=== PATIENT | female | born 1965 | race Caucasian/White ===

== ENCOUNTER → 2019-02-09 | Outpatient (CLI) | payer BC, SELFPAY ==
[2019-02-09 17:48] LABS: Anion Gap 6 (5-15); BUN 11 mg/dL (7-18); BUN/Creat Ratio 13.8 RATIO (10-20); Calcium,Total 8.9 mg/dL (8.5-10.1); Chloride 109 mmol/L (98-107); Cholesterol 204 mg/dL (200); EST Glomerular Filtration Rate 81 mL/min (>60); Est Glom Filt Rate - Afr Amer 97 mL/min (>60); Glucose 83 mg/dL (74-106); High Density Lipoprotein 42 mg/dL; Potassium 3.7 mmol/L (3.5-5.1); Sodium Level 140 mmol/L (136-145); Triglycerides 174 mg/dL; Very Low Density Lipoprotein 35 mg/dL (5-40)
== END | disposition home or self-care (01) ==
PROVIDERS: Family Provider Family Medicine; PCP Family Medicine; Visit Provider Family Medicine
DX: I10 Essential (primary) hypertension (principal)
CPT/HCPCS: 36415; 80048; 80061

== ENCOUNTER → 2019-09-05 | Outpatient (CLI) | payer BC, SELFPAY ==
[2019-09-05 12:01] LABS: Anion Gap 4 (5-15); BUN 16 mg/dL (7-18); BUN/Creat Ratio 19.6 RATIO (10-20); Calcium,Total 8.9 mg/dL (8.5-10.1); Chloride 109 mmol/L (98-107); Cholesterol 217 mg/dL (200); Creatinine, Serum 0.82 mg/dL (0.55-1.02); EST Glomerular Filtration Rate 78 mL/min (>60); Est Glom Filt Rate - Afr Amer 94 mL/min (>60); Glucose 104 mg/dL (74-106); High Density Lipoprotein 40 mg/dL; Potassium 4.6 mmol/L (3.5-5.1); Sodium Level 139 mmol/L (136-145); Triglycerides 128 mg/dL; Very Low Density Lipoprotein 26 mg/dL (5-40)
[2019-09-07 16:07] LABS: Endomysial Antibody IgA Negative (Negative)
[2019-09-07 18:50] LABS: Immunoglobulin A 242 mg/dL (87-352); t-Transglutaminase IgA <2 U/mL (0-3)
== END | disposition home or self-care (01) ==
LOC: LAB 10:23
PROVIDERS: Family Provider Family Medicine; PCP Family Medicine; Referring Provider Family Medicine; Visit Provider Family Medicine
DX: I10 Essential (primary) hypertension (principal); K58.9 Irritable bowel syndrome, unspecified
CPT/HCPCS: 36415; 80048; 80061; 82784; 83516; 86255

== ENCOUNTER → 2020-08-15 | Outpatient (CLI) | payer BC, SELFPAY ==
[2020-08-15 19:01] LABS: ALB/GLOB Ratio 1.1 RATIO (0.9-2.4); AST(SGOT) 15 U/L (15-37); Alanine Aminotransfer ALT/SGPT 49 U/L (13-56); Albumin, Serum 4.1 g/dL (3.2-5.0); Alkaline Phosphatase 58 U/L (45-117); Anion Gap 6 (5-15); BUN 18 mg/dL (7-18); BUN/Creat Ratio 22.9 RATIO (10-20); Calcium,Total 9.4 mg/dL (8.5-10.1); Chloride 106 mmol/L (98-107); Cholesterol 180 mg/dL (200); Creatinine, Serum 0.78 mg/dL (0.55-1.02); EST Glomerular Filtration Rate 81 mL/min (>60); Est Glom Filt Rate - Afr Amer 98 mL/min (>60); Globulin 3.7 g/dL (2.2-4.2); Glucose 87 mg/dL (74-106); High Density Lipoprotein 47 mg/dL; Potassium 4.1 mmol/L (3.5-5.1); Protein, Total 7.8 g/dL (6.4-8.2); Sodium Level 140 mmol/L (136-145); Triglycerides 127 mg/dL; Very Low Density Lipoprotein 25 mg/dL (5-40)
== END | disposition home or self-care (01) ==
LOC: MFPLAB 16:02
PROVIDERS: PCP Family Medicine; Visit Provider Family Medicine
DX: I10 Essential (primary) hypertension (principal)
CPT/HCPCS: 36415; 80053; 80061

== ENCOUNTER 2021-01-12 12:00 | Day surgery (SDC) | payer BC, SELFPAY ==
[2021-01-06 08:51] VITALS: BMI 26.9
[2021-01-12] VITALS (8 sets, daily range): BP systolic 117–141; BP diastolic 62–94; PULSE 64–81; RESP 14–16; TEMP 36–37.2; O2SAT 99–100; BMI 26.3
--- NOTE | 2021-01-12 | IMM_PTH ---
PATIENT: EVELIA OLVERA LOC: EN U#:[id number] AGE/SX: 55/F ROOM: RE01/12/[address]: Dr. Cassandra Lovell MD : 1965 BED: DIS: 01/12/2021 SPEC #: [id number] RECD: 01/13/21 09:36 STATUS: CHANELL REQ #: [id number] SANTIAGO: 01/12/21 00:[address]: Cassandra Lovell DEPT: IMMUNOHISTOCHEMISTRY RECD BY: Bhumi Carver ENTERED: 01/13/21 09:38 SP TYPE: IMMUNO OTHR DR: Dr. Barney Brice MD Tissues: B - Rectum, NOS Procedures: MSH2 (add) MLH-1 (add) MSH6 (add) Anti-PMS2 (add) HARRIS-2 (add) P53 (add) KI-67 (initial) PHYSICIAN & INSTITUTION [place] [address] SPECIMEN INFORMATION: Tissue Source: B - Rectal mass, biopsy Clinical Info: Rectal mass, bright red blood, LLQ abdominal discomfort Specimen Number: [id number] CPT code: 70042, 34832 x6 METHODOLOGY: Deparaffinized sections of prefer/formalin-fixed tissue or PAP/DQ stained slides are incubated with monoclonal/polyclonal antibodies/oligonucleotide probes. Localization is made via biotin free immunoperoxidase method. Appropriate controls are performed and reacted as expected. Results on target cell population are indicated in the following table: RESULTS: ANTIBODY / CLONE RESULT Block B Ki-67 (30-9) positive, >90% P53 (DO-7) positive, 5-10% HARRIS-2 (SP21) positive MLH-1 (M1) positive MSH2 (25D12) positive MSH6 (44) positive PMS2 (FSQ7622) positive These tests were developed and their performance characteristics determined by [facility]. They may not have been cleared or approved by the U.S. Food and Drug Administration. The FDA has determined that such clearance or approval is not necessary. The above immunohistochemical/dualISH markers are ordered and reviewed by the Pathologist. INTERPRETATION: B. Rectal mass, biopsy: Adenocarcinoma. Result of Microsatellite Instability Study: Negative (no loss of mismatch protein; no microsatellite instability detected). AM:abdelrahman 01/16/2021
--- NOTE | 2021-01-12 | COL._PTH ---
PATIENT: EVELIA OLVERA LOC: EN U#:[id number] AGE/SX: 55/F ROOM: RE01/12/[address]: Dr. Cassandra Lovell MD : 1965 BED: DIS: 01/12/2021 SPEC #: [id number] RECD: 01/12/21 13:52 STATUS: CHANLEL REJosue #: [id number] SANTIAGO: 01/12/21 00:[address]: Cassandra Lovell DEPT: SURGICAL PATHOLOGY RECD BY: Bhumi Carver ENTERED: 01/12/21 14:22 SP TYPE: COLON OTHR DR: Dr. Barney Brice MD Tissues: A - Rectum, NOS B - Rectum, NOS Procedures: Frozen Section (charge) Surgery Specimen Level IV HEADER OPERATION: Colonoscopy ([facility] [place]) PRE-OP DIAGNOSIS: Mass in rectum; bright red blood per rectum; abdominal discomfort in left lower quadrant TISSUE SUBMITTED: A - Rectal mass biopsy, FS, B - Rectal mass biopsy, path FROZEN SECTION DIAGNOSIS A. Rectal mass, biopsy: Adenocarcinoma. AM:abdelrahman 01/12/2021 MICROSCOPIC DIAGNOSIS A. Rectal mass, biopsy: Invasive adenocarcinoma. B. Rectal mass, biopsy: Well differentiated invasive adenocarcinoma. See comment. SJ:abdelrahman 01/13/2021 COMMENT B. Immunohistochemistry for MSI/mismatch repair protein by IHC will be performed ([id number]) and the results will be reported separately. The results are reported to Dr. Lovell's office on 01/13/21 at 8:42 a.m. This case is discussed with Dr. Lovell on 01/13/2021. Case has been reviewed in consultation with Dr. Lane who concurs with the above diagnosis. IDC:AM MICROSCOPIC DESCRIPTION Slides are reviewed. GROSS DESCRIPTION A - Received fresh for frozen section consultation labeled with the patient's name is a specimen designated rectal mass. The specimen consists of multiple irregular fragments of painting tissue that in aggregate measure 0.5 x 0.2 x 0.1 cm. The specimen is submitted in its entirety for frozen section consultation in one cassette. B - Received in fixative is one container labeled with the patient's name and designated rectal mass. The specimen consists of multiple irregular fragments of light painting soft tissue that in aggregate measure 1 x 0.3 x 0.1 cm. The specimen is totally submitted in one cassette. / AM:abdelrahman 01/12/21 TC:0 CPT: 40331 x2, 40276
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
[2021-01-12] MEDS: Lactated Ringers 1,000 ML 100 ML IV (13:07)
--- NOTE | 2021-01-12 13:55 | OP.COLON_ITS ---
Patient Name: Laila Bailon Procedure Date: 01/12/2021 1:11 PM Date of : 1965 Age: 55 Procedure: Colonoscopy Indications: Rectal bleeding, Rectal mass Providers: Cassandra Lovell MD Referring MD: Barney Brice MD Medicines: Monitored Anesthesia Care Patient Profile: This is a 55 year old female. Last Colonoscopy: none. The patient's first colonoscopy is today. Complications: No immediate complications. Procedure: Pre-Anesthesia Assessment: - Prior to the procedure, a History and Physical was performed, and patient medications and allergies were reviewed. The patient's tolerance of previous anesthesia was also reviewed. The risks and benefits of the procedure and the sedation options and risks were discussed with the patient. All questions were answered, and informed consent was obtained. Prior Anticoagulants: The patient has taken no previous anticoagulant or antiplatelet agents. ASA Grade Assessment: Per anesthesia. After reviewing the risks and benefits, the patient was deemed in satisfactory condition to undergo the procedure. After I obtained informed consent, the scope was passed under direct vision. Throughout the procedure, the patient's blood pressure, pulse, and oxygen saturations were monitored continuously. The Colonoscope was introduced through the anus and advanced to the cecum, identified by the appendiceal orifice, ileocecal valve and palpation. The colonoscopy was performed without difficulty. The patient tolerated the procedure well. The quality of the bowel preparation was good. Scope In: 1:26:43 PM Scope Withdrawal Time 0 hours 12 minutes 56 seconds Scope Out: 1:47:18 PM Total Procedure Duration Time 0 hours 20 minutes 35 seconds Findings: The digital rectal exam revealed a 4 cm (diameter) firm rectal mass palpated 1.0 cm from the anal verge. The mass was located between the 3- and 7-o'clock positions (with respect to the circumference of the bowel). A frond-like/villous non-obstructing medium-sized mass was found in the rectum. The mass was partially circumferential (involving one-third of the lumen circumference). The mass measured four cm in length. Oozing was present. Biopsies were taken with a cold forceps for histology. The exam was otherwise without abnormality. Impression: - Rectal mass 1.0 cm from the anal verge. - Likely malignant tumor in the rectum. Biopsied. - The examination was otherwise normal. Recommendation: - Discharge patient to home. - Resume previous diet. - Continue present medications. - Await pathology results. - Refer to a colo-rectal surgeon at appointment to be scheduled. - Repeat colonoscopy is recommended. The colonoscopy date will be determined after pathology results from today's exam become available for review. Procedure Code(s): --- Professional --- 62800, Colonoscopy, flexible; with biopsy, single or multiple Diagnosis Code(s): --- Professional --- K62.89, Other specified diseases of anus and rectum D49.0, Neoplasm of unspecified behavior of digestive system K62.5, Hemorrhage of anus and rectum CPT copyright 2017 [employer] [place] [employer]. All rights reserved. The codes documented in this report are preliminary and upon conference reservationist review may be revised to meet current compliance requirements. MD Cassandra Ordoñez MD 01/12/2021 1:54:55 PM This report has been signed electronically. Number of Addenda: 0 Note Initiated On: 01/12/2021 1:11 PM
--- NOTE | 2021-01-12 13:55 | OP.CCLET_ITS ---
01/12/2021 Barney Brice MD [address] [place] [address] Re : Colonoscopy procedure for Laila Bailon Dear Dr. Brice This procedure was performed on January. My impressions and recommendations are as follows: Impressions : - Rectal mass 1.0 cm from the anal verge. - Likely malignant tumor in the rectum. Biopsied. - The examination was otherwise normal. Recommendations : - Discharge patient to home. - Resume previous diet. - Continue present medications. - Await pathology results. - Refer to a colo-rectal surgeon at appointment to be scheduled. - Repeat colonoscopy is recommended. The colonoscopy date will be determined after pathology results from today's exam become available for review. My findings are described in the full procedure note, which is enclosed. If I can be of further assistance, please feel free to contact me at Doctor phone number(s): , Work: . Sincerely, MD Cassandra Ordoñez MD 01/12/2021 1:54:55 PM This report has been signed electronically.
--- NOTE | 2021-01-12 14:11 | CT_ITS ---
STUDY: CT CHEST, ABDOMEN T PELVIS WITH CONTRAST REASON FOR EXAM: Female, 55 years old. rectal cancer staging RADIATION DOSAGE (If Supplied By Facility): CTDIvol = ( 14.83 ) mGy, DLP = ( 1140.64 ) mGycm TECHNIQUE: Transaxial imaging was performed following intravenous administration of Oral and amp; IV Gastrografin and amp; 100mL Isovue-300. Individualized dose optimization techniques were used for this CT. COMPARISON: No relevant priors. FINDINGS: CHEST The lungs are normal. There is no demonstrated pleural abnormality. Normal heart and pericardium. Normal mediastinum. Normal hilar regions. Normal unenhanced pulmonary arteries. Normal aorta arch and descending thoracic aorta. Normal osseous structures. ABDOMEN and pelvis Normal liver. Normal gallbladder and extrahepatic biliary system. Normal spleen. Normal pancreas. Normal bilateral adrenal glands. Normal right kidney. Normal left kidney. Normal visualized stomach. Normal small intestine. Normal colon. There is no specific thickening or mass of the rectum, although this exam cannot exclude rectal cancer. The appendix is visualized and appears normal. Normal abdominal aorta. Normal inferior vena cava. Normal retroperitoneum. Normal urinary bladder. Normal visualized small intestine. Normal visualized colon. There is no pelvic fluid. There is no pelvic lymphadenopathy or mass lesion. Normal visualized pelvic arteries. Normal abdominal wall. Normal osseous structures. CT/CT Chest, Abd, Pel w/Contrast IMPRESSION: Normal enhanced CT chest, abdomen T pelvis examination. Electronically Signed: Demond Daly MD at 17:37 EST , Service support ,
[2021-01-12 17:28] LABS: Absolute Neutrophil Count 2.7 X10^3/uL (2.0-7.7); Basophil# 0.03 X10^3/uL; Basophil% 0.6 % (0-1); Eosinophil# 0.06 X10^3/uL; Eosinophils% 1.3 % (0-5); Hematocrit 41.4 % (37-47); Hemoglobin 14.2 g/dL (12.0-15.0); Lymphocyte % 32.4 % (19-41); Mean Corp Hgb Conc 34.3 g/dL (32-36); Mean Corpuscular Hgb 30.9 pg (27.0-32.0); Mean Corpuscular Volume 90.2 fL (81-99); Monocyte# 0.35 X10^3/uL; Monocyte% 7.6 % (0-10); NRBC Flagged by Analyzer 0 % (0-5); Neutrophil # 2.68 X10^3/uL (2.7-7.7); Neutrophil % 57.9 % (47-70); Platelet Count 265 K/mm3 (150-450); RBC Distribution Width CV 11.7 % (11.6-14.6); RBC Distribution Width SD 38.3 fl (35.1-43.9); Red Blood Count 4.59 M/mm3 (4.2-5.4); White Blood Count 4.6 K/mm3 (4.4-11.0)
[2021-01-12 17:41] LABS: ALB/GLOB Ratio 1.1 RATIO (0.9-2.4); AST(SGOT) 17 U/L (15-37); Alanine Aminotransfer ALT/SGPT 28 U/L (13-56); Alkaline Phosphatase 57 U/L (45-117); Anion Gap 7 (5-15); BUN 15 mg/dL (7-18); BUN/Creat Ratio 16.6 RATIO (10-20); Calcium,Total 9.1 mg/dL (8.5-10.1); Chloride 107 mmol/L (98-107); Creatinine, Serum 0.91 mg/dL (0.55-1.02); EST Glomerular Filtration Rate 69 mL/min (>60); Est Glom Filt Rate - Afr Amer 83 mL/min (>60); Estimated Creatinine Clearance 68.73 ml/min; Globulin 3.5 g/dL (2.2-4.2); Glucose 81 mg/dL (74-106); Potassium 4.1 mmol/L (3.5-5.1); Protein, Total 7.5 g/dL (6.4-8.2); Sodium Level 141 mmol/L (136-145)
[2021-01-14 09:48] LABS: Carcinoembryonic Antigen 2.7 ng/mL (0.0-4.7)
== END 2021-01-12 16:33 | disposition home or self-care (01) ==
LOC: EN 12:00 → AC 12:00
PROVIDERS: PCP Family Medicine; Referring Provider Family Medicine; Visit Provider Surgery
PROC: 0DJD8ZZ Inspection of Lower Intestinal Tract, Via Natural or Artificial Opening Endoscopic (ICD-10-PCS; CPT 45378; principal; 2021-01-12 13:10)
DX: C20 Malignant neoplasm of rectum (principal); I10 Essential (primary) hypertension; Z79.899 Other long term (current) drug therapy; Z20.822 Contact with and (suspected) exposure to COVID-19
CPT/HCPCS: 45380; 71260; 74177; 80053; 82378; 85025; 87426; 88305; 88309; 88331; 88341; 88342; C9803; Q9967; A4216; J2405

== ENCOUNTER → 2021-01-31 07:11 | Outpatient (CLI) | payer BC, SELFPAY ==
[2021-01-12 12:17] VITALS: BMI 26.3
--- NOTE | 2021-01-31 07:16 | MRI_ITS ---
STUDY: MR PELVIS WITH T WITHOUT CONTRAST REASON FOR EXAM: Female, 55 years old. Rectal cancer staging. Rectal cancer found during colonoscopy. TECHNIQUE: Standardized fat and water weighted pulse sequences were obtained in all 3 orthogonal planes, pre-and post contrast administration. IV 15ml Dotarem was administered for the contrast portion of the examination. COMPARISON: CT of the abdomen and pelvis, 01/12/2021. FINDINGS: There is a circumferential soft tissue mass in the rectum with narrowing of the lumen. This extends for approximately 2.3 cm with thickened rivas measuring 1 cm in diameter. The anus appears intact. The colon proximal to the rectum appears grossly normal without obstruction. No evidence invasion of the surrounding perineural rectal fat. Normal urinary bladder. Normal visualized small intestine. Normal uterus. The ovaries are not clearly identified. Normal vaginal vault. There is no pelvic fluid. There is no pelvic mass lesion or lymphadenopathy. Normal visualized pelvic arteries. Normal osseous structures. Normal abdominal wall. MRI/Pelvis W/WO Contrast IMPRESSION: 1. Soft tissue rectal mass without evidence of local extension or visualized metastatic disease. 2. Nonvisualization of the ovaries. 3. No other major pelvic abnormality. Electronically Signed: Tien Thomson DO at 16:33 EDT Tel [phone], Service support ,
== END ==
PROVIDERS: PCP Family Medicine
DX: C20 Malignant neoplasm of rectum (principal)
CPT/HCPCS: 72197; A9575

== ENCOUNTER 2021-02-06 17:16 | Emergency (ER) | payer BC, SELFPAY ==
[2021-01-12 12:17] VITALS: BMI 26.3
[2021-02-06 17:17] VITALS: BP 130/77; PULSE 76; RESP 15; TEMP 36.8; O2SAT 98; BMI 26.9
--- NOTE | 2021-02-06 17:34 | CT_ITS ---
INDICATION: RLQ pain EXAMINATION: CT Abdomen And Pelvis W/ Contrast Injection TECHNIQUE: Helically acquired images were obtained of the abdomen and pelvis after IV contrast. A radiation dose optimization technique was used for this scan. IV Contrast dosage and agent: 100 cc ISOVUE-300 Oral contrast: Yes. COMPARISON: CT 01/12/2021; MR 01/31/2021. FINDINGS: Visualized lung bases: Unremarkable Liver: 2.1 x 1.9 x 1.5 cm round hypodense area in segment IVb of the liver adjacent to the falciform ligament (image 32, series 2). Gallbladder: Unremarkable Spleen: Unremarkable Pancreas: Unremarkable Adrenal Glands: Unremarkable Kidneys: Unremarkable GI Tract: Near the hepatic flexure there is a 2.3 x 1.2 cm oblong-shaped fat containing lesion with a thick enhancing rim (image 49, series 2). This is new when compared to recent CT on 01/12/2021. The known rectal mass is better characterized on recent pelvic MRI dated 01/31/2021. Vasculature: Unremarkable Lymphadenopathy: None Peritoneum: No ascites. 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 2.1 cm hypodense region near the falciform ligament most likely represents focal fatty infiltration, however, due to it''s rounded shape, cannot rule out mass. Taking into consideration patient''s history of rectal cancer, recommend MR liver mass protocol with and without contrast for further evaluation. Electronically Signed: Dalton Ty MD at 20:21 EDT Tel , Service support ,
--- NOTE | 2021-02-06 17:55 | ED.VISSUMM ---
- ER Visit Summary Date of Service: 02/06/21 Chief Complaint: Abdominal pain History of Present Illness: The patient is a 55 F presenting with abdominal pain. Patient states this started 4 days ago. She has pain in the right upper and lower quadrants. Patient was recently diagnosed with rectal cancer in January. She had a colonoscopy and CT scan on January 12 which showed rectal cancer. She had a follow-up MRI last Saturday. She has an appointment with [facility] radiation oncology this coming Saturday. She states for the past 4 days she has had increasing right lower quadrant and right upper quadrant pain. She has had decreased appetite. She has had mild nausea with no vomiting. Denies diarrhea or constipation. Denies blood in stool. She has mild dysuria. Denies fever. She was seen by her primary care physician today and sent to the ED for further evaluation. Physical Examination: Vitals are stable. Patient is afebrile. Alert no acute distress. HEENT exam is unremarkable. Neck is supple. Lungs are clear and equal bilaterally. Heart is regular rate and rhythm. Abdomen is soft right upper and right lower quadrant tenderness with voluntary guarding, no rebound Extremities are unremarkable. Skin is warm and dry. Remainder of exam is unremarkable. Emergency Department Course and Treatment: Patient was given morphine, Zofran IV. CBC, chemistries unremarkable. Total bili 1.4. Urinalysis unremarkable hCG negative. CT abdomen pelvis shows new omental infarct near the hepatic flexure. 2.1 cm hypodense region near the falciform ligament most likely represents focal fatty infiltration, however, due to it''s rounded shape, cannot rule out mass. Taking into consideration patient''s history of rectal cancer, recommend MR liver mass protocol with and without contrast for further evaluation. Findings were discussed with Dr. Mata and Dr. Brice, patient's surgeon and primary care physician. She will have close outpatient follow-up and will be given prescription for Percocet. She will follow-up with her [facility] appointment on Saturday. She is agreeable with this plan. Advised return to the ED for worsening complaints. Disposition: Discharge home Impression: Abdominal pain, history of rectal cancer This note was generated with [employer] dictation software. It may contain incorrect words, spelling, and punctuation that were not noted in review of the chart prior to signing ED Disposition - Plan for ED Patient: Instructions: ED Abdominal Pain Unkn Cause Fem Prescriptions: Oxycodone HCl/Acetaminophen [Percocet 5/325] 1 tablet PO Q6H PRN PRN 3 Days #12 tab PRN Reason: Pain Prescription Printed Referrals: Barney Brice MD [Primary Care Provider] -
[2021-02-06] MEDS: Morphine 4 MG/ML Syringe IV ×2 (17:56→20:58)
[2021-02-06] MEDS: Ondansetron 4 MG/2 ML Vial IV (17:56)
[2021-02-06 18:02] LABS: Absolute Lymphocyte Count 2.17 X10^3/uL (0.83-4.51); Basophil# 0.04 X10^3/uL; Basophil% 0.6 % (0-1); Eosinophil# 0.08 X10^3/uL; Eosinophils% 1.2 % (0-5); Hematocrit 41.3 % (37-47); Hemoglobin 14.3 g/dL (12.0-15.0); Lymphocyte # 2.17 X10^3/ul (4.0); Lymphocyte % 32.5 % (19-41); Mean Corp Hgb Conc 34.6 g/dL (32-36); Mean Corpuscular Volume 89.6 fL (81-99); Mean Platelet Vol. 9.7 fl (6.2-12.0); Monocyte# 0.42 X10^3/uL; Monocyte% 6.3 % (0-10); NRBC Flagged by Analyzer 0 % (0-5); Neutrophil # 3.95 X10^3/uL (2.7-7.7); Neutrophil % 59.1 % (47-70); Platelet Count 258 K/mm3 (150-450); RBC Distribution Width CV 11.9 % (11.6-14.6); RBC Distribution Width SD 38.2 fl (35.1-43.9); Red Blood Count 4.61 M/mm3 (4.2-5.4); White Blood Count 6.7 K/mm3 (4.4-11.0)
[2021-02-06 18:04] LABS: POSITIVE COUNT NO; POSITIVE DIFFERENTIAL NO; POSITIVE MORPHOLOGY NO
[2021-02-06 18:06] LABS: Bacteria 0 SEEN /hpf (None Seen); Mucous, Urine 0 SEEN /hpf (<or=2+); Red Blood Cells-Urine 0 SEEN /hpf (0-5)
--- NOTE | 2021-02-06 18:17 | ED.RN ---
ct drink started at 1814
[2021-02-06 18:18] LABS: ALB/GLOB Ratio 1.1 RATIO (0.9-2.4); AST(SGOT) 13 U/L (15-37); Alanine Aminotransfer ALT/SGPT 32 U/L (13-56); Albumin, Serum 4.3 g/dL (3.2-5.0); Alkaline Phosphatase 61 U/L (45-117); Anion Gap 6 (5-15); BUN 15 mg/dL (7-18); BUN/Creat Ratio 18.3 RATIO (10-20); Calcium,Total 9.3 mg/dL (8.5-10.1); Chloride 107 mmol/L (98-107); Creatinine, Serum 0.82 mg/dL (0.55-1.02); EST Glomerular Filtration Rate 77 mL/min (>60); Est Glom Filt Rate - Afr Amer 94 mL/min (>60); Estimated Creatinine Clearance 76.27 ml/min; Globulin 3.9 g/dL (2.2-4.2); Glucose 83 mg/dL (74-106); Lipase 110 U/L (73-393); Potassium 3.9 mmol/L (3.5-5.1); Protein, Total 8.2 g/dL (6.4-8.2); Sodium Level 139 mmol/L (136-145)
[2021-02-06 18:30] LABS: Color, Urine Yellow (Yellow); Glucose, Dipstick Normal (Normal); Ketone-Dipstick Negative (Negative); Leukocyte Esterase-Dipstick 100 /ul (Negative); Nitrite-Dipstick Negative (Negative); Occult Blood-Urine Negative /ul (Negative); Protein-Dipstick Negative (Negative); Urine Bilirubin Dipstick Negative (Negative); Urine Clarity Clear (Clear); Urine Urobilinogen Normal (Normal); Urine pH 6.5 (5.0 - 8.0)
[2021-02-06 18:35] LABS: Renal Epithelial Cells 0-5 SEEN /hpf (0-5); Squamous Epithelial Cells - UA 0-5 SEEN /hpf (5-10); White Blood Cells 0-5 SEEN /hpf (0-5)
[2021-02-06 18:36] LABS: Internal QC Validated? YES +Cl - CLEAR BKGD; Pregnancy, Serum, hCG Quali. NEGATIVE Negative
[2021-02-06 20:46] VITALS: BP 162/85; PULSE 69; RESP 16; TEMP 36.7; O2SAT 99
--- NOTE | 2021-02-06 21:46 | ED.DEP ---
ED Disposition - Plan for ED Patient: Instructions: ED Abdominal Pain Unkn Cause Fem Prescriptions: Oxycodone HCl/Acetaminophen [Percocet 5/325] 1 tablet PO Q6H PRN PRN 3 Days #12 tab PRN Reason: Pain Prescription Printed Referrals: Barney Brice MD [Primary Care Provider] -
== END 2021-02-06 22:01 | disposition home or self-care (01) ==
PROVIDERS: Emergency Provider Emergency Medicine; PCP Family Medicine
DX: R10.11 Right upper quadrant pain (principal); R10.31 Right lower quadrant pain; C20 Malignant neoplasm of rectum; I10 Essential (primary) hypertension; Z79.899 Other long term (current) drug therapy
CPT/HCPCS: 74177; 80053; 81001; 83690; 84703; 85025; 96361; 96374; 96375; 96376; 99284; J7120; Q9967; A4216; J2405

== ENCOUNTER → 2021-02-08 13:34 | Outpatient (CLI) | payer BC, SELFPAY ==
[2021-02-06 17:17] VITALS: BMI 26.9
--- NOTE | 2021-02-08 13:51 | MRI_ITS ---
STUDY: MRI ABDOMEN WITH AND WITHOUT CONTRAST REASON FOR EXAM: Female, 55 years old. ABD PAIN, HEPATIC INFARCTION TECHNIQUE: Standardized fat and water weighted pulse sequences were obtained in all 3 orthogonal planes post contrast administration. 15ML IV DOTAREM was administered for the contrast portion of the examination. COMPARISON: CT 02/06/2021 FINDINGS: The visualized lung bases are unremarkable. The visualized portions of the heart are within normal limits. Normal liver. Normal gallbladder and extrahepatic biliary system. Normal spleen. Normal pancreas. Normal bilateral adrenal glands. Normal right kidney. Normal left kidney. Normal visualized stomach. Normal small intestine. Normal colon. The appendix is visualized and appears normal. Normal abdominal aorta. Normal inferior vena cava. Normal retroperitoneum. Normal abdominal wall. Normal osseous structures. MRI/MRI Abd WITH and W/O Contrast IMPRESSION: Normal unenhanced and enhanced MRI of the abdomen. Area seen on CT likely represents focal fatty infiltration. Electronically Signed: Lewis Ravi MD at 15:53 EDT Tel , Service support ,
== END ==
PROVIDERS: PCP Family Medicine; Referring Provider Family Medicine; Visit Provider Family Medicine
DX: R10.9 Unspecified abdominal pain (principal)
CPT/HCPCS: 74183; A9575; A4216

== ENCOUNTER → 2023-03-05 | Outpatient (CLI) | payer OTHER, SELFPAY ==
--- NOTE | 2023-03-05 09:31 | NM_ITS ---
CLINICAL: 57-year-old female with history of colorectal carcinoma presenting with right hemipelvic-sacroiliac pain. WHOLE BODY 99m Tc MDP RADIONUCLIDE BONE SCINTIGRAPHY COMPARISON: None available FINDINGS: Following the intravenous administration of 25.0 mCi of 99m Tc MDP, whole body bone images reveal: 1. Increased radiopharmaceutical concentration is defined in the right sacroiliac joint, sacral ala. 2. Enhanced uptake is noted in the fifth lumbar vertebra posteriorly on the left, seventh thoracic vertebra posteriorly on the right, the acromioclavicular compartments of both shoulders, the sternoclavicular compartment of the left shoulder, the upper cervical spine posteriorly on the left and right, the right elbow, the knees bilaterally, both hands. 3. The remaining skeletal structures are scintigraphically unremarkable with normal-appearing renal images and urinary bladder activity identified. NM/Bone Scan Whole Body IMPRESSION: 1. 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 Plain film radiography correlation is recommended. 2. Degenerative arthritis appears evident in the cervical, thoracic and lumbar spine, the bilateral shoulders, the right elbow, the knees bilaterally, the right-left hands. Electronically Signed: Lewis Varner, at 22:49 EDT ,
== END | disposition home or self-care (01) ==
PROVIDERS: PCP Family Medicine
DX: C20 Malignant neoplasm of rectum (principal)
CPT/HCPCS: 78306; A9503

== ENCOUNTER → 2023-03-08 | Outpatient (CLI) | payer OTHER, SELFPAY ==
--- NOTE | 2023-03-08 15:29 | RAD_ITS ---
STUDY: X-RAY - PELVIS REASON FOR EXAM: Female, 57 years old. HIP FRACTURE TECHNIQUE: One view of the pelvis was obtained. COMPARISON: None. FINDINGS: There is a non-specific bowel gas pattern. There is a stoma projecting over the left lower quadrant Normal bilateral iliac wings, sacroiliac joints and visualized sacrum. Normal visualized bilateral superior and inferior pubic rami. Normal pubic symphysis. Normal ischial tuberosities. Normal visualized right femoral head. Normal right acetabulum. Normal right hip joint. Normal visualized left femoral head. Normal left acetabulum. Normal left hip joint. RAD/Pelvis 1 or 2 Views IMPRESSION: No evidence for acute hip or pelvic fractures Electronically Signed: Landen Beasley MD at 19:09 EDT ,
--- NOTE | 2023-03-08 15:29 | RAD_ITS ---
INDICATION: HIP FRACTURE EXAMINATION/TECHNIQUE: X-RAY - XR Hips Bilateral with Pelvis when performed; 2 Views COMPARISON: None. FINDINGS: PELVIC BONES: No displaced fracture, destructive or sclerotic lesions. Note that overlapping bowel shadows may however obscure fine detail. Sacroiliac joints are unremarkable. No widening of the pubic symphysis. HIPS: The articular structures are unremarkable. No displaced fracture seen in this frontal view. SOFT TISSUES: No soft tissue swelling or gas. RAD/Hips B/L min 2 views w/ Pelvis IMPRESSION: No evidence of displaced pelvic or hip fracture. Electronically Signed: Landen Beasley MD at 19:46 EDT ,
== END | disposition home or self-care (01) ==
LOC: MTRAD 15:28
PROVIDERS: PCP Family Medicine; Referring Provider Family Medicine; Visit Provider Family Medicine
DX: S72.009A Fracture of unspecified part of neck of unspecified femur, initial encounter for closed fracture (principal); X58.XXXA Exposure to other specified factors, initial encounter
CPT/HCPCS: 72170; 73521

== ENCOUNTER → 2023-04-22 | Outpatient (CLI) | payer OTHER, SELFPAY ==
[2023-04-22 14:45] LABS: Anion Gap 6 (5-15); BUN 15 mg/dL (7-18); BUN/Creat Ratio 20.2 RATIO (10-20); Calcium,Total 9.1 mg/dL (8.5-10.1); Chloride 110 mmol/L (98-107); Creatinine, Serum 0.74 mg/dL (0.55-1.02); EST Glomerular Filtration Rate 86 mL/min (>60); Est Glom Filt Rate - Afr Amer 104 mL/min (>60); Glucose 92 mg/dL (74-106); Potassium 3.7 mmol/L (3.5-5.1); Sodium Level 142 mmol/L (136-145)
[2023-04-25 14:09] LABS: Vitamin D 1,25-Dihydroxy 57.7 pg/mL (24.8-81.5)
== END | disposition home or self-care (01) ==
LOC: MTLAB 11:58
PROVIDERS: PCP Family Medicine; Referring Provider Family Medicine; Visit Provider Family Medicine
DX: M81.0 Age-related osteoporosis without current pathological fracture (principal)
CPT/HCPCS: 36415; 80048; 82652

== ENCOUNTER → 2023-05-21 | Outpatient (CLI) | payer OTHER, SELFPAY | END | disposition home or self-care (01) | LOC: MRI 07:54 | PROVIDERS: PCP Family Medicine; Referring Provider Orthopaedic Surgery; Visit Provider Orthopaedic Surgery | DX: M48.48XA Fatigue fracture of vertebra, sacral and sacrococcygeal region, initial encounter for fracture (principal); X58.XXXA Exposure to other specified factors, initial encounter ==

== ENCOUNTER → 2023-06-11 | Outpatient (CLI) | payer OTHER, SELFPAY ==
--- NOTE | 2023-06-11 08:03 | BD_ITS ---
STUDY: DUAL ENERGY X-RAY ABSORPTIOMETRY / DXA REASON FOR EXAM: Female, 57 years old. M81.0 TECHNIQUE: Bone Mineral Density (BMD) measurements of lumbar spine and bilateral hips were obtained. COMPARISON: None. FINDINGS: Lumbar Spine (L1-L4): g/cm2 (0.961) / T-score (-0.8) / Z-score (0.4) Findings are suggestive of normal bone density with a low fracture risk. Left Femur Total: g/cm2 (0.859) / T-score (-0.7) / Z-score (0.1) Left Femoral Neck: g/cm2 (0.702) / T-score (-1.3) / Z-score (-0.2) Right Femur Total: g/cm2 (0.937) / T-score (0.0) / Z-score (0.7) Right Femoral Neck: g/cm2 (0.747) / T-score (-0.9) / Z-score (0.2) BD/Dexa Bone Density Study IMPRESSION: The patient is considered osteopenic as outlined below according to World [employer] Organization (WHO) criteria with a low fracture risk. Reference Information: The T-score is the number of standard deviations above or below the standard which is normal for young adults at their peak bone mineral density. The World Health Organization (WHO) interprets the T-scores as follows: Above -1 Normal bone density Between -1 and -2.5 Osteopenia Equal to / or below -2.5 Osteoporosis As a practical clinical guideline, osteopenia may be graded as follows: Mild -1 through -1.5 Moderate -1.6 through -2.0 Severe -2.1 through -2.4 The Z-score is the number of standard deviations above or below age-matched controls. A Z-score of less than -1.5 would be considered abnormal. References: 1. NIH Osteoporosis and Related Bone Diseases www osteo.org 2. International Society for Clinical Densitometry www iscd.org 3. National Osteoporosis Foundation www nof.org Electronically Signed: Daniel Evangelista MD at 8:20 EDT ,
== END | disposition home or self-care (01) ==
LOC: OPBD 07:53
PROVIDERS: PCP Family Medicine; Referring Provider Family Medicine; Visit Provider Family Medicine
DX: M81.0 Age-related osteoporosis without current pathological fracture (principal)
CPT/HCPCS: 77080

== ENCOUNTER → 2023-12-18 | Outpatient (CLI) | payer OTHER, SELFPAY ==
--- OUTSIDE RECORDS SUMMARY | 2023-12-18 09:57 | XMS RPT_ITS | CCD ---
Author Name Unknown Address [address] [place] [address] Organization [facility] Care Team Providers Care Activity Therapist Name Role Phone LILIANA ANDREWS Referring Unavailable LILIANA ANDREWS Admitting Unavailable Yuniel ECHAVARRIA, Barney Cruz Primary Care Provider Yuniel ECHAVARRIA, Barney Cruz Primary Care Provider Yuniel ECHAVARRIA, Barney Cruz Primary Care Provider BARNEY WILSON Primary Care Unavailable UMAR, DENA Referring Unavailable WILSON, BARNEY Cruz Primary Care Unavailable VITO, STONEY Attending Unavailable VITO, STONEY Referring Unavailable WILSON, BARNEY Cruz Primary Care Unavailable VITO, TSONEY Attending Unavailable VITO, STONEY Referring Unavailable WILSON, BARNEY Cruz Primary Care Unavailable DELORES ALLISON Attending Unavailable SELF, SELF Referring Unavailable WILSON, BARNEY Cruz Referring Unavailable VITO, STONEY Attending Unavailable WILSON, BARNEY Cruz Primary Care Unavailable WILSON, BARNEY Cruz Referring Unavailable VITO, STONEY Attending Unavailable WILSON, BARNEY Cruz Primary Care Unavailable UMAR, DENA Attending Unavailable WILSON, BARNEY R Primary Care Unavailable UMAR, DENA Referring Unavailable WILSON, BARNEY Cruz Referring Unavailable VITO, STONEY Attending Unavailable WILSON, BARNEY Cruz Primary Care Unavailable WILSON, BARNEY Cruz Referring Unavailable VITO, STONEY Attending Unavailable WILSON, BARNEY Cruz Primary Care Unavailable VITO, STONEY Attending Unavailable VITO, STONEY Referring Unavailable WILSON, BARNEY Cruz Primary Care Unavailable WILSON, BARNEY Cruz Referring Unavailable UMAR, DENA Attending Unavailable WILSON, BARNEY Cruz Primary Care Unavailable UMAR, DENA Attending Unavailable WILSON, BARNEY Cruz Primary Care Unavailable UMAR, DENA Referring Unavailable WILSON, BARNEY Cruz Referring Unavailable VITO, STONEY Attending Unavailable WILSON, BARNEY Cruz Primary Care Unavailable STONEY PADRON Referring Unavailable STONEY PADRON Attending Unavailable BARNEY WILSON Primary Care Unavailable BARNEY WILSON Primary Care Unavailable STONEY PADRON Attending Unavailable STONEY PADRON Referring Unavailable BARNEY WILSON Primary Care Unavailable BARNEY WILSON Primary Care Unavailable Allergies Allergy Classification Reported Allergen(s) Allergy Type Date of Onset Reaction(s) Facility (12 sources) Penicillins Propensity to adverse reactions to drug 12-10-2007 [facility] (5 sources) Penicillins Propensity to adverse reactions to drug 12-10-2007 [facility] Medications Current Medications Medication Drug Class(es) Dates Sig (Normalized) Sig (Original) acetaminophen 325 mg oral tablet (2 sources) Start: 06-27-2021 End: 07-07-2021 take 2 tablets by mouth every eight hours acetaminophen 325 MG tablet Take 2 tablets by mouth every 8 hours for 10 days. 60 tablet 0 06/27/2021 07/07/2021 Active Completed/Discontinued Medications Medication Drug Class(es) Dates Sig (Normalized) Sig (Original) barium sulfate (READI-CAT) 2 % oral susp 900 mL (1 source) Start: 07-12-2022 End: 07-12-2022 barium sulfate (READI-CAT) 2 % oral susp 900 mL 2 ml fentaNYL 0.05 mg/ml injection (2 sources) Opioid Agonist Start: 06-25-2022 End: 06-25-2022 fentaNYL (SUBLIMAZE) injection gadoterate Meglumine (DOTAREM) 5 MMOL/10ML injection 3-60 mL (1 source) Start: 04-01-2023 End: 04-01-2023 gadoterate Meglumine (DOTAREM) 5 MMOL/10ML injection 3-60 mL Iohexol (OMNIPAQUE) 300 MG/ML 50 mL in Water po liquid (free water) 950 mL (1 source) Start: 08-24-2023 End: 08-24-2023 Iohexol (OMNIPAQUE) 300 MG/ML 50 mL in Water po liquid (free water) 950 mL iohexol (OMNIPAQUE) 300 MG/ML vial 50 mL (1 source) Start: 06-27-2021 End: 06-27-2021 iohexol (OMNIPAQUE) 300 MG/ML vial 50 mL Iohexol (OMNIPAQUE) 300 MG/ML vial 50 mL (1 source) Start: 02-16-2023 End: 02-16-2023 Iohexol (OMNIPAQUE) 300 MG/ML vial 50 mL iohexol (OMNIPAQUE) 350 MG/ML injection 1-171 mL (4 sources) Start: 08-24-2023 End: 08-24-2023 iohexol (OMNIPAQUE) 350 MG/ML injection 1-171 mL Problems Active Problems Problem Classification Problem Date Documented Da te Episodic/Chronic Cancer of rectum and anus (20 sources) Malignant tumor of rectum; Translations: [Malignant neoplasm of rectum] Onset: 02-01-2021 06-14-2021 Chronic Other aftercare (1 source) H/O: malignant neoplasm; Translations: [Encounter for follow-up examination after completed treatment for malignant neoplasm] 05-31-2023 Episodic Residual codes; unclassified (1 source) H/O: radiation exposure; Translations: [Personal history of irradiation] 05-31-2023 Episodic Past or Other Problems Problem Classification Problem Date Documented Date Episodic/Chronic Genitourinary symptoms and ill-defined conditions (18 sources) Acute retention of urine ; Translations: [Other retention of urine] Onset: 06-14-2021 Episodic Mood disorders (15 sources) Mood disorders Onset: 12-15-2021 Resolved: 05-31-2023 12-15-2021 Skin and subcutaneous tissue infections (1 source) Abscess of abdominal wall; Translations: [Cutaneous abscess of abdominal wall] Episodic Spondylosis; intervertebral disc disorders; other back problems (2 sources) Sacrococcygeal disorders, not elsewhere classified; Translations: [Sacrococcygeal disorders, not elsewhere classified] Onset: 03-11-2023 Episodic Results Test Name Value Interpretation Reference Range Facil ity Vital Signs Date Time Vital Sign Value Performing Clinician Faci lity 08-26-2023 13:35-0400 Body height 168.5 cm Stoney RAM Work Phone: [facility] 08-26-2023 13:35-0400 Body mass index (BMI) [Ratio] 30.64 kg/m2 Stoney RAM Work Phone: [facility] 08-26-2023 13:35-0400 Body temperature 97.59 [degF] Stoney Bluee MBBS Work Phone: [facility] 08-26-2023 13:35-0400 Body weight 87 kg Stoney Bluee MBBS Work Phone: [facility] 08-26-2023 13:35-0400 Diastolic blood pressure 91 mm[Hg] Stoney Bluee MBBS Work Phone: [facility] 08-26-2023 13:35-0400 Heart rate 83 /min Stoneyponce Bluee MBBS Work Phone: [facility] 08-26-2023 13:35-0400 Respiratory rate 16 /min Stoney Bluee MBBS Work Phone: [facility] 08-26-2023 13:35-0400 SaO2% (BldA) [Mass fraction] 98 % Stoney Bluee MBBS Work Phone: [facility] 08-26-2023 13:35-0400 Systolic blood pressure 148 mm[Hg] Stoeny Bluee MBBS Work Phone: [facility] 08-24-2023 12:13-0400 Body height 170.2 cm Stoney Bluee MBBS Work Phone: [facility] 08-24-2023 12:13-0400 Body mass index (BMI) [Ratio] 29.29 kg/m2 Stoney Bluee MBBS Work Phone: [facility] 08-24-2023 12:13-0400 Body weight 84.82 kg Stoney Bluee MBBS Work Phone: [facility] 08-24-2023 12:13-0400 Diastolic blood pressure 82 mm[Hg] Stoney Vito MBBS Work Phone: [facility] 08-24-2023 12:13-0400 Heart rate 73 /min Stoney RAM Work Phone: [facility] 08-24-2023 12:13-0400 Systolic blood pressure 148 mm[Hg] Stoney RAM Work Phone: [facility] 05-31-2023 14:21-0400 Body mass index (BMI) [Ratio] 29.75 kg/m2 Delores Allison MD, PhD Work Phone: [facility] 05-31-2023 14:21-0400 Body temperature 97.9 [degF] Delores Allison MD, PhD Work Phone: [facility] 05-31-2023 14:21-0400 Body weight 84.96 kg Delores Allison MD, PhD Work Phone: [facility] 05-31-2023 14:21-0400 Diastolic blood pressure 65 mm[Hg] Delores Allison MD, PhD Work Phone: [facility] 05-31-2023 14:21-0400 Heart rate 88 /min Delores Allison MD, PhD Work Phone: [facility] 05-31-2023 14:21-0400 Respiratory rate 16 /min Delores Allison MD, PhD Work Phone: [facility] 05-31-2023 14:21-0400 SaO2% (BldA) [Mass fraction] 96 % Delores Allison MD, PhD Work Phone: [facility] 05-31-2023 14:21-0400 Systolic blood pressure 137 mm[Hg] Delores Allison MD, PhD Work Phone: [facility] 02-16-2023 12:03-0400 Body height 170.2 cm Denaakin Vang APRN-BALLET TEACHER Work Phone: [facility] 02-16-2023 12:03-0400 Body mass index (BMI) [Ratio] 28.19 kg/m2 Dnea Vang SYSTEMS MECHANIC-BALLET TEACHER Work Phone: [facility] 02-16-2023 12:03-0400 Body weight 81.65 kg Dena Vang SYSTEMS MECHANIC-BALLET TEACHER Work Phone: [facility] 02-16-2023 12:03-0400 Diastolic blood pressure 79 mm[Hg] Dena Vang SYSTEMS MECHANIC-BALLET TEACHER Work Phone: [facility] 02-16-2023 12:03-0400 Heart rate 74 /min Dena Vang SYSTEMS MECHANIC-BALLET TEACHER Work Phone: [facility] 02-16-2023 12:03-0400 Systolic blood pressure 148 mm[Hg] [facility] SYSTEMS MECHANIC-BALLET TEACHER Work Phone: [facility] 11-26-2022 13:28-0500 Body height 169 cm Denaakin Vang APRN-BALLET TEACHER Work Phone: [facility] Encounters Encounter Date Encounter Type Care Provider Facility Start: 08-26-2023 ambulatory BARNEY WILSON Facility :[facility] Start: 08-26-2023 End: 08-26-2023 Office outpatient visit 25 minutes Stoney RAM Work Phone: [facility] Procedures Date Procedure Procedure Detail Performing Clinician Start: 08-26-2023 Carcinoembryonic antigen cea Dena Vang SYSTEMS MECHANIC-BALLET TEACHER Work Phone: Start: 08-24-2023 Creatinine blood Stoney RAM Work Phone: Start: 05-31-2023 Follow-up visit Follow-up DELORES ALLISON Start: 04-01-2023 Mri pelvis w/o & w/c ontrast material Stoney RAM Work Phone: Start: 02-16-2023 Creatinine blood Dena Umar SYSTEMS MECHANIC-BALLET TEACHER Work Phone: Start: 07-12-2022 Ct thorax w/contrast material Dena Umar SYSTEMS MECHANIC-BALLET TEACHER Work Phone: Start: 07-12-2022 Carcinoembryonic antigen cea Dena Umar SYSTEMS MECHANIC-BALLET TEACHER Work Phone: Start: 07-12-2022 CBC AND ELECTRONIC DIFF Dena Umar SYSTEMS MECHANIC-BALLET TEACHER Work Phone: Start: 07-12-2022 Complete blood count with white cell differential, automated Dena Umar SYSTEMS MECHANIC-BALLET TEACHER Work Phone: Start: 06-25-2022 Colonoscopy flx dx w /collj spec when pfrmd Liliana Andrews MD Work Phone: Start: 04-20-2022 Carcinoembryonic antigen cea Dena Umar SYSTEMS MECHANIC-BALLET TEACHER Work Phone: Start: 04-20-2022 CBC AND ELECTRONIC DIFF Dena Umar SYSTEMS MECHANIC-BALLET TEACHER Work Phone: Start: 04-20-2022 Complete blood count with white cell differential, automated Dean Umar SYSTEMS MECHANIC-BALLET TEACHER Work Phone: Plan of Treatment Date Care Activity Detail Author Start: 05-29-2024 End: 05-29-2024 Patient encounter procedure 05/29/2024 2:30 PM EDT Office Visit Department of Radiation Oncology [address] [place] [address] Delores Allison MD, PhD [address] [place] [address] Department of Radiation Oncology Start: 02-24-2024 End: 02-24-2024 Clinical Support Encounter Clinical Lab Enrique Hung Start: 02-15-2024 End: 02-15-2024 Patient encounter procedure [facility] Start: 11-25-2023 End: 11-25-2023 Telemedicine consultation with patient 11/25/2023 8:00 AM EST Telemedicine [facility] [address] [place] [address] Stoney Padron MBBS [address] [place] [address] [facility] Start: 08-26-2023 End: 08-26-2024 CT Abdomen and Pelvis W contrast IV CT ABDOMEN/PELVIS WITH CONTRAST Imaging Routine Rectal cancer Expected: 08/26/2023, Expires: 08/26/2024 [facility] Payers Date Payer Category Payer Private Health Insurance [employer]A [id number] 2023-Present [address] [place] [address] [id number] 2023 Private Health Insurance [id number] 2020 Unknown ANTHEM ANTHEM HM O PPO POS [id number] 2020-Present [address] [place] [address] [id number] 2020 Unknown ANTHEM ANTHEM HM O PPO POS [id number] 2020-Present [address] [place] [address] [id number] 2020 Unknown [id number] 1966 Unknown [id number]..[id number] .594 1966 Unknown [id number] [id number] .594 1966 Unknown [id number] 2.16.840.1.485651.3.579.2 .594 1966 Unknown [id number] 2..840.1.786233.3.579.2 .594 1966 Unknown [id number] 2.16.840.1.537226.3.579.2 .594 1966 Unknown [id number] 2.16840.1.125400.3.579.2 .594 1966 Unknown [id number] 2.16.840.1.257540.3.579.2 .594 1966 Unknown [id number] [id number] .594 1966 Unknown [id number] [id number] .594 1966 Unknown [id number] 2.840.1.074630.3.579.2 .594 1966 Unknown [id number] 2.840.1.551060.3.579.2 .594 1966 Unknown [id number] 2.840.1.620629.3.579.2 .594 1966 Unknown [id number] 2.16840.1.631259.3.579.2 .594 1966 Unknown [id number] 2.16840.1.027865.3.579.2 .594 1966 Unknown [id number] 2.840.1.157953.3.579.2 .594 1966 Unknown [id number] [id number] .594 1966 Unknown [id number] [id number]. .594 Social History Date Type Detail Facility Start: 01-26-2021 End: 02-10-2021 Tobacco smoking status NHIS Never smoker [facility] Start: 01-26-2021 End: 02-10-2021 Tobacco use and exposure Never used [facility] Start: 06-22-2021 End: 08-26-2023 Alcohol intake Lifetime non-drinker (finding) [facility] Start: 02-10-2021 History SDOH Alcohol Frequency 1 [facility] Start: 1965 Sex Assigned At Not on file O [facility] Start: 11-16-2022 End: 11-26-2022 Exposure to SARS-CoV-2 (event) Not sure [facility] Start: 02-10-2021 End: 05-31-2023 History of Social function [place] Start: 02-10-2021 End: 05-31-2023 Alcohol Use Disorder Identification Test - Consumption [AUDIT-C] [facility] How often to you hav e a drink containing alcohol? Never [facility] Average Number of Drinks Not on file [facility] Start: 01-25-2021 Gender identity Identifies as female gender (finding) [facility] Clinical Notes 06-22-2021 to 08-26-2023 YO Arriaza - 08/26/2023 1:40 PM EDTHCARRIE Espinal - 08/26/2023 1:40 PM EDTPatient InstructionsCARRIE Bullock - 05/31/2023 2:30 PM EDTPatient InstructionsPatient Instructions Note Date & Type Note Facility 08-26-2023 History of Presen t illness Narrative Attending addendum I have personally seen and examined the patient today. I discussed the plan of care with CARRIE Lennon, who prepared today's progress note; and I formulated the medical decision making, as noted. For today's visit, I reviewed the nursing flowchart, list of medications and pertinent laboratory and diagnostic tests. I agree with the progress note and edited as needed, and it reflects the details of my interview, exam, and medical decision making. Stage II Rectal Adenocarcinoma s/p neoadjuvant ELECTROPLATING LABORER and resection (had CR) TUMOR CHARACTERISTICS AT DIAGNOSIS PATHOLOGY 01/12/21: Rectal mass - well differentiated adenocarcinoma 06/09/21: No evidence of tumor IMAGING MRI pelvis on : Rectal cancer with no mets. No information on T-staging CT CAP: No evidence of distant mets EUS on 4/14/21: Tumor encompassing anterior 180 degrees of bowel wall with at least 120 cm of anterior sphincter involvement. Extending from 1 cm from anal verge to 6 cm from the anal verge. Involves the dentate line.Tumor very friable and bleeding with EVA alone. Post surgery scans CT A/P on 06/27/21 showed CARRIE except a concerning lesion in the left lobes MRI on 07/27 reported left lateral hepatic dome lesion is likely cyst. The concerning lesion in the left lobe on 06/27 CT was not seen on it. CT CAP wo contrast on 04/12/[address] CAP on 07/12/[address] CAP on 02/16/23 Showed CARRIE Bone scan on 03/05/23 showed questionable bone mets in the SI joints and degenerative disease MRI pelvis on 04/01/23: The abnormality in the right hemisacrum appears related to a healing insufficiency fracture, also demonstrating progressive sclerosis on prior CT scans from July 2022 to February 2023. No suspicious osseous lesion. CT CAP 08/25/23 showed CARRIE Assessment and Plan Continue surveillance Discuss ortho ref with PCP We discussed diagnosis, imaging, pathology, staging, natural course of disease, and prognosis again today. I have personally reviewed available recent imaging and labs and discussed with the patient. Last colonoscopy was 12/2022. CT chest and abdomen and MRI showed CARRIE. Do CEA. Did blood today. MRI did not show convincing evidence of metastatic bone disease. I think we should start further workup now and fall back to common causes including Vit D def or hormonal changes. She will fu with PCP about it. Colon Cancer Surveillance PE/CEA - every 3mfor 2 years, followed by every 6m Imaging - Every 6m [facility] - years , last one in 06/25 She prefers to get CEA locally with PCP. She knows to call me if she cannot get CEA locally or if the results are abnormal. If there is any concern for PCP about doing this test, she will let me know RTC in 3 m for labs RTC in 6m for labs and scans Documented by Ena Layton, for Dr. Padron on 08/26/2023 at 10:11 PM. All medical record entries made by the Kinjal were at my direction and personally dictated by me, Dr. Vito MD. I have reviewed the chart and agree that the record accurately reflects my personal performance of the history, physical exam, assessment and plan. I have also personally directed, reviewed, and agree with the discharge instructions. Note to patient: The 21st Century Cures Act makes medical notes like these available to patients in the interest of transparency. However, be advised this is a medical document. It is intended as peer to peer communication. It is written in medical language and may contain abbreviations or verbiage that are unfamiliar. It may appear blunt or direct. Medical documents are intended to carry relevant information, facts as evident, and the clinical opinion of the practitioner. GI MEDICAL ONCOLOGY CLINIC NOTE Date of visit: 08/26/23 History/Reason for visit: Chief Complaint Patient presents with Follow-up Rectal cancer [C20] History of Present Illness: Evelia Bailon is a 58 y.o. female who presents for follow up while on surveillance for rectal cancer. She reports doing very well. 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 States, she has new job that is much better and less stressful than the previous one. Denies changes in bowel habits. No hematochezia or melena. Denies nausea, vomiting, new or worsening abdominal pain. Denies new concerns since last visit. REVIEW OF SYSTEMS: General: No fevers, chills, sweats or change in weight, fatigue Skin: No changes in hair or nails, no itching, changing moles or non healing sores. A few scattered papules to the dorsal aspect of hands. +radiation dermatitis HEENT: No visual changes, blurring or double vision, ear pain, ear infection, decreased auditory acuity, sinus problems, epistaxis, mouth sores, trouble swallowing, or trouble with teeth or gums Respiratory: No cough, shortness or breath or wheezing Cardiovascular: No chest pain, palpitations, leg pain or cramping, edema or orthopnea. GI: No nausea. No vomiting. diarrhea. No constipation. No abdominal pain. No Perineal pain : No bladder infections, hematuria, dribbling, kidney stones, nocturia or incontinence Musculoskeletal: No back pain, joint pain or swelling. Neurologic: No dizziness, syncope, headache, weakness or numbness, anxiety or depression Past Medical History: Past Medical History: Diagnosis Date Essential hypertension, benign History of radiation therapy Rectal cancer Past Surgical History: Past Surgical History: Procedure Laterality Date COLECTOMY PARTIAL ROBOTIC N/A 06/09/2021 Laterality: N/A; Surgeon: Liliana Andrews MD; Location: [facility] MAIN OR EXAM UNDER ANESTHESIA ANORECTAL N/A 02/15/2021 Laterality: N/A; Surgeon: Liliana Andrews MD; Location: [facility] PERIOP SECTION KNEE SURGERY times 2 on left knee OTHER SURGICAL ear left Medications: Current Outpatient Medications Medication Sig lisinopril 10 MG tablet Take 1 tablet by mouth See admin instructions. Take Saturday, Saturday, Saturday lisinopril-hydrochlorothiazide 10-12.5 MG tablet Take 1 tablet by mouth See admin instructions. Take Saturday, , Saturday, and Saturday Allergies: Allergies Allergen Reactions Penicillins Hives and Rash Family History: Family History Problem Relation Age of Onset Diabetes Mother Hypertension Mother Breast Cancer Sister Ovarian Cancer Sister Uterine Cancer Sister Cancer- Other Sister melanoma Cancer- Other Sister basel cell carcinoma of nose Colorectal Cancer Other Social History: Social History Socioeconomic History Marital status: Spouse name: Not on file Number of children: Not on file Years of education: Not on file Highest education level: Not on file Occupational History Not on file Tobacco Use Smoking status: Never Smokeless tobacco: Never Vaping Use Vaping Use: Never used Substance and Sexual Activity Alcohol use: Never Drug use: Never Sexual activity: Yes Partners: Male control/protection: Tubal Ligation Other Topics Concern Occupational Exposure No Hobby Hazards No Social History Narrative Not on file Social Determinants of Health Financial Resource Strain: Not on file Food Insecurity: Not on file Transportation Needs: Not on file Physical Activity: Not on file Stress: Not on file Social Connections: Not on file Intimate Partner Violence: Not on file Housing Stability: Not on file Physical Examination: Vitals: BP (!) 148/91 Pulse 83 Temp 97.6 F (36.4 C) (Oral) Resp 16 Ht 1.685 m (5' 6.34 ) Wt 87 kg (191 lb 12.8 oz) SpO2 98% BMI 30.64 kg/m Smoking Status Never BMI: Body mass index is 30.64 kg/m . ECOG Performance Status: 1 General Appearance: Alert and oriented x 3, in no acute distress. HEENT : Head atraumatic, normocephalic. No scleral icterus. Patient wearing mask. Neck: Supple. No cervical, supraclavicular or infraclavicular lymphadenopathy. Lungs: Clear to auscultation bilaterally. Normal respiratory effort. No wheezes, rales, or rhonchi. Cardiac: Normal S1, S2. Rate and rhythm regular. No murmur, gallop or rub. GI: Abdomen is soft, nontender, nondistended, positive bowel sounds. No palpable hepatosplenomegaly. No guarding/rebound tenderness or rigidity, no peritoneal signs. Well healed laparoscopic incisions. Colostomy appliance in place Extremities: No cyanosis, clubbing or edema. Neuro: No focal deficits. No gross upper or lower limb weakness. Speech is clear and appropriate. Lymph: No palpable cervical, supraclavicular lymphadenopathy. Musculoskeletal: No gross tenderness of bones or joints. Psych: Pleasant affect, appropriate mood. Adequate insight. No signs of agitation or disorientation/confusion. Skin: No excessive bruising, or petechiae. Access: Laboratory Data: Lab Results Component Value Date WBC 3.56 (L) 02/25/2023 HGB 13.5 02/25/2023 HCT 39.3 02/25/2023 PLATELET 280 02/25/2023 MCV 91.0 02/25/2023 Lab Results Component Value Date SODIUM 139 02/25/2023 POTASSIUM 3.5 02/25/2023 CHLORIDE 105 02/25/2023 CO2 28 02/25/2023 BUN 17 02/25/2023 CREATSERUM 0.81 08/24/2023 Lab Results Component Value Date ALT 21 02/25/2023 AST 14 02/25/2023 ALKPHOS 55 02/25/2023 BILITOTAL 1.1 02/25/2023 BILIDIRECT 0.2 02/24/2021 Lab Results Component Value Date CEA <2.0 08/26/2023 CEA <2.0 02/25/2023 CEA <2.0 11/26/2022 CEA <2.0 07/12/2022 CEA <2.0 04/20/2022 PATHOLOGY Pathologic Diagnosis A. Rectum and anus, robotic partial colectomy: Extensive treatment effect identified. No definitive evidence of residual adenocarcinoma. See comment Resection margins are negative for dysplasia or carcinoma Fourteen benign lymph nodes (0/11). at 1725 Diagnosis Comments Extensive fibrosis with calcifications consistent with treatment effect are identified, including some degenerating, partially calcified glands consistent with treated tumor. No definitive evidence of viable tumor is identified. Addendum This case was re-reviewed to confirm that the total number of benign lymph nodes detected was 14. (0/14). Addendum electronically signed by Juan Pablo Larose MD on 07/16/2021 at 2348 Synoptic Checklist COLON AND RECTUM: Resection, Including Transanal Disk Excision of Rectal Neoplasms 8th Edition - Protocol posted: 03/02/2020 COLON AND RECTUM: RESECTION - All Specimens SPECIMEN Procedure Abdominoperineal resection Macroscopic Evaluation of Mesorectum Incomplete TUMOR Tumor Site Rectum Tumor Location Entirely below the anterior peritoneal reflection Histologic Type Carcinoma, type cannot be determined: No residual adenocarcinoma Histologic Grade Not applicable Tumor Size Cannot be determined: No residual carcinoma; area of ulceration measures 3.0 x 1.3 x 0.4 cm Tumor Extension Cannot be assessed Macroscopic Tumor Perforation Not identified Lymphovascular Invasion Not identified Perineural Invasion Not identified Type of Polyp in Which Invasive Carcinoma Arose None identified Treatment Effect Present No viable cancer cells (complete response, score 0) MARGINS Margins All margins are uninvolved by invasive carcinoma, high grade dysplasia / intramucosal carcinoma, and low grade dysplasia Margins Examined Proximal Distal Radial (circumferential) or Mesenteric LYMPH NODES Number of Lymph Nodes Involved 0 Number of Lymph Nodes Examined 11 Tumor Deposits Not identified PATHOLOGIC STAGE CLASSIFICATION (pTNM, AJCC 8th Edition) TNM Descriptors y (post-treatment) Primary Tumor (pT) pT0 Regional Lymph Nodes (pN) pN0 . RADIOLOGY CT CHEST: 08/24/23 IMPRESSION: Stable exam with no evidence of intrathoracic metastasis. CT ABDOMEN/PELVIS: 08/24/23 IMPRESSION: IMPRESSION: No evidence of local recurrence or metastatic disease in the abdomen/pelvis. Assessment and Plan Stage I (T0 N0M0) Rectal Adenocarcinoma Evelia Bailon is a 58 y.o. female with recently diagnosed rectal adenocarcinoma She started neoadjuvant chemoradiation with Xeloda on 02/27/21. Completed chemoradiation on 03/31/21. Underwent Robotic abdominoperineal resection with end colostomy on 06/09/21. Pathology T0N0, with no residual cancer. Dr. Padron offered surveillance versus adjuvant chemo. Patient decided to pursue surveillance. - One year post surgery colonoscopy completed in June 2022, with findings of normal colon exam. No specimens collected. Next colonoscopy due in 2023. - CT chest, abd/pelvis from 08/24/23 remains with CARRIE. CEA from today is undetectable. Ms. Bailon presents for follow up. She is doing very well. No signs or symptoms to suggest disease recurrence. We will continue with surveillance. RTC 3 months with labs locally and telehealth visit. 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 with labs and scans prior for follow up Patient was advised to contact with any questions or concerns that arise in the interim. They were advised to call the office for urgent matters and use My chart message for non-urgent matters. Advised to call 911 or go to the nearest emergency room for concerns requiring immediate medical attention. CARRIE Lennon documented in this encounter [facility] 08-26-2023 Instructions Dalton Tomlinson RN - 08/26/2023 1:40 PM EDT You will be scheduled for a video visit with Dr. Padron in 3 months. Get your tumor marker checked a few business days before this visit. You will return to the clinic in [address] 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 documented in this encounter [facility] 05-31-2023 History of Presen t illness Narrative RADIATION ONCOLOGY FOLLOW-UP VISIT CC/ID: Evelia Bailon is a 57 y.o. female with a diagnosis of clinical stage IIA (cT3 N0 M0) adenocarcinoma of the distal rectum, only 1 cm from the anal verge. She underwent a course of chemoradiation, receiving 50 Gy in 25 fractions with capecitabine, completed on 03/31/21, followed by surgery with end colostomy on 06/09/21. Pathology showed no residual disease and she entered surveillance. She returns today for follow up. Interval since treatment completion: 2 years History of Present Illness: Oncologic History: She underwent colonoscopy at [facility] on 01/12/21. The EVA revealed a palpable 4 cm firm rectal mass 1.0 cm from the anal verge. A frond-like/villous non-obstructing medium sized mass was found in the rectum. The mass was partially circumferential involving 1/3 of the lumen circumference, measuring 4 cm in length. Biopsies were taken and confirmed well differentiated invasive adenocarcinoma. She followed with Dr. Andrews of colorectal surgery here at [facility] on 01/26/21 with recommendation for further imaging and EUA, as well as referral to radiation and medical oncology. She underwent a course of chemoradiation, receiving 50 Gy in 25 fractions with capecitabine, completed on 03/31/21. She then underwent robotic abdominoperineal resection with end colostomy on 06/09/21 with no residual cancer. She has continued in surveillance. Interval History: Ms. Bailon is seen in clinic accompanied by her . She reports overall doing well. She has occasional low back discomfort that is controlled with OTC medication if needed. She completed MRI in March 2023 that showed a healing insufficiency fracture. She denies nausea, vomiting, or abdominal discomfort. No issues with ostomy. No other reported concerns. We have reviewed Ms. Bailon's medical, surgical and other pertinent history in detail, and have updated medication and allergy information in the computerized patient record. Physical Exam: CONSTITUTIONAL: Well developed, well nourished female, who looks their stated age of 57 y.o.. No acute distress noted. HEENT: Head: Normocephalic and atraumatic. EYES: Extraocular movements are intact. Sclerae are anicteric. CARDIAC: Regular rate and rhythm. PULMONARY/CHEST: Normal respiratory effort. ABDOMINAL: Abdomen soft. Ostomy in place in LLQ. EXTREMITIES: Full range of motion in all four extremities. No edema. SKIN: Skin is warm and dry. She is not diaphoretic. NEUROLOGIC EXAM: Alert and oriented x 3. Speech is fluent. Gait and posture are steady. PSYCHIATRIC: Appropriate mood and affect for her clinical situation. Data: Radiographic Studies: No new imaging to review Laboratory studies: Reviewed in EMR Performance Status: ECOG Performance Status: Grade 1 - Restricted in physically strenuous activity but ambulatory and able to carry out work of a light or sedentary nature, e.g., light house work, office work Assessment and Plan: In summary, Ms. Bailon is a 57 y.o. female with a history of clinical stage IIA (cT3 N0 M0) adenocarcinoma of the distal rectum, only 1 cm from the anal verge. She underwent a course of chemoradiation, receiving 50 Gy in 25 fractions with capecitabine, completed on 03/31/21. She then underwent APR on 06/09/21 with complete pathologic response. She returns today for follow up. 1. She had excellent response to treatment for Stage IIA rectal adenocarcinoma. Clinically, there are no signs of new or recurrent disease. Last colonoscopy in June 2022. Due again in June 2024. She has CT scans on 08/24/23. She will follow with Dr. Padron on 08/26/23. We will plan to see her back in 6-7 months or sooner if needed. Discussed we can alternate visits with Dr. Padron. 2. Other relevant issues/problems are as follows: Of note, she requested the final pelvic swab for VICKI trial: Longitudinal changes in woman's pelvic health and sexual function after pelvic radiation be mailed to her. Trial team notified. We will have her return in 1 year for clinical exam. Thank you for allowing me to participate in the care of this patient. Please do not hesitate to contact me with any questions or concerns. Gardenia Alfredo APRN-SADIE Dept of Radiation Oncology I saw and independently examined this patient on 05/31/23. I discussed my findings and the therapeutic plan with the PARTS SALESMAN. I agree with the PARTS SALESMAN's history, physical examination, and medical decisions as outlined. Evelia Bailon is a 57 y.o. woman with a history of clinical stage IIA (cT3 N0 M0) adenocarcinoma of the distal rectum, only 1 cm from the anal verge. She underwent a course of chemoradiation, receiving 50 Gy in 25 fractions with capecitabine, completed on 03/31/21. She then underwent APR on 06/09/21 with complete pathologic response. Overall, doing well with no new complaints. She is due for c-scope in 2023. She has CT scans scheduled and follow-up with Dr. Padron in August. I will plan to see her back in 1 year for follow-up or earlier if needed. Thank you for allowing me to participate in the management and care of your patient. If I may answer any questions in the interim, please do not hesitate to contact me at any time. Time to complete visit: 25 Minutes This time includes: preparing to see the patient (review of tests/history), obtaining and/or reviewing separately obtained history, performing a medically appropriate evaluation, counseling and educating the patient and documenting clinical information in the electronic health record Delores Allison MD, PhD Quality Tester Radiation Oncology Pager: [phone] RADIATION ONCOLOGY FOLLOW-UP VISIT CC/ID: Evelia Bailon is a 57 y.o. female with a diagnosis of clinical stage IIA (cT3 N0 M0) adenocarcinoma of the distal rectum, only 1 cm from the anal verge. She underwent a course of chemoradiation, receiving 50 Gy in 25 fractions with capecitabine, completed on 03/31/21, followed by surgery with end colostomy on 06/09/21. Pathology showed no residual disease and she entered surveillance. She returns today for follow up. Interval since treatment completion: 2 years, 2 months History of Present Illness: Oncologic History: She underwent colonoscopy at [facility] on 01/12/21. The EVA revealed a palpable 4 cm firm rectal mass 1.0 cm from the anal verge. A frond-like/villous non-obstructing medium sized mass was found in the rectum. The mass was partially circumferential involving 1/3 of the lumen circumference, measuring 4 cm in length. Biopsies were taken and confirmed well differentiated invasive adenocarcinoma. She followed with Dr. Andrews of colorectal surgery here at [facility] on 01/26/21 with recommendation for further imaging and EUA, as well as referral to radiation and medical oncology. She underwent a course of chemoradiation, receiving 50 Gy in 25 fractions with capecitabine, completed on 03/31/21. She then underwent robotic abdominoperineal resection with end colostomy on 06/09/21 with no residual cancer. She has continued in surveillance. Interval History: She is seen in clinic today accompanied by her . Since her visit, she reports that she is doing well. Her appetite and energy are good, weight is stable. 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 She reports that she has occasional LBP related to a right hemisacrum healing insufficiency fracture, relieved w/ rest and tylenol. Ostomy is functioning without issue. No issues w/ skin irritation around ostomy site or in treatment field. No CP/palpitations, SOB, cough, urinary issues, or other concerns today. I have reviewed Ms. Bailon's medical, surgical and other pertinent history in detail, and have updated medication and allergy information in the computerized patient record. Past Medical History: She has a past medical history of Essential hypertension, benign, History of radiation therapy, and Rectal cancer. She has no past medical history of History of chemotherapy or Pacemaker. Past Surgical History: She has a past surgical history that includes knee surgery; other surgical; section; exam under anesthesia anorectal (N/A, 02/15/2021); and colectomy partial robotic (N/A, 06/09/2021). Medications: She has a current medication list which includes the following prescription(s): lisinopril 10 MG tablet and lisinopril-hydrochlorothiazide 10-12.5 MG tablet. Allergies: Penicillins Physical Exam: CONSTITUTIONAL: Well developed, well nourished female, who looks their stated age of 57 y.o.. No acute distress noted. CARDIAC: Regular rate and rhythm. PULMONARY/CHEST: Lungs are clear to auscultation. No wheezes, rhonchi or rales noted. ABDOMINAL: Abdomen soft. Ostomy in place in LLQ. EXTREMITIES: Full range of motion in all four extremities. No cyanosis or clubbing or edema. SKIN: Skin is warm and dry. She is not diaphoretic. Data: Radiographic Studies: No new imaging to review. Laboratory studies: Reviewed in EMR Performance Status: ECOG Performance Status: Grade 1 - Restricted in physically strenuous activity but ambulatory and able to carry out work of a light or sedentary nature, e.g., light house work, office work Assessment and Plan: In summary, Ms. Bailon is a 57 y.o. female with a history of clinical stage IIA (cT3 N0 M0) adenocarcinoma of the distal rectum, only 1 cm from the anal verge. She underwent a course of chemoradiation, receiving 50 Gy in 25 fractions with capecitabine, completed on 03/31/21. She then underwent APR on 06/09/21 with complete pathologic response. She returns today for follow up. 1. She had excellent response to treatment for Stage IIA rectal adenocarcinoma. Clinically, there are no signs of new or recurrent disease. Colonoscopy on 06/25/22 was normal with no samples taken. Due for next colonoscopy in 06/2024. She is scheduled with her PCP Dr. Wilson on 06/11/23. She has CT scans on 08/24/23. She will follow with Dr. Padron on 08/26/23. We will plan to see her back in 1 year or sooner if needed. 2. In terms of radiation treatment sequelae, she has the following problems: Acute sequela of RT: Rectal pain- resolved. Pain with intercourse- resolved. Late sequela of RT: none 3. Other relevant issues/problems are as follows: Of note, she did complete pelvic swab for VICKI trial: Longitudinal changes in woman's pelvic health and sexual function after pelvic radiation. She was given a home collection kit in clinic and will perform sample on her own Since she is now 2 years post-treatment completion, this will be her final swab. We will have her return in 1 year with the following studies at that time: clinical exam. Thank you for allowing me to participate in the care of this patient. Please do not hesitate to contact me with any questions or concerns. CARRIE [place] Dept of Radiation Oncology Dr. Allison was present for and completed an independent history and physical on this patient. The case was discussed and plan of care developed by Dr. Allison. documented in this encounter [facility] 05-31-2023 Instructions CARRIE Mendoza - 05/31/2023 2:30 PM EDT Plan to follow-up in clinic with Dr. Allison in 1 year. documented in this encounter [facility] 11-26-2022 History of Presen t illness Narrative GI MEDICAL ONCOLOGY CLINIC NOTE Date of visit: 03/24/2021 History/Reason for visit: Chief Complaint Patient presents with Follow-up Rectal cancer [C20] History of Present Illness: Evelia Bailon is a 57 y.o. female who presents for follow up while on surveillance for rectal cancer. She continues to do well. 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 Energy and appetite is good and has gained 5lbs since last visit. Bowels are regular and has occasional loose bowels depending on what she eats. Denies fevers, chills, chest pain, vision changes, headaches, mouth sores, nausea, vomiting, constipation, melena, hematochezia, new pain, or rashes. Denies changes in HPI, PMH, PSH, ROS, except as noted above. REVIEW OF SYSTEMS: General: No fevers, chills, sweats or change in weight, fatigue Skin: No changes in hair or nails, no itching, changing moles or non healing sores. A few scattered papules to the dorsal aspect of hands. +radiation dermatitis HEENT: No visual changes, blurring or double vision, ear pain, ear infection, decreased auditory acuity, sinus problems, epistaxis, mouth sores, trouble swallowing, or trouble with teeth or gums Respiratory: No cough, shortness or breath or wheezing Cardiovascular: No chest pain, palpitations, leg pain or cramping, edema or orthopnea. GI: No nausea. No vomiting. diarrhea. No constipation. No abdominal pain. No Perineal pain : No bladder infections, hematuria, dribbling, kidney stones, nocturia or incontinence Musculoskeletal: No back pain, joint pain or swelling. Neurologic: No dizziness, syncope, headache, weakness or numbness, anxiety or depression Past Medical History: Past Medical History: Diagnosis Date Essential hypertension, benign History of radiation therapy Rectal cancer Past Surgical History: Past Surgical History: Procedure Laterality Date COLECTOMY PARTIAL ROBOTIC N/A 06/09/2021 Laterality: N/A; Surgeon: Liliana Andrews MD; Location: [facility] MAIN OR EXAM UNDER ANESTHESIA ANORECTAL N/A 02/15/2021 Laterality: N/A; Surgeon: Liliana Andrews MD; Location: [facility] PERIOP SECTION KNEE SURGERY times 2 on left knee OTHER SURGICAL ear left Medications: Current Outpatient Medications Medication Sig lisinopril 10 MG tablet Take 1 tablet by mouth See admin instructions. Take Saturday, Saturday, Saturday lisinopril-hydrochlorothiazide 10-12.5 MG tablet Take 1 tablet by mouth See admin instructions. Take Saturday, , Saturday, and Saturday Allergies: Allergies Allergen Reactions Penicillins Hives and Rash Family History: Family History Problem Relation Age of Onset Diabetes Mother Hypertension Mother Breast Cancer Sister Ovarian Cancer Sister Uterine Cancer Sister Cancer- Other Sister melanoma Cancer- Other Sister basel cell carcinoma of nose Colorectal Cancer Other Social History: Social History Socioeconomic History Marital status: Spouse name: Not on file Number of children: Not on file Years of education: Not on file Highest education level: Not on file Occupational History Not on file Tobacco Use Smoking status: Never Smokeless tobacco: Never Vaping Use Vaping Use: Never used Substance and Sexual Activity Alcohol use: Never Drug use: Never Sexual activity: Yes Partners: Male control/protection: Tubal Ligation Other Topics Concern Occupational Exposure No Hobby Hazards No Social History Narrative Not on file Social Determinants of Health Financial Resource Strain: Not on file Food Insecurity: Not on file Transportation Needs: Not on file Physical Activity: Not on file Stress: Not on file Social Connections: Not on file Intimate Partner Violence: Not on file Housing Stability: Not on file Physical Examination: Vitals: BP 144/69 Pulse 71 Temp 98.1 F (36.7 C) (Oral) Resp 14 Ht 1.69 m (5' 6.54 ) Comment: without shoes Wt 81.3 kg (179 lb 3.2 oz) Comment: without shoes SpO2 96% Comment: room air BMI 28.46 kg/m Smoking Status Never BMI: Body mass index is 28.46 kg/m . ECOG Performance Status: 1 General Appearance: Alert and oriented x 3, in no acute distress. HEENT : Head atraumatic, normocephalic. No scleral icterus. Patient wearing mask. Neck: Supple. No cervical, supraclavicular or infraclavicular lymphadenopathy. Lungs: Clear to auscultation bilaterally. Normal respiratory effort. No wheezes, rales, or rhonchi. Cardiac: Normal S1, S2. Rate and rhythm regular. No murmur, gallop or rub. GI: Abdomen is soft, nontender, nondistended, positive bowel sounds. No palpable hepatosplenomegaly. No guarding/rebound tenderness or rigidity, no peritoneal signs. Well healed laparoscopic incisions. Colostomy appliance in place Extremities: No cyanosis, clubbing or edema. Neuro: No focal deficits. No gross upper or lower limb weakness. Speech is clear and appropriate. Lymph: No palpable cervical, supraclavicular lymphadenopathy. Musculoskeletal: No gross tenderness of bones or joints. Psych: Pleasant affect, appropriate mood. Adequate insight. No signs of agitation or disorientation/confusion. Skin: No excessive bruising, or petechiae. Access: Laboratory Data: Lab Results Component Value Date WBC 3.99 11/26/2022 HGB 12.7 11/26/2022 HCT 37.1 11/26/2022 PLATELET 262 11/26/2022 MCV 92.1 11/26/2022 Lab Results Component Value Date SODIUM 141 11/26/2022 POTASSIUM 3.4 (L) 11/26/2022 CHLORIDE 108 11/26/2022 CO2 27 11/26/2022 BUN 14 11/26/2022 CREATSERUM 0.73 11/26/2022 Lab Results Component Value Date ALT 18 11/26/2022 AST 12 11/26/2022 ALKPHOS 62 11/26/2022 BILITOTAL 0.8 11/26/2022 BILIDIRECT 0.2 02/24/2021 Lab Results Component Value Date CEA <2.0 11/26/2022 CEA <2.0 07/12/2022 CEA <2.0 04/20/2022 CEA 1.1 01/12/2022 CEA 0.7 10/13/2021 PATHOLOGY Pathologic Diagnosis A. Rectum and anus, robotic partial colectomy: Extensive treatment effect identified. No definitive evidence of residual adenocarcinoma. See comment Resection margins are negative for dysplasia or carcinoma Fourteen benign lymph nodes (0/11). at 3344 Diagnosis Comments Extensive fibrosis with calcifications consistent with treatment effect are identified, including some degenerating, partially calcified glands consistent with treated tumor. No definitive evidence of viable tumor is identified. Addendum This case was re-reviewed to confirm that the total number of benign lymph nodes detected was 14. (0/14). Addendum electronically signed by Juan Pablo Larose MD on 07/16/2021 at 8009 Synoptic Checklist COLON AND RECTUM: Resection, Including Transanal Disk Excision of Rectal Neoplasms 8th Edition - Protocol posted: 03/02/2020 COLON AND RECTUM: RESECTION - All Specimens SPECIMEN Procedure Abdominoperineal resection Macroscopic Evaluation of Mesorectum Incomplete TUMOR Tumor Site Rectum Tumor Location Entirely below the anterior peritoneal reflection Histologic Type Carcinoma, type cannot be determined: No residual adenocarcinoma Histologic Grade Not applicable Tumor Size Cannot be determined: No residual carcinoma; area of ulceration measures 3.0 x 1.3 x 0.4 cm Tumor Extension Cannot be assessed Macroscopic Tumor Perforation Not identified Lymphovascular Invasion Not identified Perineural Invasion Not identified Type of Polyp in Which Invasive Carcinoma Arose None identified Treatment Effect Present No viable cancer cells (complete response, score 0) MARGINS Margins All margins are uninvolved by invasive carcinoma, high grade dysplasia / intramucosal carcinoma, and low grade dysplasia Margins Examined Proximal Distal Radial (circumferential) or Mesenteric LYMPH NODES Number of Lymph Nodes Involved 0 Number of Lymph Nodes Examined 11 Tumor Deposits Not identified PATHOLOGIC STAGE CLASSIFICATION (pTNM, AJCC 8th Edition) TNM Descriptors y (post-treatment) Primary Tumor (pT) pT0 Regional Lymph Nodes (pN) pN0 . RADIOLOGY CT CHEST: 07/12/22 IMPRESSION: Stable exam with no evidence of intrathoracic metastasis. CT ABDOMEN/PELVIS: 07/12/22 IMPRESSION: Stable exam status post abdominoperineal resection and left mid abdominal end colostomy, with no definite CT evidence for recurrent/metastatic disease in the abdomen/pelvis. Assessment and Plan Stage I (T0 N0M0) Rectal Adenocarcinoma Evelia Bailon is a 57 y.o. female with recently diagnosed rectal adenocarcinoma She started neoadjuvant chemoradiation with Xeloda on 02/27/21. Completed chemoradiation on 03/31/21. Underwent Robotic abdominoperineal resection with end colostomy on 06/09/21. Pathology T0N0, with no residual cancer. Dr. Padron offered surveillance versus adjuvant chemo. Patient decided to pursue surveillance. - CT abd/pelvis from 07/12/22 remain with CARRIE. CEA from today is undtectable. Ms. Bailon presents for follow up. She is doing very well. - One year post surgery colonoscopy due in June 2023. She is following with Dr. More. We will continue with surveillance. RTC 3 months with labs and scans prior to see Dr. Padron Patient was advised to call the office should any questions or concerns arise in the interim. CARRIE Lennon documented in this encounter [facility] 11-26-2022 Instructions Ilya Mallory RN - 11/26/2022 1:40 PM EST You will return in [address] Padron with labs/SCANS prior. CT scans: 3 months documented in this encounter [facility] 06-25-2022 History and physical note ENDOSCOPIC PREPROCEDURE HISTORY AND PHYSICAL HISTORY OF PRESENT ILLNESS: Evelia Bailon is a 56 y.o. female seen in the preoprocedure area at [facility]. The indication for endoscopic evaluation includes: Rectal cancer Post op surveillance PAST MEDICAL HISTORY: Past Medical History: Diagnosis Date Essential hypertension, benign History of radiation therapy Rectal cancer SURGICAL HISTORY: Past Surgical History: Procedure Laterality Date COLECTOMY PARTIAL ROBOTIC N/A 06/09/2021 Laterality: N/A; Surgeon: Liliana Andrews MD; Location: [facility] MAIN OR EXAM UNDER ANESTHESIA ANORECTAL N/A 02/15/2021 Laterality: N/A; Surgeon: Liliana Andrews MD; Location: [facility] PERIOP SECTION KNEE SURGERY times 2 on left knee OTHER SURGICAL ear left MEDICATIONS: Current Outpatient Medications Medication Instructions lisinopril (PRINIVIL) 10 mg, Oral, SEE ADMIN INSTRUCTIONS, Take Saturday, Saturday, Saturday lisinopril-hydrochlorothiazide 10-12.5 MG tablet 1 tablet, Oral, SEE ADMIN INSTRUCTIONS, Take Saturday, , Saturday, and Saturday Current Outpatient Medications: lisinopril 10 MG tablet, Take 10 mg by mouth See admin instructions. Take Saturday, Saturday, Saturday, Disp: , Rfl: lisinopril-hydrochlorothiazide 10-12.5 MG tablet, Take 1 tablet by mouth See admin instructions. Take Saturday, , Saturday, and Saturday, Disp: , Rfl: ALLERGIES: Allergies Allergen Reactions Penicillins Hives and Rash FOCUSED REVIEW OF SYSTEMS: Negative for nausea, vomiting, abdominal pain and diarrhea VITAL SIGNS: Vitals: 06/25/22 0856 BP: 146/77 Pulse: 67 SpO2: 99% Height: 1.702 m (5' 7 ) PREPROCEDURE PHYSICAL EXAM: AIRWAY: normal, Mallampati: Class III (visualization of only the base of the uvula) HEART: Regular PULMONARY: NWB on RA ABDOMEN: Soft, nontender, nondistended, colostomy in place with scant liquid output in bag ASSESSMENT: Evelia Bailon is a 56 y.o. female is ready for the planned procedure. ASA Class: ASA 2 - Patient with mild systemic disease with no functional limitations PLAN: Will plan to proceed with DIAGNOSTIC COLONOSCOPY using Moderate Sedation. Sunny Wu MD, PhD General Surgery PGY-2 Pager: [phone] [facility] Work Phone: 06-25-2022 History and physical note ENDOSCOPIC PREPROCEDURE HISTORY AND PHYSICAL HISTORY OF PRESENT ILLNESS: Evelia Bailon is a 56 y.o. female seen in the preoprocedure area at [facility]. The indication for endoscopic evaluation includes: Rectal cancer Post op surveillance PAST MEDICAL HISTORY: Past Medical History: Diagnosis Date Essential hypertension, benign History of radiation therapy Rectal cancer SURGICAL HISTORY: Past Surgical History: Procedure Laterality Date COLECTOMY PARTIAL ROBOTIC N/A 06/09/2021 Laterality: N/A; Surgeon: Liliana Andrews MD; Location: [facility] OR EXAM UNDER ANESTHESIA ANORECTAL N/A 02/15/2021 Laterality: N/A; Surgeon: Liliana Andrews MD; Location: [facility] PERIOP SECTION KNEE SURGERY times 2 on left knee OTHER SURGICAL ear left MEDICATIONS: Current Outpatient Medications Medication Instructions lisinopril (PRINIVIL) 10 mg, Oral, SEE ADMIN INSTRUCTIONS, Take Saturday, Saturday, Saturday lisinopril-hydrochlorothiazide 10-12.5 MG tablet 1 tablet, Oral, SEE ADMIN INSTRUCTIONS, Take Saturday, , Saturday, and Saturday Current Outpatient Medications: lisinopril 10 MG tablet, Take 10 mg by mouth See admin instructions. Take Saturday, Saturday, Saturday, Disp: , Rfl: lisinopril-hydrochlorothiazide 10-12.5 MG tablet, Take 1 tablet by mouth See admin instructions. Take Saturday, , Saturday, and Saturday, Disp: , Rfl: ALLERGIES: Allergies Allergen Reactions Penicillins Hives and Rash FOCUSED REVIEW OF SYSTEMS: Negative for nausea, vomiting, abdominal pain and diarrhea VITAL SIGNS: Vitals: 06/25/22 0856 BP: 146/77 Pulse: 67 SpO2: 99% Height: 1.702 m (5' 7 ) PREPROCEDURE PHYSICAL EXAM: AIRWAY: normal, Mallampati: Class III (visualization of only the base of the uvula) HEART: Regular PULMONARY: NWB on RA ABDOMEN: Soft, nontender, nondistended, colostomy in place with scant liquid output in bag ASSESSMENT: Evelia Bailon is a 56 y.o. female is ready for the planned procedure. ASA Class: ASA 2 - Patient with mild systemic disease with no functional limitations PLAN: Will plan to proceed with DIAGNOSTIC COLONOSCOPY using Moderate Sedation. Sunny Wu MD, PhD General Surgery PGY-2 Pager: [phone] documented in this encounter [facility] 06-22-2022 History of Presen t illness Narrative RADIATION ONCOLOGY FOLLOW-UP VISIT CC/ID: Evelia Bailon is a 56 y.o. female with a diagnosis of clinical stage IIA (cT3 N0 M0) adenocarcinoma of the distal rectum, only 1 cm from the anal verge. She underwent a course of chemoradiation, receiving 50 Gy in 25 fractions with capecitabine, completed on 03/31/21, followed by surgery with end colostomy on 06/09/21. Pathology showed no residual disease and she entered surveillance. She returns today for follow up. Interval since treatment completion: 1 year, 3 months History of Present Illness: Oncologic History: She underwent colonoscopy at [facility] on 01/12/21. The EVA revealed a palpable 4 cm firm rectal mass 1.0 cm from the anal verge. A frond-like/villous non-obstructing medium sized mass was found in the rectum. The mass was partially circumferential involving 1/3 of the lumen circumference, measuring 4 cm in length. Biopsies were taken and confirmed well differentiated invasive adenocarcinoma. She followed with Dr. Andrews of colorectal surgery here at [facility] on 01/26/21 with recommendation for further imaging and EUA, as well as referral to radiation and medical oncology. She underwent a course of chemoradiation, receiving 50 Gy in 25 fractions with capecitabine, completed on 03/31/21. She then underwent robotic abdominoperineal resection with end colostomy on 06/09/21 with no residual cancer. She has continued in surveillance. Interval History: She is seen unaccompanied in clinic today. She reports mild joint discomfort since completing chemotherapy. She has intermittent sciatica pain, up to a 6/10 at it's worst. She doesn't take any medications for this. Mild fatigue. 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 No longer discomfort with sitting. She notes a dull headache most days for the past 4-6 weeks. She takes Tylenol maybe twice weekly, which helps. Ostomy is functioning without issue. Appetite is good. Weight stable. No urinary issues, cough, increased shortness of breath, swelling, or other concerns. She is doing well. I have reviewed Ms. Bailon's medical, surgical and other pertinent history in detail, and have updated medication and allergy information in the computerized patient record. Past Medical History: She has a past medical history of Essential hypertension, benign, History of radiation therapy, and Rectal cancer. She has no past medical history of History of chemotherapy or Pacemaker. Past Surgical History: She has a past surgical history that includes knee surgery; other surgical; section; exam under anesthesia anorectal (N/A, 02/15/2021); and colectomy partial robotic (N/A, 06/09/2021). Medications: She has a current medication list which includes the following prescription(s): lisinopril 10 MG tablet and lisinopril-hydrochlorothiazide 10-12.5 MG tablet. Allergies: Penicillins Physical Exam: CONSTITUTIONAL: Well developed, well nourished female, who looks their stated age of 56 y.o.. No acute distress noted. HEENT: Head: Normocephalic and atraumatic. EYES: Extraocular movements are intact. Sclerae are anicteric. CARDIAC: Regular rate and rhythm. PULMONARY/CHEST: Lungs are clear to auscultation. No wheezes, rhonchi or rales noted. ABDOMINAL: Abdomen soft. Ostomy in place in LLQ. EXTREMITIES: Full range of motion in all four extremities. No cyanosis or clubbing or edema. SKIN: Skin is warm and dry. She is not diaphoretic. NEUROLOGIC EXAM: Alert and oriented x 3. Speech is fluent. Gait and posture are steady. PSYCHIATRIC: Appropriate mood and affect for her clinical situation. Data: Radiographic Studies: CT chest 04/12/22: IMPRESSION: Stable examination with no evidence of intrathoracic metastatic disease CT abd/pelvis 04/12/22: IMPRESSION: 1. No evidence of metastatic disease in the abdomen or pelvis. CT chest 09/26/21: IMPRESSION: 1. No evidence of intrathoracic metastatic disease. CT abd/pelvis 09/26/21: IMPRESSION: Decreased prominence with suspected focal fatty infiltration near falciform ligament. No clear evidence of solid organ or olivia metastatic disease. MRI pelvis 05/17/21: IMPRESSION: Low rectal mass has decreased in size from prior exam. There is abutment but not definitively involvement of the internal sphincter. Laboratory studies: Reviewed in EMR Performance Status: ECOG Performance Status: Grade 1 - Restricted in physically strenuous activity but ambulatory and able to carry out work of a light or sedentary nature, e.g., light house work, office work Assessment and Plan: In summary, Ms. Bailon is a 56 y.o. female with a history of clinical stage IIA (cT3 N0 M0) adenocarcinoma of the distal rectum, only 1 cm from the anal verge. She underwent a course of chemoradiation, receiving 50 Gy in 25 fractions with capecitabine, completed on 03/31/21. She then underwent APR on 06/09/21 with complete pathologic response. She returns today for follow up. 1. She had excellent response to treatment for Stage IIA rectal adenocarcinoma. Clinically, there are no signs of new or recurrent disease. She is scheduled with Dr. Andrews on 06/25/22 for colonoscopy. She has CT scans on 07/12/22. She will follow with Dr. Padron on 07/18/22. We will plan to see her back in 6-7 months or sooner if needed. Discussed we can alternate visits with Dr. Padron. 2. In terms of radiation treatment sequelae, she has the following problems: Acute sequela of RT: Rectal pain- resolved. Pain with intercourse- resolved. Late sequela of RT: none 3. Other relevant issues/problems are as follows: Of note, she did complete pelvic swab for VICKI trial: Longitudinal changes in woman's pelvic health and sexual function after pelvic radiation. She was given a home collection kit in clinic and performed sample on her own. We will have her return in 6-7 months with the following studies at that time: clinical exam. Thank you for allowing me to participate in the care of this patient. Please do not hesitate to contact me with any questions or concerns. This patient was seen independently of the attending physician. Dr. Allison has been made aware of the assessment and plan. CARRIE Fuller Dept of Radiation Oncology documented in this encounter [facility] 04-20-2022 Instructions Cristela Olivares RN - 04/20/2022 11:01 AM EDT Video in [address] Padron, CT scans and labs prior. Ok to have labs drawn on same day as CT scans. Prescriptions today: none documented [facility] History of Presen t illness Narrative GI MEDICAL ONCOLOGY CLINIC NOTE THIS IS A VIDEO VISIT History/Reason for visit: No chief complaint on file. Rectal cancer [C20] History of Present Illness: Evelia Bailon is a 56 y.o. female REVIEW OF SYSTEMS: General: No fevers, chills, sweats or change in weight. No fatigue or insomnia. Skin: No changes in hair or nails, no itching, rashes, changing moles or non healing sores HEENT: No visual changes, blurring or double vision, ear pain, ear infection, decreased auditory acuity, sinus problems, epistaxis, mouth sores, trouble swallowing, or trouble with teeth or gums Respiratory: No cough, shortness or breath or wheezing Cardiovascular: No chest pain, palpitations, leg pain or cramping, edema or orthopnea. GI: No nausea, diarrhea, constipation. : No bladder infections, hematuria, dribbling, kidney stones, nocturia or incontinence Musculoskeletal: No back pain, joint pain or swelling. Neurologic: No dizziness, syncope, headache, weakness or numbness, anxiety or depression Past Medical History: Past Medical History: Diagnosis Date Essential hypertension, benign History of radiation therapy Rectal cancer Past Surgical History: Past Surgical History: Procedure Laterality Date COLECTOMY PARTIAL ROBOTIC N/A 06/09/2021 Laterality: N/A; Surgeon: Liliana Andrews MD; Location: [facility] MAIN OR EXAM UNDER ANESTHESIA ANORECTAL N/A 02/15/2021 Laterality: N/A; Surgeon: Liliana Andrews MD; Location: [facility] PERIOP SECTION KNEE SURGERY times 2 on left knee OTHER SURGICAL ear left Medications: Current Outpatient Medications Medication Sig lisinopril 10 MG tablet Take 10 mg by mouth See admin instructions. Take Saturday, Saturday, Saturday lisinopril-hydrochlorothiazide 10-12.5 MG tablet Take 1 tablet by mouth See admin instructions. Take Saturday, , Saturday, and Saturday Allergies: Allergies Allergen Reactions Penicillins Hives and Rash Family History: Family History Problem Relation Age of Onset Breast Cancer Sister Ovarian Cancer Sister Uterine Cancer Sister Cancer- Other Sister melanoma Cancer- Other Sister basel cell carcinoma of nose Diabetes Mother Hypertension Mother Social History: Social History Socioeconomic History Marital status: Spouse name: Not on file Number of children: Not on file Years of education: Not on file Highest education level: Not on file Occupational History Not on file Tobacco Use Smoking status: Never Smoker Smokeless tobacco: Never Used Vaping Use Vaping Use: Never used Substance and Sexual Activity Alcohol use: Never Drug use: Never Sexual activity: Yes Partners: Male control/protection: Tubal Ligation Other Topics Concern Occupational Exposure No Hobby Hazards No Social History Narrative Not on file Social Determinants of Health Financial Resource Strain: Not on file Food Insecurity: Not on file Transportation Needs: Not on file Physical Activity: Not on file Stress: Not on file Social Connections: Not on file Intimate Partner Violence: Not on file Housing Stability: Not on file Physical Examination: Vitals: Smoking Status Never Smoker BMI: There is no height or weight on file to calculate BMI. ECOG Performance Status: COULD NOT PERFORM THIS Laboratory Data: Lab Results Component Value Date WBC 3.34 (L) 01/12/2022 HGB 12.5 01/12/2022 HCT 36.3 01/12/2022 PLATELET 268 01/12/2022 MCV 91.7 01/12/2022 Lab Results Component Value Date SODIUM 141 01/12/2022 POTASSIUM 3.6 01/12/2022 CHLORIDE 105 01/12/2022 CO2 32 (H) 01/12/2022 BUN 14 01/12/2022 CREATSERUM 0.67 01/12/2022 Lab Results Component Value Date ALT 16 01/12/2022 AST 12 01/12/2022 ALKPHOS 53 01/12/2022 BILITOTAL 1.1 01/12/2022 BILIDIRECT 0.2 02/24/2021 Lab Results Component Value Date CEA 1.1 01/12/2022 CEA 0.7 10/13/2021 CEA <0.5 07/21/2021 No results found. Assessment/Plan Stage II Rectal Adenocarcinoma s/p neoadjuvant ELECTROPLATING LABORER and resection (had CR) TUMOR CHARACTERISTICS AT DIAGNOSIS PATHOLOGY 01/12/21: Rectal mass - well differentiated adenocarcinoma 06/09/21: No evidence of tumor IMAGING MRI pelvis on : Rectal cancer with no mets. No information on T-staging CT CAP: No evidence of distant mets EUS on 02/15/21: Tumor encompassing anterior 180 degrees of bowel wall with at least 120 cm of anterior sphincter involvement. Extending from 1 cm from anal verge to 6 cm from the anal verge. Involves the dentate line.Tumor very friable and bleeding with EVA alone. BASELINE TUMOR CHARACTERISTICS - awaiting path from OSH for MSI/MSH Post surgery scans CT A/P on 06/27/21 showed CARRIE except a concerning lesion in the left lobes MRI on 07/27 reproted left lateral hepatic dome lesion is likely cyst. The concerning lesion in the left lobe on 06/27 CT was not seen on it. CT CAP on 04/12/22 showed CARRIE Assessment and Plan We discussed diagnosis, imaging, pathology, staging, natural course of disease, and prognosis again today. I have personally reviewed available recent imaging and labs and discussed with the patient. There is no clear evidence of liver lesions or recurrence. We had a lengthy discussion today. We started with N0 disease and she had CR with ELECTROPLATING LABORER. After discussing pros/cons of adjuvant therapy, we decided to put her on surveillance. She understands the risks including recurrence. The plan now is to put her in surveillance. Her last CEA is < 0.5, and I am comfortable without having a CT chest now. We shall get a PET in october to evaluate chest and also residual/recurrent disease (including the liver lesion). RTC after scans Attending addendum I have personally seen and examined the patient today. I discussed the plan of care with CARRIE Lennon, who prepared today's progress note; and I formulated the medical decision making, as above. For today's visit, I reviewed the nursing flowchart, list of medications and pertinent laboratory and diagnostic tests. I agree with the progress note and edited as needed, and it reflects the details of my interview, exam, and medical decision making. Stage II Rectal Adenocarcinoma s/p neoadjuvant ELECTROPLATING LABORER and resection (had CR) TUMOR CHARACTERISTICS AT DIAGNOSIS PATHOLOGY 01/12/21: Rectal mass - well differentiated adenocarcinoma 06/09/21: No evidence of tumor IMAGING MRI pelvis on : Rectal cancer with no mets. No information on T-staging CT CAP: No evidence of distant mets EUS on 02/15/21: Tumor encompassing anterior 180 degrees of bowel wall with at least 120 cm of anterior sphincter involvement. Extending from 1 cm from anal verge to 6 cm from the anal verge. Involves the dentate line.Tumor very friable and bleeding with EVA alone. BASELINE TUMOR CHARACTERISTICS - awaiting path from OSH for MSI/MSH Post surgery scans CT A/P on 06/27/21 showed CARRIE except a concerning lesion in the left lobes MRI on 07/27 reproted left lateral hepatic dome lesion is likely cyst. The concerning lesion in the left lobe on 06/27 CT was not seen on it. CT CAP wo contrast on 04/12/22 showed CARRIE Assessment and Plan Continue surveillance We discussed diagnosis, imaging, pathology, staging, natural course of disease, and prognosis again today. I have personally reviewed available recent imaging and labs and discussed with the patient. There is no clear evidence of liver lesions or recurrence this time too but the scans were wo contrast. Given her stage II disease and normal CEA last time, I will not tepeat CT w contrast now but if CEA comes back high, will consider it She is scheduled to have CSC in 05/25 with Rafael - that should be fine Colon Cancer Surveillance PE/CEA - every 3mfor 2 years, followed by every 6m Imaging - Every 6m CSC - years -in 05/25? RTC with scans GI MEDICAL ONCOLOGY CLINIC NOTE Date of visit: 03/24/2021 History/Reason for visit: Chief Complaint Patient presents with Follow-up Rectal cancer [C20] History of Present Illness: Evelia Bailon is a 56 y.o. female who presents for follow up and Ct scan review. She continues to do well with great energy and appetite. 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 Her bowels are regular. She denies hematochezia or melena. She denies new or worsening abdominal pain, nausea or vomiting. REVIEW OF SYSTEMS: General: No fevers, chills, sweats or change in weight, fatigue Skin: No changes in hair or nails, no itching, changing moles or non healing sores. A few scattered papules to the dorsal aspect of hands. +radiation dermatitis HEENT: No visual changes, blurring or double vision, ear pain, ear infection, decreased auditory acuity, sinus problems, epistaxis, mouth sores, trouble swallowing, or trouble with teeth or gums Respiratory: No cough, shortness or breath or wheezing Cardiovascular: No chest pain, palpitations, leg pain or cramping, edema or orthopnea. GI: No nausea. No vomiting. diarrhea. No constipation. No abdominal pain. No Perineal pain : No bladder infections, hematuria, dribbling, kidney stones, nocturia or incontinence Musculoskeletal: No back pain, joint pain or swelling. Neurologic: No dizziness, syncope, headache, weakness or numbness, anxiety or depression Past Medical History: Past Medical History: Diagnosis Date Essential hypertension, benign History of radiation therapy Rectal cancer Past Surgical History: Past Surgical History: Procedure Laterality Date COLECTOMY PARTIAL ROBOTIC N/A 06/09/2021 Laterality: N/A; Surgeon: Liliana Andrews MD; Location: [facility] MAIN OR EXAM UNDER ANESTHESIA ANORECTAL N/A 02/15/2021 Laterality: N/A; Surgeon: Liliana Andrews MD; Location: [facility] PERIOP SECTION KNEE SURGERY times 2 on left knee OTHER SURGICAL ear left Medications: Current Outpatient Medications Medication Sig lisinopril 10 MG tablet Take 10 mg by mouth See admin instructions. Take Saturday, Saturday, Saturday lisinopril-hydrochlorothiazide 10-12.5 MG tablet Take 1 tablet by mouth See admin instructions. Take Saturday, , Saturday, and Saturday Allergies: Allergies Allergen Reactions Penicillins Hives and Rash Family History: Family History Problem Relation Age of Onset Breast Cancer Sister Ovarian Cancer Sister Uterine Cancer Sister Cancer- Other Sister melanoma Cancer- Other Sister basel cell carcinoma of nose Diabetes Mother Hypertension Mother Social History: Social History Socioeconomic History Marital status: Spouse name: Not on file Number of children: Not on file Years of education: Not on file Highest education level: Not on file Occupational History Not on file Tobacco Use Smoking status: Never Smoker Smokeless tobacco: Never Used Vaping Use Vaping Use: Never used Substance and Sexual Activity Alcohol use: Never Drug use: Never Sexual activity: Yes Partners: Male control/protection: Tubal Ligation Other Topics Concern Occupational Exposure No Hobby Hazards No Social History Narrative Not on file Social Determinants of Health Financial Resource Strain: Not on file Food Insecurity: Not on file Transportation Needs: Not on file Physical Activity: Not on file Stress: Not on file Social Connections: Not on file Intimate Partner Violence: Not on file Housing Stability: Not on file Physical Examination: Vitals: BP 128/70 Pulse 70 Temp 98.4 F (36.9 C) (Oral) Resp 16 Ht 1.693 m (5' 6.65 ) Comment: w/o shoes Wt 79.5 kg (175 lb 3.2 oz) Comment: w/o shoes SpO2 98% Comment: On room air BMI 27.73 kg/m Smoking Status Never Smoker BMI: Body mass index is 27.73 kg/m . ECOG Performance Status: 1 General Appearance: Alert and oriented x 3, in no acute distress. HEENT : Head atraumatic, normocephalic. No scleral icterus. Patient wearing mask. Neck: Supple. No cervical, supraclavicular or infraclavicular lymphadenopathy. Lungs: Clear to auscultation bilaterally. Normal respiratory effort. No wheezes, rales, or rhonchi. Cardiac: Normal S1, S2. Rate and rhythm regular. No murmur, gallop or rub. GI: Abdomen is soft, nontender, nondistended, positive bowel sounds. No palpable hepatosplenomegaly. No guarding/rebound tenderness or rigidity, no peritoneal signs. Well healed laparoscopic incisions. Colostomy appliance in place Extremities: No cyanosis, clubbing or edema. Neuro: No focal deficits. No gross upper or lower limb weakness. Speech is clear and appropriate. Lymph: No palpable cervical, supraclavicular lymphadenopathy. Musculoskeletal: No gross tenderness of bones or joints. Psych: Pleasant affect, appropriate mood. Adequate insight. No signs of agitation or disorientation/confusion. Skin: No excessive bruising, or petechiae. Access: Laboratory Data: Lab Results Component Value Date WBC 2.33 (L) 04/20/2022 HGB 12.2 04/20/2022 HCT 35.3 04/20/2022 PLATELET 228 04/20/2022 MCV 91.5 04/20/2022 Lab Results Component Value Date SODIUM 140 04/20/2022 POTASSIUM 3.9 04/20/2022 CHLORIDE 108 04/20/2022 CO2 26 04/20/2022 BUN 16 04/20/2022 CREATSERUM 0.74 04/20/2022 Lab Results Component Value Date ALT 17 04/20/2022 AST 13 04/20/2022 ALKPHOS 47 04/20/2022 BILITOTAL 1.0 04/20/2022 BILIDIRECT 0.2 02/24/2021 Lab Results Component Value Date CEA <2.0 04/20/2022 CEA 1.1 01/12/2022 CEA 0.7 10/13/2021 CEA <0.5 07/21/2021 PATHOLOGY Pathologic Diagnosis A. Rectum and anus, robotic partial colectomy: Extensive treatment effect identified. No definitive evidence of residual adenocarcinoma. See comment Resection margins are negative for dysplasia or carcinoma Fourteen benign lymph nodes (0/11). at 1725 Diagnosis Comments Extensive fibrosis with calcifications consistent with treatment effect are identified, including some degenerating, partially calcified glands consistent with treated tumor. No definitive evidence of viable tumor is identified. Addendum This case was re-reviewed to confirm that the total number of benign lymph nodes detected was 14. (0/14). Addendum electronically signed by Juan Pablo Larose MD on 07/16/2021 at 2348 Synoptic Checklist COLON AND RECTUM: Resection, Including Transanal Disk Excision of Rectal Neoplasms 8th Edition - Protocol posted: 03/02/2020 COLON AND RECTUM: RESECTION - All Specimens SPECIMEN Procedure Abdominoperineal resection Macroscopic Evaluation of Mesorectum Incomplete TUMOR Tumor Site Rectum Tumor Location Entirely below the anterior peritoneal reflection Histologic Type Carcinoma, type cannot be determined: No residual adenocarcinoma Histologic Grade Not applicable Tumor Size Cannot be determined: No residual carcinoma; area of ulceration measures 3.0 x 1.3 x 0.4 cm Tumor Extension Cannot be assessed Macroscopic Tumor Perforation Not identified Lymphovascular Invasion Not identified Perineural Invasion Not identified Type of Polyp in Which Invasive Carcinoma Arose None identified Treatment Effect Present No viable cancer cells (complete response, score 0) MARGINS Margins All margins are uninvolved by invasive carcinoma, high grade dysplasia / intramucosal carcinoma, and low grade dysplasia Margins Examined Proximal Distal Radial (circumferential) or Mesenteric LYMPH NODES Number of Lymph Nodes Involved 0 Number of Lymph Nodes Examined 11 Tumor Deposits Not identified PATHOLOGIC STAGE CLASSIFICATION (pTNM, AJCC 8th Edition) TNM Descriptors y (post-treatment) Primary Tumor (pT) pT0 Regional Lymph Nodes (pN) pN0 . RADIOLOGY CT ABDOMEN/PELVIS: 04/12/22 IMPRESSION: 1. No evidence of metastatic disease in the abdomen or pelvis. CT CHEST: 04/12/22 IMPRESSION: Stable examination with no evidence of intrathoracic metastatic disease Assessment and Plan Stage I (T0 N0M0) Rectal Adenocarcinoma Evelia Bailon is a 56 y.o. female with recently diagnosed rectal adenocarcinoma She started neoadjuvant chemoradiation with Xeloda on 02/27/21. Completed chemoradiation on 03/31/21. Underwent Robotic abdominoperineal resection with end colostomy on 06/09/21. Pathology T0N0, with no residual cancer. Dr. Padron offered surveillance versus adjuvant chemo. Patient decided to pursue surveillance. - CT abd/pelvison 06/27/21, showed Focal area of hypodensity in the left hepatic lobe. MRI abdomen completed on 07/27/21 did not show any suspicious arterially enhancing lesions. Ms. Bailon presents for follow up. She is doing very well. Most recent restaging Ct scans from 04/12/22 with CARRIE. CEA from today is undtectable. - One year post surgery colonoscopy due in June 2023. She is following with Dr. More. We will continue with surveillance. RTC 3 months with labs and scans prior to see Dr. Padron Patient was advised to call the office should any questions or concerns arise in the interim. CARRIE Lennon documented in this encounter [facility] 06-22-2021 History of Presen t illness Narrative Chief Complaint Void trial HPI Ms. Bailon is a 55 y.o. female who presents to urology clinic today for void trial. She was recently hospitalized 06/09/21 - 06/14/21 for robotic partial colectomy with end colostomy for rectal cancer. She developed urinary retention while admitted and failed void trial inpatient. She was discharged with a dwyer catheter in place. She denies baseline voiding issues. Has never had this happen before. She is taking tamsulosin. Has been for one week. Her colostomy is functioning. She is drinking plenty of water. Past Medical History She has a past medical history of Essential hypertension, benign and Rectal cancer. She also has no past medical history of History of chemotherapy, History of radiation therapy, or Pacemaker. Past Surgical History She has a past surgical history that includes knee surgery; other surgical; section; exam under anesthesia anorectal (N/A, 02/15/2021); and colectomy partial robotic (N/A, 06/09/2021). Medications She has a current medication list which includes the following prescription(s): acetaminophen, docusate, gabapentin, ibuprofen, lisinopril, lisinopril-hydrochlorothiazide, tamsulosin hcl, and oxycodone. Allergies She is allergic to penicillins. Social History She reports that she has never smoked. She has never used smokeless tobacco. She reports that she does not drink alcohol and does not use drugs. Family History She has no family history of bladder or kidney cancer She has no family history of kidney stones She family history includes Breast Cancer in her sister; Cancer- Other in her sister and sister; Diabetes in her mother; Hypertension in her mother; Ovarian Cancer in her sister; Uterine Cancer in her sister. Review of Systems Constitutional: No fevers or chills Skin: Negative for rash Endocrine: No heat/cold intolerance Cardiovascular: Negative for chest pain or dyspnea on exertion Respiratory: Negative for shortness of breath or wheezing Gastrointestinal: No constipation, nausea or vomiting Genitourinary: See HPI. Musculoskeletal: No flank pain Neurological: Negative for frequent headaches or dizziness Lymph/Heme: Negative for leg swelling or calf pain. Physical Exam BP 140/80 Pulse 81 Temp 97.3 F (36.3 C) Ht 1.702 m (5' 7 ) Wt 72.1 kg (159 lb) SpO2 100% BMI 24.90 kg/m Smoking Status Never Smoker Constitutional: NAD, WDWN. HEENT: NCAT. Conjunctivae normal. MMM. Pulmonary/Chest: Respirations are even and non-labored bilaterally. Abdominal: No obvious distension. Neurological: A + O x 3. Cranial Nerves II-XII grossly intact. Extremities: Warm. No clubbing. No cyanosis. Lower extremity edema: Skin: [place], warm and dry. No rashes noted. Psych: normal mood and affect. Labs Lab Results Component Value Date WBC 2.81 (L) 06/14/2021 HGB 9.3 (L) 06/14/2021 HCT 26.9 (L) 06/14/2021 PLATELET 172 06/14/2021 MCV 96.8 06/14/2021 Lab Results Component Value Date SODIUM 140 06/14/2021 POTASSIUM 3.7 06/14/2021 CHLORIDE 105 06/14/2021 CO2 27 06/14/2021 BUN 10 06/14/2021 CREATSERUM 0.70 06/14/2021 GLUCOSE 108 (H) 06/14/2021 Lab Results Component Value Date GLUCOSE 108 (H) 06/14/2021 Radiographic Studies MRI PELVIS 05/17/21 IMPRESSION: Low rectal mass has decreased in size from prior exam. There is abutment but not definitively involvement of the internal sphincter. I personally reviewed the labs and images as applicable above. Post Void Residual performed today: 11 ml Problem List/Assessment: Ms. Bailon presents to urology clinic today for TOV following episode of post operative urinary retention. She passed today and had no issues spontaneously voiding. Plan 1. Follow up as needed. Patient and her were educated on return to clinic/ED protocol. Voiced understanding. Call or send Ship[employer] message for new gross hematuria, new urinary symptoms, or other questions or concerns At the conclusion of the discussion, all questions were answered to satisfaction and the patient agreed with the plan. Pt was given an explanation regarding the voiding trial and wishes to proceed. Pt undressed and the dwyer bag was removed from the catheter. The balloon of a 16French silicone catheter was then deflated. 300 mL of sterile water was slowly instilled into the bladder. The patient voiced an urge to urinate and the catheter was removed. The patient tolerated the procedure okay. Pt was allowed to void. 350mL of yellow urine was returned and a PVR was performed and showed 11 mL of urine in the bladder Provider, Galilea Gilmore CNP, was immediately available in the suite for any questions or concerns. documented in this encounter [facility] Diagnosis Abdominal wall abscess Cellulitis and abscess of trunk [facility] Diagnosis Rectal cancer- Primary Malignant neoplasm of rectum [facility] Diagnosis Rectal cancer Malignant neoplasm of rectum [facility] Rectal cancer- Primary Malignant neoplasm of rectum [facility] Diagnosis Rectal cancer Malignant neoplasm of rectum [facility] Diagnosis Rectal cancer Malignant neoplasm of rectum [facility] Diagnosis Rectal cancer- Primary Malignant neoplasm of rectum [facility] Rectal cancer Malignant neoplasm of rectum [facility] Diagnosis Rectal cancer Malignant neoplasm of rectum [facility] Diagnosis Encounter for follow-up examination after completed treatment for malignant neoplasm- Primary Unspecified follow-up examination Personal history of irradiation, presenting hazards to health Malignant neoplasm of rectum [facility] Diagnosis Rectal cancer Malignant neoplasm of rectum [facility] Diagnosis Rectal cancer Malignant neoplasm of rectum [facility] Diagnosis Rectal cancer- Primary Malignant neoplasm of rectum documented in this encounter [facility] Summary Purpose Family History No Family History Records FoundNo Family History Records Found Advance Directives Latest Code Status on File Code Status Date Activated Date Inactivated Comments Full Code 06/09/2021 5:42 AM 06/09/2021 4:26 PM Latest Code Status on File Code Status Date Activated Date Inactivated Comments Full Code 06/09/2021 5:42 AM 06/09/2021 4:26 PM Latest Code Status on File Code Status Date Activated Date Inactivated Comments Full Code 06/09/2021 5:42 AM 06/09/2021 4:26 PM Latest Code Status on File Code Status Date Activated Date Inactivated Comments Full Code 06/09/2021 5:42 AM 06/09/2021 4:26 PM Reason for Referral Specialty Diagnoses / Procedures Referred By Contac t Referred To Contact Diagnoses Abdominal wall abscess Procedures CT ABDOMEN/PELVIS WITH CONTRAST CHG CT SCAN,ABDOMENT AND PELVIS,W CONTRAST Liliana Andrews MD [address] [facility] [address] [place] [address] Referral ID Status Reason Start Date Expiration Date Visits Re quested Visits Authorized [id number] Closed 06/27/2021 07/22/2022 1 1 Specialty Diagnoses / Procedures Referred By Contac t Referred To Contact Diagnoses Rectal cancer Procedures CT ABDOMEN/PELVIS WITH CONTRAST CHG CT SCAN,ABDOMENT AND PELVIS,W CONTRAST Dena Vang, SYSTEMS MECHANIC-BALLET TEACHER [address] [facility] [address] [place] [address] Referral ID Status Reason Start Date Expiration Date V isits Requested Visits Authorized [id number] New Request 04/20/2022 05/15/2023 1 1 Specialty Diagnoses / Procedures Referred By Contac t Referred To Contact Diagnoses Rectal cancer Procedures CT CHEST WITH CONTRAST CHG DIAGNOSTIC COMPUTED TOMOGRAPHY THORAX W/CONTRAST Umar, Dena, SYSTEMS MECHANIC-BALLET TEACHER [address] [place] [address] Referral ID Status Reason Start Date Expiration Date V isits Requested Visits Authorized [id number] New Request 04/20/2022 05/15/2023 1 1 Specialty Diagnoses / Procedures Referred By Contac t Referred To Contact Diagnoses Rectal cancer Procedures DIAGNOSTIC COLONOSCOPY TN COLONOSCOPY FLX DX W/COLLJ SPEC WHEN Liliana Joseph MD [address] [facility] [address] [place] [address] Referral ID Status Reason Start Date Expiration Date Visits Re quested Visits Authorized [id number] Closed 04/12/2022 05/07/2023 1 1 Referral ID Status Reason Start Date Expiration Date Visits Re quested Visits Authorized [id number] Closed 04/20/2022 05/15/2023 1 1 Referral ID Status Reason Start Date Expiration Date V isits Requested Visits Authorized [id number] New Request 11/26/2022 12/21/2023 1 1 Referral ID Status Reason Start Date Expiration Date V isits Requested Visits Authorized [id number] New Request 11/26/2022 12/21/2023 1 1 Referral ID Status Reason Start Date Expiration Date V isits Requested Visits Authorized [id number] Pending Review 11/26/2022 12/21/2023 1 1 Referral ID Status Reason Start Date Expiration Date V isits Requested Visits Authorized [id number] Pending Review 11/26/2022 12/21/2023 1 1 Specialty Diagnoses / Procedures Referred By Contac t Referred To Contact Diagnoses Rectal cancer Procedures MRI PELVIS MSK WITH AND WITHOUT CONTRAST MRI HIP RIGHT WITH AND WITHOUT CONTRAST TN MRI, JOINT OF LEG. COMBO TN MRI, PELVIS, COMBO Stoney Padron MBBS [address] [place] [address] Referral ID Status Reason Start Date Expiration Date Visits Re quested Visits Authorized [id number] Closed 03/11/2023 04/04/2024 1 1 Specialty Diagnoses / Procedures Referred By Contac t Referred To Contact Diagnoses Rectal cancer Procedures CT CHEST WITH CONTRAST CHG DIAGNOSTIC COMPUTED TOMOGRAPHY THORAX W/CONTRAST Stoney Padron MBBS [address] [place] [address] Referral ID Status Reason Start Date Expiration Date Visits Re quested Visits Authorized [id number] Closed 02/25/2023 03/21/2024 1 1 Specialty Diagnoses / Procedures Referred By Contac t Referred To Contact Diagnoses Rectal cancer Procedures CT ABDOMEN/PELVIS WITH CONTRAST CHG CT SCAN,ABDOMENT AND PELVIS,W CONTRAST Stoney Padron MBBS [address] [place] [address] Referral ID Status Reason Start Date Expiration Date Visits Re quested Visits Authorized [id number] Closed 02/25/2023 03/21/2024 1 1 Referral ID Status Reason Start Date Expiration Date V isits Requested Visits Authorized [id number] New Request 08/26/2023 09/19/2024 1 1 Referral ID Status Reason Start Date Expiration Date V isits Requested Visits Authorized [id number] New Request 08/26/2023 09/19/2024 1 1 Additional Source Comments INFORMATION SOURCE (unrecogn ized section and content) DATE CREATED AUTHOR AUTHOR'S ORGANIZ ATION 08/27/2023 [facility] Reason for Visit (unrecogniz ed section and content) Specialty Diagnoses / Procedures Referred By Contac t Referred To Contact Medical Oncology / Oncology Diagnoses 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 labs/scans prior Procedures RETURN PATIENT Barney Wilson MD [address] [address] Stoney Padron MBBS [address] [place] [address] Referral ID Status Reason Start Date Expiration Date Visits Re quested Visits Authorized [id number] Closed 08/26/2023 09/19/2024 1 1 Reason Comments Labs Only Specialty Diagnoses / Procedures Referred By Contac t Referred To Contact Clinical Pathology/Laboratory Medicine Diagnoses Vito labs Procedures BLOOD DRAW Clinical Lab Enrique Rose [address] [facility] [address] [place] [address] Referral ID Status Reason Start Date Expiration Date Visits Re quested Visits Authorized [id number] Closed 08/26/2023 09/19/2024 1 1 Reason Comments New Patient void trial Specialty Diagnoses / Procedures Referred By Contac t Referred To Contact Urology Diagnoses Rectal cancer Acute urinary retention Mirtha Linares, SYSTEMS MECHANIC-BALLET TEACHER [address] [facility] [address] [place] [address] Referral ID Status Reason Start Date Expiration Date V isits Requested Visits Authorized [id number] New Request 06/14/2021 07/09/2022 1 1 Specialty Diagnoses / Procedures Referred By Contac t Referred To Contact Diagnoses Abdominal wall abscess Procedures CT ABDOMEN/PELVIS WITH CONTRAST CHG CT SCAN,ABDOMENT AND PELVIS,W CONTRAST Liliana Andrews MD [address] [address] Referral ID Status Reason Start Date Expiration Date Visits Re quested Visits Authorized [id number] Closed 06/27/2021 07/22/2022 1 1 Reason Comments Follow-up Reason Comments Follow-up Specialty Diagnoses / Procedures Referred By Contac t Referred To Contact Diagnoses Rectal cancer Procedures DIAGNOSTIC COLONOSCOPY TN COLONOSCOPY FLX DX W/COLLJ SPEC WHEN PFRMD Liliana Andrews MD [address] [address] Referral ID Status Reason Start Date Expiration Date Visits Re quested Visits Authorized [id number] Closed 04/12/2022 05/07/2023 1 1 Specialty Diagnoses / Procedures Referred By Contac t Referred To Contact Diagnoses Rectal cancer Procedures CT ABDOMEN/PELVIS WITH CONTRAST CHG CT SCAN,ABDOMENT AND PELVIS,W CONTRAST Umar, Dena, SYSTEMS MECHANIC-BALLET TEACHER [address] [place] [address] Referral ID Status Reason Start Date Expiration Date Visits Re quested Visits Authorized [id number] Closed 04/20/2022 05/15/2023 1 1 Specialty Diagnoses / Procedures Referred By Contac t Referred To Contact Diagnoses Rectal cancer Procedures CT CHEST WITH CONTRAST CHG DIAGNOSTIC COMPUTED TOMOGRAPHY THORAX W/CONTRAST Umar, Dena, SYSTEMS MECHANIC-BALLET TEACHER [address] [place] [address] Referral ID Status Reason Start Date Expiration Date V isits Requested Visits Authorized [id number] Pending Review 11/26/2022 12/21/2023 1 1 Referral ID Status Reason Start Date Expiration Date V isits Requested Visits Authorized [id number] Pending Review 11/26/2022 12/21/2023 1 1 Specialty Diagnoses / Procedures Referred By Contac t Referred To Contact Diagnoses Rectal cancer Procedures MRI PELVIS MSK WITH AND WITHOUT CONTRAST MRI HIP RIGHT WITH AND WITHOUT CONTRAST TN MRI, JOINT OF LEG. COMBO TN MRI, PELVIS, COMBO Stoney Padron MBBS [address] [place] [id number] Referral ID Status Reason Start Date Expiration Date Visits Re quested Visits Authorized [id number] Closed 03/11/2023 04/04/2024 1 1 Specialty Diagnoses / Procedures Referred By Contac t Referred To Contact Diagnoses Rectal cancer Procedures CT CHEST WITH CONTRAST CHG DIAGNOSTIC COMPUTED TOMOGRAPHY THORAX W/CONTRAST Stoney [place] [address] Referral ID Status Reason Start Date Expiration Date Visits Re quested Visits Authorized [id number] Closed 02/25/2023 03/21/2024 1 1 Specialty Diagnoses / Procedures Referred By Contac t Referred To Contact Diagnoses Rectal cancer Procedures CT ABDOMEN/PELVIS WITH CONTRAST CHG CT SCAN,ABDOMENT AND PELVIS,W CONTRAST Stoney Padron MBBS [address] [place] [id number] Referral ID Status Reason Start Date Expiration Date Visits Re quested Visits Authorized [id number] Closed 02/25/2023 03/21/2024 1 1 Specialty Diagnoses / Procedures Referred By Ryan adhikari Referred To Contact Medical Oncology / Oncology Diagnoses 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 labs/scans prior Procedures RETURN PATIENT Barney Wilson MD [address] [facility] [address] [place] [address] Stoney Padron MBBS [address] [place] [address] Referral ID Status Reason Start Date Expiration Date Visits Re quested Visits Authorized [id number] Closed 08/26/2023 09/19/2024 1 1 Care Teams (unrecognized sec tion and content) Activity Therapist Relationship Specialty Start Date End Date Barney Wilson MD [address] [place] [address] PCP - General Family Medicine 01/26/21 Activity Therapist Relationship Specialty Start Date End Date Barney Wilson MD [address] [place] [address] PCP - General Family Medicine 01/26/21 Activity Therapist Relationship Specialty Start Date End Date Barney Wilson MD [address] [place] [address] PCP - General Family Medicine 01/26/21 Activity Therapist Relationship Specialty Start Date End Date Barney Wilson MD [address] [place] [address] PCP - General Family Medicine 01/26/21 Activity Therapist Relationship Specialty Start Date End Date Barney Wilson MD [address] [place] [address] PCP - General Family Medicine 01/26/21 Activity Therapist Relationship Specialty Start Date End Date Barney Wilson MD [address] [place] [address] PCP - General Family Medicine 01/26/21 Activity Therapist Relationship Specialty Start Date End Date Barney Wilson MD [address] [facility] [address] [place] [address] PCP - General Family Medicine 01/26/21 Activity Therapist Relationship Specialty Start Date End Date Barney Wilson MD [address] [facility] [address] [place] [address] PCP - General Family Medicine 01/26/21 Activity Therapist Relationship Specialty Start Date End Date Barney Wilson MD [address] [facility] [address] [place] [address] PCP - General Family Medicine 01/26/21 Activity Therapist Relationship Specialty Start Date End Date Barney Wilson MD [address] [place] [address] PCP - General Family Medicine 01/26/21 Activity Therapist Relationship Specialty Start Date End Date Barney Wilson MD [address] [facility] [address] [place] [address] PCP - General Family Medicine 01/26/21 Activity Therapist Relationship Specialty Start Date End Date Barney Wilson MD [address] [facility] [address] [place] [address] PCP - General Family Medicine 01/26/21 Activity Therapist Relationship Specialty Start Date End Date Barney Wilson MD [address] [place] [address] PCP - General Family Medicine 01/26/21 Activity Therapist Relationship Specialty Start Date End Date Barney Wilson MD [address] [place] [address] PCP - General [facility] 01/26/21 Activity Therapist Relationship Specialty Start Date End Date Barney Wilson MD [address] [facility] [address] [place], [place] [address] PCP - General Family [facility] 01/26/21 FOR RECORDS PERTAINING TO PATIENTS WHO ARE OR HAVE BEEN ENROLLED IN A CHEMICAL DEPENDENCY/SUBSTANCEABUSE PROGRAM, SOME INFORMATION MAY BE OMITTED. This clinical summary was aggregated from multiple sources. Caution should be exercised in using it in the provision of clinical care. This summary normalizes information from multiple sources, and as a consequence, information in this document may materially change the coding, format and clinical context of patient data. In addition, data may be omitted in some cases. CLINICAL DECISIONS SHOULD BE BASED ON THE PRIMARY CLINICAL RECORDS. [employer] [facility]. provides no warranty or guarantee of the accuracy or completeness of information in this document.
[2023-12-18 12:45] LABS: Anion Gap 6 (5-15); BUN 13 mg/dL (7-18); BUN/Creat Ratio 15.2 RATIO (10-20); Calcium,Total 8.9 mg/dL (8.5-10.1); Chloride 109 mmol/L (98-107); Creatinine, Serum 0.86 mg/dL (0.55-1.02); EST Glomerular Filtration Rate 73 mL/min (>60); Est Glom Filt Rate - Afr Amer 88 mL/min (>60); Glucose 106 mg/dL (74-106); Potassium 3.7 mmol/L (3.5-5.1); Sodium Level 142 mmol/L (136-145); Uric Acid 7.2 mg/dL (2.6-6.0)
== END | disposition home or self-care (01) ==
LOC: MFPLAB 09:32
PROVIDERS: PCP Family Medicine; Visit Provider Family Medicine
DX: M10.9 Gout, unspecified (principal)
CPT/HCPCS: 36415; 80048; 84550

== ENCOUNTER 2023-12-23 07:42 | Emergency (ER) | payer OTHER, SELFPAY ==
[2023-12-23 07:43] VITALS: BP 160/89; PULSE 73; RESP 14; TEMP 36.5; O2SAT 98; BMI 29.9
--- NOTE | 2023-12-23 08:05 | CT_ITS ---
STUDY: CTA CHEST REASON FOR EXAM: Female, 58 years old. Right-sided pleuritic chest pain. History of recent bronchitis. RADIATION DOSAGE (If Supplied By Facility): CTDIvol = ( 11.29 ) mGy, DLP = ( 438.56 ) mGycm TECHNIQUE: The examination was performed with the intravenous administration of IV 100mL Isovue-370. Post-processing of the angiographic images was performed, with multiplanar reformation and 3D reconstruction. Individualized dose optimization techniques were used for this CT. COMPARISON: Comparison is made with prior CT scan of the chest dated January 12, 2021. FINDINGS: Normal enhancement of the main pulmonary artery and right and left pulmonary arteries. Normal enhancement of the bilateral peripheral pulmonary arteries. There is no demonstrated pulmonary embolism. Normal thoracic aorta and visualized great vessels. There is no demonstrated aortic dissection. Normal heart and pericardium. Normal mediastinum. Normal hilar regions. Normal visualized trachea and bronchi. The lungs are well expanded. Focal infiltrate with bronchiectasis suggestive of scarring is seen in the posterior medial segment of the left lower lobe. Normal pleura. Normal chest wall structures. There are mild degenerative changes of thoracic spine. Normal visualized upper abdomen. CT/CTA Chest W/WO Contrast IMPRESSION: No evidence of pulmonary embolism. Findings suggestive of infiltrate with bronchiectasis in the posterior medial segment of the left lower lobe. Electronically Signed: Daniel Evangelista MD at 10:06 [facility] ,
--- NOTE | 2023-12-23 08:06 | EDS_ITS ---
HPI History of Present Illness Chief Complaint: Chest Other Detail of Chief Complaint: Right-sided chest pain Informant: patient Narrative Narrative: Patient presents with chest pain on her right side underneath her right breast that is worse with cough and movement. Pain started yesterday. She was recently in the [facility] on a cruise. She came back and thought she had a flareup of her gout of her right oh and so she was also having pain in her right calf and was seen by her primary care physician who diagnosed her with gout and bronchitis. Patient was started on Zithromax and prednisone which she finished yesterday. Patient states her calf pain resolved. No prior history of PE or DVT. Patient has not had a fever. [facility] Medical History (Updated 12/23/23 @ 10:[address] Rae Smith DO) Anxiety HTN (hypertension) IBS (irritable bowel syndrome) Mitral valve prolapse Palpitations Seasonal allergic rhinitis Vitamin D deficiency Home Medications lisinopril 10 mg tablet 10 mg PO MOWEFR BP 01/06/21 [History Last Taken Unknown] lisinopril 10 mg-hydrochlorothiazide 12.5 mg tablet 1 tablet PO SUTUTHSA BP 01/06/21 [History Last Taken Unknown] hydrocodone-acetaminophen 5-325mg 5mg-325mg 1 tab PO Q4H PRN PRN Pain 3 days #15 TABLETS 12/23/23 [Rx Last Taken Unknown] Allergy/AdvReac Type Severity Reaction Status Date / Time Penicillins Allergy Intermediate hives Verified 12/23/23 07:45 Family History (Updated 01/06/21 @ 08:33 by Akosua Nunez) Father CHF (congestive heart failure) Mother Hypertension Pulmonary hypertension Surgical History History of section History of meniscectomy of left knee History of tympanoplasty of left ear Social History (Updated 01/06/21 @ 09:[address] Cassandra Lovell MD) Smoking Status: Never smoker ROS ROS ED Review of Systems ROS Unobtainable: other Constitutional Constitutional ED: Reports lethargy; Denies chills, fever(s), sweats or weight loss Eyes Eyes: Denies blurry vision, change in vision or diplopia ENT ENT ED: Denies rhinorrhea or sore throat Cardiovascular Cardiovascular: Reports chest pain; Denies orthopnea or racing heartbeat Respiratory/Chest Respiratory/Chest: Denies cough, dyspnea, dyspnea on exertion, orthopnea or sputum Gastrointestinal Gastrointestinal: Denies abdominal pain, diarrhea, nausea or vomiting Genitourinary Genitourinary ED: Denies dysuria, hematuria or urinary frequency Musculoskeletal Musculoskeletal: Denies arthralgias, back pain, myalgias or neck pain Integumentary Denies abscess, Abrasions or rash Neurologic Neurologic: Denies headache(s) or weakness Psychiatric Psychiatric: Denies anxiety, depression or suicidal thoughts Endocrine Endocrinology: Denies polydipsia, polyphagia or polyuria Hematologic/Lymphatic Hematologic/Lymphatic: Denies easy bleeding, easy bruising or lymphadenopathy Allergic/Immunologic Allergic/Immunologic ED: Denies mouth swelling, tongue swelling or urticaria EXAM Physical Exam Const Vital Signs: 12/23/23 07:43 12/23/23 08:02 Temperature 97.7 F L Temperature Source Temporal Pulse Rate 73 Respiratory Rate 14 Respiratory Effort Short of Breath Blood Pressure 160/89 H Blood Pressure Mean 112 Pulse Ox 98 Oxygen Delivery Method Room Air Positive well nourished and well developed General Appearance ED: well developed and NAD HEENT Reports TM's clear and moist mucous membranes normocephalic and atraumatic; Negative for trauma or tenderness Tympanic Membrane ED: Yes TM's clear Eyes PERRL and EOMs intact bilaterally General Eye ED: Negative for pale conjunctiva or scleral icterus Neck no lymphadenopathy, supple and no JVD General: Negative for tenderness Chest Wall inspection of chest normal Chest Narrative: Patient with tenderness palpation over the right anterior chest into the mid axillary line just inferior to the right breast that seems to reproduce her pain. Chest: Negative for tenderness Resp normal respiratory effort and clear to auscultation bilaterally Effort and Inspection: Negative for respiratory distress or pain with movement Auscultation: Negative for rhonchi, wheezes or diminished lung sounds Cardio regular rate, regular rhythm, S1 normal heart sound, S2 normal heart sound and no murmurs Peripheral Pulses: pulses 2+ throughout GI normal to inspection, nondistended, normoactive bowel sounds, soft to palpation, non-tender, non-distended and no masses Back/Spine no CVA tenderness and no thoracic nor lumbar tenderness Extremity normal to inspection General Extremety ED: Negative for edema General Extremity: Negative for edema Neuro oriented x3, CN's II-XII intact bilaterally, no sensory deficits noted and gait normal Sensorium / Orientation: awake, alert, oriented to person, oriented to place and oriented to time Motor Exam: strength 5/5 throughout and strength abnormal Psych mental status grossly normal Skin no rashes or lesions noted and no wounds MDM MDM MDM Narrative Medical decision making narrative: Patient with sudden onset chest pain yesterday that it seems to be pleuritic and worse with movement and cough. She has recent travel history. She also has history of discomfort in her calf after returning from her trip. In the differential would be PE versus chest wall strain or pneumonia. IV line will be established. Basic labs will be obtained. A CTA of the chest will be obtained to rule out PE or pulmonary infarct or other abnormality such as rib fracture or pneumothorax or pneumonia. CBC with differential count of 5.5 with hemoglobin 12.6 and platelet count of 367. Chemistries unremarkable. We did do a CTA of the chest to rule out PE given her recent travel history and now right-sided pain. CTA showed no evidence of PE or dissection. She did have infiltrate left lower lobe segments. This goes in keeping with her recent URI symptoms and the fact that she was just on Zithromax which she finished yesterday. Symptomatically she is feeling improved and her vital signs are stable therefore I do not feel any further treatment is needed for this. Patient was treated in the department with morphine and Zofran. I suspect her right-sided chest pain is musculoskeletal. Will give her a prescription for Bozman as needed for severe pain. She is advised to follow-up with her primary care physician within next 3 to 5 days. She is to return if worsening pain, fever, vomiting, increasing shortness of breath, or condition should worsen anyway. Lab Data Attestation: I reviewed the patient's lab results. Labs: Laboratory Results - last 24 hr 12/23/23 08:10 WBC 5.5 RBC 4.15 L Hgb 12.6 Hct 37.7 MCV 90.8 MCH 30.4 MCHC 33.4 RDW Std Deviation 41.0 RDW Coeff of Bethanie 12.4 Plt Count 367 MPV 9.0 Immature Gran % (Auto) 0.700 Neut % (Auto) 75.3 H Lymph % (Auto) 14.7 L Lamb % (Auto) 7.3 Eos % (Auto) 1.1 Baso % (Auto) 0.9 Absolute Neuts (auto) 4.1 Absolute Lymphs (auto) 0.80 L Nucleated RBC % 0 Sodium 141 Potassium 4.0 Chloride 111 H Carbon Dioxide 24.0 Anion Gap 6 BUN 18 Creatinine 0.94 Estim Creat Clear Calc 74.69 Est GFR (MDRD) Af Amer 79 Est GFR (MDRD) Non-Af 65 BUN/Creatinine Ratio 19.2 Glucose 107 H Calcium 8.9 Radiography Diagnostic Testing: Clinical Impression(s) from Imaging Studies Chest CTA 12/23/23 08:05 IMPRESSION: No evidence of pulmonary embolism. Findings suggestive of infiltrate with bronchiectasis in the posterior medial segment of the left lower lobe. Electronically Signed: Daniel Evangelista MD at 10:06 EST , Discharge Plan Triage Chief Complaint: Chest Other ED Provider: Rae Smith Dx/Rx/DC Orders Clinical Impression: Strain of chest wall, Pneumonia Instructions: ED Chest Wall Pain, Costochondritis, ED Pneumonia (Adult), ED Chest Wall Strain Prescriptions: New hydrocodone-acetaminophen [hydrocodone-acetaminophen] 5-325 mg tablet 1 tab PO Q4H PRN PRN (Reason: Pain) 3 Days Qty: 15 0RF No Action lisinopril 10 mg tablet 10 mg PO MOWEFR Patient Comments: TAKE 1 TABLET BY MOUTH ONCE DAILY lisinopril-hydrochlorothiazide 10-12.5 mg tablet 1 tablet PO SUTUTHSA Patient Comments: TAKE 1 TABLET BY MOUTH ONCE DAILY Primary Care Provider: Barney Brice Referrals: Barney Brice MD [Primary Care Provider] - 3-5 Days Disposition Disposition: Home, Self Care
[2023-12-23] MEDS: Ondansetron 4 MG/2 ML Vial IV (08:12)
[2023-12-23] MEDS: Morphine 4 MG/ML Syringe IV (08:12)
[2023-12-23] MEDS: 0.9% Normal Saline (1000mL) 1,000 ML 150 ML IV (08:13)
[2023-12-23 08:28] LABS: Anion Gap 6 (5-15); BUN 18 mg/dL (7-18); BUN/Creat Ratio 19.2 RATIO (10-20); Calcium,Total 8.9 mg/dL (8.5-10.1); Chloride 111 mmol/L (98-107); Creatinine, Serum 0.94 mg/dL (0.55-1.02); EST Glomerular Filtration Rate 65 mL/min (>60); Est Glom Filt Rate - Afr Amer 79 mL/min (>60); Estimated Creatinine Clearance 74.69 ml/min; Glucose 107 mg/dL (74-106); Sodium Level 141 mmol/L (136-145)
[2023-12-23 08:29] LABS: Absolute Neutrophil Count 4.1 X10^3/uL (2.0-7.7); Basophil# 0.05 X10^3/uL; Basophil% 0.9 % (0-1); Eosinophil# 0.06 X10^3/uL; Eosinophils% 1.1 % (0-5); Hematocrit 37.7 % (37-47); Hemoglobin 12.6 g/dL (12.0-15.0); Lymphocyte % 14.7 % (19-41); Mean Corp Hgb Conc 33.4 g/dL (32-36); Mean Corpuscular Hgb 30.4 pg (27.0-32.0); Mean Corpuscular Volume 90.8 fL (81-99); Monocyte% 7.3 % (0-10); NRBC Flagged by Analyzer 0 % (0-5); Neutrophil % 75.3 % (47-70); Platelet Count 367 K/mm3 (150-450); RBC Distribution Width CV 12.4 % (11.6-14.6); Red Blood Count 4.15 M/mm3 (4.2-5.4); White Blood Count 5.5 K/mm3 (4.4-11.0)
--- OUTSIDE RECORDS SUMMARY | 2023-12-23 09:52 | XMS RPT_ITS | CCD ---
Author Name Unknown Address [address] [place] [address] Organization [facility] Care Team Providers Care Sales Center Manager Name Role Phone LILIANA ANDREWS Referring Unavailable [...] WILSON, BARNEY Cruz Primary Care Unavailable WILSON, BANREY Cruz Referring Unavailable VITO, STONEY Attending Unavailable [...] Propensity to adverse reactions to drug 12-10-2007 [facility] (5 sources) Penicillins Propensity to adverse reactions to drug 12-10-2007 [facility] Medications Current Medications Medication Drug Class(es) [...] height 168.5 cm Stoney RAM Work Phone: [facility] 08-26-2023 13:35-0400 Body mass index (BMI) [Ratio] 30.64 kg/m2 Stoney RAM Work Phone: [facility] 08-26-2023 13:35-0400 Body temperature 97.59 [degF] Stoney Bluee MBBS Work Phone: [facility] 08-26-2023 13:35-0400 Body weight 87 kg Stoney Bluee MBBS Work Phone: [facility] 08-26-2023 13:35-0400 Diastolic blood pressure 91 mm[Hg] Stoney Bluee MBBS Work Phone: [facility] 08-26-2023 13:35-0400 Heart rate 83 /min Stoneyponce Bluee MBBS Work Phone: [facility] 08-26-2023 13:35-0400 Respiratory rate 16 /min Stoney Bluee MBBS Work Phone: [facility] 08-26-2023 13:35-0400 SaO2% (BldA) [Mass fraction] 98 % Stoney Bluee MBBS Work Phone: [facility] 08-26-2023 13:35-0400 Systolic blood pressure 148 mm[Hg] Stoney Bluee MBBS Work Phone: [facility] 08-24-2023 12:13-0400 Body height 170.2 cm Stoney Bluee MBBS Work Phone: [facility] 08-24-2023 12:13-0400 Body mass index (BMI) [Ratio] 29.29 kg/m2 Stoney Bluee MBBS Work Phone: [facility] 08-24-2023 12:13-0400 Body weight 84.82 kg Stoney Bluee MBBS Work Phone: [facility] 08-24-2023 12:13-0400 Diastolic blood pressure 82 mm[Hg] Stoney Vito MBBS Work Phone: [facility] 08-24-2023 12:13-0400 Heart rate 73 /min Stoney RAM Work Phone: [facility] 08-24-2023 12:13-0400 Systolic blood pressure 148 mm[Hg] Stoney RAM Work Phone: [facility] 05-31-2023 14:21-0400 Body mass index (BMI) [Ratio] 29.75 kg/m2 Delores Allison MD, PhD Work Phone: [facility] 05-31-2023 14:21-0400 Body temperature 97.9 [degF] Delores Allison MD, PhD Work Phone: [facility] 05-31-2023 14:21-0400 Body weight 84.96 kg Delores Allison MD, PhD Work Phone: [facility] 05-31-2023 14:21-0400 Diastolic blood pressure 65 mm[Hg] Delores Allison MD, PhD Work Phone: [facility] 05-31-2023 14:21-0400 Heart rate 88 /min Delores Allison MD, PhD Work Phone: [facility] 05-31-2023 14:21-0400 Respiratory rate 16 /min Delores Allison MD, PhD Work Phone: [facility] 05-31-2023 14:21-0400 SaO2% (BldA) [Mass fraction] 96 % eDlores Allison MD, PhD Work Phone: [facility] 05-31-2023 14:21-0400 Systolic blood pressure 137 mm[Hg] Delores Allison MD, PhD Work Phone: [facility] 02-16-2023 12:03-0400 Body height 170.2 cm Denaakin Vang APRN-LEVEL GLASS FORMING MACHINE OPERATOR Work Phone: [facility] 02-16-2023 12:03-0400 Body mass index (BMI) [Ratio] 28.19 kg/m2 Dena Vang ASSIGNER-LEVEL GLASS FORMING MACHINE OPERATOR Work Phone: [facility] 02-16-2023 12:03-0400 Body weight 81.65 kg Dena Vang ASSIGNER-LEVEL GLASS FORMING MACHINE OPERATOR Work Phone: [facility] 02-16-2023 12:03-0400 Diastolic blood pressure 79 mm[Hg] Dena Vang ASSIGNER-LEVEL GLASS FORMING MACHINE OPERATOR Work Phone: [facility] 02-16-2023 12:03-0400 Heart rate 74 /min Dena Vang ASSIGNER-LEVEL GLASS FORMING MACHINE OPERATOR Work Phone: [facility] 02-16-2023 12:03-0400 Systolic blood pressure 148 mm[Hg] [facility] ASSIGNER-LEVEL GLASS FORMING MACHINE OPERATOR Work Phone: [facility] 11-26-2022 13:28-0500 Body height 169 cm Denaakin Vang APRN-LEVEL GLASS FORMING MACHINE OPERATOR Work Phone: [facility] Encounters Encounter Date Encounter Type Care Provider Facility Start: 08-26-2023 ambulatory BARNEY WILSON Facility :[facility] Start: 08-26-2023 End: 08-26-2023 Office outpatient visit 25 minutes Stoney RAM Work Phone: [facility] Procedures Date Procedure Procedure Detail Performing Clinician Start: 08-26-2023 Carcinoembryonic antigen cea Dena Vang ASSIGNER-LEVEL GLASS FORMING MACHINE OPERATOR Work Phone: Start: 08-24-2023 Creatinine blood Stoney RAM Work Phone: Start: 05-31-2023 Follow-up visit Follow-up DELORES ALLISON Start: 04-01-2023 Mri pelvis w/o & w/c ontrast material Stoney RAM Work Phone: Start: 02-16-2023 Creatinine blood Dena Umar ASSIGNER-LEVEL GLASS FORMING MACHINE OPERATOR Work Phone: Start: 07-12-2022 Ct thorax w/contrast material Dena Umar ASSIGNER-LEVEL GLASS FORMING MACHINE OPERATOR Work Phone: Start: 07-12-2022 Carcinoembryonic antigen cea Dena Umar ASSIGNER-LEVEL GLASS FORMING MACHINE OPERATOR Work Phone: Start: 07-12-2022 CBC AND ELECTRONIC DIFF Dena Umar ASSIGNER-LEVEL GLASS FORMING MACHINE OPERATOR Work Phone: Start: 07-12-2022 Complete blood count with white cell differential, automated Dena Umar ASSIGNER-LEVEL GLASS FORMING MACHINE OPERATOR Work Phone: Start: 06-25-2022 Colonoscopy flx dx w /collj spec when pfrmd Liliana Andrews MD Work Phone: Start: 04-20-2022 Carcinoembryonic antigen cea Dena Umar ASSIGNER-LEVEL GLASS FORMING MACHINE OPERATOR Work Phone: Start: 04-20-2022 CBC AND ELECTRONIC DIFF Dena Umar ASSIGNER-LEVEL GLASS FORMING MACHINE OPERATOR Work Phone: Start: 04-20-2022 Complete blood count with white cell differential, automated Dena Umar ASSIGNER-LEVEL GLASS FORMING MACHINE OPERATOR Work Phone: Plan of Treatment Date Care Activity Detail Author Start: 05-29-2024 End: 05-29-2024 Patient encounter procedure 05/29/2024 2:30 PM EDT Office Visit Department of Radiation Oncology [address] [place] [address] Delores Allison MD, PhD [address] [place] [address] Department of Radiation Oncology Start: 02-24-2024 End: 02-24-2024 Clinical Support Encounter Clinical Lab Enrique Hung Start: 02-15-2024 End: 02-15-2024 Patient encounter procedure [facility] [place] Start: 11-25-2023 End: 11-25-2023 Telemedicine consultation with patient 11/25/2023 8:00 AM EST Telemedicine [facility] [address] [place] [address] Stoney Padron MBBS [address] [place] [address] [facility] Start: 08-26-2023 End: 08-26-2024 CT Abdomen and Pelvis W contrast IV CT ABDOMEN/PELVIS WITH CONTRAST Imaging Routine Rectal cancer Expected: 08/26/2023, Expires: 08/26/2024 [facility] Payers Date Payer Category Payer Private Health Insurance MACI VILLA [id number] 2023-Present [address] [place] [address] [id number] 2023 Private Health Insurance [id number] 2020 Unknown ANTHEM ANTHEM HM O PPO POS [id number] 2020-Present [address] [place] [address] [id number] 2020 Unknown ANTHEM ANTHEM HM O PPO POS [id number] 2020-Present [address] [place] [address] [id number] 2020 Unknown [id number] 1966 Unknown [id number] 2..[id number] .594 1966 Unknown [id number] 2.840.1.214104.3.579.2 .594 1966 Unknown [id number] 2.16.840.1.730329.3.579.2 .594 1966 Unknown [id number] 2..840.1.132849.3.579.2 .594 1966 Unknown [id number] 2.16.840.1.556649.3.579.2 .594 1966 Unknown [id number] [id number] .594 1966 Unknown [id number] 2.16.840.1.426548.3.579.2 .594 1966 Unknown [id number] 2.16840.1.068371.3.579.2 .594 1966 Unknown [id number] 2.16.840.1.976018.3.579.2 .594 1966 Unknown [id number] 2.840.1.144150.3.579.2 .594 1966 Unknown [id number] 2.840.1.544736.3.579.2 .594 1966 Unknown [id number] 2.840.1.684818.3.579.2 .594 1966 Unknown [id number] 2.16840.1.658370.3.579.2 .594 1966 Unknown [id number] 2.16840.1.157211.3.579.2 .594 1966 Unknown [id number] 2.840.1.852315.3.579.2 .594 1966 Unknown [id number] 2.840.1.908429.3.579.2 .594 1966 Unknown [id number] [id number]. .594 Social History Date Type Detail Facility Start: 01-26-2021 End: 02-10-2021 Tobacco smoking status NHIS Never smoker [facility] Start: 01-26-2021 End: 02-10-2021 Tobacco use and exposure Never used [facility] Start: 06-22-2021 End: 08-26-2023 Alcohol intake Lifetime non-drinker (finding) [facility] Start: 02-10-2021 History SDOH Alcohol Frequency 1 [facility] Start: 1965 Sex Assigned At Not on file [facility] Start: 11-16-2022 End: 11-26-2022 Exposure to SARS-CoV-2 (event) Not sure [facility] Start: 02-10-2021 End: 05-31-2023 History of Social function [facility] Start: 02-10-2021 End: 05-31-2023 Alcohol Use Disorder Identification Test - Consumption [AUDIT-C] [facility] How often to you hav e a drink containing alcohol? Never [facility] Average Number of Drinks Not on file [facility] Start: 01-25-2021 Gender identity Identifies as female gender (finding) [facility] Clinical Notes 06-22-2021 to 08-26-2023 YO Arriaza [...] making. Stage II Rectal Adenocarcinoma s/p neoadjuvant DIVISION HUMAN RESOURCES MANAGER and resection (had CR) TUMOR CHARACTERISTICS AT [...] reports doing very well. 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 States, she has new job that is [...] Laterality: N/A; Surgeon: Liliana Andrews MD; Location: [facility] OR EXAM UNDER ANESTHESIA ANORECTAL N/A 02/15/2021 Laterality: N/A; Surgeon: Liliana Andrews MD; Location: [facility] PERIOP SECTION KNEE SURGERY times 2 on [...] attention. CARRIE Lennon documented in this encounter [facility] 08-26-2023 Instructions Dalton Tomlinson RN - 08/26/2023 1:40 PM EDT You will be scheduled for a video visit with Dr. Padron in 3 months. Get your tumor marker checked a few business days before this visit. You will return to the clinic in [address] Padron with scans a week prior and CAFETERIA AIDE labs day of return (may get labs day of scans if preferred). documented in this encounter [facility] 05-31-2023 History of Presen t illness Narrative [...] Illness: Oncologic History: She underwent colonoscopy at [facility] on 01/12/21. The VEA revealed a palpable 4 cm firm rectal mass 1.0 cm from the anal verge. A frond-like/villous non-obstructing medium sized mass was found in the rectum. The mass was partially circumferential involving 1/3 of the lumen circumference, measuring 4 cm in length. Biopsies were taken and confirmed well differentiated invasive adenocarcinoma. She followed with Dr. Anderws of colorectal surgery here at [facility] on [...] findings and the therapeutic plan with the GIS CONSULTANT. I agree with the GIS CONSULTANT's history, physical examination, and medical decisions as [...] electronic health record Delores Allison MD, PhD Water Resources Engineer Radiation Oncology Pager: [phone] RADIATION ONCOLOGY FOLLOW-UP VISIT CC/ID: Evelia Bailon [...] Illness: Oncologic History: She underwent colonoscopy at [facility] on 01/12/21. The EVA revealed a [...] weight is stable. 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 She reports that she has occasional LBP [...] by Dr. Allison. documented in this encounter [facility] 05-31-2023 Instructions CARRIE Mendoza - 05/31/2023 2:30 PM EDT Plan to follow-up in clinic with Dr. Allison in 1 year. documented in this encounter [facility] 11-26-2022 History of Presen t illness Narrative GI MEDICAL ONCOLOGY CLINIC NOTE Date of visit: 03/24/2021 History/Reason for visit: Chief Complaint Patient presents with Follow-up Rectal cancer [C20] History of Present Illness: Evelia Bailon is a 57 y.o. female who presents for follow up while on surveillance for rectal cancer. She continues to do well. 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 Energy and appetite is good and has [...] Laterality: N/A; Surgeon: Liliana Andrews MD; Location: [facility] PERIOP SECTION KNEE SURGERY times 2 on [...] carcinoma Fourteen benign lymph nodes (0/11). at 9850 Diagnosis Comments Extensive fibrosis with calcifications consistent with treatment effect are identified, including some degenerating, partially calcified glands consistent with treated tumor. No definitive evidence of viable tumor is identified. Addendum This case was re-reviewed to confirm that the total number of benign lymph nodes detected was 14. (0/14). Addendum electronically signed by Juan Pablo Larose MD on 07/16/2021 at 3324 Synoptic Checklist COLON AND RECTUM: Resection, Including [...] CARRIE Lennon documented in this encounter [facility] 11-26-2022 Instructions Ilya Mallory RN - 11/26/2022 1:40 PM EST You will return in [address] Padron with labs/SCANS prior. CT scans: 3 months documented in this encounter [facility] 06-25-2022 History and physical note ENDOSCOPIC PREPROCEDURE HISTORY AND PHYSICAL HISTORY OF PRESENT ILLNESS: Evelia Bailon is a 56 y.o. female seen in the preoprocedure area at [facility]. The indication for endoscopic evaluation includes: Rectal cancer Post op surveillance PAST MEDICAL HISTORY: Past Medical History: Diagnosis Date Essential hypertension, benign History of radiation therapy Rectal cancer SURGICAL HISTORY: Past Surgical History: Procedure Laterality Date COLECTOMY PARTIAL ROBOTIC N/A 06/09/2021 Laterality: N/A; Surgeon: Liliana Andrews MD; Location: [facility] OR EXAM UNDER ANESTHESIA ANORECTAL N/A 02/15/2021 Laterality: N/A; Surgeon: Liliana Andrews MD; Location: [facility] PERIOP SECTION KNEE SURGERY times 2 on [...] Wu MD, PhD General Surgery PGY-2 Pager: [phone] [facility] Work Phone: 06-25-2022 History and physical note ENDOSCOPIC PREPROCEDURE HISTORY AND PHYSICAL HISTORY OF PRESENT ILLNESS: Evelia Bailon is a 56 y.o. female seen in the preoprocedure area at [facility]. The indication for endoscopic evaluation includes: Rectal cancer Post op surveillance PAST MEDICAL HISTORY: Past Medical History: Diagnosis Date Essential hypertension, benign History of radiation therapy Rectal cancer SURGICAL HISTORY: Past Surgical History: Procedure Laterality Date COLECTOMY PARTIAL ROBOTIC N/A 06/09/2021 Laterality: N/A; Surgeon: Liliana Andrews MD; Location: [facility] OR EXAM UNDER ANESTHESIA ANORECTAL N/A 02/15/2021 Laterality: N/A; Surgeon: Liliana Andrews MD; Location: [facility] PERIOP SECTION KNEE SURGERY times 2 on [...] Wu MD, PhD General Surgery PGY-2 Pager: [phone] documented in this encounter [facility] 06-22-2022 History of Presen t illness Narrative [...] Illness: Oncologic History: She underwent colonoscopy at [facility] on 01/12/21. The EVA revealed a [...] Mild fatigue. 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 [...] of Radiation Oncology documented in this encounter [facility] 04-20-2022 Instructions Cristela Olivares RN - 04/20/2022 11:01 AM EDT Video in [address] Padron, CT scans and labs prior. Ok to have labs drawn on same day as CT scans. Prescriptions today: none [facility] 04-20-2022 History of Presen t illness Narrative [...] Laterality: N/A; Surgeon: Liliana Andrews MD; Location: [facility] OR EXAM UNDER ANESTHESIA ANORECTAL N/A 02/15/2021 Laterality: N/A; Surgeon: Liliana Andrews MD; Location: [facility] PERIOP SECTION KNEE SURGERY times 2 on [...] Assessment/Plan Stage II Rectal Adenocarcinoma s/p neoadjuvant DIVISION HUMAN RESOURCES MANAGER and resection (had CR) TUMOR CHARACTERISTICS AT [...] N0 disease and she had CR with DIVISION HUMAN RESOURCES MANAGER. After discussing pros/cons of adjuvant therapy, we [...] making. Stage II Rectal Adenocarcinoma s/p neoadjuvant DIVISION HUMAN RESOURCES MANAGER and resection (had CR) TUMOR CHARACTERISTICS AT [...] and appetite. 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 [...] Laterality: N/A; Surgeon: Liliana Andrews MD; Location: [facility] PERIOP SECTION KNEE SURGERY times 2 on [...] CARRIE Lennon documented in this encounter [facility] 06-22-2021 History of Presen t illness Narrative [...] clubbing. No cyanosis. Lower extremity edema: Skin: Elfrida, warm and dry. No rashes noted. Psych: [...] clinic/ED protocol. Voiced understanding. Call or send Taskforce[employer] message for new gross hematuria, new urinary [...] questions or concerns. documented in this encounter [facility] documented [facility] Diagnosis Abdominal wall abscess Cellulitis and abscess of trunk [facility] Diagnosis Rectal cancer- Primary Malignant neoplasm of rectum [facility] Diagnosis Rectal cancer Malignant neoplasm of rectum [facility] Rectal cancer- Primary Malignant neoplasm of rectum [facility] Diagnosis Rectal cancer Malignant neoplasm of rectum [facility] Diagnosis Rectal cancer Malignant neoplasm of rectum [facility] Diagnosis Rectal cancer- Primary Malignant neoplasm of rectum [facility] Rectal cancer Malignant neoplasm of rectum [facility] Diagnosis Rectal cancer Malignant neoplasm of rectum [facility] Diagnosis Encounter for follow-up examination after completed treatment for malignant neoplasm- Primary Unspecified follow-up examination Personal history of irradiation, presenting hazards to health Malignant neoplasm of rectum [facility] Diagnosis Rectal cancer Malignant neoplasm of rectum [facility] Diagnosis Rectal cancer Malignant neoplasm of rectum [facility] Diagnosis Rectal cancer- Primary Malignant neoplasm of rectum documented in this encounter [facility] Summary Purpose Family History No Family History [...] AND PELVIS,W CONTRAST Liliana Andrews MD [address] [facility] [address] [place] [address] Referral ID Status Reason Start Date Expiration Date Visits Re quested Visits Authorized [id number] Closed 06/27/2021 07/22/2022 1 1 Specialty Diagnoses / Procedures Referred By Contac t Referred To Contact Diagnoses Rectal cancer Procedures CT ABDOMEN/PELVIS WITH CONTRAST CHG CT SCAN,ABDOMENT AND PELVIS,W CONTRAST Dena Vang, ASSIGNER-LEVEL GLASS FORMING MACHINE OPERATOR [address] [facility] [address] [place] [address] Referral ID Status Reason Start Date Expiration Date V isits Requested Visits Authorized [id number] New Request 04/20/2022 05/15/2023 1 1 Specialty Diagnoses / Procedures Referred By Contac t Referred To Contact Diagnoses Rectal cancer Procedures CT CHEST WITH CONTRAST CHG DIAGNOSTIC COMPUTED TOMOGRAPHY THORAX W/CONTRAST Umar, Dena, ASSIGNER-LEVEL GLASS FORMING MACHINE OPERATOR [address] [place] [address] Referral ID Status Reason Start Date Expiration Date V isits Requested Visits Authorized [id number] New Request 04/20/2022 05/15/2023 1 1 Specialty Diagnoses / Procedures Referred By Contac t Referred To Contact Diagnoses Rectal cancer Procedures DIAGNOSTIC COLONOSCOPY MA COLONOSCOPY FLX DX W/COLLJ SPEC WHEN Liliana Joseph MD [address] [facility] [address] [place] [address] Referral ID Status Reason Start Date Expiration Date Visits Re quested Visits Authorized [id number] Closed 04/12/2022 05/07/2023 1 1 Referral ID Status Reason Start Date Expiration Date Visits Re quested Visits Authorized [id number] Closed 04/20/2022 05/15/2023 1 1 Referral ID Status Reason Start Date Expiration Date V isits Requested Visits Authorized [id number] New Request 11/26/2022 12/21/2023 1 1 Referral ID Status Reason Start Date Expiration Date V isits Requested Visits Authorized [id number] New Request 11/26/2022 12/21/2023 1 1 Referral ID Status Reason Start Date Expiration Date V isits Requested Visits Authorized [id number] Pending Review 11/26/2022 12/21/2023 1 1 Referral ID Status Reason Start Date Expiration Date V isits Requested Visits Authorized [id number] Pending Review 11/26/2022 12/21/2023 1 1 Specialty Diagnoses / Procedures Referred By Contac t Referred To Contact Diagnoses Rectal cancer Procedures MRI PELVIS MSK WITH AND WITHOUT CONTRAST MRI HIP RIGHT WITH AND WITHOUT CONTRAST MA MRI, JOINT OF LEG. COMBO MA MRI, PELVIS, COMBO Stoney Padron MBBS [address] [place] [address] Referral ID Status Reason Start Date Expiration Date Visits Re quested Visits Authorized [id number] Closed 03/11/2023 04/04/2024 1 1 Specialty Diagnoses / Procedures Referred By Contac t Referred To Contact Diagnoses Rectal cancer Procedures CT CHEST WITH CONTRAST CHG DIAGNOSTIC COMPUTED TOMOGRAPHY THORAX W/CONTRAST Stoney Padron MBBS [address] [place] [address] Referral ID Status Reason Start Date Expiration Date Visits Re quested Visits Authorized [id number] Closed 02/25/2023 03/21/2024 1 1 Specialty Diagnoses / Procedures Referred By Contac t Referred To Contact Diagnoses Rectal cancer Procedures CT ABDOMEN/PELVIS WITH CONTRAST CHG CT SCAN,ABDOMENT AND PELVIS,W CONTRAST Stoney Padron MBBS [address] [place] [address] Referral ID Status Reason Start Date Expiration Date Visits Re quested Visits Authorized [id number] Closed 02/25/2023 03/21/2024 1 1 Referral ID Status Reason Start Date Expiration Date V isits Requested Visits Authorized [id number] New Request 08/26/2023 09/19/2024 1 1 Referral ID Status Reason Start Date Expiration Date V isits Requested Visits Authorized [id number] New Request 08/26/2023 09/19/2024 1 1 Additional Source Comments INFORMATION SOURCE (unrecogn ized section and content) DATE CREATED AUTHOR AUTHOR'S ORGANIZ ATION 08/27/2023 [facility] Reason for Visit (unrecogniz ed section and content) Specialty Diagnoses / Procedures Referred By Contac t Referred To Contact Medical Oncology / Oncology Diagnoses 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 labs/scans prior Procedures RETURN PATIENT Barney Wilson MD [address] [address] Stoney Padron MBBS [address] [place] [address] Referral ID Status Reason Start Date Expiration Date Visits Re quested Visits Authorized [id number] Closed 08/26/2023 09/19/2024 1 1 Reason Comments Labs Only Specialty Diagnoses / Procedures Referred By Contac t Referred To Contact Clinical Pathology/Laboratory Medicine Diagnoses Vito labs Procedures BLOOD DRAW Clinical Lab Enrique Rose [address] [facility] [address] [place] [address] Referral ID Status Reason Start Date Expiration Date Visits Re quested Visits Authorized [id number] Closed 08/26/2023 09/19/2024 1 1 Reason Comments New Patient void trial Specialty Diagnoses / Procedures Referred By Contac t Referred To Contact Urology Diagnoses Rectal cancer Acute urinary retention Mirtha Linares, ASSIGNER-LEVEL GLASS FORMING MACHINE OPERATOR [address] [facility] [address] [place] [address] Referral ID Status Reason Start Date Expiration Date V isits Requested Visits Authorized [id number] New Request 06/14/2021 07/09/2022 1 1 Specialty Diagnoses / Procedures Referred By Contac t Referred To Contact Diagnoses Abdominal wall abscess Procedures CT ABDOMEN/PELVIS WITH CONTRAST CHG CT SCAN,ABDOMENT AND PELVIS,W CONTRAST Liliana Andrews MD [address] [address] Referral ID Status Reason Start Date Expiration Date Visits Re quested Visits Authorized [id number] Closed 06/27/2021 07/22/2022 1 1 Reason Comments Follow-up Reason Comments Follow-up Specialty Diagnoses / Procedures Referred By Contac t Referred To Contact Diagnoses Rectal cancer Procedures DIAGNOSTIC COLONOSCOPY MA COLONOSCOPY FLX DX W/COLLJ SPEC WHEN PFRMD Liliana Andrews MD [address] [address] Referral ID Status Reason Start Date Expiration Date Visits Re quested Visits Authorized [id number] Closed 04/12/2022 05/07/2023 1 1 Specialty Diagnoses / Procedures Referred By Contac t Referred To Contact Diagnoses Rectal cancer Procedures CT ABDOMEN/PELVIS WITH CONTRAST CHG CT SCAN,ABDOMENT AND PELVIS,W CONTRAST Umar, Dena, ASSIGNER-LEVEL GLASS FORMING MACHINE OPERATOR [address] [place] [address] Referral ID Status Reason Start Date Expiration Date Visits Re quested Visits Authorized [id number] Closed 04/20/2022 05/15/2023 1 1 Specialty Diagnoses / Procedures Referred By Contac t Referred To Contact Diagnoses Rectal cancer Procedures CT CHEST WITH CONTRAST CHG DIAGNOSTIC COMPUTED TOMOGRAPHY THORAX W/CONTRAST Umar, Dena, ASSIGNER-LEVEL GLASS FORMING MACHINE OPERATOR [address] [place] [address] Referral ID Status Reason Start Date Expiration Date V isits Requested Visits Authorized [id number] Pending Review 11/26/2022 12/21/2023 1 1 Referral ID Status Reason Start Date Expiration Date V isits Requested Visits Authorized [id number] Pending Review 11/26/2022 12/21/2023 1 1 Specialty Diagnoses / Procedures Referred By Contac t Referred To Contact Diagnoses Rectal cancer Procedures MRI PELVIS MSK WITH AND WITHOUT CONTRAST MRI HIP RIGHT WITH AND WITHOUT CONTRAST MA MRI, JOINT OF LEG. COMBO MA MRI, PELVIS, COMBO Stoney Padron MBBS [address] [place] [id number] Referral ID Status Reason Start Date Expiration Date Visits Re quested Visits Authorized [id number] Closed 03/11/2023 04/04/2024 1 1 Specialty Diagnoses / Procedures Referred By Contac t Referred To Contact Diagnoses Rectal cancer Procedures CT CHEST WITH CONTRAST CHG DIAGNOSTIC COMPUTED TOMOGRAPHY THORAX W/CONTRAST Stoney [place]ron [place] [address] Referral ID Status Reason Start Date Expiration Date Visits Re quested Visits Authorized [id number] Closed 02/25/2023 03/21/2024 1 1 Specialty Diagnoses / Procedures Referred By Contac t Referred To Contact Diagnoses Rectal cancer Procedures CT ABDOMEN/PELVIS WITH CONTRAST CHG CT SCAN,ABDOMENT AND PELVIS,W CONTRAST Stoney Padron MBBS [address] [place] [id number] Referral ID Status Reason Start Date Expiration Date Visits Re quested Visits Authorized [id number] Closed 02/25/2023 03/21/2024 1 1 Specialty Diagnoses / Procedures Referred By Ryan adhikari Referred To Contact Medical Oncology / Oncology Diagnoses 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 labs/scans prior Procedures RETURN PATIENT Barney Wilson MD [address] [facility] [address] [place] [address] Stoney Padron MBBS [address] [place] [address] Referral ID Status Reason Start Date Expiration Date Visits Re quested Visits Authorized [id number] Closed 08/26/2023 09/19/2024 1 1 Care Teams (unrecognized sec tion and content) Sales Center Manager Relationship Specialty Start Date End Date Barney Wilson MD [address] [place] [address] PCP - General Family Medicine 01/26/21 Sales Center Manager Relationship Specialty Start Date End Date Barney Wilson MD [address] [place] [address] PCP - General Family Medicine 01/26/21 Sales Center Manager Relationship Specialty Start Date End Date Barney Wilson MD [address] [place] [address] PCP - General Family Medicine 01/26/21 Sales Center Manager Relationship Specialty Start Date End Date Barney Wilson MD [address] [place] [address] PCP - General Family Medicine 01/26/21 Sales Center Manager Relationship Specialty Start Date End Date Barney Wilson MD [address] [place] [address] PCP - General Family Medicine 01/26/21 Sales Center Manager Relationship Specialty Start Date End Date Barney Wilson MD [address] [place] [address] PCP - General Family Medicine 01/26/21 Sales Center Manager Relationship Specialty Start Date End Date Barney Wilson MD [address] [facility] [address] [place] [address] PCP - General Family Medicine 01/26/21 Sales Center Manager Relationship Specialty Start Date End Date Barney Wilson MD [address] [facility] [address] [place] [address] PCP - General Family Medicine 01/26/21 Sales Center Manager Relationship Specialty Start Date End Date Barney Wilson MD [address] [facility] [address] [place] [address] PCP - General Family Medicine 01/26/21 Sales Center Manager Relationship Specialty Start Date End Date Barney Wilson MD [address] [place] [address] PCP - General Family Medicine 01/26/21 Sales Center Manager Relationship Specialty Start Date End Date Barney Wilson MD [address] [facility] [address] [place] [address] PCP - General Family Medicine 01/26/21 Sales Center Manager Relationship Specialty Start Date End Date Barney Wilson MD [address] [facility] [address] [place] [address] PCP - General Family Medicine 01/26/21 Sales Center Manager Relationship Specialty Start Date End Date Barney Wilson MD [address] [place] [address] PCP - General Family Medicine 01/26/21 Sales Center Manager Relationship Specialty Start Date End Date Barney Wilson MD [address] [place] [address] PCP - General [facility] 01/26/21 Sales Center Manager Relationship Specialty Start Date End Date Barney Wilson MD [address] [facility] [address] [place], [place] [address] PCP - General Family [facility] 01/26/21 FOR RECORDS PERTAINING TO PATIENTS WHO [...] BE BASED ON THE PRIMARY CLINICAL RECORDS. [facility]. provides no warranty or guarantee of the accuracy or completeness of information in this document.
[2023-12-23 10:52] VITALS: BP 126/74; PULSE 77; RESP 14; TEMP 36.6; O2SAT 99
== END 2023-12-23 10:53 | disposition home or self-care (01) ==
PROVIDERS: Emergency Provider Emergency Medicine; PCP Family Medicine; Visit Provider Emergency Medicine
DX: S29.011A Strain of muscle and tendon of front wall of thorax, initial encounter (principal); J18.9 Pneumonia, unspecified organism; I10 Essential (primary) hypertension; X58.XXXA Exposure to other specified factors, initial encounter
CPT/HCPCS: 71275; 80048; 85025; 96361; 96374; 96375; 99283; J7030; Q9967; J2405

== ENCOUNTER → 2024-07-16 | Outpatient (CLI) | payer OTHER, SELFPAY ==
[2024-07-16 15:24] LABS: Absolute Lymphocyte Count 0.81 X10^3/uL (0.83-4.51); Absolute Neutrophil Count 2.1 X10^3/uL (2.0-7.7); Basophil# 0.03 X10^3/uL; Basophil% 0.9 % (0-1); Eosinophil# 0.05 X10^3/uL; Eosinophils% 1.5 % (0-5); Hematocrit 38.9 % (37-47); Lymphocyte # 0.81 X10^3/ul (0.83-4.51); Lymphocyte % 24.6 % (19-41); Mean Corp Hgb Conc 33.4 g/dL (32-36); Mean Corpuscular Hgb 31.1 pg (27.0-32.0); Mean Corpuscular Volume 93.1 fL (81-99); Mean Platelet Vol. 9.5 fl (6.2-12.0); Monocyte# 0.33 X10^3/uL; NRBC Flagged by Analyzer 0 % (0-5); Neutrophil # 2.06 X10^3/uL (2.7-7.7); Neutrophil % 62.7 % (47-70); Platelet Count 251 K/mm3 (150-450); RBC Distribution Width CV 12.6 % (11.6-14.6); RBC Distribution Width SD 42.6 fl (35.1-43.9); Red Blood Count 4.18 M/mm3 (4.2-5.4); White Blood Count 3.3 K/mm3 (4.4-11.0)
[2024-07-16 16:10] LABS: AST(SGOT) 25 U/L (15-37); Alanine Aminotransfer ALT/SGPT 50 U/L (13-56); Albumin, Serum 3.6 g/dL (3.2-5.0); Alkaline Phosphatase 66 U/L (45-117); Anion Gap 8 (5-15); BUN 12 mg/dL (7-18); BUN/Creat Ratio 16.9 RATIO (10-20); Calcium,Total 9.6 mg/dL (8.5-10.1); Chloride 108 mmol/L (98-107); Cholesterol 205 mg/dL (200); Creatinine, Serum 0.71 mg/dL (0.55-1.02); EST Glomerular Filtration Rate 90 mL/min (>60); Est Glom Filt Rate - Afr Amer 108 mL/min (>60); Globulin 3.7 g/dL (2.2-4.2); Glucose 100 mg/dL (74-106); High Density Lipoprotein 44 mg/dL; Potassium 3.8 mmol/L (3.5-5.1); Protein, Total 7.3 g/dL (6.4-8.2); Sodium Level 141 mmol/L (136-145); Triglycerides 179 mg/dL; Uric Acid 6.9 mg/dL (2.6-6.0); Very Low Density Lipoprotein 36 mg/dL (5-40)
== END | disposition home or self-care (01) ==
LOC: MFPLAB 12:21
PROVIDERS: PCP Family Medicine; Visit Provider Family Medicine
DX: M10.9 Gout, unspecified (principal); I10 Essential (primary) hypertension
CPT/HCPCS: 36415; 80053; 80061; 84550; 85025

== ENCOUNTER → 2024-10-15 | Outpatient (CLI) | payer OTHER, SELFPAY ==
[2024-10-15 11:05] LABS: Anion Gap 6 (5-15); BUN 14 mg/dL (7-18); BUN/Creat Ratio 17.4 RATIO (10-20); Calcium,Total 9.4 mg/dL (8.5-10.1); Chloride 106 mmol/L (98-107); EST Glomerular Filtration Rate 78 mL/min (>60); Est Glom Filt Rate - Afr Amer 94 mL/min (>60); Glucose 124 mg/dL (74-106); Sodium Level 139 mmol/L (136-145)
[2024-10-19 09:22] LABS: Carcinoembryonic Antigen 1.9 ng/mL (0.0-4.7)
== END | disposition home or self-care (01) ==
PROVIDERS: PCP Family Medicine; Referring Provider Family Medicine; Visit Provider Family Medicine
DX: M10.9 Gout, unspecified (principal); Z85.038 Personal history of other malignant neoplasm of large intestine
CPT/HCPCS: 36415; 80048; 82378; 84550

== ENCOUNTER → 2024-12-15 | Outpatient (CLI) | payer OTHER, SELFPAY ==
[2024-12-15 16:31] LABS: Anion Gap 5 (5-15); BUN 14 mg/dL (7-18); BUN/Creat Ratio 17.3 RATIO (10-20); Calcium,Total 9.3 mg/dL (8.5-10.1); Chloride 106 mmol/L (98-107); Creatinine, Serum 0.81 mg/dL (0.55-1.02); EST Glomerular Filtration Rate 77 mL/min (>60); Est Glom Filt Rate - Afr Amer 94 mL/min (>60); Glucose 94 mg/dL (74-106); Potassium 3.9 mmol/L (3.5-5.1); Sodium Level 139 mmol/L (136-145)
== END | disposition home or self-care (01) ==
LOC: LAB 12:04 → MTLAB 12:39
PROVIDERS: PCP Family Medicine; Referring Provider Internal Medicine Cardiovascular Disease; Visit Provider Internal Medicine Cardiovascular Disease
DX: R06.09 Other forms of dyspnea (principal); I10 Essential (primary) hypertension; Z86.79 Personal history of other diseases of the circulatory system; R00.2 Palpitations
CPT/HCPCS: 36415; 80048; 84443

== ENCOUNTER → 2024-12-28 | Outpatient (CLI) | payer OTHER, SELFPAY | END | disposition home or self-care (01) | LOC: PSN 07:21 | PROVIDERS: PCP Family Medicine; Referring Provider Internal Medicine Cardiovascular Disease; Visit Provider Internal Medicine Cardiovascular Disease | DX: R06.09 Other forms of dyspnea (principal); R00.2 Palpitations; I10 Essential (primary) hypertension | CPT/HCPCS: 93225; 93226 ==

== ENCOUNTER → 2025-01-04 | Outpatient (CLI) | payer OTHER, SELFPAY ==
--- NOTE | 2025-01-04 06:33 | ECHOD_ITS ---
Reason For Study Reason For Study: LINDSAY Procedure This was a 2D Doppler, Color Flow transthoracic echocardiogram. Exam performed in department. Left Ventricle Normal LV size. Mild concentric left ventricular hypertrophy. The left ventricular ejection fraction is 65 %. Stage 1 diastolic dysfunction. Right Ventricle Normal right ventricle. Atria The left and right atria are normal. Mitral Valve No mitral valve prolapse noted. Mild to moderate posteriorly directed eccentric mitral valve insufficiency. Tricuspid Valve Mild tricuspid valve insufficiency. Normal pulmonary artery pressure. Aortic Valve Trisinus/trileaflet aortic valve. Pulmonic Valve Trivial pulmonic valve insufficiency. Great Vessels Normal sized aortic root. Pericardium/Pleural No pericardial effusion. MMode/2D Measurements & Calculations LVIDd: 4.1 cm IVSd: 1.2 cm Ao root diam: 2.6 cm LVIDs: 2.2 cm LVPWd: 0.96 cm RVDd: 3.0 cm FS: 46.0 % LAV(MOD-bp): 36.1 ml LVAd ap4: 23.8 cm2 LVAd ap2: 22.5 cm2 LAV(MOD-bp) Indexed: 18.1 ml/m2 LVLd ap4: 7.5 cm LVLd ap2: 7.7 cm LAV(MOD-sp2): 42.2 ml EDV(MOD-sp4): 63.3 ml EDV(MOD-sp2): 55.3 ml LAV(MOD-sp4): 28.6 ml EDV(sp4-el): 64.0 ml EDV(sp2-el): 55.6 ml LVAs ap4: 13.0 cm2 LVAs ap2: 11.5 cm2 LVLs ap4: 6.4 cm LVLs ap2: 6.5 cm ESV(MOD-sp4): 23.1 ml ESV(MOD-sp2): 18.6 ml ESV(sp4-el): 22.2 ml ESV(sp2-el): 17.4 ml EF(MOD-sp4): 63.5 % EF(MOD-sp2): 66.4 % EF(sp4-el): 65.3 % SV(MOD-sp4): 40.2 ml SV(MOD-sp2): 36.7 ml SV(sp4-el): 41.8 ml SI(MOD-sp4): 20.2 ml/m2 SI(MOD-sp2): 18.5 ml/m2 LA A4 area: 13.1 cm2 LA dimension(2D): 3.5 cm RA A4 area: 10.6 cm2 TAPSE: 2.3 cm Time Measurements MV dec time: 0.24 sec Doppler Measurements & Calculations MV E max moshe: 72.0 cm/sec Lat Peak E' Moshe: 10.3 cm/sec Med Peak E' Moshe: 8.6 cm/sec MV A max moshe: 89.8 cm/sec E/E' lat: 7.0 E/E' med: 8.4 MV E/A: 0.80 Ao V2 max: 146.8 cm/sec LV V1 max: 111.1 cm/sec MV dec slope: 295.8 cm/sec2 Ao max P.6 mmHg LV V1 max P.9 mmHg Ao V2 mean: 96.2 cm/sec LV V1 mean P.5 mmHg Ao mean P.3 mmHg LV V1 mean: 74.0 cm/sec Ao V2 VTI: 32.7 cm LV V1 VTI: 24.1 cm AV (velocity ratio): 0.74 PA V2 max: 130.8 cm/sec TR max moshe: 251.4 cm/sec TR max P.3 mmHg ECHO/Echo Complete Interpretation Summary Mild concentric left ventricular hypertrophy. The left ventricular ejection fraction is 65 %. Stage 1 diastolic dysfunction. Mild to moderate posteriorly directed eccentric mitral valve insufficiency. Mild tricuspid valve insufficiency. Ordering Physician: Diandra Craig Referring Physician: Barney Brice Performed By: Luz Maria, [place], RDCS
--- NOTE | 2025-01-04 11:46 | STRESSREP_ITS ---
Stress Test Report Date: 01/04/2025 Procedure: Exercise tolerance test/imaging study Indications: Chest pain and dyspnea on exertion Consent: Per the patient Procedure: The patient exercised on a Brian protocol for 6 minutes and 30 seconds achieving a peak heart rate of 137 bpm (84% predicted maximal heart rate) with a peak blood pressure 174/98 mmHg and a peak MET capacity of 8.5 METs. The baseline ECG demonstrated sinus rhythm. The peak exercise ECG demonstrated no ischemic changes. Frequent PACs and occasional PVCs noted with exercise. The functional capacity was considered good for age. There was no complaint of chest discomfort during exercise or recovery. The examination was discontinued secondary to target heart rate being achieved and dyspnea. The patient was injected with 11.6 mCi of technetium 99m Cardiolite and subsequently rest SPECT Cardiolite nuclear imaging was obtained in the horizontal long, vertical long, and short axis views. Post-exercise, the patient was injected with 34.5 mCi of technetium 99m Cardiolite and subsequently stress SPECT Cardiolite nuclear imaging was obtained in the horizontal long, vertical long, and short axis views. A gated Cardiolite study at peak stress was obtained. Rest and stress SPECT Cardiolite nuclear imaging status post realignment, normalization, and attenuation correction, demonstrates the appearance of relative uniform tracer uptake and myocardial perfusion appearing within normal limits. There is end systolic thickening and brightening. The gated Cardiolite study demonstrates myocardial thickening and inward wall motion. The reported LVEF is 80%. Impression: 1. Technically adequate (percent predicted maximal heart rate greater than 85%) exercise tolerance test 2. Peak exercise ECG with no ischemic changes 3. Frequent PACs and occasional PVCs noted 4. Rest and stress SPECT Cardiolite nuclear imaging demonstrate relative uniform tracer uptake and myocardial perfusion appearing within normal limits. 5. The gated Cardiolite study reports an LVEF of 80%. This note was generated with Real Time [employer] software. It may contain incorrect words, spelling, and punctuation that were not noted in checking the note before signing.
== END | disposition home or self-care (01) ==
LOC: CVS 06:30
PROVIDERS: PCP Family Medicine; Referring Provider Internal Medicine Cardiovascular Disease; Visit Provider Internal Medicine Cardiovascular Disease
DX: I10 Essential (primary) hypertension (principal); R06.09 Other forms of dyspnea; R00.2 Palpitations
CPT/HCPCS: 78452; 93017; 93306; A9500; A4216

== ENCOUNTER → 2025-02-01 | Outpatient (CLI) | payer OTHER, SELFPAY ==
[2025-02-02 11:08] LABS: Carcinoembryonic Antigen 1.9 ng/mL (0.0-4.7)
== END | disposition home or self-care (01) ==
LOC: MTLAB 08:34
PROVIDERS: PCP Family Medicine
DX: C20 Malignant neoplasm of rectum (principal)
CPT/HCPCS: 36415; 82378

== ENCOUNTER → 2025-02-04 | Outpatient (CLI) | payer OTHER, SELFPAY ==
--- NOTE | 2025-02-04 14:40 | CT_ITS ---
PROCEDURE: CT CHEST, ABD, PEL W/CONTRAST 02/04/2025 REASON FOR EXAM: RECTAL CA Follow-up. Status post colostomy. TECHNIQUE: Chest, abdomen and pelvis CT with intravenous contrast. Coronal and Sagittal reconstruction series were provided. One or more dose reduction techniques were used (e.g., Automated exposure control, adjustment of the mA and/or kV according to patient size, use of iterative reconstruction technique. PATIENT PREPARATION: Per protocol ORAL CONTRAST TYPE: None. CONTRAST: Isovue 370 VOLUME: 100mL RADIATION DOSE SUMMARY: CTDlvol: 17 mGy DLP: 1703.7 mGycm COMPARISON: Comparison is made with prior CT scan of the thorax dated December 23, 2023. FINDINGS: CT CHEST: Hardware: None Lymph nodes: None Heart and Vasculature: No coronary artery calcification. Lungs and Airways: Mild dependent atelectasis. Pleura: Unremarkable Bones: Degenerative changes of the thoracic spine. CT ABDOMEN/PELVIS: Liver: Diffuse fatty infiltration. Gallbladder: Unremarkable Spleen: Normal size. Pancreas: Normal size without evidence of mass surrounding inflammation or ductal dilation. Adrenals: Unremarkable Kidneys: Unremarkable Bladder: Unremarkable Reproductive Organs: Normal uterine size and contour. Ovaries are unremarkable. Bowel: A colostomy is seen in the left anterior mid abdomen. Circumferential thickening of the rectum. Appendix: The appendix is not identified. There is no inflammatory process identified in the right lower quadrant to suggest appendicitis. Lymph nodes: Unremarkable. Vasculature: The abdominal aorta and IVC are normal. Peritoneum / Retroperitoneum: Bones: Unremarkable. CT/CT Chest, Abd, Pel w/Contrast IMPRESSION: Diffuse fatty infiltration of the liver. Colostomy seen in the anterior left midabdomen. Circumferential thickening of the rectum. Reading Location: [place] [address]
== END | disposition home or self-care (01) ==
LOC: CT 14:28
PROVIDERS: PCP Family Medicine
DX: C20 Malignant neoplasm of rectum (principal)
CPT/HCPCS: 71260; 74177; Q9967

== ENCOUNTER → 2025-04-15 | Outpatient (CLI) | payer OTHER, SELFPAY ==
[2025-04-15 10:44] LABS: Absolute Lymphocyte Count 0.78 X10^3/uL (0.83-4.51); Absolute Neutrophil Count 2.7 X10^3/uL (2.0-7.7); Basophil# 0.03 X10^3/uL; Basophil% 0.8 % (0-1); Eosinophil# 0.11 X10^3/uL; Eosinophils% 2.8 % (0-5); Hematocrit 39.8 % (37-47); Hemoglobin 13.6 g/dL (12.0-15.0); Lymphocyte # 0.78 X10^3/ul (0.83-4.51); Lymphocyte % 19.6 % (19-41); Mean Corp Hgb Conc 34.2 g/dL (32-36); Mean Corpuscular Hgb 31.8 pg (27.0-32.0); Mean Platelet Vol. 9.6 fl (6.2-12.0); Monocyte# 0.38 X10^3/uL; Monocyte% 9.5 % (0-10); NRBC Flagged by Analyzer 0 % (0-5); Neutrophil # 2.66 X10^3/uL (2.7-7.7); Neutrophil % 66.8 % (47-70); Platelet Count 271 K/mm3 (150-450); RBC Distribution Width CV 12.7 % (11.6-14.6); RBC Distribution Width SD 43.4 fl (35.1-43.9); Red Blood Count 4.28 M/mm3 (4.2-5.4)
[2025-04-15 10:59] LABS: Microalbumin,Random Urine < 12.0 mg/L (NO RANGE EST.); Microalbumin:Creatinine Ratio UNABLE TO CALCULATE mg/g CRE
[2025-04-15 11:22] LABS: Anion Gap 12 (5-15); BUN 17 mg/dL (4-19); BUN/Creat Ratio 20.8 RATIO (10-20); Carbon Dioxide 20.3 mmol/L (21.0-32.0); Chloride 108 mmol/L (98-108); Cholesterol 209 mg/dL (<=200); Creatinine, Serum 0.82 mg/dL (0.70-1.20); EST Glomerular Filtration Rate 83 (>60); Glucose 110 mg/dL (70-99); High Density Lipoprotein 41 mg/dL; Low Density Lipoprotein Calc. 145 mg/dL; Potassium 4.4 mmol/L (3.3-5.1); Sodium Level 141 mmol/L (133-145); Triglycerides 115 mg/dL; Very Low Density Lipoprotein 23 mg/dL (5-40); cholesterol:hdl ratio screen 5.07
== END | disposition home or self-care (01) ==
LOC: MTLAB 08:47
PROVIDERS: PCP Family Medicine; Referring Provider Family Medicine; Visit Provider Family Medicine
DX: I10 Essential (primary) hypertension (principal); R53.83 Other fatigue
CPT/HCPCS: 36415; 80048; 80061; 82043; 82570; 84443; 85025

== ENCOUNTER → 2025-05-26 | Outpatient (CLI) | payer OTHER, SELFPAY ==
--- OUTSIDE RECORDS SUMMARY | 2025-05-26 20:18 | XMS RPT_ITS | CCD ---
Author Organization [facility] Care Team Providers Care Community Support Worker Name Role Phone LILIANA ANDREWS Referring Unavailable LILIANA ANDREWS Admitting Unavailable Barney Brice MD Primary Care Provider [phone] Barney Brice MD Primary Care Provider [phone] Yuniel, Dr. Corley Primary Care Provider [phone] Yuniel, Dr. Corley Referring Provider Dr. Stephane Dumas Attending Provider Dr. Jose Wheeler Attending Provider Barney Brice MD Primary Care Provider [phone] Yuniel, Dr. Corley Primary Care Provider [phone] Yuniel, Dr. Corley Referring Provider LINDA Sanches Attending Provider LINDA Cox Attending Provider [phone] BARNEY BRICE Referring Unavailable YUNIEL, BARNEY Cruz Primary Care Unavailable STONEY PADRON Attending Unavailable YUNIEL, BARNEY Cruz Referring Unavailable YUNIEL, BARNEY Cruz Primary Care Unavailable VITOSTONEY Garrido Attending Unavailable BRICE, BARNEY Cruz Primary Care Unavailable VITO, STONEY Attending Unavailable VITO, STONEY Referring Unavailable UMAR, NIKOLE Referring Unavailable BRICE, BARNEY Cruz Primary Care Unavailable UMAR, NIKOLE Attending Unavailable UMAR, NIKOLE Referring Unavailable BRICE, BARNEY Cruz Primary Care Unavailable UMAR, NIKOLE Attending Unavailable BRICE, BARNEY Cruz Primary Care Unavailable VITO, STONEY Attending Unavailable VITO, STONEY Referring Unavailable DELORES ALLISON Attending Unavailable YUNIEL, BARNEY Cruz Referring Unavailable YUNIEL, BARNEY Cruz Primary Care Unavailable LILIANA ANDREWS Referring Unavailable YUNIEL, BARNEY Cruz Primary Care Unavailable LILIANA ANDREWS Attending Unavailable UMAR, NIKOLE Referring Unavailable BARNEY BRICE Primary Care Unavailable STONEY PADRON Attending Unavailable UMAR, NIKOLE Referring Unavailable BARNEY BRICE Primary Care Unavailable STONEY PADRON Attending Unavailable Yuniel ECHAVARRIA, Dr. Corley Primary Care Provider Yuniel ECHAVARRIA, Dr. Corley Referring Provider Dossi DC, Dr. Rivas Attending Provider Yuniel ECHAVARRIA, Dr. Corley Attending Provider Rafa ECHAVARRIA, Dr. Jim Attending Provider Rafa ECHAVARRIA, Dr. Jim Referring Provider Rafa ECHAVARRIA, Dr. Jim Other Provider AR, NIKOLE Attending Provider AR, NIKOLE Referring Provider Yuniel ECHAVARRIA, Dr. Corley Primary Care Provider Yuniel ECHAVARRIA, Dr. Corley Referring Provider Dossi DC, Dr. Rivas Attending Provider UMAR, NIKOLE Attending Provider AR, NIKOLE Referring Provider Yuniel ECHAVARRIA, Dr. Corley Primary Care Provider Yuniel ECHVAARRIA, Dr. Corley Referring Provider Dossi DC, Dr. Rivas Attending Provider Yuniel ECHAVARRIA, Dr. Corley Primary Care Provider Rafa ECHAVARRIA, Dr. Jim Attending Provider Rafa ECHAVARRIA, Dr. Jim Referring Provider Yuniel ECHAVARRIA, Dr. Corley Referring Provider Yuniel ECHAVARRIA, Dr. Corley Attending Provider Barney Brice MD Primary Care Provider Yuniel ECHAVARRIA, Dr. Corley Primary Care Provider Yuniel ECHAVARRIA, Dr. Corley Referring Provider Dossi DC, Dr. Rivas Attending Provider Rafa ECHAVARRIA, Dr. Jim Attending Provider [phone] Brice, Barney Referring Unavailable Brice, Barney Primary Care Unavailable Dossi, Evelyn Attending Unavailable Cornel Cox Attending Unavailable Brice, Barney Referring Unavailable Brice, Barney Primary Care Unavailable Brice, Barney Referring Unavailable Brice, Barney Primary Care Unavailable Dossi, Evelyn Attending Unavailable Brice, Barney Referring Unavailable Igor Sanches Attending Unavailable Brice, Barney Primary Care Unavailable Dossi, Evelyn Attending Unavailable Brice, Barney Referring Unavailable Brice, Barney Primary Care Unavailable Brice, Barney Attending Unavailable Brice, Barney Primary Care Unavailable Brice, Barney Referring Unavailable Brice, Barney Attending Unavailable Brice, Barney Primary Care Unavailable Rafa, Diandra Attending Unavailable Brice, Barney Referring Unavailable Brice, Barney Primary Care Unavailable Dossi, Evelyn Attending Unavailable Brice, Barney Referring Unavailable Brice, Barney Primary Care Unavailable Rafa, Diandra Attending Unavailable Rafa, Diandra Referring Unavailable Brice, Barney Primary Care Unavailable Rafa, Diandra Attending Unavailable Rafa, Diandra Referring Unavailable Brice, Barney Primary Care Unavailable Rafa, Diandra Attending Unavailable Rafa, Diandra Referring Unavailable Brice, Barney Primary Care Unavailable Rafa, Diandra Attending Unavailable Rafa, Diandra Referring Unavailable Brice, Barney Primary Care Unavailable Brice, Barney Primary Care Unavailable YEN, JAVY Referring Unavailable JAVY MILLER Attending Unavailable Brice, Barney Attending Unavailable Brice, Barney Referring Unavailable Brice, Barney Primary Care Unavailable Dossi, Evelyn Attending Unavailable Brice, Barney Referring Unavailable Brice, Barney Primary Care Unavailable Dossi, Evelyn Attending Unavailable Brice, Barney Referring Unavailable Brice, Barney Primary Care Unavailable Dossi, Evelyn Attending Unavailable Brice, Barney Primary Care Unavailable Brice, Barney Referring Unavailable Rafa, Diandra Consulting Unavailable Rafa, Diandra Referring Unavailable Rafa, Diandra Attending Unavailable Brice, Barney Primary Care Unavailable Dossi, Evelyn Attending Unavailable Brice, Barney Referring Unavailable Brice, Barney Primary Care Unavailable Brice, Barney Referring Unavailable Igor Sanches Attending Unavailable Brice, Barney Primary Care Unavailable Rafa, Diandra Attending Unavailable Brice, Barney Primary Care Unavailable Brice, Barney Referring Unavailable Dossi, Evelyn Attending Unavailable Brice, Barney Primary Care Unavailable Barney Brice Referring Unavailable Evelyn Painter Attending Unavailable Barney Brice Primary Care Unavailable Barney Brice Referring Unavailable Evelyn Painter Attending Unavailable Barney Brice Referring Unavailable Barney Brice Primary Care Unavailable Yuniel, Barney Primary Care Unavailable JAVY MILLER Referring Unavailable JAVY MILLER Attending Unavailable Allergies Allergy Classification Reported Allergen(s) Allergy Type Date of Onset Reaction(s) Facility Penicillins (antibiotic) (1 source) Penicillins Drug Allergy 8 [facility] (12 sources) Penicillins Propensity to adverse reactions to drug 8 [facility] (12 sources) Penicillins Allergy to substance 1 [facility] (19 sources) Penicillins Propensity to adverse reactions to drug 8 [facility] (1 source) Penicillins Drug allergy (disorder) 5 [facility] Repository Medications Current Medications Medication Drug Class(es) Dates Sig (Normalized) Sig (Original) acetaminophen 325 mg oral tablet (2 sources) Start: 06-27-2021 End: 07-07-2021 take 2 tablets by mouth every eight hours acetaminophen 325 MG tablet Take 2 tablets by mouth every 8 hours for 10 days. 60 tablet 0 06/27/2021 07/07/2021 Active Start: 06-14-2021 End: 06-24-2021 take 2 tablets by mouth every eight hours acetaminophen 325 MG tablet Take 2 tablets by mouth every 8 hours for 10 days. 60 tablet 0 06/14/2021 06/24/2021 Active docusate sodium 100 mg oral capsule (2 sources) Start: 06-14-2021 End: 07-14-2021 take 1 capsule by mouth twice daily docusate 100 MG capsule Take 1 capsule by mouth 2 times daily. 60 capsule 0 06/14/2021 07/14/2021 Active gabapentin 100 mg oral capsule (2 sources) Anti-epileptic Agent Start: 06-14-2021 End: 06-24-2021 take 1 capsule by mouth every eight hours gabapentin 100 MG capsule Take 1 capsule by mouth every 8 hours for 10 days. 30 capsule 0 06/14/2021 Active ibuprofen 600 mg oral tablet (2 sources) Nonsteroidal Anti-inflammatory Drug Start: 06-27-2021 End: 07-07-2021 take 1 tablet by mouth every eight hours ibuprofen 600 MG tablet Take 1 tablet by mouth every 8 hours for 10 days. 30 tablet 0 06/27/2021 07/07/2021 Active Start: 06-14-2021 End: 06-24-2021 take 1 tablet by mouth every eight hours ibuprofen 600 MG tablet Take 1 tablet by mouth every 8 hours for 10 days. 30 tablet 0 06/14/2021 06/24/2021 Active metroNIDAZOLE 0.0075 mg/mg vaginal gel (11 sources) Nitroimidazole Antimicrobial Start: 05-15-2024 metroNIDAZOLE 0.75 % Gel Indications: Vaginal discharge Use 1 applicator full at bedtime daily x 5 days 70 g 3 05/15/2024 Active Start: 05-15-2024 End: 05-15-2024 metroNIDAZOLE 0.75 % Gel Ind ications: Vaginal discharge Insert 1 Applicatorful vaginally at bedtime. 70 g 3 05/15/2024 05/15/2024 Discontinued oxyCODONE hydrochloride 5 mg oral tablet (2 sources) Opioid Agonist Start: 06-14-2021 take 1 tablet by mouth every six hours as needed for pain oxyCODONE 5 MG tablet Indications: Rectal cancer , Acute urinary retention Take 1 tablet by mouth every 6 hours as needed for Moderate Pain or Severe Pain for up to 7 days. 28 tablet 0 06/14/2021 Active polyethylene glycol 3350 [id number] mg / potassium chloride 2970 mg / sodium bicarbonate 6740 mg / sodium chloride 5860 mg / sodium sulfate 51487 mg powder for oral solution (20 sources) Osmotic Laxative Start: 02-24-2024 peg 3350 w/electrolytes oral solution For best results, take medication as directed by Colonoscopy Prep instructions 4000 mL 02/27/2024 Active tamsulosin hydrochloride 0.4 mg oral capsule (2 sources) alpha-Adrenergi c Victorino Start: 06-15-2021 End: 06-29-2021 take 1 capsule by mouth once daily Tamsulosin HCl 0.4 MG capsule Take 1 capsule by mouth daily for 14 days. 14 capsule 0 06/15/2021 06/29/2021 Active Completed/Discontinued Medications Medication Drug Class(es) Dates Sig (Normalized) Sig (Original) acetaminophen 325 mg / HYDROcodone bitartrate 5 mg oral tablet (8 sources) Opioid Agonist Start: 12-23-2023 End: 04-23-2024 Hydrocodone-Acetami nophen 5-325 mg tablet Discontinued 1 {tbl} PO EVERY 4 HOURS NEEDED as needed for Pain 15 3 0 December 23, 2023 April 23, 2024 4:10pm Muscle strain of chest wall Strain of muscle and tendon of front wall of thorax, initial encounter Start: 12-23-2023 take 1 tablet by ousmane th every four hours as needed Hydrocodone-Acetaminophen Active 1 TABLE T PO EVERY 4 HOURS NEEDED 15 3 December 23, 2023 acetaminophen 325 mg / oxyCODONE hydrochloride 5 mg oral tablet (12 sources) Opioid Agonist Start: 02-06-2021 End: 02-09-2021 Oxycodone-Acetaminophen 1 TABLET tablet Discontinued 1 {tbl} PO EVERY 6 HOURS NEEDED as needed for Pain 12 3 0 February 06, 2021 February 08, 2021 12:00am February 09, 2021 12:07am Abdominal pain Unspecified abdominal pain Start: 02-06-2021 End: 02-09-2021 take 1 tablet by mouth every six hours as needed Oxycodone-Acetaminophen Discontinued 1 TABLET PO EVERY 6 HOURS NEEDED 12 3 February 06, 2021 February 08, 2021 11:07pm allopurinol 100 mg oral tablet (11 sources) Xanthine Oxidase Inhibitor Start: 08-14-2024 End: 12-15-2024 take 2 tablets by mouth once daily Allopurinol 100 mg tablet Discontinued 200 mg PO daily August 27, 2024 12:00am December 15, 2024 12:19pm amLODIPine 5 mg oral tablet (11 sources) Dihydropyridine Calcium Channel Victorino Start: 08-13-2024 End: 12-15-2024 take 1 tablet by mouth once daily Amlodipine 5 mg tablet Discontinued 5 mg PO daily August 27, 2024 12:00am December 15, 2024 12:19pm azithromycin 250 mg oral tablet (20 sources) Macrolide Antimicrobial Start: 08-27-2024 End: 10-08-2024 take 2-5 tablets by mouth once daily Azithromycin 250 mg tablet Discontinued 0 PO .COMPLEX 6 0 August 27, 2024 12:00am October 08, 2024 1:10pm take 500 mg today (day 1), then 250 mg for 4 days (days 2-5) PO Start: 06-22-2024 End: 06-22-2024 Azithromycin 250 mg tablet D iscontinued 250 mg PO .COMPLEX 12 June 22, 2024 12:00am June 22, 2024 11:05am 2 tablets (500 mg) on day 1, then 1 tablet daily on days 2 through 11 Start: 10-08-2023 End: 10-23-2023 Azithromycin 250 mg tablet D iscontinued 250 mg PO daily 12 October 08, 2023 1:00am October 23, 2023 9:42am 2 tablets today, then 1 tablet daily on days 2 through 11 barium sulfate (READI-CAT) 2 % oral susp 900 mL (1 source) Start: 07-12-2022 End: 07-12-2022 barium sulfate (READI-CAT) 2 % oral susp 900 mL calcium carbonate 1500 mg oral tablet (12 sources) Start: 01-06-2021 End: 01-06-2021 take 1 tablet by mouth once daily Calcium Carbonate (Calcium 600) 600 mg calcium (1,500 mg) tablet Discontinued 600 mg PO DAILY January 06, 2021 1:00am January 06, 2021 9:54am clindamycin 300 mg oral capsule (6 sources) Lincosamide Antibacterial Start: 06-22-2024 End: 08-27-2024 take 1 capsule by mouth three times daily Clindamycin Hcl 300 mg capsule Discontinued 300 mg PO THREE TIMES A DAY June 22, 2024 12:00am August 27, 2024 11:11am febuxostat 40 mg oral tablet (6 sources) Xanthine Oxidase Inhibitor Start: 12-07-2024 End: 12-15-2024 take 1 tablet by mouth once daily Febuxostat (Uloric) 40 mg tablet Discontinued 40 mg PO daily December 07, 2024 1:00am December 15, 2024 12:19pm 2 ml fentaNYL 0.05 mg/ml injection (3 sources) Opioid Agonist Start: 06-05-2024 End: 06-05-2024 Intravenous, Administer over 2 Minutes, NEEDED, Starting on Sat06/05/24 at 0853, Until Sat06/05/24 at 0903, Intra-op/Intra-Pro c Start: 06-25-2022 End: 06-25-2022 fentaNYL (SUBLIMAZE) injecti on gadoterate Meglumine (DOTAREM) 5 MMOL/10ML injection 3-60 mL (1 source) Start: 04-01-2023 End: 04-01-2023 gadoterate Meglumine (DOTAREM) 5 MMOL/10ML injection 3-60 mL hydroCHLOROthiazide 12.5 mg / lisinopril 10 mg oral tablet (20 sources) Thiazide Diuretic, Angiotensin Converting Enzyme Inhibitor Start: 01-11-2021 End: 12-15-2024 Lisinopril-Hydrochl orothiazide 10-12.5 mg tablet Discontinued {tbl} PO December 07, 2024 1:00am December 15, 2024 12:19pm Start: 01-06-2021 End: 08-27-2024 Lisinopril-Hydrochlorothiazi de 10-12.5 mg tablet Discontinued 1 NMA PO every Saturday, , , Sat January 06, 2021 1:00am August 27, 2024 11:10am BP Start: 01-06-2021 take 1 tablet by ousmane th once Lisinopril-Hydrochlorothiazide Active 1 TAB PO every Saturday, , , Sat January 06, 2021 12:00am Iohexol (OMNIPAQUE) 300 MG/ML 50 mL in Water liquid (free water) 950 mL (2 sources) Start: 08-22-2024 End: 08-22-2024 take 1 dose by mouth once 15,000 mg, Oral, ONCE, 1 dose, On 08/22/24 at 1115, For administration to inpatients, to be given by RN on inpatient nursing unit., CT Procedure Start: 02-15-2024 End: 02-15-2024 take 1 dose by mouth once 15,000 mg, Oral, ONCE, 1 dos e, On 02/15/24 at 1115, For administration to inpatients, to be given by RN on inpatient nursing unit., CT Procedure Iohexol (OMNIPAQUE) 300 MG/M L 50 mL in Water po liquid (free water) 950 mL (1 source) Start: 08-24-2023 End: 08-24-2023 Iohexol (OMNIPAQUE) 300 MG/M L 50 mL in Water po liquid (free water) 950 mL iohexol (OMNIPAQUE) 300 MG/M L vial 50 mL (1 source) Start: 06-27-2021 End: 06-27-2021 iohexol (OMNIPAQUE) 300 MG/M L vial 50 mL Iohexol (OMNIPAQUE) 300 MG/M L vial 50 mL (1 source) Start: 02-16-2023 End: 02-16-2023 Iohexol (OMNIPAQUE) 300 MG/M L vial 50 mL iohexol (OMNIPAQUE) 350 MG/M L injection 1-171 mL (6 sources) Start: 08-22-2024 End: 08-22-2024 1-171 mL, Intravenous, ONCE, 1 dose, On 08/22/24 at 1145, Extravasation Risk, CT Procedure Start: 02-15-2024 End: 02-15-2024 1-171 mL, Intravenous, ONCE, 1 dose, On 02/15/24 at 1115, Extravasation Risk, CT Procedure Start: 08-24-2023 End: 08-24-2023 iohexol (OMNIPAQUE) 350 MG/M L injection 1-171 mL Start: 02-16-2023 End: 02-16-2023 iohexol (OMNIPAQUE) 350 MG/M L injection 1-171 mL Start: 07-12-2022 End: 07-12-2022 iohexol (OMNIPAQUE) 350 MG/M L injection 1-171 mL Start: 06-27-2021 End: 06-27-2021 iohexol (OMNIPAQUE) 350 MG/M L injection 1-171 mL lisinopril 10 mg oral tablet (20 sources) Angiotensin Converting Enzyme Inhibitor Start: 01-06-2021 End: 12-15-2024 take 1 tablet by mouth once daily Lisinopril 10 mg tablet Discontinued 10 mg PO daily December 07, 2024 1:00am December 15, 2024 12:19pm loratadine 10 mg oral tablet (12 sources) Start: 01-06-2021 End: 04-24-2023 take 1 tablet by mouth once daily as needed Loratadine 10 mg tablet Discontinued 10 mg PO DAILY as needed for seasonal allergies January 06, 2021 1:00am April 24, 2023 8:28am 2 ml midazolam 1 mg/ml injection (3 sources) Benzodiazepine Start: 06-05-2024 End: 06-05-2024 NEEDED, Starting on Sat06/05/24 at 0853, Until Sat06/05/24 at 0903, Intra-op/Intra-Pro c Start: 06-25-2022 End: 06-25-2022 Midazolam HCl (PF) (VERSED) injection predniSONE 10 mg oral tablet (14 sources) Start: 06-08-2024 End: 06-22-2024 take 4 tablets by mouth once daily, then take 3 tablets by mouth once daily, then take 2 tablets by mouth once daily, then take 1 tablet by mouth once daily Prednisone 10 mg tablet Discontinued 10 mg PO DAILY 30 June 08, 2024 12:00am June 22, 2024 9:52am 4 tablets daily x3 days, then 3 tablets daily x3 days, then 2 tablets daily x3 days, then 1 tablet daily x3 days Start: 10-23-2023 End: 11-02-2023 take 4 tablets by mouth once daily, then take 1-3 tablets by mouth once daily, then take 4-6 tablets by mouth once daily, then take 7-9 tablets by mouth once daily Prednisone 10 mg tablet Discontinued 10 mg PO daily 25 0 October 23, 2023 1:00am November 01, 2023 1:00am November 02, 2023 1:33am Unspecified contact dermatitis, unspecified cause Take 4 tabs once daily days 1-3, 3 tabs once daily days 4-6, 2 tabs once daily days 7-9 and 1 tab once day 10. 20 ml sodium chloride 9 mg/m l injection (8 sources) Start: 08-22-2024 End: 08-22-2024 1-100 mL, Intravenous, ONCE NEEDED, 1 dose, Starting on 08/22/24 at 1132, Until 08/22/24 at 1132, Flush, CT Procedure Start: 02-15-2024 End: 02-15-2024 1-100 mL, Intravenous, ONCE NEEDED, 1 dose, Starting on 02/15/24 at 1111, Until 02/15/24 at 1111, Flush, CT Procedure Start: 08-24-2023 End: 08-24-2023 Sodium chloride (PF) 0.9 % i njection 1-100 mL Start: 04-01-2023 End: 04-01-2023 Sodium chloride (PF) 0.9 % i njection 1-100 mL Start: 02-16-2023 End: 02-16-2023 Sodium chloride (PF) 0.9 % i njection 1-100 mL Start: 07-12-2022 End: 07-12-2022 sodium chloride (PF) 0.9 % i njection 1-100 mL Start: 06-25-2022 End: 06-25-2022 sodium chloride 0.9% IV solu tion Start: 06-27-2021 End: 06-27-2021 sodium chloride (PF) 0.9 % i njection 1-100 mL valACYclovir 1000 mg oral tablet (8 sources) Herpesvirus Nucleoside Analog DNA Polymerase Inhibitor, Herpes Simplex Virus Nucleoside Analog DNA Polymerase Inhibitor, Herpes Zoster Virus Nucleoside Analog DNA Polymerase Inhibitor Start: 10-23-2023 End: 10-30-2023 Valacyclovir 1 gram tablet Discontinued 1000 mg PO THREE TIMES A DAY October 23, 2023 1:00am October 29, 2023 1:00am October 30, 2023 1:05am Start: 10-23-2023 End: 10-30-2023 take 1000 mg by mouth three times daily Valacyclovir Discontinued 1000 MG PO THREE TIMES A DAY 24 05October 23, 2023 12:00am October 30, 2023 12:05am vitamin b6 250 mg oral tablet (12 sources) Start: 01-06-2021 End: 01-06-2021 take 1 tablet by mouth once daily Pyridoxine (Vitamin B6) 250 mg tablet Discontinued 250 mg PO DAILY January 06, 2021 1:00am January 06, 2021 9:54am Problems Active Problems Problem Classification Problem Date Documented Date Episodic/Chronic Abdominal pain (12 sources) Left lower quadrant pain; Translations: [Left lower quadrant pain] 01-06-2021 Episodic Comment on above: Burning sensation le ft lower quadrant near lateral incision Anxiety disorders (6 sources) Anxiety; Translations: [Anxiety disorder, unspecified] 12-07-2024 Chronic Cancer of rectum and anus (20 sources) Malignant tumor of rectum; Translations: [Malignant neoplasm of rectum] Onset: 02-01-2021 06-14-2021 Chronic Essential hypertension (20 sources) Benign essential hypertension; Translations: [Essential (primary) hypertension] Onset: 01-15-2025 12-07-2024 Chronic Gout and other crystal arthropathies (7 sources) Gout; Translations: [Gout, unspecified] Onset: 11-17-2024 12-07-2024 Chronic Heart valve disorders (12 sources) Mitral valve prolapse; Translations: [Nonrheumatic mitral (valve) prolapse] 12-07-2024 Chronic Other aftercare (1 source) H/O: malignant neoplasm; Translations: [Encounter for follow-up examination after completed treatment for malignant neoplasm] 05-31-2023 Episodic Other and ill-defined heart disease (6 sources) Diastolic dysfunction; Translations: [Other ill-defined heart diseases] 03-02-2025 Chronic Other bone disease and musculoskeletal deformities (20 sources) Segmental and somatic dysfunction; Translations: [Segmental and somatic dysfunction of cervical region] 03-16-2024 Episodic Other bone disease and musculoskeletal deformities (1 source) Segmental and somatic dysfunction of pelvic region; Translations: [Segmental and somatic dysfunction of pelvic region] Onset: 05-24-2025 Episodic Other bone disease and musculoskeletal deformities (1 source) Segmental and somatic dysfunction of lumbar region; Translations: [Segmental and somatic dysfunction of lumbar region] Onset: 05-24-2025 Episodic Other bone disease and musculoskeletal deformities (1 source) Segmental and somatic dysfunction of thoracic region; Translations: [Segmental and somatic dysfunction of thoracic region] Onset: 05-24-2025 Episodic Other bone disease and musculoskeletal deformities (1 source) Segmental and somatic dysfunction of cervical region; Translations: [Segmental and somatic dysfunction of cervical region] Onset: 05-24-2025 Episodic Other circulatory disease (10 sources) H/O: heart disorder; Translations: [Personal history of other diseases of the circulatory system] 12-15-2024 Episodic Other circulatory disease (6 sources) Finding of systemic arterial pressure; Translations: [Elevated blood-pressure reading, without diagnosis of hypertension] 12-07-2024 Episodic Other female genital disorders (1 source) Vaginal discharge; Translations: [Other specified noninflammatory disorders of vagina] 05-15-2024 Episodic Other lower respiratory disease (10 sources) Dyspnea on exertion; Translations: [Other forms of dyspnea] 12-15-2024 Episodic Other nutritional; endocrine; and metabolic disorders (6 sources) Body mass index 30+ - obesity; Translations: [Body mass index (BMI) 30.0-30.9, adult] 12-07-2024 Chronic Other upper respiratory infections (6 sources) Acute pharyngitis; Translations: [Acute pharyngitis, unspecified] 08-27-2024 Episodic Pathological fracture (12 sources) Stress fracture of sacrum; Translations: [Pathological fracture, other site, initial encounter for fracture] 04-24-2023 Episodic Pneumonia (except that caused by tuberculosis or sexually transmitted disease) (8 sources) Pneumonia; Translations: [Pneumonia, unspecified organism] 12-23-2023 Episodic Residual codes; unclassified (1 source) H/O: radiation exposure; Translations: [Personal history of irradiation] 05-31-2023 Episodic Spondylosis; intervertebral disc disorders; other back problems (20 sources) Degeneration of intervertebral disc; Translations: [Degeneration of intervertebral disc, site unspecified] Onset: 02-04-2025 04-16-2024 Chronic Spondylosis; intervertebral disc disorders; other back problems (20 sources) Low back pain; Translations: [Low back pain] 04-24-2023 Episodic Sprains and strains (8 sources) Strain of muscle of chest wall; Translations: [Strain of muscle and tendon of front wall of thorax, initial encounter] 12-23-2023 Episodic Viral infection (10 sources) Herpes zoster; Translations: [Zoster without complications] 10-23-2023 Episodic Past or Other Problems Problem Classification Problem Date Documented Date Episodic/Chronic Cancer of rectum and anus (14 sources) History of malignant neoplasm of rectum; Translations: [Personal history of other malignant neoplasm of rectum, rectosigmoid junction, and anus] Onset: 12-15-2024 12-15-2024 Episodic Cardiac dysrhythmias (15 sources) Palpitations; Translations: [Palpitations] Onset: 12-15-2024 12-15-2024 Episodic Genitourinary symptoms and ill-defined conditions (20 sources) Acute retention of urine ; Translations: [Other retention of urine] Onset: 06-14-2021 Episodic Mood disorders (20 sources) Mood disorders Onset: 12-15-2021 Resolved: 08-24-2024 12-15-2021 Other circulatory disease (1 source) Personal history of other diseases of the circulatory system; Translations: [Personal history of other diseases of the circulatory system] Onset: 12-15-2024 Episodic Other female genital disorders (2 sources) Other specified noninflammatory disorders of vagina; Translations: [Other specified noninflammatory disorders of vagina] Onset: 05-15-2024 Episodic Other lower respiratory disease (2 sources) Other forms of dyspnea; Translations: [Other forms of dyspnea] Onset: 01-05-2025 Episodic Skin and subcutaneous tissue infections (1 source) Abscess of abdominal wall; Translations: [Cutaneous abscess of abdominal wall] Episodic Results Test Name Value Interpretation Reference Range Facility Chiropractic Reporton 2024 Chiropractic Report [facility] [address] [id number] OFFICE VISIT Date of Service: 05/24/25 MR#: [id number] Acct: [id number] Name: LAILA OLVERA ANN Rep #: [id number] : 1965 Provider: LONDON Rivas Do ssi Age/Sex: 59/F Location: [facility] Status: Signed Intake Vital Signs 03/02/25 10:15 Height 5 ft 7 in Weight: 196 lb BMI 30.7 BP 119/73 Blood Pressure Location Lt brachial Position Sitting Respiration 16 Pulse 72 Pulse Source Monitor Pulse Oximetry (%) 98 Oxygen Delivery Method room air Intake Visit Reasons: Back pain Chief Complaint: neck, upper and low back pain Allergies Penicillins Allergy (Intermediate, Verified 04/08/25 12:02) hives FOR[facility]LY [facility] Medical History Diastolic blood pressure 80 to 89 mm Hg BMI 30.0-30.9,adult Benign essential hypertension Gout Mitral valve prolapse Seasonal allergic rhinitis Vitamin D deficiency Palpitations Anxiety IBS (irritable bowel syndrome) HTN (hypertension) Surgical History History of section History of tympanoplasty of left ear History of meniscectomy of left knee Family History Father CHF (congestive heart failure) Mother Hypertension Pulmonary hypertension Social History household members: spouse Smoking Status: Never smoker alcohol intake: never HPI Back pain Chief Complaint: neck, upper and low back Visit Number: 7 Details: Laila is a 59 y/o female here to follow up on neck, upper and low back pain. Pt. c/o neck and bilateral trap pain and tightness. She rates her neck pain 7/10. She states her low back is sore equal across bilaterality. She also complains her legs and knees are painful and achy. She states her neck is tight and rates her neck pain 4/10 today. She continues to experience occasional headaches which she only notices them at work when she is on the computer. She has also been traveling a lot lately which attributes to her discomfort. She denies new injury, numbness, tingling or radiculopathy. Pt. stretches and walks frequently to stay active and flexible. She reports chiropractic adjustments are helpful in relieving her pain and discomfort but it gradually returns. Location: neck upper and low back Duration: intermittent Aggravating or associated factors: sitting, standing, computer work,travel Relieving factors: chiro,yoga Pain Quality: aching and dull Exam Musc General: Yes normal posture, normal gait and joint tenderness; No muscle weakness Cervical Spine: Yes loss of normal cervical lordosis, Yes cervical muscular tenderness bilateral diffuse , Yes cervical spasm left greater than right diffuse trapezius, paracervical muscles and intrinsics and Yes misalignment misalignment: C4, C5, C6 and C7 Thoracic/Lumber: Yes thoracic and lumbar spine normal to inspection, Yes paraspinal tenderness on the left greater than right (lumbopelvic,trap), Yes thoraco-lumbar spasm on the right greater than left (paraspinal L2-L5) and on the left greater than right (glute med,upper trap) and Yes misalignment T1, T2, T5, T6, L4, L5 and RIL Sacroiliac joints: bilaterally tender to palpation Office Procedures Procedures - Chiropractic Procedures Manipulation: Cervical C6, Lumbar L4, Thoracic T2 and T5 and Pelvis RIL Manipulation: 3-4 regions Traction, Mechanical: Yes Patient Response: positive Assessment and Plan Assessment and Plan (1) Segmental and somatic dysfunction of cervical region: Status: Acute (2) Segmental and somatic dysfunction of thoracic region: Status: Acute (3) Segmental and somatic dysfunction of lumbar region: Status: Acute (4) Segmental and somatic dysfunction of pelvic region: Status: Acute (5) DDD (degenerative disc disease): Status: Chronic Qualifiers: Spinal region: cervicothoracic Qualified Code(s): M50.33 - Other cervical disc degeneration, cervicothoracic region Orders: Orders Chiropractic Treatments 05/24/25 M99.01 - Segmental and somatic dysfunction of cervical region, M99.02 - Segmental and somatic dysfunction of thoracic region, M99.03 - Segmental and somatic dysfunction of lumbar region, M99.05 - Segmental and somatic dysfunction of pelvic region Plan Patient was treated without incident. Continue care as needed. Plan Details Goals Barriers: Goals Improve ROM Decrease pain Decrease inflammation Barriers Sacral insuff. fx- stable DDD-lower cervical Follow Up: 2 Weeks Coding Level of Care Code No Charge Diagnoses Segmental and somatic dysfunction of cervical region M99.01 Segmental and somatic dysfunction of thoracic region M99.02 Seg (more content not included)... Normal [facility] Absolute lymphocyte countOrd ered By: Barney Brice on 04-15-2025 Lymphocytes Auto (Unsp spec) [#/Vol] 0.78 10*3/uL Low 0.83-4.51 [facility] Absolute neutrophil countOrd ered By: Barney Brice on 04-15-2025 Neutrophils (Bld) [#/Vol] 2.7 10*3/uL 2.0-7.7 [facility] Anion gap in Serum or Plasma Ordered By: Barney Brice on 04-15-2025 Anion gap [Moles/Vol] 12 mmol/L 5-15 [facility] Automated lymphocyte count a s percentage of total leukocytesOrdered By: Barney Brice on 04-15-2025 Lymphocytes/100 WBC Auto (Unsp spec) 19.6 % - [facility] BUN/creatinine ratioOrdered By: Barney Brice on 04-15-2025 Urea nitrogen/Creatinine [Mass ratio] 20.8 mg/mg High 08-23 [facility] Basic Metabolic Profile (BMP )on 04-15-2025 BUN/CRE 20.8 RATIO High 08-23 [facility] Comment on above: Performed By: #### L 100.0100, L500.2500, L500.4100, L501.9520, L502.0250 #### [facility] [place], [address] Calcium [Mass/Vol] 9.0 mg/dL Normal 7.6-11.0 [facility] Comment on above: Performed By: #### L 100.0100, L500.2500, L500.4100, L501.9520, L502.0250 #### [facility] [address] [place], [address] Chloride [Moles/Vol] 108 mmol/L Normal 98-108 [facility] Comment on above: Performed By: #### L 100.0100, L500.2500, L500.4100, L501.9520, L502.0250 #### [facility] [address] [place], [address] CO2 [Moles/Vol] 20.3 mmol/L Low 21.0-32.0 [facility] Comment on above: Performed By: #### L 100.0100, L500.2500, L500.4100, L501.9520, L502.0250 #### [facility] [address] [place], [address] Creatinine [Mass/Vol] 0.82 mg/dL Normal 0.70-1.20 [facility] Comment on above: Performed By: #### L 100.0100, L500.2500, L500.4100, L501.9520, L502.0250 #### [facility] [address] [place], [address] GAP 12 Normal 5-15 [facility] Comment on above: Performed By: #### L 100.0100, L500.2500, L500.4100, L501.9520, L502.0250 #### [facility] [address] [place], [address] GFR/1.73 sq M.predicted among non-blacks MDRD (S/P/Bld) [Vol rate/Area] 83 mL/min/{1.73_m2} Normal >60 [facility] Comment on above: Result Comment: mL/m in/1.73m2 CKD-EPI Creatinine Equation (2020) Performed By: #### L 100.0100, L500.2500, L500.4100, L501.9520, L502.0250 #### [facility] [address] [place], [address] Glucose [Mass/Vol] 110 mg/dL High 70-99 [facility] Comment on above: Performed By: #### L 100.0100, L500.2500, L500.4100, L501.9520, L502.0250 #### [facility] [address] [place], [address] Potassium [Moles/Vol] 4.4 mmol/L Normal 3.3-5.1 [facility] Comment on above: Performed By: #### L 100.0100, L500.2500, L500.4100, L501.9520, L502.0250 #### [facility] [address] [place], [address] Sodium [Moles/Vol] 141 mmol/L Normal 133-145 [facility] Comment on above: Performed By: #### L 100.0100, L500.2500, L500.4100, L501.9520, L502.0250 #### [facility] [address] [place], [address] Urea nitrogen [Mass/Vol] 17 mg/dL Normal 4-19 [facility] Comment on above: Performed By: #### L 100.0100, L500.2500, L500.4100, L501.9520, L502.0250 #### [facility] [address] [place], [address] Basophil percentageOrdered B y: Barney Brice on 04-15-2025 Basophils/100 WBC (Bld) 0.8 % 0-1 [facility] CBC W/Diff, Automatedon 06-11 05-2024 Absolute Lymph 0.78 X10 3/uL Low 0.83-4.51 [facility] Comment on above: Performed By: #### L 100.0100, L500.2500, L500.4100, L501.9520, L502.0250 #### [facility] [address] [place], [address] Absolute Neut 2.7 X10 3/uL Normal 2.0-7.7 [facility] Comment on above: Performed By: #### L 100.0100, L500.2500, L500.4100, L501.9520, L502.0250 #### [facility] [address] [place], [address] Basophils/100 WBC (Bld) 0.8 % Normal 0-1 [facility] Comment on above: Performed By: #### L 100.0100, L500.2500, L500.4100, L501.9520, L502.0250 #### [facility] [address] [place], [address] Eosinophils/100 WBC (Bld) 2.8 % Normal 0-5 [facility] Comment on above: Performed By: #### L 100.0100, L500.2500, L500.4100, L501.9520, L502.0250 #### [facility] [address] [place], [address] Erythrocyte distribution width (RBC) [Ratio] 12.7 % Normal 11.6-14.6 [facility] Comment on above: Performed By: #### L 100.0100, L500.2500, L500.4100, L501.9520, L502.0250 #### [facility] [address] [place], [address] Hematocrit (Bld) [Volume fraction] 39.8 % Normal 37-47 [facility] Comment on above: Performed By: #### L 100.0100, L500.2500, L500.4100, L501.9520, L502.0250 #### [facility] [address] [place], [address] Hemoglobin (Bld) [Mass/Vol] 13.6 g/dL Normal 12.0-15.0 [facility] Comment on above: Performed By: #### L 100.0100, L500.2500, L500.4100, L501.9520, L502.0250 #### [facility] [address] [place], [address] IG% 0.500 Normal 0.0-0.9 [facility] Comment on above: Result Comment: IG% - Immature Granulocytes (promyelocytes, myelocytes and metamyelocytes) > 1% indicates that a LEFT SHIFT is Present. Performed By: #### L 100.0100, L500.2500, L500.4100, L501.9520, L502.0250 #### [facility] [address] [place], [address] Lymphocytes/100 WBC (Bld) 19.6 % Normal 19-41 [facility] Comment on above: Performed By: #### L 100.0100, L500.2500, L500.4100, L501.9520, L502.0250 #### [facility] [address] [place], [address] MCH (RBC) [Entitic mass] 31.8 pg Normal 27.0-32.0 [facility] Comment on above: Performed By: #### L 100.0100, L500.2500, L500.4100, L501.9520, L502.0250 #### [facility] [address] [place], [address] MCHC (RBC) [Mass/Vol] 34.2 g/dL Normal 32-36 [facility] Comment on above: Performed By: #### L 100.0100, L500.2500, L500.4100, L501.9520, L502.0250 #### [facility] [address] [place], [address] MCV (RBC) [Entitic vol] 93.0 fL Normal 81-99 [facility] Comment on above: Performed By: #### L 100.0100, L500.2500, L500.4100, L501.9520, L502.0250 #### [facility] [address] [place], [address] Monocytes/100 WBC (Bld) 9.5 % Normal 0-10 [facility] Comment on above: Performed By: #### L 100.0100, L500.2500, L500.4100, L501.9520, L502.0250 #### [facility] [address] [place], [address] Neutrophils/100 WBC (Bld) 66.8 % Normal 47-70 [facility] Comment on above: Performed By: #### L 100.0100, L500.2500, L500.4100, L501.9520, L502.0250 #### [facility] [address] [place], [address] Nucleated RBC (Bld) [#/Vol] 0 10*3/uL Normal 0-5 [facility] Comment on above: Performed By: #### L 100.0100, L500.2500, L500.4100, L501.9520, L502.0250 #### [facility] [address] [place], [address] Platelet mean volume (Bld) [Entitic vol] 9.6 fL Normal 6.2-12.0 [facility] Comment on above: Performed By: #### L 100.0100, L500.2500, L500.4100, L501.9520, L502.0250 #### [facility] [address] [place], [address] Platelets (Bld) [#/Vol] 271 10*3/uL Normal 150-450 [facility] Comment on above: Performed By: #### L 100.0100, L500.2500, L500.4100, L501.9520, L502.0250 #### [facility] [address] [place], [address] RBC (Bld) [#/Vol] 4.28 10*6/uL Normal 4.2-5.4 [facility] Comment on above: Performed By: #### L 100.0100, L500.2500, L500.4100, L501.9520, L502.0250 #### [facility] [address] [place], [address] RDW SD 43.4 fl Normal 35.1-43.9 [facility] Comment on above: Performed By: #### L 100.0100, L500.2500, L500.4100, L501.9520, L502.0250 #### [facility] [address] [place], [address] WBC (Bld) [#/Vol] 4.0 10*3/uL Low 4.4-11.0 [facility] Comment on above: Performed By: #### L 100.0100, L500.2500, L500.4100, L501.9520, L502.0250 #### [facility] [address] [place], [address] Calculated very low density lipoprotein (VLDL) cholesterol measurementOrdered By: Barney Brice on 04-15-2025 Calculated very low density lipoprotein (VLDL) cholesterol measurement 23 mg/dL 5-40 [facility] Carbon dioxide, total [Moles /volume] in Central venous bloodOrdered By: Barney Brice on 04-15-2025 CO2 [Moles/Vol] 20.3 mmol/L Low 21.0-32.0 [facility] Chloride assayOrdered By: Linda Brice on 04-15-2025 Chloride [Moles/Vol] 108 mmol/L 98-108 [facility] Eosinophil percentageOrdered By: Barney Brice on 04-15-2025 Eosinophils/100 WBC (Bld) 2.8 % 0-5 [facility] Erythrocyte distribution wid th ratioOrdered By: Barney Brice on 04-15-2025 Erythrocyte distribution width (RBC) [Ratio] 12.7 % 11.6-14.6 [facility] Erythrocyte distribution wid th standard deviationOrdered By: Barney Brice on 04-15-2025 Erythrocyte distribution width (RBC) [Ratio] 43.4 fl 35.1-43.9 [facility] Glomerular filtration rate ( GFR) estimation/1.73 sq m using serum, plasma, or whole bOrdered By: Barney Brice on 04-15-2025 GFR/1.73 sq M.predicted among non-blacks MDRD (S/P/Bld) [Vol rate/Area] 83 mL/min/{1.73_m2} >60 [facility] Comment on above: mL/min/1.73m2 CKD-EP I Creatinine Equation (2020) Hematocrit Auto (Bld) [Volum e fraction]Ordered By: Barney Brice on 04-15-2025 Hematocrit (Bld) [Volume fraction] 39.8 % 37-47 [facility] Hemoglobin measurementOrdere d By: Barney Brice on 04-15-2025 Hemoglobin (Bld) [Mass/Vol] 13.6 g/dL 12.0-15.0 [facility] Immature granulocytes/100 WB C Auto (Bld)Ordered By: Barney Brice on 04-15-2025 Immature granulocytes/100 WBC (Bld) 0.500 % 0.0-0.9 [facility] Comment on above: IG% - Immature Granu locytes (promyelocytes, myelocytes and metamyelocytes) > 1% indicates that a LEFT SHIFT is Present. LDL calc ser/plasOrdered By: Barney Brice on 04-15-2025 Cholesterol in LDL [Mass/Vol] 145 mg/dL [facility] Comment on above: Znjjilaypr=216-592 m g/dL & Higher Nqtz=690 mg/dL or greater Lipid Profileon 04-15-2025 CHOL:HDL 5.07 Normal [facility] Comment on above: Performed By: #### L 100.0100, L500.2500, L500.4100, L501.9520, L502.0250 ####[facility] [id number] [place], [address] Cholesterol [Mass/Vol] 209 mg/dL High <=200 [facility] Comment on above: Result Comment: Chol esterol level, Desirable <200 mg/dL Borderline high cholesterol 200-239 mg/dL High cholesterol >=240 mg/dL Recommendations of the NCEP Adult Treatment Panel for the following risk-cutoff thresholds for the [place] population. Performed By: #### L 100.0100, L500.2500, L500.4100, L501.9520, L502.0250 ####[facility] [address] [place], [address] Cholesterol in HDL [Mass/Vol] 41 mg/dL Normal [facility] Comment on above: Result Comment: Letitia onal Cholesterol Education Program (NCEP) guidelines: <40 mg/dL: Low HDL-cholesterol (major risk factor for CHD) >= 60 mg/dL: High HDL-cholesterol (negative risk factor for CHD) HDL-cholesterol is affected by a number of factors, e.g. smoking, exercise, hormones, sex and age. Performed By: #### L 100.0100, L500.2500, L500.4100, L501.9520, L502.0250 ####[facility] [address] [place], [address] Cholesterol in LDL [Mass/Vol] 145 mg/dL Normal [facility] Comment on above: Result Comment: Bord tryttp=489-619 mg/dL Higher Tivr=685 mg/dL or greater Performed By: #### L 100.0100, L500.2500, L500.4100, L501.9520, L502.0250 ####[facility] [address] [place], [address] Cholesterol in VLDL [Mass/Vol] 23 mg/dL Normal 5-40 [facility] Comment on above: Performed By: #### L 100.0100, L500.2500, L500.4100, L501.9520, L502.0250 ####[facility] [address] [place], [place], [address] Triglyceride [Mass/Vol] 115 mg/dL Normal [facility] Comment on above: Result Comment: The drugs N-Acetylcysteine and Metamizole may falsely depress this assay. Normal range: <150 mg/dL Borderline High: 150-199 mg/dL High: 200-499 mg/dL Very High: >500 mg/dL Performed By: #### L 100.0100, L500.2500, L500.4100, L501.9520, L502.0250 ####[facility] [address] [place], [place], [id number] MCV (mean corpuscular volume ) determinationOrdered By: Barney Brice on 04-15-2025 MCV (RBC) [Entitic vol] 93.0 fL 81-99 [facility] Mean corpuscular hemoglobin (MCH) determinationOrdered By: Barney Brice on 04-15-2025 MCH (RBC) [Entitic mass] 31.8 pg 27.0-32.0 [facility] Mean corpuscular hemoglobin concentration (MCHC) determinationOrdered By: Barney Brice on 04-15-2025 MCHC (RBC) [Mass/Vol] 34.2 g/dL 32-36 [facility] Mean platelet volume determi nationOrdered By: Barney Brice on 04-15-2025 Platelet mean volume (Bld) [Entitic vol] 9.6 fL 6.2-12.0 [facility] Microalb:Creat Ratio,Random URon 04-15-2025 Creatinine [Mass/Vol] 147.00 mg/dL Normal 28.00-217.00 [facility] Comment on above: Performed By: #### L 100.0100, L500.2500, L500.4100, L501.9520, L502.0250 #### [facility] [address] [place], [place], [id number] MALB:CREAT UNABLE TO CALCULATE Normal [facility] Comment on above: Performed By: #### L 100.0100, L500.2500, L500.4100, L501.9520, L502.0250 #### [facility] [address] [place], [place], [id number] MICROALBUMIN,UR < 12.0 Normal NO RANGE EST. [facility] Comment on above: Performed By: #### L 100.0100, L500.2500, L500.4100, L501.9520, L502.0250 #### [facility] [address] [place], [place], [id number] Microalbumin/creat ratio urO rdered By: Barney Brice on 04-15-2025 Urine microalbumin/creatinin e ratio measurement UNABLE TO CALCULATE mg/g CRE [facility] Monocyte percentageOrdered B y: Barney Brice on 04-15-2025 Monocytes/100 WBC (Bld) 9.5 % 0-10 [facility] Neutrophil percentageOrdered By: Barney Brice on 04-15-2025 Neutrophils/100 WBC (Bld) 66.8 % 47-70 [facility] Nucleated red blood cell per centageOrdered By: Barney Brice on 04-15-2025 Nucleated RBC/100 WBC (Bld) [Ratio] 0 % 0-5 [facility] Platelet countOrdered By: Linda Brice on 04-15-2025 Platelets (Bld) [#/Vol] 271 10*3/uL 150-450 [facility] Potassium measurement (mass/ volume)Ordered By: Barney Brice on 04-15-2025 Potassium (Unsp spec) [Mass/Vol] 4.4 mmol/L 3.3-5.1 [facility] RBC Auto (Bld) [#/Vol]Ordere d By: Barney Brice on 04-15-2025 RBC (Bld) [#/Vol] 4.28 10*6/uL 4.2-5.4 [facility] Random urine creatinine mala urement (mass/volume)Ordered By: Barney Brice on 04-15-2025 Creatinine Unsp time (U) [Mass/Vol] 147.00 mg/dL 28.00-217.00 [facility] Screening total cholesterol/ high density lipoprotein (HDL) cholesterol ratioOrdered By: Barney Brice on 04-15-2025 Cholesterol.total/Chol esterol in HDL [Mass ratio] 5.07 {ratio} [facility] Serum creatinine measurement (mass/volume)Ordered By: Barney Brice on 04-15-2025 Creatinine [Mass/Vol] 0.82 mg/dL 0.70-1.20 [facility] Serum glucose measurement (m ass/volume)Ordered By: Barney Brice on 04-15-2025 Glucose [Mass/Vol] 110 mg/dL High 70-99 [facility] Serum or plasma calcium mala urement (mass/volume)Ordered By: Barney Brice on 04-15-2025 Calcium [Mass/Vol] 9.0 mg/dL 7.6-11.0 [facility] Serum or plasma cholesterol in HDL measurement (mass/volume)Ordered By: Barney Brice on 04-15-2025 Cholesterol in HDL [Mass/Vol] 41 mg/dL >40 [facility] Comment on above: National Cholesterol Education Program (NCEP) guidelines:<40 mg/dL: Low HDL-cholesterol (major risk factor for CHD)>= 60 mg/dL: High HDL-cholesterol (negative risk factor for CHD)HDL-cholesterol is affected by a number of factors, e.g. smoking, exercise, hormones, sex and age. Serum or plasma cholesterol measurement (mass/volume)Ordered By: Barney Brice on 04-15-2025 Cholesterol [Mass/Vol] 209 mg/dL High <201 [facility] Comment on above: Cholesterol level, D esirable <200 mg/dLBorderline high cholesterol 200-239 mg/dLHigh cholesterol >=240 mg/dLRecommendations of the NCEP Adult Treatment Panel for the following risk-cutoff thresholds for the [place] population. Serum or plasma urea nitroge n measurement (mass/volume)Ordered By: Barney Brice on 04-15-2025 Urea nitrogen [Mass/Vol] 17 mg/dL 4-19 [facility] Sodium levelOrdered By: Barney Brice on 04-15-2025 Sodium [Moles/Vol] 141 mmol/L 133-145 [facility] TSH DL <= 0.005 mIU/L QnOrde red By: Barney Brice on 04-15-2025 TSH Qn 2.300 uIU/mL 0.300-4.200 [facility] Thyroid Stim Hormone (TSH)on 04-15-2025 TSH 2.300 uIU/mL Normal 0.300-4.200 [facility] Comment on above: Performed By: #### L 100.0100, L500.2500, L500.4100, L501.9520, L502.0250 ####[facility] [id number] [place], [address] Triglycerides measurementOrd ered By: Barney Brice on 04-15-2025 Triglyceride [Mass/Vol] 115 mg/dL <199 [facility] Comment on above: The drugs N-Acetylcy steine and Metamizole may falsely depress this assay. Normal range: <150 mg/dLBorderline High: 150-199 mg/dLHigh: 200-499 mg/dLVery High: >500 mg/dL Urine albumin measurement [facility] detection limit of 20 mg/L or less (mass/volume)Ordered By: Barney Brice on 04-15-2025 Albumin DL <= 20 mg/L (U) [Mass/Vol] < 12.0 mg/L NO RANGE EST. [facility] White blood cell (WBC) count Ordered By: Barney Brice on 04-15-2025 WBC (Bld) [#/Vol] 4.0 10*3/uL Low 4.4-11.0 [facility] Chiropractic Reporton 2024 Chiropractic Report [facility] [facility] [place], [place] [address] OFFICE VISIT Date of Service: 04/08/25 MR#: [id number] Acct: [id number] Name: LAILA OLVERA ANN Rep #: [id number] : 1965 Provider: LONDON Rivas Do ssi Age/Sex: 59/F Location: [facility] Status: Signed Intake Vital Signs 12/15/24 11:20 03/02/25 10:15 Height 5 ft 7 in 5 ft 7 in Weight: 196 lb BMI 30.7 BP 119/73 Blood Pressure Location Lt brachial Position Sitting Respiration 16 Pulse 72 Pulse Source Monitor Pulse Oximetry (%) 98 Oxygen Delivery Method room air Intake Visit Reasons: Back pain Chief Complaint: neck, upper and low back pain Is patient in pain?: Yes (low back ) Pain scale (1-10): 6 Allergies Penicillins Allergy (Intermediate, Verified 04/08/25 12:02) hives Medications ???Medication ???Instructions ???Recorded ???Confirmed ???Type lisinopril 10 mg tablet 10 mg PO .MWF 12/15/24 04/08/25 Hi story lisinopril 10 tab PO .TUTHSASU 12/15/24 04/08/25 History mg-hydrochlorothiazide 12.5 mg tablet PFSH Medical History Diastolic blood pressure 80 to 89 mm Hg BMI 30.0-30.9,adult Benign essential hypertension Gout Mitral valve prolapse Seasonal allergic rhinitis Vitamin D deficiency Palpitations Anxiety IBS (irritable bowel syndrome) HTN (hypertension) Surgical History History of section History of tympanoplasty of left ear History of meniscectomy of left knee Family History Father CHF (congestive heart failure) Mother Hypertension Pulmonary hypertension Social History household members: spouse Smoking Status: Never smoker alcohol intake: never HPI Back pain Chief Complaint: neck, upper and low back Visit Number: 6 Details: Laila is a 59 y/o female here to follow up on neck, upper and low back pain. Pt. c/o pain in her low back that is equal across bilaterally. She rates her low back pain 6/10 and describes it as a soreness. She also complains her legs and knees are painful and achy. She states her neck is tight and rates her neck pain 4/10 today. She continues to experience occasional headaches which she only notices them at work when she is on the computer. She denies new injury, numbness, tingling or radiculopathy. Pt. stretches and walks frequently to stay active and flexible. She reports chiropractic adjustments are helpful in relieving her pain and discomfort but it gradually returns. Location: neck upper and low back Duration: intermittent Aggravating or associated factors: sitting, standing, computer work Relieving factors: chiro,yoga Pain Quality: aching and dull Exam Musc General: Yes normal posture, normal gait and joint tenderness; No muscle weakness Cervical Spine: Yes loss of normal cervical lordosis, Yes cervical muscular tenderness bilateral lower , Yes cervical spasm left greater than right diffuse trapezius, paracervical muscles and intrinsics and Yes misalignment misalignment: C4, C5, C6 and C7 Thoracic/Lumber: Yes thoracic and lumbar spine normal to inspection, Yes paraspinal tenderness on the left greater than right (lumbopelvic,trap), Yes thoraco-lumbar spasm on the right greater than left (paraspinal L2-L5) and on the left greater than right (glute med,upper trap) and Yes misalignment T1, T2, T5, T6, L4, L5 and RIL Sacroiliac joints: bilaterally tender to palpation Office Procedures Procedures - Chiropractic Procedures Manipulation: Cervical C6, Lumbar L4, Thoracic T2 and T5 and Pelvis RIL Manipulation: 3-4 regions Traction, Mechanical: Yes Assessment and Plan Assessment and Plan (1) Lower back pain: Status: Acute Qualifiers: Back pain laterality: left Chronicity: acute Sciatica presence: without sciatica Qualified Code(s): M54.50 - Low back pain, unspecified (2) Segmental and somatic dysfunction of cervical region: Status: Acute (3) Segmental and somatic dysfunction of thoracic region: Status: Acute (4) Segmental and somatic dysfunction of lumbar region: Status: Acute (5) Segmental and somatic dysfunction of pelvic region: Status: Acute (6) DDD (degenerative disc disease): Status: Chronic Qualifiers: Spinal region: cervicothoracic Qualified Code(s): M50.33 - Other cervical disc degeneration, cervicothoracic region Orders: Orders Chiropractic Treatments Today M99.01 - Segmental and somatic dysfunction of cervical region, M99.02 - Segmental and somatic dysfunction of thoracic region, M99.03 - Segmental and somatic dysfunction of lumbar region, M99.05 - Segmental and somatic dysfunction of pelvic region Plan Patient wa (more content not included)... Normal [facility] Chiropractic Reporton 2024 Chiropractic Report [facility] [address] [place] [address] OFFICE VISIT Date of Service: 03/04/25 MR#: [id number] Acct: [id number] Name: LAILA OLVERA Rep #: [id number] : 1965 Provider: LONDON Mccray Age/Sex: 59/F Location: [facility] Status: Signed Intake Vital Signs 12/15/24 11:20 03/02/25 10:15 Height 5 ft 7 in 5 ft 7 in Intake Visit Reasons: Back pain Chief Complaint: neck, upper and low back pain Allergies Penicillins Allergy (Intermediate, Verified 03/04/25 12:07) hives Medications ???Medication ???Instructions ???Recorded ???Confirmed ???Type lisinopril 10 mg tablet 10 mg PO .MWF 12/15/24 03/04/25 Hi story lisinopril 10 tab PO .TUTHSASU 12/15/24 03/04/25 History mg-hydrochlorothiazide 12.5 mg tablet PFSH Medical History Diastolic blood pressure 80 to 89 mm Hg BMI 30.0-30.9,adult Benign essential hypertension Gout Mitral valve prolapse Seasonal allergic rhinitis Vitamin D deficiency Palpitations Anxiety IBS (irritable bowel syndrome) HTN (hypertension) Surgical History History of section History of tympanoplasty of left ear History of meniscectomy of left knee Family History Father CHF (congestive heart failure) Mother Hypertension Pulmonary hypertension Social History household members: spouse Smoking Status: Never smoker alcohol intake: never HPI Back pain Chief Complaint: neck, upper and low back Visit Number: 5 Details: Laila is a 59 y/o female here to follow up on neck, upper and low back pain. Pt. reports improvement since her last adjustment. She is doing much better from her incident with her dog a couple weeks ago. She states her neck pain has resolved but her left shoulder/trap area is still sore. She continues to experience occasional headaches which she only notices them at work when she is on the computer. She c/o achiness across her low back with the left side being worse. She denies new injury, numbness, tingling or radiculopathy. Pt. stretches and walks frequently to stay active and flexible. She reports chiropractic adjustments are helpful in relieving her pain and discomfort but it gradually returns. Location: neck upper and low back Duration: intermittent Aggravating or associated factors: sitting, standing, computer work Relieving factors: chiro,yoga Pain Quality: aching and dull Exam Musc General: Yes normal posture, normal gait and joint tenderness; No muscle weakness Cervical Spine: Yes loss of normal cervical lordosis, Yes cervical muscular tenderness left greater than right diffuse , Yes cervical spasm left greater than right diffuse trapezius, paracervical muscles and intrinsics and Yes misalignment misalignment: C4, C5, C6 and C7 Thoracic/Lumber: Yes thoracic and lumbar spine normal to inspection, Yes paraspinal tenderness on the left greater than right (lumbopelvic,trap), Yes thoraco-lumbar spasm on the right greater than left (paraspinal L2-L5) and on the left greater than right (glute med,upper trap) and Yes misalignment T1, T2, T5, T6, L4, L5 and RIL Sacroiliac joints: bilaterally tender to palpation Office Procedures Procedures - Chiropractic Procedures Manipulation: Cervical C6, Lumbar L4, Thoracic T2 and T5 and Pelvis RIL Manipulation: 3-4 regions Traction, Mechanical: Yes Patient Response: positive Assessment and Plan Assessment and Plan (1) Segmental and somatic dysfunction of cervical region: Status: Acute (2) Segmental and somatic dysfunction of thoracic region: Status: Acute (3) Segmental and somatic dysfunction of lumbar region: Status: Acute (4) Segmental and somatic dysfunction of pelvic region: Status: Acute (5) DDD (degenerative disc disease): Status: Chronic Qualifiers: Spinal region: cervicothoracic Qualified Code(s): M50.33 - Other cervical disc degeneration, cervicothoracic region Orders: Orders Chiropractic Treatments 03/04/25 M99.01 - Segmental and somatic dysfunction of cervical region, M99.02 - Segmental and somatic dysfunction of thoracic region, M99.03 - Segmental and somatic dysfunction of lumbar region, M99.05 - Segmental and somatic dysfunction of pelvic region Plan Patient was treated without incident. Continue care as needed. Plan Details Goals Barriers: Goals Improve ROM Decrease pain Decrease inflammation Barriers Sacral insuff. fx- stable DDD-lower cervical Follow Up: 1 Month Coding Level of Care Code No Charge Diagnoses Segmental and somatic dysfunction of cervical region M99.01 Segmental and somatic dysfunction of thoracic re (more content not included)... Normal [facility] Cardiology Visit Reporton Cardiology Visit Report [facility] [address] [place] [address] OFFICE VISIT Date of Service: 03/02/25 MR#: [id number] Acct: [id number] Name: LAILA OLVERA Rep #: [id number] : 1965 Provider: Dr. Diandra Craig MD Age/Sex: 59/F Location: [facility] Status: Signed HPI HPI History of Present Illness Details: This lady is here for follow-up visit. She still has occasional palpitations but according to her, these do not bother her much now. No chest pains. No shortness of breath. Echocardiogram showed normal LV systolic function. Mild to moderate mitral valve regurgitation was noted. Exercise stress Myoview was negative for ischemia. Frequent PACs were noted. Holter monitoring showed occasional PACs and PVCs. 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 Accompanied by: Self Is patient in pain?: No Allergies Penicillins Allergy (Intermediate, Verified 03/02/25 10:15) hives Medications ???Medication ???Instructions ???Recorded ???Confirmed ???Type lisinopril 10 mg tablet 10 mg PO .MWF 12/15/24 03/02/25 Hi story lisinopril 10 tab PO .TUTHSASU 12/15/24 03/02/25 History mg-hydrochlorothiazide 12.5 mg tablet Have you fallen in the past year?: No PFSH Medical History Diastolic blood pressure 80 to 89 mm Hg BMI 30.0-30.9,adult Benign essential hypertension Gout Mitral valve prolapse Seasonal allergic rhinitis Vitamin D deficiency Palpitations Anxiety IBS (irritable bowel syndrome) HTN (hypertension) Surgical History History of section History of tympanoplasty of left ear History of meniscectomy of left knee Family History Father CHF (congestive heart failure) Mother Hypertension Pulmonary hypertension Social History household members: spouse Smoking Status: Never smoker alcohol intake: never ROS Const Const: Positive for other (bilateral hand swelling); Negative for fatigue or weakness ENT ENT: Negative for dizziness or balance problems Cardio Chest Pain: No Palpitations: Yes Edema: None Muscle aches with walking: None Resp Respiratory: Negative for SOB with activity, SOB at rest or SOB orthopnea SOB lying down GI GI: Negative nausea, vomiting or heartburn Musc Musc: Negative for muscle weakness or balance problems Neuro Neuro: Negative for dizziness, lightheadedness, near syncope, syncope or weakness Endo Endo: Negative for fatigue Cardiology Exam Const Appearance: comfortable and no acute distress Nutritional Appearance: well nourished Neck Neck: no JVD Carotids: Negative bruit Chest Auscultation: Bilateral: Clear to Auscultation Cardio Rate: regular rate Rhythm: regular rhythm Heart sounds: S1 normal and S2 normal Neuro General: patient alert, patient awake and patient oriented x3 Extremities Lower Extremity Edema: None: Bilateral Supplemental Info Supplemental Information Labs: No Data to Display Diagnostics: Electrocardiogram Echocardiogram Stress Test Stress Test Nuclear Medicine Pulmonary: No Data to Display Past Visits: Cardiology Visit 03/02/25 Assessment and Plan Assessment and Plan (1) Palpitations: Status: Chronic Plan: Occasional PACs and PVCs noted on Holter monitoring. Frequent PACs noted with exercise. Offered patient therapy with beta-blockers. However according to her, she does not feel her palpitations as much as she previously used to do. He would rather stay away from medications if possible. Counseled to call us if she becomes symptomatic again. (2) Mitral valve regurgitation: Status: Chronic Plan: Mild to moderate eccentric mitral valve regurgitation noted on echocardiogram. For periodic echo and clinical surveillance. Continue afterload reduction with lisinopril hydrochlorothiazide. (3) HTN (hypertension): Status: Chronic Plan: Lisinopril hydrochlorothiazide. (4) Diastolic dysfunction without heart failure: Status: Chronic Plan: Blood pressure control. Periodic clinical surveillance. (5) History of rectal cancer: Status: Chronic Plan: Status post colostomy. Plan Details Goals Barriers: Goals Improve ROM Decrease pain Decrease inflammation Barriers Sacral insuff. fx- stable DDD-lower cervical Fo (more content not included)... Normal [facility] Chiropractic Reporton 2024 Chiropractic Report [facility] [address] [place] [address] OFFICE VISIT Date of Service: 02/18/25 MR#: [id number] Acct: [id number] Name: MAYMACIE Rep #: [id number] : 1965 Provider: LONDON Mccray Age/Sex: 59/F Location: [facility] Status: Signed Intake Vital Signs 12/15/24 11:20 Height 5 ft 7 in Intake Visit Reasons: Back pain Chief Complaint: neck, upper and low back pain Allergies Penicillins Allergy (Intermediate, Verified 02/04/25 12:12) hives [facility] Medical History Diastolic blood pressure 80 to 89 mm Hg BMI 30.0-30.9,adult Benign essential hypertension Gout Mitral valve prolapse Seasonal allergic rhinitis Vitamin D deficiency Palpitations Anxiety IBS (irritable bowel syndrome) HTN (hypertension) Surgical History History of section History of tympanoplasty of left ear History of meniscectomy of left knee Family History Father CHF (congestive heart failure) Mother Hypertension Pulmonary hypertension Social History household members: spouse Smoking Status: Never smoker alcohol intake: never HPI Back pain Chief Complaint: neck, upper and low back Visit Number: 4 Details: Laila is a 59 y/o female here to follow up on neck, upper and low back pain. Pt. continues to complains of pain in her left trap. She states she was seen by her PCP last week who gave her a steroid pack and a muscle realxer to get through her upcoming trip to visit her daughter. She states the meds have helped. She continues to have pain and weakness in her left arm with reaching but it has improved some over the last week. She reports occasional headaches which she only notices them at work when she is on the computer. She reports she got tied up in her dogs leash and almost fell last saturday but her caught her before she hit the ground. She denies back injury but states she bruised her right ankle and tweeked her left knee. She denies new injury, numbness, tingling or radiculopathy. Pt. stretches and walks frequently to stay active and flexible. She reports chiropractic adjustments are helpful in relieving her pain but it gradually returns. Location: neck upper and low back Duration: intermittent Aggravating or associated factors: sitting, standing, computer work Relieving factors: chiro,yoga Pain Quality: aching and dull Exam Musc General: Yes normal posture, normal gait and joint tenderness; No muscle weakness Cervical Spine: Yes loss of normal cervical lordosis, Yes cervical muscular tenderness left greater than right lower , Yes cervical spasm left greater than right diffuse trapezius, paracervical muscles and intrinsics and Yes misalignment misalignment: C4, C5, C6 and C7 Thoracic/Lumber: Yes thoracic and lumbar spine normal to inspection, Yes paraspinal tenderness on the left greater than right (lumbopelvic,trap), Yes thoraco-lumbar spasm on the right greater than left (paraspinal L2-L5) and on the left greater than right (glute med,upper trap) and Yes misalignment T1, T2, T5, T6, L4, L5 and RIL Sacroiliac joints: bilaterally tender to palpation Office Procedures Procedures - Chiropractic Procedures Manipulation: Cervical C6, Lumbar L4, Thoracic T2 and T5 and Pelvis RIL Manipulation: 3-4 regions Electronic Stimulation: Yes Electrical Stimulation: Cervical 15 mins (22) mA Therapy Performed by:: Dara Sifuentes Traction, Mechanical: Yes Patient Response: positive Assessment and Plan Assessment and Plan (1) Segmental and somatic dysfunction of cervical region: Status: Acute (2) Segmental and somatic dysfunction of thoracic region: Status: Acute (3) Segmental and somatic dysfunction of lumbar region: Status: Acute (4) Segmental and somatic dysfunction of pelvic region: Status: Acute (5) DDD (degenerative disc disease): Status: Chronic Qualifiers: Spinal region: cervicothoracic Qualified Code(s): M50.33 - Other cervical disc degeneration, cervicothoracic region Orders: Orders Chiropractic Treatments Today M99.01 - Segmental and somatic dysfunction of cervical region, M99.02 - Segmental and somatic dysfunction of thoracic region, M99.03 - Segmental and somatic dysfunction of lumbar region, M99.05 - Segmental and somatic dysfunction of pelvic region Plan Patient was treated without incident. Continue care as needed. Plan Details Goals Barriers: Goals Improve ROM Decrease pain Decrease inflammation Barriers Sacral insuff. fx- stable DDD-lower cervical Follow Up: 1 Month Coding Level of Care Code No Charge Diagnoses Segmental and somatic dysfunction (more content not included)... Normal [facility] CT Chest, Abd, Pel w/Contras ton 02-04-2025 CT Chest, Abd, Pel w/Contrast [facility] Services [address] [place] [address] [address] [address] Chest, Abd, Pel w/Contrast MR#: [id number] Acct: [id number] Name: LAILA OLVERA Rep #: [id number] : 1965 F 59 From: Daniel tinajero MD PCP: Dr. Barney Brice MD Status: REG CLI Study: CT Chest, Abd, Pel w/Contrast Date of Exam: Exam# [id number] Ordering Dr: KALA VANG PROCEDURE: CT CHEST, ABD, PEL W/CONTRAST 02/04/2025 REASON FOR EXAM: RECTAL CA Follow-up. Status post colostomy. TECHNIQUE: Chest, abdomen and pelvis CT with intravenous contrast. Coronal and Sagittal reconstruction series were provided. One or more dose reduction techniques were used (e.g., Automated exposure control, adjustment of the mA and/or kV according to patient size, use of iterative reconstruction technique. PATIENT PREPARATION: Per protocol ORAL CONTRAST TYPE: None. CONTRAST: Isovue 370 VOLUME: 100mL RADIATION DOSE SUMMARY: CTDlvol: 17 mGy DLP: 1703.7 mGycm COMPARISON: Comparison is made with prior CT scan of the thorax dated December 23, 2023. FINDINGS: CT CHEST: Hardware: None Lymph nodes: None Heart and Vasculature: No coronary artery calcification. Lungs and Airways: Mild dependent atelectasis. Pleura: Unremarkable Bones: Degenerative changes of the thoracic spine. CT ABDOMEN/PELVIS: Liver: Diffuse fatty infiltration. Gallbladder: Unremarkable Spleen: Normal size. Pancreas: Normal size without evidence of mass surrounding inflammation or ductal dilation. Adrenals: Unremarkable Kidneys: Unremarkable Bladder: Unremarkable Reproductive Organs: Normal uterine size and contour. Ovaries are unremarkable. Bowel: A colostomy is seen in the left anterior mid abdomen. Circumferential thickening of the rectum. Appendix: The appendix is not identified. There is no inflammatory process identified in the right lower quadrant to suggest appendicitis. Lymph nodes: Unremarkable. Vasculature: The abdominal aorta and IVC are normal. Peritoneum / Retroperitoneum: Bones: Unremarkable. CT/CT Chest, Abd, Pel w/Contrast IMPRESSION: Diffuse fatty infiltration of the liver. Colostomy seen in the anterior left midabdomen. Circumferential thickening of the rectum. Reading Location: [place] [address] CC: Dr. 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 Normal [facility] Chiropractic Reporton 2024 Chiropractic Report [facility] [address] [place] [address] OFFICE VISIT Date of Service: 02/04/25 MR#: [id number] Acct: [id number] Name: LAILA OLVERA ANN Rep #: [id number] : 1965 Provider: LONDON Mccray Age/Sex: 59/F Location: [facility] Status: Signed Intake Vital Signs 12/15/24 11:20 Height 5 ft 7 in Intake Visit Reasons: Back pain Chief Complaint: neck, upper and low back pain Is patient in pain?: Yes (left trap) Pain scale (1-10): 8 Allergies Penicillins Allergy (Intermediate, Verified 02/04/25 12:12) hives Medications ???Medication ???Instructions ???Recorded ???Confirmed ???Type lisinopril 10 mg tablet 10 mg PO .MWF 12/15/24 02/04/25 Hi story lisinopril 10 tab PO .TUTHSASU 12/15/24 02/04/25 History mg-hydrochlorothiazide 12.5 mg tablet PFSH Medical History Diastolic blood pressure 80 to 89 mm Hg BMI 30.0-30.9,adult Benign essential hypertension Gout Mitral valve prolapse Seasonal allergic rhinitis Vitamin D deficiency Palpitations Anxiety IBS (irritable bowel syndrome) HTN (hypertension) Surgical History History of section History of tympanoplasty of left ear History of meniscectomy of left knee Family History Father CHF (congestive heart failure) Mother Hypertension Pulmonary hypertension Social History household members: spouse Smoking Status: Never smoker alcohol intake: never HPI Back pain Chief Complaint: neck, upper and low back Visit Number: 3 Details: Laila is a 59 y/o female here to follow up on neck, upper and low back pain. Pt. complains of pain in her left trap. She states it is very sore and has been since doing chair yoga. She states she was having pain and weakness in her left arm with reaching but it has improved some over the last week. She rates her left trap pain 8/10. She reports occasional headaches which she only notices them at work when she is on the computer and once she is away from the screen they are better. 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 She also complains of low back pain in the center on her spine. She rates her low back pain 6/10 but she has been doing chair yoga which has dramatically improved her low back pain. She denies new injury, numbness, tingling or radiculopathy. Pt. stretches and walks frequently to stay active and flexible. She reports chiropractic adjustments are helpful in relieving her pain but it gradually returns. Location: neck upper and low back Duration: intermittent Aggravating or associated factors: sitting, standing, computer work Relieving factors: chiro,yoga Pain Quality: aching and dull Exam Musc General: Yes normal posture, normal gait and joint tenderness; No muscle weakness Cervical Spine: Yes loss of normal cervical lordosis, Yes cervical muscular tenderness left greater than right lower , Yes cervical spasm left greater than right diffuse trapezius, paracervical muscles and intrinsics and Yes misalignment misalignment: C4, C5, C6 and C7 Thoracic/Lumber: Yes thoracic and lumbar spine normal to inspection, Yes paraspinal tenderness on the left greater than right (lumbopelvic,trap), Yes thoraco-lumbar spasm on the right greater than left (paraspinal L2-L5) and on the left greater than right (glute med,upper trap) and Yes misalignment T1, T2, T5, T6, L4, L5 and RIL Sacroiliac joints: bilaterally tender to palpation Office Procedures Procedures - Chiropractic Procedures Manipulation: Cervical C6, Lumbar L4, Thoracic T2 and T5 and Pelvis RIL Manipulation: 3-4 regions Electronic Stimulation: Yes Electrical Stimulation: Cervical (left) 15 mins (16) mA Therapy Performed by:: Dara Sifuentes Traction, Mechanical: Yes Patient Response: positive Assessment and Plan Assessment and Plan (1) Segmental and somatic dysfunction of cervical region: Status: Acute (2) Segmental and somatic dysfunction of thoracic region: Status: Acute (3) Segmental and somatic dysfunction of lumbar region: Status: Acute (4) Segmental and somatic dysfunction of pelvic region: Status: Acute (5) DDD (degenerative disc disease): Status: Chronic Qualifiers: Spinal region: cervicothoracic Qualified Code(s): M50.33 - Other cervical disc degeneration, cervicothoracic region Orders: Orders Chiropractic Treatments Today M50.33 - Other cervical disc degeneration, cervicothoracic region, M99.01 - Segmental and somatic dysfunction of cervical region, M99.02 - Segmental and somatic dysfunction of thoracic region, M99.03 - Segmental and somatic dysfunction of lumbar region, M99.05 - (more content not included)... Normal [facility] Carcinoembryonic Antigenon 0 - CEA 1.9 ng/mL Normal 0.0-4.7 [facility] Comment on above: Result Comment: Nons mokers <3.9 Smokers <5.6 [employer] Electrochemiluminescence Immunoassay (ECLIA) Values obtained with different assay methods or kits cannot be used interchangeably. Results cannot be interpreted as absolute evidence of the presence or absence of malignant disease. Performed at: [facility] [id number] [place], [place] [id number] Cinder Pit Worker: Kobi Hampton PhD, Phone: [phone] Performed By: #### L 3100.2300 ####[facility] [address] [place], [address] Serum or plasma carcinoembry onic antigen measurement (mass/volume)on 02-01-2025 Carcinoembryonic Ag [Mass/Vol] 1.9 ng/mL 0.0-4.7 [facility] Comment on above: Nonsmokers <3.9 Smok ers <5.6[employer] Electrochemiluminescence Immunoassay(ECLIA)Values obtained with different assay methods or kitscannot be used interchangeably. Results cannot beinterpreted as absolute evidence of the presence orabsence of malignant disease.Performed at: [employer] [id number] Director: Kobi Hampton PhD, Phone: [phone] Chiropractic Reporton 2024 Chiropractic Report [facility] [address] [place] [address] OFFICE VISIT Date of Service: 01/07/25 MR#: [id number] Acct: [id number] Name: OLVERAMACIE Rep #: [id number] : 1965 Provider: LONDON Mccray Age/Sex: 59/F Location: [facility] Status: Signed Intake Vital Signs 06/22/24 09:50 12/15/24 11:20 Height 5 ft 7 in 5 ft 7 in Intake Visit Reasons: Back pain Chief Complaint: neck, upper and low back pain Is patient in pain?: Yes (Neck, Back) Pain scale (1-10): 5 Allergies Penicillins Allergy (Intermediate, Verified 01/07/25 14:44) hives Medications ???Medication ???Instructions ???Recorded ???Confirmed ???Type lisinopril 10 mg tablet 10 mg PO .MWF 12/15/24 01/07/25 Hi story lisinopril 10 tab PO .TUTHSASU 12/15/24 01/07/25 History mg-hydrochlorothiazide 12.5 mg tablet PFSH Medical History Diastolic blood pressure 80 to 89 mm Hg BMI 30.0-30.9,adult Benign essential hypertension Gout Mitral valve prolapse Seasonal allergic rhinitis Vitamin D deficiency Palpitations Anxiety IBS (irritable bowel syndrome) HTN (hypertension) Surgical History History of section History of tympanoplasty of left ear History of meniscectomy of left knee Family History Father CHF (congestive heart failure) Mother Hypertension Pulmonary hypertension Social History household members: spouse Smoking Status: Never smoker alcohol intake: never HPI Back pain Chief Complaint: neck, upper and low back Visit Number: 2 Details: Laila is a 59 y/o female here to follow up on neck, upper and low back pain. 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 She complains of neck pain and stiffness that extends into her traps and upper back. She reports her headaches have improved, she only notices them at work when she is on the computer and once she is away from the screen they are better. 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 She also complains of low back pain and stiffness that is equal bilaterally. She rates her neck and back pain 5/10. She has been doing chair yoga which has dramatically improved her low back pain. She denies new injury, numbness or tingling. Pt. stretches and walks frequently to stay active and flexible. She reports chiropractic adjustments are helpful in relieving her pain but it gradually returns. Location: neck upper and low back Duration: intermittent Aggravating or associated factors: sitting, standing, computer work Relieving factors: chiro,yoga Pain Quality: aching and dull Exam Musc General: Yes normal posture, normal gait and joint tenderness; No muscle weakness Cervical Spine: Yes loss of normal cervical lordosis, Yes cervical muscular tenderness bilateral diffuse , Yes cervical spasm left greater than right diffuse trapezius, paracervical muscles and intrinsics and Yes misalignment misalignment: C4, C5, C6 and C7 Thoracic/Lumber: Yes thoracic and lumbar spine normal to inspection, Yes paraspinal tenderness on the left greater than right (lumbopelvic,trap), Yes thoraco-lumbar spasm on the right greater than left (paraspinal L2-L5) and on the left greater than right (glute med,upper trap) and Yes misalignment T1, T2, T5, T6, L4, L5 and RIL Sacroiliac joints: bilaterally tender to palpation Office Procedures Procedures - Chiropractic Procedures Manipulation: Cervical C6, Lumbar L4, Thoracic T2 and T5 and Pelvis RIL Manipulation: 3-4 regions Traction, Mechanical: Yes Hot and/or cold packs: Yes Patient Response: positive Assessment and Plan Assessment and Plan (1) Segmental and somatic dysfunction of cervical region: Status: Acute (2) Segmental and somatic dysfunction of thoracic region: Status: Acute (3) Segmental and somatic dysfunction of lumbar region: Status: Acute (4) Segmental and somatic dysfunction of pelvic region: Status: Acute (5) DDD (degenerative disc disease): Status: Chronic Qualifiers: Spinal region: cervicothoracic Qualified Code(s): M50.33 - Other cervical disc degeneration, cervicothoracic region Orders: Orders Chiropractic Treatments Today M50.33 - Other cervical disc degeneration, cervicothoracic region, M99.01 - Segmental and somatic dysfunction of cervical region, M99.02 - Segmental and somatic dysfunction of thoracic region, M99.03 - Segmental and somatic dysfunction of lumbar region, M99.05 - Segmental and somatic dysfunction of pelvic region Plan Patient was treated without incident. Continue care. Plan (more content not included)... Normal [facility] Cardiovascular stress test r eportOrdered By: Diandra Craig on 01-04-2025 Study report [facility] Cardiovascular Services [address] [place] [address] MR#: [id number] Acct: [id number] Name: LAILA OLVERA Rep #: [id number] : 1965 59 From: Diandra Craig MD Primary Care: Dr. Barney Brice MD Status : REG CLI Referring Dr: Diandra Craig MD Sex: F C Stress Test Report Date: 01/04/2025 Procedure: Exercise tolerance test/imaging study Indications: Chest pain and dyspnea on exertion Consent: Per the patient Procedure: The patient exercised on a Brian protocol for 6 minutes and 30 seconds achievinga peak heart rate of 137 bpm (84% predicted maximal heart rate) with a peak blood pressure 174/98 mmHg and a peak MET capacity of 8.5 METs. The baseline ECG demonstrated sinus rhythm. The peak exercise ECG demonstrated no ischemic changes. Frequent PACs and occasional PVCs noted with exercise. The functional capacity was considered good for age. There was no complaint of chest discomfort during exercise or recovery. The examination was discontinued secondary to target heart rate being achieved and dyspnea. The patient was injected with 11.6 mCi of technetium 99m Cardiolite and subsequently rest SPECT Cardiolite nuclear imaging was obtained in the horizontal long, vertical long, and short axis views. Post-exercise, the patientwas injected with 34.5 mCi of technetium 99m Cardiolite and subsequently stress SPECT Cardiolite nuclear imaging was obtained in the horizontal long, vertical long, and short axis views. A gated Cardiolite study at peak stress was obtained. Rest and stress SPECT Cardiolite nuclear imaging status post realignment, normalization, and attenuation correction, demonstrates the appearance of relative uniform tracer uptake and myocardial perfusion appearing within normal limits. There is end systolic thickening and brightening. The gated Cardiolitestudy demonstrates myocardial thickening and inward wall motion. The reported LVEF is 80%. Impression: 1. Technically adequate (percent predicted maximal heart rate greater than 85%)exercise tolerance test 2. Peak exercise ECG with no ischemic changes 3. Frequent PACs and occasional PVCs noted 4. Rest and stress SPECT Cardiolite nuclear imaging demonstrate relative uniform tracer uptake and myocardial perfusion appearing within normal limits. 5. The gated Cardiolite study reports an LVEF of 80%. This note was generated with [employer]ision[employer] software. It may contain incorrectwords, spelling, and punctuation that were not noted in checking the note beforesigning. 01/04/25 1148 Date _ Diandra Craig MD CC: Dr. Diandra Craig MD; Dr. 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 [address] Echo Complete 01/04/25 0816 MR#: [id number] Acct: [id number] Name: LAILA OLVERA Rep #: [id number] : 1965 59 From: Diandra Craig MD Attending Dr: Dr. Diandra Craig MD Status: REG CLI Ordering Dr: Diandra Craig MD Date: 01/04/25 Location: [facility] Sex: F C Admitted: Reason For Study Reason For Study: LINDSAY Procedure This was a 2D Doppler, Color Flow transthoracic echocardiogram. Exam performed in department. Left Ventricle Normal LV size. Mild concentric left ventricular hypertrophy. The left ventricular ejection fraction is 65 %. Stage 1 diastolic dysfunction. Right Ventricle Normal right ventricle. Atria The left and right atria are normal. Mitral Valve No mitral valve prolapse noted. Mild to moderate posteriorly directed eccentric mitral valve insufficiency. Tricuspid Valve Mild tricuspid valve insufficiency. Normal pulmonary artery pressure. Aortic Valve Trisinus/trileaflet aortic valve. Pulmonic Valve Trivial pulmonic valve insufficiency. Great Vessels Normal sized aortic root. Pericardium/Pleural No pericardial effusion. MMode/2D Measurements Calculations LVIDd: 4.1 cm IVSd: 1.2 cm Ao root diam: 2.6 cm LVIDs: 2.2 cm LVPWd: 0.96 cm RVDd: 3.0 cm FS: 46.0 % LAV(MOD-bp): 36.1 ml LVAd ap4: 23.8 cm2 LVAd ap2: 22.5 cm2 LAV(MOD-bp) Indexed: 18.1 ml/m2 LVLd ap4: 7.5 cm LVLd ap2: 7.7 cm LAV(MOD-sp2): 42.2 ml EDV(MOD-sp4): 63.3 ml EDV(MOD-sp2): 55.3 ml LAV(MOD-sp4): 28.6 ml EDV(sp4-el): 64.0 ml EDV(sp2-el): 55.6 ml LVAs ap4: 13.0 cm2 LVAs ap2: 11.5 cm2 LVLs ap4: 6.4 cm LVLs ap2: 6.5 cm ESV(MOD-sp4): 23.1 ml ESV(MOD-sp2): 18.6 ml ESV(sp4-el): 22.2 ml ESV(sp2-el): 17.4 ml EF(MOD-sp4): 63.5 % EF(MOD-sp2): 66.4 % EF(sp4-el): 65.3 % SV(MOD-sp4): 40.2 ml SV(MOD-sp2): 36.7 ml SV(sp4-el): 41.8 ml SI(MOD-sp4): 20.2 ml/m2 SI(MOD-sp2): 18.5 ml/m2 LA A4 area: 13.1 cm2 LA dimension(2D): 3.5 cm RA A4 area: 10.6 cm2 TAPSE: 2.3 cm Time Measurements MV dec time: 0.24 sec Doppler Measurements Calculations MV E max lindsay: 72.0 cm/sec Lat Peak E' Lindsay: 10.3 cm/sec Med Peak E' Lindsay: 8.6 cm/sec MV A max lindsay: 89.8 cm/sec E/E' lat: 7.0 E/E' med: 8.4 MV E/A: 0.80 Ao V2 max: 146.8 cm/sec LV V1 max: 111.1 cm/sec MV dec slope: 295.8 cm/sec2 Ao max P.6 mmHg LV V1 max P.9 mmHg Ao V2 mean: 96.2 cm/sec LV V1 mean P.5 mmHg Ao mean P.3 mmHg LV V1 mean: 74.0 cm/sec Ao V2 VTI: 32.7 cm LV V1 VTI: 24.1 cm AV (velocity ratio): 0.74 PA V2 max: 130.8 cm/sec TR max lindsay: 251.4 cm/sec TR max P.3 mmHg ECHO/Echo Complete Interpretation Summary Mild concentric left ventricular hypertrophy. The left ventricular ejection fraction is 65 %. Stage 1 diastolic dysfunction. Mild to moderate posteriorly directed eccentric mitral valve insufficiency. Mild tricuspid valve insufficiency. ___ Ordering Physician: Diandra Craig Referring Physician: Barney Brice Performed By: France Loera, SHIRLENE 01/04/25 1210 Date Diandra Craig MD CC: Dr. Diandra Craig MD; Dr. 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 [address] Echo Complete 01/04/25 0816 MR#: [id number] Acct: [id number] Name: LAILA OLVERA ANN Rep #:[id number] : 1965 59 From: Diandra Craig MD Attending Dr: Dr. Diandra Craig MD Status: REG CLI Ordering Dr: Diandra Craig MD Date: Location: [facility] Sex: F C Admitted: Reason For Study Reason For Study: LINDSAY Procedure This was a 2D Doppler, Color Flow transthoracic echocardiogram. Exam performed in department. Left Ventricle Normal LV size. Mild concentric left ventricular hypertrophy. The left ventricular ejection fraction is 65 %. Stage 1 diastolic dysfunction. Right Ventricle Normal right ventricle. Atria The left and right atria are normal. Mitral Valve No mitral valve prolapse noted. Mild to moderate posteriorly directed eccentric mitral valve insufficiency. Tricuspid Valve Mild tricuspid valve insufficiency. Normal pulmonary artery pressure. Aortic Valve Trisinus/trileaflet aortic valve. Pulmonic Valve Trivial pulmonic valve insufficiency. Great Vessels Normal sized aortic root. Pericardium/Pleural No pericardial effusion. MMode/2D Measurements & Calculations LVIDd: 4.1 cm IVSd: 1.2 cm Ao root diam: 2.6 cm LVIDs: 2.2 cm LVPWd: 0.96 cm RVDd: 3.0 cm FS: 46.0 % LAV(MOD-bp): 36.1 ml LVAd ap4: 23.8 cm2 LVAd ap2: 22.5 cm2 LAV(MOD-bp) Indexed: 18.1 ml/m2 LVLd ap4: 7.5 cm LVLd ap2: 7.7 cm LAV(MOD-sp2): 42.2 ml EDV(MOD-sp4): 63.3 ml EDV(MOD-sp2): 55.3 ml LAV(MOD-sp4): 28.6 ml EDV(sp4-el): 64.0 ml EDV(sp2-el): 55.6 ml LVAs ap4: 13.0 cm2 LVAs ap2: 11.5 cm2 LVLs ap4: 6.4 cm LVLs ap2: 6.5 cm ESV(MOD-sp4): 23.1 ml ESV(MOD-sp2): 18.6 ml ESV(sp4-el): 22.2 ml ESV(sp2-el): 17.4 ml EF(MOD-sp4): 63.5 % EF(MOD-sp2): 66.4 % EF(sp4-el): 65.3 % SV(MOD-sp4): 40.2 ml SV(MOD-sp2): 36.7 ml SV(sp4-el): 41.8 ml SI(MOD-sp4): 20.2 ml/m2 SI(MOD-sp2): 18.5 ml/m2 LA A4 area: 13.1 cm2 LA dimension(2D): 3.5 cm RA A4 area: 10.6 cm2 TAPSE: 2.3 cm Time Measurements MV dec time: 0.24 sec Doppler Measurements & Calculations MV E max lindsay: 72.0 cm/sec Lat Peak E' Lindsay: 10.3 cm/sec Med Peak E' Lindsay: 8.6 cm/sec MV A max lindsay: 89.8 cm/sec E/E' lat: 7.0 E/E' med: 8.4 MV E/A: 0.80 Ao V2 max: 146.8 cm/sec LV V1 max: 111.1 cm/sec MV dec slope: 295.8 cm/sec2 Ao max P.6 mmHg LV V1 max P.9 mmHg Ao V2 mean: 96.2 cm/sec LV V1 mean P.5 mmHg Ao mean P.3 mmHg LV V1 mean: 74.0 cm/sec Ao V2 VTI: 32.7 cm LV V1 VTI: 24.1 cm AV (velocity ratio): 0.74 PA V2 max: 130.8 cm/sec TR max lindsay: 251.4 cm/sec TR max P.3 mmHg ECHO/Echo Complete Interpretation Summary Mild concentric left ventricular hypertrophy. The left ventricular ejection fraction is 65 %. Stage 1 diastolic dysfunction. Mild to moderate posteriorly directed eccentric mitral valve insufficiency. Mild tricuspid valve insufficiency. ___ Ordering Physician: Diandra Craig Referring Physician: Barney Brice Performed By: France Loera RDCS 01/04/25 1210 Date _ Diandra Craig MD CC: Dr. Diandra Craig MD; Dr. 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 Barney Brice MD Status: REG CLI Referring Dr: Diandra Craig MD Sex: F C Stress Test Report Date: 01/04/2025 Procedure: Exercise tolerance test/imaging study Indications: Chest pain and dyspnea on exertion Consent: Per the patient Procedure: The patient exercised on a Brian protocol for 6 minutes and 30 seconds achieving a peak heart rate of 137 bpm (84% predicted maximal heart rate) with a peak blood pressure 174/98 mmHg and a peak MET capacity of 8.5 METs. The baseline ECG demonstrated sinus rhythm. The peak exercise ECG demonstrated no ischemic changes. Frequent PACs and occasional PVCs noted with exercise. The functional capacity was considered good for age. There was no complaint of chest discomfort during exercise or recovery. The examination was discontinued secondary to target heart rate being achieved and dyspnea. The patient was injected with 11.6 mCi of technetium 99m Cardiolite and subsequently rest SPECT Cardiolite nuclear imaging was obtained in the horizontal long, vertical long, and short axis views. Post-exercise, the patient was injected with 34.5 mCi of technetium 99m Cardiolite and subsequently stress SPECT Cardiolite nuclear imaging was obtained in the horizontal long, vertical long, and short axis views. A gated Cardiolite study at peak stress was obtained. Rest and stress SPECT Cardiolite nuclear imaging status post realignment, normalization, and attenuation correction, demonstrates the appearance of relative uniform tracer uptake and myocardial perfusion appearing within normal limits. There is end systolic thickening and brightening. The gated Cardiolite study demonstrates myocardial thickening and inward wall motion. The reported LVEF is 80%. Impression: 1. Technically adequate (percent predicted maximal heart rate greater than 85%) exercise tolerance test 2. Peak exercise ECG with no ischemic changes 3. Frequent PACs and occasional PVCs noted 4. Rest and stress SPECT Cardiolite nuclear imaging demonstrate relative uniform tracer uptake and myocardial perfusion appearing within normal limits. 5. The gated Cardiolite study reports an LVEF of 80%. This note was generated with The [employer] software. It may contain incorrect words, spelling, and punctuation that were not noted in checking the note before signing. 01/04/25 1148 Date Diandra Craig MD CC: Dr. Diandra Craig MD; Dr. Barney Brice MD Date Dictated: 01/04/25 1146 Date Transcribed: 01/04/25 1146 Friction Welding Machine Operator: AR Signed Normal [facility] 12 Lead EKG performed by [facility] on 12-15-2024 12 Lead EKG performed by [place] [id number] Lead EKG performed by [facility] 12/15/24 1122 MR#: [id number] Acct: [id number] Name: LAILA OLVERA Rep #: [id number] : 1965 59 From: Diandra Craig MD Attending Dr: Dr. Diandra Craig MD Status: DEP AMB Ordering Dr: Diandra Craig MD Date: 12/15/24 Location: [facility] Sex: F C Admitted: BMS/12 Lead EKG performed by [facility] ECG Report Interpretation -Sinus Rhythm WITHIN NORMAL LIMITSElectronically signed on 03/31/2025 at 12:[address] Diandra Craig [employer]re Version [id number] 03/31/25 1252 Date Diandra Craig MD CC: Dr. Barney Brice MD Date Dictated: 12/15/241121 Date Transcribed: 12/15/241121 Friction Welding Machine Operator: AR Signed Normal [facility] Basic Metabolic Profile (BMP )on 12-15-2024 BUN/CRE 17.3 RATIO Normal 10-20 [facility] Comment on above: Performed By: #### L 500.2500, L501.9520 ####[facility] [address] [place], [address] CA,Total 9.3 mg/dL Normal 8.5-10.1 [facility] Comment on above: Performed By: #### L 500.2500, L501.9520 ####[facility] [address] [place], [address] Chloride [Moles/Vol] 106 mmol/L Normal 98-107 [facility] Comment on above: Performed By: #### L 500.2500, L501.9520 ####[facility] [address] [place], [address] CO2 [Moles/Vol] 28.0 mmol/L Normal 21.0-32.0 [facility] Comment on above: Performed By: #### L 500.2500, L501.9520 ####[facility] [address] [place], [address] Creatinine [Mass/Vol] 0.81 mg/dL Normal 0.55-1.02 [facility] Comment on above: Result Comment: The validity of the calculated GFR GFRAA in patients over 70 years has not been determined. Clinical correlation is essential. Performed By: #### L 500.2500, L501.9520 ####[facility] [address] [place], [address] EST GFR - AA 94 mL/min Normal >60 [facility] Comment on above: Result Comment: Afri can Eritrean GFR Calc Performed By: #### L 500.2500, L501.9520 ####[facility] [address] [place], [address] GAP 5 Normal 5-15 [facility] Comment on above: Performed By: #### L 500.2500, L501.9520 ####[facility] [address] [place], [address] GFR/1.73 sq M.predicted among non-blacks MDRD (S/P/Bld) [Vol rate/Area] 77 mL/min/{1.73_m2} Normal >60 [facility] Comment on above: Result Comment: Non- GFR Calc Performed By: #### L 500.2500, L501.9520 ####[facility] [address] [place], [address] Glucose [Mass/Vol] 94 mg/dL Normal 74-106 [facility] Comment on above: Performed By: #### L 500.2500, L501.9520 ####[facility] [address] [place], [address] Potassium [Moles/Vol] 3.9 mmol/L Normal 3.5-5.1 [facility] Comment on above: Performed By: #### L 500.2500, L501.9520 ####[facility] [address] [place], [address] Sodium [Moles/Vol] 139 mmol/L Normal 136-145 [facility] Comment on above: Performed By: #### L 500.2500, L501.9520 ####[facility] [address] [place], [address] Urea nitrogen [Mass/Vol] 14 mg/dL Normal 7-18 [facility] Comment on above: Performed By: #### L 500.2500, L501.9520 ####[facility] [address] [place], [address] Blood urea nitrogen (BUN)/cr eatinine ratioOrdered By: Diandra Craig on 12-15-2024 Urea nitrogen/Creatinine [Mass ratio] 17.3 mg/mg 10-20 [facility] Carbon dioxide measurementOr dered By: Diandra Craig on 12-15-2024 CO2 [Moles/Vol] 28.0 mmol/L 21.0-32.0 [facility] Cardiology Visit Reporton Cardiology Visit Report [facility] [address] [place] [address] OFFICE VISIT Date of Service: 12/15/24 MR#: [id number] Acct: [id number] Name: LAILA OLVERA Rep #: [id number] : 1965 Provider: Dr. Diandra Craig MD Age/Sex: 59/F Location: [facility] Status: Signed HPI HPI History of Present Illness Details: This lady has past medical history significant for rectal cancer status post surgery with permanent colostomy and hypertension. According to her, she has been feeling intermittent palpitations for the past many months. According to her, she experiences these on almost a daily basis. Perceives it as a skipped beat. No associated lightheadedness or dizziness. No syncope or presyncope. Per patient, since the end of her chemo and radiation therapy for rectal cancer about 2 years ago, she has been experiencing anterior chest discomfort. This may last for hours at a time. According to her, this is somewhat worsened with exertion. She also feels short of breath with moderate exertion. According to her, the symptoms have particularly worsened over the last 4 months or so. No orthopnea. No PND. No ankle edema. 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 Accompanied by: Is patient in pain?: No Allergies Penicillins Allergy (Intermediate, Verified 12/15/24 11:15) hives Medications ???Medication ???Instructions ???Recorded ???Confirmed ???Type lisinopril 10 mg tablet 10 mg PO .MWF 12/15/24 12/15/24 Hi story lisinopril 10 tab PO .TUTHSASU 12/15/24 12/15/24 History mg-hydrochlorothiazide 12.5 mg tablet Ejection fraction %: 50 Have you fallen in the past year?: No PFSH Medical History Anxiety Benign essential hypertension BMI 30.0-30.9,adult Diastolic blood pressure 80 to 89 mm Hg Gout HTN (hypertension) IBS (irritable bowel syndrome) Mitral valve prolapse Palpitations Seasonal allergic rhinitis Vitamin D deficiency Surgical History History of section History of meniscectomy of left knee History of tympanoplasty of left ear Family History Father CHF (congestive heart failure) Mother Hypertension Pulmonary hypertension Social History household members: spouse Smoking Status: Never smoker alcohol intake: never ROS Const Const: Positive for fatigue, weakness and headache(s) (daily); Negative for weight gain ENT ENT: Positive for headache(s) (daily); Negative for dizziness, Nosebleed/epistaxis or balance problems Cardio Chest Pain: Yes Character: other (pressure) Onset: at rest Palpitations: Yes (daily) feels like its: fast Edema: None Muscle aches with walking: None Resp Respiratory: Positive for SOB with activity; Negative for SOB at rest or SOB orthopnea SOB lying down GI GI: Positive for heartburn; Negative nausea or vomiting Musc Musc: Negative for muscle aches/ myalgia, muscle weakness, joint pain or balance problems Neuro Neuro: Positive for lightheadedness, headache(s) (daily) and weakness; Negative for dizziness, near syncope or syncope Endo Endo: Positive for fatigue Cardiology Exam Const Appearance: comfortable and no acute distress Nutritional Appearance: well nourished Neck Neck: no JVD Carotids: Negative bruit Chest Auscultation: Bilateral: Clear to Auscultation Cardio Rate: regular rate Rhythm: regular rhythm Heart sounds: S1 normal and S2 normal Neuro General: patient alert, patient awake and patient oriented x3 Extremities Lower Extremity Edema: None: Bilateral Supplemental Info Supplemental Information Echocardiogram 08/30/2005: Impressions: Left ventricular systolic function is lower limits of normal. The estimated ejection fraction is 50%. Trivial mitral valve insufficiency. Mild tricuspid valve insufficiency. CT Chest w/Contrast 08/22/2024: Impression: 1. Stable examination without evidence of intrathoracic metastatic disease. CT Chest w/wo Contrast 12/23/2023: Impression: No evidence of pulmonary embolism. Findings suggestive of infiltrate with bronchiectasis in the posterior medial segment of the left lower lobe. Assessment and Plan Assessment and Plan (1) Palpitations: Status: Chronic Plan: Check 48-hour Holter monitor (2) Dyspnea on exertion: Status: Chronic Plan: Check (more content not included)... Normal [facility] Chloride measurementOrdered By: Diandra Craig on 12-15-2024 Chloride [Moles/Vol] 106 mmol/L 98-107 [facility] Estimated glomerular filtrat ion rate (GFR) AmericanOrdered By: Diandra Craig on 12-15-2024 Estimated GFR (MDRD) Amer 94 mL/min >60 [facility] Comment on above: GFR Calc Glomerular filtration rate ( GFR) estimationOrdered By: Diandra Craig on 12-15-2024 Estimated GFR (MDRD) Non-Af Amer 77 mL/min >60 [facility] Comment on above: Non- GFR Calc GFR/1.73 sq M.predicted among non-blacks MDRD (S/P/Bld) [Vol rate/Area] 77 mL/min/{1.73_m2} >60 [facility] Comment on above: Non- GFR Calc Glucose measurementOrdered B y: Diandra Craig on 12-15-2024 Glucose [Mass/Vol] 94 mg/dL 74-106 [facility] Potassium measurementOrdered By: Diandra Craig on 12-15-2024 Potassium [Moles/Vol] 3.9 mmol/L 3.5-5.1 [facility] Serum anion gap measurementO rdered By: Diandra Craig on 12-15-2024 Anion gap [Moles/Vol] 5 mmol/L 5-15 [facility] Serum or plasma calcium mala urement (mass/volume)Ordered By: Diandra Craig on 12-15-2024 Calcium [Mass/Vol] 9.3 mg/dL 8.5-10.1 [facility] Serum or plasma creatinine m easurement (mass/volume)Ordered By: Diandra Craig on 12-15-2024 Creatinine [Mass/Vol] 0.81 mg/dL 0.55-1.02 [facility] Comment on above: The validity of the calculated GFR & GFRAA in patients over 70 years has not been determined. Clinical correlation is essential. Serum or plasma thyroid stim ulating hormone (TSH) measurement (units/volume)Ordered By: Diandra Craig on 12-15-2024 TSH Qn 2.190 uIU/mL 0.358-3.740 [facility] Serum or plasma urea nitroge n measurement (mass/volume)Ordered By: Diandra Craig on 12-15-2024 Urea nitrogen [Mass/Vol] 14 mg/dL 7-18 [facility] Sodium levelOrdered By: Delfin Craig on 12-15-2024 Sodium [Moles/Vol] 139 mmol/L 136-145 [facility] TSH QnOrdered By: Diandra younger on 12-15-2024 Thyroid Stimulating Hormone (TSH) 2.190 uIU/mL 0.358-3.740 [facility] Thyroid Stim Hormone (TSH)on 12-15-2024 TSH 2.190 uIU/mL Normal 0.358-3.740 [facility] Comment on above: Performed By: #### L 500.2500, L501.9520 ####[facility] [id number] [place], [address] Chiropractic Reporton 2024 Chiropractic Report [facility] [place], [place] [address] OFFICE VISIT Date of Service: 11/12/24 MR#: [id number] Acct: [id number] Name: LAILA OLVERA ANN Rep #: [id number] : 1965 Provider: LONDON Mccray Age/Sex: 59/F Location: [facility] Status: Signed Intake Vital Signs 06/22/24 09:50 Height 5 ft 7 in Intake Visit Reasons: Back pain Chief Complaint: neck, upper and low back pain Allergies Penicillins Allergy (Intermediate, Verified 11/12/24 12:14) hives Medications ???Medication ???Instructions ???Recorded ???Confirmed ???Type allopurinol 100 mg tablet 200 mg PO QDAY 08/27/24 11/12/24 History amlodipine 5 mg tablet 5 mg PO QDAY 08/27/24 11/12/24 History PFSH Medical History Mitral valve prolapse Seasonal allergic rhinitis Vitamin D deficiency Palpitations Anxiety IBS (irritable bowel syndrome) HTN (hypertension) Surgical History History of section History of tympanoplasty of left ear History of meniscectomy of left knee Family History Father CHF (congestive heart failure) Mother Hypertension Pulmonary hypertension Social History Smoking Status: Never smoker HPI Back pain Chief Complaint: neck, upper and low back Visit Number: 1 Details: Laila is a 59 y/o female here to follow up on neck, upper and low back pain. She complains of increased neck pain and stiffness that extends into her traps and shoulders bilaterally. She has still been experiencing headaches but states they have been bearable. 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 She also complains of low back pain that has improved since her last visit. She rates her neck and shoulder pain 6/10 and her low back pain 3/10. She has been doing chair yoga which has dramatically improved her low back pain. She would like to be shown some exercises to help with her neck and shoulder pain.She denies new injury, numbness or tingling. Pt. stretches and walks frequently to stay active and flexible. She reports chiropractic adjustments are helpful in relieving her pain but it gradually returns. Location: neck upper and low back Duration: intermittent Aggravating or associated factors: sitting, standing, computer work Relieving factors: chiro,yoga Pain Quality: aching and dull Exam Musc General: Yes normal posture, normal gait and joint tenderness; No muscle weakness Cervical Spine: Yes loss of normal cervical lordosis, Yes cervical muscular tenderness bilateral diffuse , Yes cervical spasm left greater than right diffuse trapezius, paracervical muscles and intrinsics and Yes misalignment misalignment: C4, C5, C6 and C7 Thoracic/Lumber: Yes thoracic and lumbar spine normal to inspection, Yes paraspinal tenderness on the left greater than right (lumbopelvic,trap), Yes thoraco-lumbar spasm on the right greater than left (paraspinal L2-L5) and on the left greater than right (glute med,upper trap) and Yes misalignment T1, T2, T5, T6, L4, L5 and RIL Sacroiliac joints: bilaterally tender to palpation Office Procedures Procedures - Chiropractic Procedures Manipulation: Cervical C6, Lumbar L4, Thoracic T2 and T5 and Pelvis RIL Manipulation: 3-4 regions Therapeutic Exercise: 15 mins (cervical trap traction, retraction, orange TB scapular retraction) Therapeutic Massage: 15 mins Traction, Mechanical: Yes Hot and/or cold packs: Yes Patient Response: positive Assessment and Plan Assessment and Plan (1) Segmental and somatic dysfunction of cervical region: Status: Acute (2) Segmental and somatic dysfunction of thoracic region: Status: Acute (3) Segmental and somatic dysfunction of lumbar region: Status: Acute (4) Segmental and somatic dysfunction of pelvic region: Status: Acute (5) DDD (degenerative disc disease): Status: Chronic Qualifiers: Spinal region: cervicothoracic Qualified Code(s): M50.33 - Other cervical disc degeneration, cervicothoracic region Orders: Orders Chiropractic Treatments Today M50.33 - Other cervical disc degeneration, cervicothoracic region, M99.01 - Segmental and somatic dysfunction of cervical region, M99.02 - Segmental and somatic dysfunction of thoracic region, M99.03 - Segmental and somatic dysfunction of lumbar region, M99.05 - Segmental and somatic dysfunction of pelvic region Plan Patient was treated without incident. Continue care as needed. She is taking the TB home and performing HEP we performed in office. Continue with chair yoga as well. She is showing improvement. Plan Details Goals Barriers: Goals Improve ROM Decrease pain Decrease i (more content not included)... Normal [facility] Carcinoembryonic Antigenon 1 12-20-2023 CEA 1.9 ng/mL Normal 0.0-4.7 [facility] Comment on above: Result Comment: Nons mokers <3.9 Smokers <5.6 [facility] Electrochemiluminescence Immunoassay (ECLIA) Values obtained with different assay methods or kits cannot be used interchangeably. Results cannot be interpreted as absolute evidence of the presence or absence of malignant disease. Performed at: [address] [id number] [employer] Worker: Kobi Hampton PhD, Phone: [phone] Performed By: #### L 3100.2300, L500.2500, L501.1400 ####[facility] [address] [place], [address] Basic Metabolic Profile (BMP )on 10-15-2024 BUN/CRE 17.4 RATIO Normal 10-20 [facility] Comment on above: Performed By: #### L 3100.2300, L500.2500, L501.1400 ####[facility] [address] [place], [address] CA,Total 9.4 mg/dL Normal 8.5-10.1 [facility] Comment on above: Performed By: #### L 3100.2300, L500.2500, L501.1400 ####[facility] [address] [place], [address] Chloride [Moles/Vol] 106 mmol/L Normal 98-107 [facility] Comment on above: Performed By: #### L 3100.2300, L500.2500, L501.1400 ####[facility] [address] [place], [address] CO2 [Moles/Vol] 27.0 mmol/L Normal 21.0-32.0 [facility] Comment on above: Performed By: #### L 3100.2300, L500.2500, L501.1400 ####[facility] [address] [place], [address] Creatinine [Mass/Vol] 0.80 mg/dL Normal 0.55-1.02 [facility] Comment on above: Result Comment: The validity of the calculated GFR GFRAA in patients over 70 years has not been determined. Clinical correlation is essential. Performed By: #### L 3100.2300, L500.2500, L501.1400 ####[facility] [address] [place], [address] EST GFR - AA 94 mL/min Normal >60 [facility] Comment on above: Result Comment: Afri can Eritrean GFR Calc Performed By: #### L 3100.2300, L500.2500, L501.1400 ####[facility] [address] [place], [address] GAP 6 Normal 5-15 [facility] Comment on above: Performed By: #### L 3100.2300, L500.2500, L501.1400 ####[facility] [address] [place], [address] GFR/1.73 sq M.predicted among non-blacks MDRD (S/P/Bld) [Vol rate/Area] 78 mL/min/{1.73_m2} Normal >60 [facility] Comment on above: Result Comment: Non- GFR Calc Performed By: #### L 3100.2300, L500.2500, L501.1400 ####[facility] [address] [place], [address] Glucose [Mass/Vol] 124 mg/dL High 74-106 [facility] Comment on above: Result Comment: Fast ing Glucose result from 100 to 125 mg/dL suggests IMPAIRED HOMEOSTASIS per A.D.A. criteria. Performed By: #### L 3100.2300, L500.2500, L501.1400 ####[facility] [address] [place], [address] Potassium [Moles/Vol] 4.0 mmol/L Normal 3.5-5.1 [facility] Comment on above: Performed By: #### L 3100.2300, L500.2500, L501.1400 ####[facility] [address] [place], [address] Sodium [Moles/Vol] 139 mmol/L Normal 136-145 [facility] Comment on above: Performed By: #### L 3100.2300, L500.2500, L501.1400 ####[facility] [address] [place], [address] Urea nitrogen [Mass/Vol] 14 mg/dL Normal 7-18 [facility] Comment on above: Performed By: #### L 3100.2300, L500.2500, L501.1400 ####[facility] [address] [place], [address] Blood urea nitrogen (BUN)/cr eatinine ratioOrdered By: Barney Brice on 10-15-2024 Urea nitrogen/Creatinine [Mass ratio] 17.4 mg/mg 10-20 [facility] Carbon dioxide measurementOr dered By: Barney Brice on 10-15-2024 CO2 [Moles/Vol] 27.0 mmol/L 21.0-32.0 [facility] Chloride measurementOrdered By: Barney Brice on 10-15-2024 Chloride [Moles/Vol] 106 mmol/L 98-107 [facility] Estimated glomerular filtrat ion rate (GFR) AmericanOrdered By: Barney Brice on 10-15-2024 Estimated GFR (MDRD) Amer 94 mL/min >60 [facility] Comment on above: GFR Calc Glomerular filtration rate ( GFR) estimationOrdered By: Barney Brice on 10-15-2024 Estimated GFR (MDRD) Non-Af Amer 78 mL/min >60 [facility] Comment on above: Non- GFR Calc Glucose measurementOrdered B y: Barney Brice on 10-15-2024 Glucose [Mass/Vol] 124 mg/dL High 74-106 [facility] Comment on above: Fasting Glucose resu lt from 100 to 125 mg/dL suggests IMPAIRED HOMEOSTASIS per A.D.A. criteria. Potassium measurementOrdered By: Barney Brice on 10-15-2024 Potassium [Moles/Vol] 4.0 mmol/L 3.5-5.1 [facility] Serum anion gap measurementO rdered By: Barney Brice on 10-15-2024 Anion gap [Moles/Vol] 6 mmol/L 5-15 [facility] Serum or plasma calcium mala urement (mass/volume)Ordered By: Barney Brice on 10-15-2024 Calcium [Mass/Vol] 9.4 mg/dL 8.5-10.1 [facility] Serum or plasma creatinine m easurement (mass/volume)Ordered By: Barney Brice on 10-15-2024 Creatinine [Mass/Vol] 0.80 mg/dL 0.55-1.02 [facility] Comment on above: The validity of the calculated GFR & GFRAA in patients over 70 years has not been determined. Clinical correlation is essential. Serum or plasma urea nitroge n measurement (mass/volume)Ordered By: Barney Brice on 10-15-2024 Urea nitrogen [Mass/Vol] 14 mg/dL 7-18 [facility] Serum or plasma uric acid me asurement (mass/volume)Ordered By: Barney Brice on 10-15-2024 Urate [Mass/Vol] 7.0 mg/dL High 2.6-6.0 [facility] Comment on above: The drugs N-Acetylcy steine and Metamizole may falsely depress this assay. Sodium levelOrdered By: Barney Brice on 10-15-2024 Sodium [Moles/Vol] 139 mmol/L 136-145 [facility] Uric Acidon 10-15-2024 URIC 7.0 mg/dL High 2.6-6.0 [facility] Comment on above: Result Comment: The drugs N-Acetylcysteine and Metamizole may falsely depress this assay. Performed By: #### L 3100.2300, L500.2500, L501.1400 ####[facility] [address] [place], [address] Chiropractic Reporton 2023 Chiropractic Report [facility] [address] [place] [address] OFFICE VISIT Date of Service: 10/08/24 MR#: [id number] Acct: [id number] Name: LAILA OLVERA ANN Rep #: [id number] : 1965 Provider: LONDON Mccray Age/Sex: 59/F Location: [facility] Status: Signed Intake Vital Signs 06/22/24 09:50 Height 5 ft 7 in Weight: 187 lb BMI 29.2 BP 146/96 H Blood Pressure Location Lt brachial Position Sitting Respiration 16 Pulse 107 H Pulse Source Monitor Temp 99.1 F Temp Source Temporal Pulse Oximetry (%) 98 Oxygen Delivery Method room air Intake Visit Reasons: Back pain Chief Complaint: neck, upper and low back pain Is patient in pain?: Yes (Neck, LBP) Pain scale (1-10): 8 Allergies Penicillins Allergy (Intermediate, Verified 10/08/24 12:10) hives Medications ???Medication ???Instructions ???Recorded ???Confirmed ???Type allopurinol 100 mg tablet 200 mg PO QDAY 08/27/24 09/03/24 History amlodipine 5 mg tablet 5 mg PO QDAY 08/27/24 09/03/24 History PFSH Medical History Mitral valve prolapse Seasonal allergic rhinitis Vitamin D deficiency Palpitations Anxiety IBS (irritable bowel syndrome) HTN (hypertension) Surgical History History of section History of tympanoplasty of left ear History of meniscectomy of left knee Family History Father CHF (congestive heart failure) Mother Hypertension Pulmonary hypertension Social History Smoking Status: Never smoker HPI Back pain Chief Complaint: neck, upper and low back Visit Number: 11 Details: Laila is a 59 y/o female here to follow up on neck, upper and low back pain. Due to the holiday she had to wait an extra week for an adjustment and is quite painful today. She complains of neck pain and stiffness that extends into her traps bilaterally. 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 She also complains of low back pain that is worse on the left side. She rates her pain 8/10. She denies new injury, numbness or tingling. Pt. stretches and walks frequently to stay active and flexible. She reports chiropractic adjustments are helpful in relieving her pain but it gradually returns. Location: neck upper and low back Duration: intermittent Aggravating or associated factors: sitting, standing, computer work Relieving factors: chiro Pain Quality: aching and dull Exam Musc General: Yes normal posture, normal gait and joint tenderness; No muscle weakness Cervical Spine: Yes loss of normal cervical lordosis, Yes cervical muscular tenderness bilateral diffuse , Yes cervical spasm left greater than right diffuse trapezius, paracervical muscles and intrinsics and Yes misalignment misalignment: C4, C5, C6 and C7 Thoracic/Lumber: Yes thoracic and lumbar spine normal to inspection, Yes paraspinal tenderness on the left greater than right (lumbopelvic,trap), Yes thoraco-lumbar spasm on the right greater than left (paraspinal L2-L5) and on the left greater than right (glute med,upper trap) and Yes misalignment T1, T2, T5, T6, L4, L5 and RIL Sacroiliac joints: bilaterally tender to palpation Office Procedures Procedures - Chiropractic Procedures Manipulation: Cervical C6, Lumbar L4, Thoracic T2 and T5 and Pelvis RIL Manipulation: 3-4 regions Traction, Mechanical: Yes Hot and/or cold packs: Yes Patient Response: positive Assessment and Plan Assessment and Plan (1) Segmental and somatic dysfunction of cervical region: Status: Acute (2) Segmental and somatic dysfunction of thoracic region: Status: Acute (3) Segmental and somatic dysfunction of lumbar region: Status: Acute (4) Segmental and somatic dysfunction of pelvic region: Status: Acute (5) DDD (degenerative disc disease): Status: Chronic Qualifiers: Spinal region: cervicothoracic Qualified Code(s): M50.33 - Other cervical disc degeneration, cervicothoracic region Orders: Orders Chiropractic Treatments Today M50.33 - Other cervical disc degeneration, cervicothoracic region, M99.01 - Segmental and somatic dysfunction of cervical region, M99.02 - Segmental and somatic dysfunction of thoracic region, M99.03 - Segmental and somatic dysfunction of lumbar region, M99.05 - Segmental and somatic dysfunction of pelvic region Plan Patient was treated without incident. Continue care as needed. Plan Details Goals Barriers: Goals Improve ROM Decrease pain Decrease inflammation Barriers Sacral insuff. fx- stable DDD-lower cervical Follow Up: 4 Weeks Coding Level of Care Code No Charge Diagnoses Segme (more content not included)... Normal [facility] Chiropractic Reporton 2023 Chiropractic Report [facility] [place] [address] OFFICE VISIT Date of Service: 09/03/24 MR#: [id number] Acct: [id number] Name: LAILA OLVERA ANN Rep #: [id number] : 1965 Provider: LONDON Rivas Do ssi Age/Sex: 59/F Location: [facility] [place] Status: Signed Intake Vital Signs 06/22/24 09:50 Height 5 ft 7 in Weight: 187 lb BMI 29.2 BP 146/96 H Blood Pressure Location Lt brachial Position Sitting Respiration 16 Pulse 107 H Pulse Source Monitor Temp 99.1 F Temp Source Temporal Pulse Oximetry (%) 98 Oxygen Delivery Method room air Intake Visit Reasons: Back pain Chief Complaint: neck, upper and low back pain Is patient in pain?: Yes (low back ) Pain scale (1-10): 7 Allergies Penicillins Allergy (Intermediate, Verified 09/03/24 12:06) hives Medications ???Medication ???Instructions ???Recorded ???Confirmed ???Type allopurinol 100 mg tablet 200 mg PO QDAY 08/27/24 09/03/24 History amlodipine 5 mg tablet 5 mg PO QDAY 08/27/24 09/03/24 History azithromycin 250 mg tablet See Rx Instructions PO .COMPLEX #6 08/27/24 09/03/24 Rx tabs PFSH Medical History Mitral valve prolapse Seasonal allergic rhinitis Vitamin D deficiency Palpitations Anxiety IBS (irritable bowel syndrome) HTN (hypertension) Surgical History History of section History of tympanoplasty of left ear History of meniscectomy of left knee Family History Father CHF (congestive heart failure) Mother Hypertension Pulmonary hypertension Social History Smoking Status: Never smoker HPI Back pain Chief Complaint: neck, upper and low back Visit Number: 10 Details: Laila is a 58 y/o female here to follow up on neck, upper and low back pain. Pt. complains of mild neck stiffness that radiates into her BL shoulders. She has also had some frequent dull CHANG's. She also complains of low back tightness and pain. She rates her low back pain 7/10 and believes 6 weeks between adjustments is too long which causes in increase in low back pain. She denies new injury, numbness or tingling. Pt. stretches and walks frequently to stay active and flexible. She reports chiropractic adjustments are helpful in relieving her pain but it gradually returns. Location: neck upper and low back Duration: intermittent Aggravating or associated factors: sitting, standing, computer work Relieving factors: chiro Pain Quality: aching and dull Exam Musc General: Yes normal posture, normal gait and joint tenderness; No muscle weakness Cervical Spine: Yes loss of normal cervical lordosis, Yes cervical muscular tenderness bilateral diffuse , Yes cervical spasm left greater than right diffuse trapezius, paracervical muscles and intrinsics and Yes misalignment misalignment: C4, C5, C6 and C7 Thoracic/Lumber: Yes thoracic and lumbar spine normal to inspection, Yes paraspinal tenderness on the left greater than right (lumbopelvic,trap), Yes thoraco-lumbar spasm on the right greater than left (paraspinal L2-L5) and on the left greater than right (glute med,upper trap) and Yes misalignment T1, T2, T5, T6, L4, L5 and RIL Sacroiliac joints: bilaterally tender to palpation Office Procedures Procedures - Chiropractic Procedures Manipulation: Cervical C6, Lumbar L4, Thoracic T2 and T5 and Pelvis RIL Manipulation: 3-4 regions Traction, Mechanical: Yes Patient Response: positive Assessment and Plan Assessment and Plan (1) Segmental and somatic dysfunction of cervical region: Status: Acute (2) Segmental and somatic dysfunction of thoracic region: Status: Acute (3) Segmental and somatic dysfunction of lumbar region: Status: Acute (4) Segmental and somatic dysfunction of pelvic region: Status: Acute (5) DDD (degenerative disc disease): Status: Chronic Qualifiers: Spinal region: cervicothoracic Qualified Code(s): M50.33 - Other cervical disc degeneration, cervicothoracic region Orders: Orders Chiropractic Treatments Today M99.01 - Segmental and somatic dysfunction of cervical region, M99.02 - Segmental and somatic dysfunction of thoracic region, M99.03 - Segmental and somatic dysfunction of lumbar region, M99.05 - Segmental and somatic dysfunction of pelvic region Plan Patient was treated without incident. Continue care in 4 wks. Plan Details Goals Barriers: Goals Improve ROM Decrease pain Decrease inflammation Target Due Date 05/03/24 Barriers Sacral insuff. fx- stable DDD-lower cervical Follow Up: 4wks Coding Level of Care Code No Charge Diagnoses Segmental and somatic dysfunctio (more content not included)... Normal [facility] Urgent Care Visit Reporton 1 Urgent Care Visit Report [facility] [address], [address] [place] [address] OFFICE VISIT Date of Service: 08/27/24 MR#: [id number] Acct: [id number] Name: LAILA OLVERA ANN Rep #: [id number] : 1965 Provider: LINDA Rene Age/Sex: 59/F Location: [facility] Status: Signed Intake Vital Signs 06/22/24 09:50 Height 5 ft 7 in Weight: 187 lb BMI 29.2 BP 146/96 H Blood Pressure Location Lt brachial Position Sitting Respiration 16 Pulse 107 H Pulse Source Monitor Temp 99.1 F Temp Source Temporal Pulse Oximetry (%) 98 Oxygen Delivery Method room air Intake Visit Reasons: SORE THROAT 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 by: Self Is patient in pain?: No Allergies Penicillins Allergy (Intermediate, Verified 08/27/24 11:12) hives Medications ???Medication ???Instructions ???Recorded ???Confirmed ???Type allopurinol 100 mg tablet 200 mg PO QDAY 08/27/24 08/27/24 History amlodipine 5 mg tablet 5 mg PO QDAY 08/27/24 08/27/24 History azithromycin 250 mg tablet See Rx Instructions PO .COMPLEX #6 08/27/24 08/27/24 Rx tabs PFSH Medical History Mitral valve prolapse Seasonal allergic rhinitis Vitamin D deficiency Palpitations Anxiety IBS (irritable bowel syndrome) HTN (hypertension) Surgical History History of section History of tympanoplasty of left ear History of meniscectomy of left knee Family History Father CHF (congestive heart failure) Mother Hypertension Pulmonary hypertension Social History Smoking Status: Never smoker HPI HPI Chief Complaint: SORE THROAT Details: LAILA OLVERA, is a 59 F who presents to the office today for complaint of sore throat. Patient states she has had the sore throat for the past 7 to 10 days. Patient denies fever, chills, sweats. No nausea, vomiting and diarrhea. Patient does state that she has had some intermittent fatigue however has also had a new change to her medications stating that she had her allopurinol increased 2 weeks ago. No other associated symptoms or alleviating/aggravating factors. ROS Const Constitutional: No other (As above) Exam Const General: cooperative and healthy appearing HENWY Head: normal to inspection Ears: hearing grossly normal bilaterally, TM's normal bilaterally and EAC's normal Nose: external nose normal and nasal discharge clear Mouth: oral mucosae normal Throat: abnormal tonsil bilaterally Resp Effort Inspection: normal respiratory effort Auscultation: Bilateral: Clear to Auscultation Cardio Rate: regular rate Rhythm: regular rhythm Neuro General: patient alert Psych Appearance: grossly normal Mental Status: mental status grossly normal Coding Level of Care Code Off vis,est,level 3 Diagnoses Acute pharyngitis J02.9 Assessment and Plan Assessment and Plan (1) Acute pharyngitis: Status: Acute Medications: New azithromycin take 500 mg today (day 1), then 250 mg for 4 days (days 2-5) PO 6 tabs 0RF Plan Azithromycin as prescribed today. Encouraged to get plenty of rest, drink lots of clear liquids, and use Tylenol or Ibuprofen (unless contraindicated) for fever and comfort. Patient also educated on other symptomatic management techniques. To be seen in 7-10 days if no improvement; sooner if worsening of symptoms. Patient advised of potential red flags and when appropriate to report to the ED. Patient verbalized understanding and agreement with all the above. Plan Details Goals Barriers: Goals Improve ROM Decrease pain Decrease inflammation Target Due Date 05/03/24 Barriers Sacral insuff. fx- stable DDD-lower cervical 08/27/24 1144 Date Cornel Edwards Signature: Date (if applicable) CC: Normal [facility] CEAon 08-24-2024 Cea 4.5 ng/mL Normal <=5.0 [facility] Comment on above: Result Comment: This test was performed on the Siemens Mapidy IM Immunoassay platform which is a 2-step sandwich chemiluminescent immunoassay. It is important to note that assays using different manufacturers and/or methods may not be comparable. Performed By: #### C EA #### [facility] (DEFAULT) [address] [place] [address] CT ABDOMEN/PELVIS WITH CONTR Kevan 08-24-2024 CT ABDOMEN/PELVIS WITH CONTRAST EXAM: CT ABDOMEN/PELVIS WITH CONTRAST COMPARISON: 02/15/2024, 08/24/2023 CLINICAL INDICATIONS: surveillance rectal cancer ADDITIONAL INFORMATION (per Vision Radiologist): Rectal cancer status post neoadjuvant chemoradiation followed by abdominoperineal resection with end colostomy on 06/09/2021. Surveillance. TECHNIQUE: CT scanning was performed through the abdomen and pelvis following the administration of intravenous contrast. PROTOCOL: Standard FINDINGS: LOWER THORAX: Please see dedicated chest CT scan of the same date for full description of the intrathoracic contents. LIVER: Diffuse hepatic steatosis. No focal hepatic lesions. Calcified hepatic granuloma. The main portal vein is patent. BILIARY: Unremarkable. PANCREAS: Unremarkable. SPLEEN: Unremarkable. ADRENAL GLANDS: Unremarkable. KIDNEYS/URETERS: Unremarkable. PELVIC ORGANS/BLADDER: Mild pelvic floor laxity. Mild vaginal and bladder prolapse. The uterus, adnexa and bladder are otherwise unremarkable. GI TRACT: Status post abdominoperineal resection. Stable mild presacral soft tissue thickening. Left mid abdominal end colostomy is unremarkable. Normal appendix. The stomach is grossly unremarkable. No focal bowel wall thickening or bowel obstruction. PERITONEUM: No free air or free fluid. LYMPH NODES: No pathologically enlarged lymph nodes. VESSELS: Mild atherosclerosis. No abdominal aortic aneurysm. BONES AND SOFT TISSUES: Postsurgical changes in the anterior abdominal wall. No suspicious osseous lesions. Chronic right sacral insufficiency fracture again seen. IMPRESSION: Stable exam status post abdominoperineal resection with left mid abdominal end colostomy. No definite CT evidence for recurrent/metastatic disease in the abdomen/pelvis. Emilia Andre M.D. This report has been electronically signed and verified by the Radiologist whose name is printed above. This report contains privileged and confidential information and is intended solely for the use of the individual or entity to which it is addressed. If you are not the intended recipient of this report, you are hereby notified that any copying, distribution, dissemination or action taken in relation to the contents of this report is strictly prohibited and may be unlawful. If you have received this report in error, please notify the sender immediately at [phone] and permanently delete the original report and destroy any copies or printouts. Normal [facility] CT CHEST WITH CONTRASTon CT CHEST WITH CONTRAST EXAM: CT CHEST WI TH CONTRAST, 08/22/2024 11:45 AM COMPARISON: CT CHEST WITH CONTRAST February 15, 2024 CLINICAL INDICATIONS: Surveillance rectal cancer; RELEVANT CLINICAL HISTORY: C20:Rectal cancer TECHNIQUE: CT images of the chest were obtained following administration of intravenous contrast. CONTRAST: iohexol (OMNIPAQUE) 350 MG/ML injection 1-171 mL; Route of Administration: Intravenous; Dose: 90 mL. FINDINGS: Lungs and Pleura: Tiny scattered calcified granulomas (series 3; images 73, 136). No suspicious pulmonary nodules. No consolidation. No pleural fluid. Tracheobronchial tree: No abnormality. Mediastinum/Sultana: No mediastinal or hilar lymphadenopathy. Axilla and Supraclavicular Region: No axillary or supraclavicular adenopathy. Cardiovascular: The cardiac chambers and pericardium are within normal limits. The aorta and arch branch vessels, as well as the pulmonary arteries, are unremarkable. Upper Abdomen: Please see same-day CT abdomen/pelvis report for description of intra-abdominal contents. Bones and Soft Tissue: No suspicious osseous lesion. IMPRESSION: 1. Stable examination without evidence of intrathoracic metastatic disease. I personally viewed and interpreted these images and I have reviewed and approved this report. Normal [facility] Laboratory - Chemistry and C hemistry - challengeon 08-24-2024 Carcinoembryonic Ag [Mass/Vol] 4.5 ng/mL NINF - 5.0 ng/mL [facility] Comment on above: This test was perfor med on the GetSet Immunoassay platform which is a 2-step sandwich chemiluminescent immunoassay. It is important to note that assays using different manufacturers and/or methods may not be comparable. No Panel Informationon 08-24 Interpretation and review of laboratory results Normal [facility] CREAT/GFRon 08-22-2024 Creatinine [Mass/Vol] 0.93 mg/dL 0.50 - 1.20 mg/dL [facility] GFR/1.73 sq M.predicted CKD-EPI (S/P/Bld) [Vol rate/Area] 71 - PINF [facility] Comment on above: Reported eGFR is bas ed on the CKD-EPI 2020 equation using creatinine, age, and sex. Interpretation and review of laboratory results Normal [facility] Test performed at ad dress of the patient encounter. [facility] Chiropractic Reporton 2023 Chiropractic Report [facility] [address] [place] [id number] OFFICE VISIT Date of Service: 07/23/24 MR#: [id number] Acct: [id number] Name: LAILA OLVERA Rep #: [id number] : 1965 Provider: LONDON Mccray Age/Sex: 59/F Location: [facility] Status: Signed Intake Vital Signs 03/12/24 12:10 06/22/24 09:50 Height 5 ft 7 in 5 ft 7 in Intake Visit Reasons: Back pain Chief Complaint: Neck/mid/LBP Is patient in pain?: Yes Pain scale (1-10): 6 Allergies Penicillins Allergy (Intermediate, Verified 07/23/24 12:05) [facility] History Mitral valve prolapse Seasonal allergic rhinitis Vitamin D deficiency Palpitations Anxiety IBS (irritable bowel syndrome) HTN (hypertension) Surgical History History of section History of tympanoplasty of left ear History of meniscectomy of left knee Family History Father CHF (congestive heart failure) Mother Hypertension Pulmonary hypertension Social History Smoking Status: Never smoker HPI Back pain Chief Complaint: neck, upper and low back Visit Number: 9 Details: Laila is a 58 y/o female here to follow up on neck, upper and low back pain. She complains of neck pain/stiffness that radiates into her BL shoulders. She states that she forgot to take her neck (posture) pump with her on vacation and she was gone for 2 weeks, so her neck is really tight and sore today. She states that she does have limited ROM when turning her head. She reports her headaches have also returned. She rates her neck pain at a 6/10 today. She has some complains of low back stiffness today but it is mild and note painful. She has been doing exercises in the pool 3x a week. She denies new injury, numbness or tingling. Pt. stretches and walks frequently to stay active and flexible. She reports chiropractic adjustments are helpful. Location: neck upper and low back Duration: intermittent Aggravating or associated factors: sitting, standing, computer work Relieving factors: chiro Pain Quality: aching and dull Exam Musc General: Yes normal posture, normal gait and joint tenderness; No muscle weakness Cervical Spine: Yes loss of normal cervical lordosis, Yes cervical muscular tenderness bilateral diffuse , Yes cervical spasm left greater than right diffuse trapezius, paracervical muscles and intrinsics and Yes misalignment misalignment: C4, C5, C6 and C7 Thoracic/Lumber: Yes thoracic and lumbar spine normal to inspection, Yes paraspinal tenderness on the left greater than right (lumbopelvic,trap), Yes thoraco-lumbar spasm on the right greater than left (paraspinal L2-L5) and on the left greater than right (glute med,upper trap) and Yes misalignment T1, T2, T5, T6, L4, L5 and RIL Sacroiliac joints: bilaterally tender to palpation Office Procedures Procedures - Chiropractic Procedures Manipulation: Cervical C6, Lumbar L4, Thoracic T2 and T5 and Pelvis RIL Manipulation: 3-4 regions Traction, Mechanical: Yes Patient Response: positive Assessment and Plan Assessment and Plan (1) Segmental and somatic dysfunction of cervical region: Status: Acute (2) Segmental and somatic dysfunction of thoracic region: Status: Acute (3) Segmental and somatic dysfunction of lumbar region: Status: Acute (4) Segmental and somatic dysfunction of pelvic region: Status: Acute (5) DDD (degenerative disc disease): Status: Chronic Qualifiers: Spinal region: cervicothoracic Qualified Code(s): M50.33 - Other cervical disc degeneration, cervicothoracic region Orders: Orders Chiropractic Treatments Today M50.33 - Other cervical disc degeneration, cervicothoracic region, M99.01 - Segmental and somatic dysfunction of cervical region, M99.02 - Segmental and somatic dysfunction of thoracic region, M99.03 - Segmental and somatic dysfunction of lumbar region, M99.05 - Segmental and somatic dysfunction of pelvic region Plan Patient was treated without incident. She is going to start using her Posture Pump as well. Continue care PRN. Plan Details Goals Barriers: Goals Improve ROM Decrease pain Decrease inflammation Target Due Date 05/03/24 Barriers Sacral insuff. fx- stable DDD-lower cervical Follow Up: PRN Coding Level of Care Code No Charge Diagnoses Segmental and somatic dysfunction of cervical region M99.01 Segmental and somatic dysfunction of thoracic region M99.02 Segmental and somatic dysfunction of lumbar region M99.03 Segmental and somatic dysfunction of pelvic region M99.05 Degeneration of intervertebral disc of cervicothoracic region M50.33 Spin (more content not included)... Normal [facility] CBC W/Diff, Automatedon 07-05 Absolute Lymph 0.81 X10 3/uL Low 0.83-4.51 [facility] Comment on above: Performed By: #### L 500.4100, L500.4050, L100.0100, L501.1400 ####[facility] [address] [place], [address] Absolute Neut 2.1 X10 3/uL Normal 2.0-7.7 [facility] Comment on above: Performed By: #### L 500.4100, L500.4050, L100.0100, L501.1400 ####[facility] [address] [place], [address] Basophils/100 WBC (Bld) 0.9 % Normal 0-1 [facility] Comment on above: Performed By: #### L 500.4100, L500.4050, L100.0100, L501.1400 ####[facility] [address] [place], [address] Eosinophils/100 WBC (Bld) 1.5 % Normal 0-5 [facility] Comment on above: Performed By: #### L 500.4100, L500.4050, L100.0100, L501.1400 ####[facility] [address] [place], [address] Erythrocyte distribution width (RBC) [Ratio] 12.6 % Normal 11.6-14.6 [facility] Comment on above: Performed By: #### L 500.4100, L500.4050, L100.0100, L501.1400 ####[facility] [address] [place], [address] Hematocrit (Bld) [Volume fraction] 38.9 % Normal 37-47 [facility] Comment on above: Performed By: #### L 500.4100, L500.4050, L100.0100, L501.1400 ####[facility] [address] [place], [address] Hemoglobin (Bld) [Mass/Vol] 13.0 g/dL Normal 12.0-15.0 [facility] Comment on above: Performed By: #### L 500.4100, L500.4050, L100.0100, L501.1400 ####[facility] [address] [place], [address] IG% 0.300 Normal 0.0-0.9 [facility] Comment on above: Result Comment: IG% - Immature Granulocytes (promyelocytes, myelocytes and metamyelocytes) > 1% indicates that a LEFT SHIFT is Present. Performed By: #### L 500.4100, L500.4050, L100.0100, L501.1400 ####[facility] [address] [place], [address] Lymphocytes/100 WBC (Bld) 24.6 % Normal 19-41 [facility] Comment on above: Performed By: #### L 500.4100, L500.4050, L100.0100, L501.1400 ####[facility] [address] [place], [address] MCH (RBC) [Entitic mass] 31.1 pg Normal 27.0-32.0 [facility] Comment on above: Performed By: #### L 500.4100, L500.4050, L100.0100, L501.1400 ####[facility] [address] [place], [address] MCHC (RBC) [Mass/Vol] 33.4 g/dL Normal 32-36 [facility] Comment on above: Performed By: #### L 500.4100, L500.4050, L100.0100, L501.1400 ####[facility] [address] [place], [address] MCV (RBC) [Entitic vol] 93.1 fL Normal 81-99 [facility] Comment on above: Performed By: #### L 500.4100, L500.4050, L100.0100, L501.1400 ####[facility] [address] [place], [address] Monocytes/100 WBC (Bld) 10.0 % Normal 0-10 [facility] Comment on above: Performed By: #### L 500.4100, L500.4050, L100.0100, L501.1400 ####[facility] [address] [place], [address] Neutrophils/100 WBC (Bld) 62.7 % Normal 47-70 [facility] Comment on above: Performed By: #### L 500.4100, L500.4050, L100.0100, L501.1400 ####[facility] [address] [place], [address] Nucleated RBC (Bld) [#/Vol] 0 10*3/uL Normal 0-5 [facility] Comment on above: Performed By: #### L 500.4100, L500.4050, L100.0100, L501.1400 ####[facility] [address] [place], [address] Platelet mean volume (Bld) [Entitic vol] 9.5 fL Normal 6.2-12.0 [facility] Comment on above: Performed By: #### L 500.4100, L500.4050, L100.0100, L501.1400 ####[facility] [address] [place], [address] Platelets (Bld) [#/Vol] 251 10*3/uL Normal 150-450 [facility] Comment on above: Performed By: #### L 500.4100, L500.4050, L100.0100, L501.1400 ####[facility] [address] [place], [address] RBC (Bld) [#/Vol] 4.18 10*6/uL Low 4.2-5.4 [facility] Comment on above: Performed By: #### L 500.4100, L500.4050, L100.0100, L501.1400 ####[facility] [address] [place], [address] RDW SD 42.6 fl Normal 35.1-43.9 [facility] Comment on above: Performed By: #### L 500.4100, L500.4050, L100.0100, L501.1400 ####[facility] [address] [place], [address] WBC (Bld) [#/Vol] 3.3 10*3/uL Low 4.4-11.0 [facility] Comment on above: Performed By: #### L 500.4100, L500.4050, L100.0100, L501.1400 ####[facility] [address] [place], [address] Comprehensive Metabolic [facility] 07-16-2024 Albumin [Mass/Vol] 3.6 g/dL Normal 3.2-5.0 [facility] Comment on above: Performed By: #### L 500.4100, L500.4050, L100.0100, L501.1400 ####[facility] [address] [place], [address] Albumin/Globulin [Mass ratio] 1.0 {ratio} Normal 0.9-2.4 [facility] Comment on above: Performed By: #### L 500.4100, L500.4050, L100.0100, L501.1400 ####[facility] [address] [place], [address] ALK P 66 U/L Normal 45-117 [facility] Comment on above: Performed By: #### L 500.4100, L500.4050, L100.0100, L501.1400 ####[facility] [address] [place], [address] ALT [Catalytic activity/Vol] 50 U/L Normal 13-56 [facility] Comment on above: Performed By: #### L 500.4100, L500.4050, L100.0100, L501.1400 ####[facility] [address] [place], [address] AST [Catalytic activity/Vol] 25 U/L Normal 15-37 [facility] Comment on above: Performed By: #### L 500.4100, L500.4050, L100.0100, L501.1400 ####[facility] [address] [place], [address] Bilirubin [Mass/Vol] 0.90 mg/dL Normal 0.20-1.00 [facility] Comment on above: Result Comment: For patients on eltrombopag therapy, use of Dimension [place] TBIL is not recommended. Performed By: #### L 500.4100, L500.4050, L100.0100, L501.1400 ####[facility] [address] [place], [address] BUN/CRE 16.9 RATIO Normal 10-20 [facility] Comment on above: Performed By: #### L 500.4100, L500.4050, L100.0100, L501.1400 ####[facility] [address] [place], [address] CA,Total 9.6 mg/dL Normal 8.5-10.1 [facility] Comment on above: Performed By: #### L 500.4100, L500.4050, L100.0100, L501.1400 ####[facility] [address] [place], [address] Chloride [Moles/Vol] 108 mmol/L High 98-107 [facility] Comment on above: Performed By: #### L 500.4100, L500.4050, L100.0100, L501.1400 ####[facility] [address] [place], [address] CO2 [Moles/Vol] 25.0 mmol/L Normal 21.0-32.0 [facility] Comment on above: Performed By: #### L 500.4100, L500.4050, L100.0100, L501.1400 ####[facility] [address] [place], [address] Creatinine [Mass/Vol] 0.71 mg/dL Normal 0.55-1.02 [facility] Comment on above: Result Comment: The validity of the calculated GFR GFRAA in patients over 70 years has not been determined. Clinical correlation is essential. Performed By: #### L 500.4100, L500.4050, L100.0100, L501.1400 ####[facility] [address] [place], [address] EST GFR - AA 108 mL/min Normal >60 [facility] Comment on above: Result Comment: Afri can Eritrean GFR Calc Performed By: #### L 500.4100, L500.4050, L100.0100, L501.1400 ####[facility] [address] [place], [address] GAP 8 Normal 5-15 [facility] Comment on above: Performed By: #### L 500.4100, L500.4050, L100.0100, L501.1400 ####[facility] [address] [place], [address] GFR/1.73 sq M.predicted among non-blacks MDRD (S/P/Bld) [Vol rate/Area] 90 mL/min/{1.73_m2} Normal >60 [facility] Comment on above: Result Comment: Non- GFR Calc Performed By: #### L 500.4100, L500.4050, L100.0100, L501.1400 ####[facility] [address] [place], [address] Globulin (S) [Mass/Vol] 3.7 g/dL Normal 2.2-4.2 [facility] Comment on above: Performed By: #### L 500.4100, L500.4050, L100.0100, L501.1400 ####[facility] [address] [place], [address] Glucose [Mass/Vol] 100 mg/dL Normal 74-106 [facility] Comment on above: Result Comment: Fast ing Glucose result from 100 to 125 mg/dL suggests IMPAIRED HOMEOSTASIS per A.D.A. criteria. Performed By: #### L 500.4100, L500.4050, L100.0100, L501.1400 ####[facility] [address] [place], [address] Potassium [Moles/Vol] 3.8 mmol/L Normal 3.5-5.1 [facility] Comment on above: Performed By: #### L 500.4100, L500.4050, L100.0100, L501.1400 ####[facility] [address] [place], [address] Sodium [Moles/Vol] 141 mmol/L Normal 136-145 [facility] Comment on above: Performed By: #### L 500.4100, L500.4050, L100.0100, L501.1400 ####[facility] [address] [place], [address] T PROT 7.3 g/dL Normal 6.4-8.2 [facility] Comment on above: Performed By: #### L 500.4100, L500.4050, L100.0100, L501.1400 ####[facility] [address] [place], [address] Urea nitrogen [Mass/Vol] 12 mg/dL Normal 7-18 [facility] Comment on above: Performed By: #### L 500.4100, L500.4050, L100.0100, L501.1400 ####[facility] [address] [place], [address] Lipid Profileon 07-16-2024 Cholesterol [Mass/Vol] 205 mg/dL High 200 [facility] Comment on above: Result Comment: <200 mg/dL Desirable 200-240 mg/dL Borderline >240 mg/dL High Risk Performed By: #### L 500.4100, L500.4050, L100.0100, L501.1400 ####[facility] [address] [place], [address] Cholesterol in HDL [Mass/Vol] 44 mg/dL Normal [facility] Comment on above: Result Comment: The drugs N-Acetylcysteine and Metamizole may falsely depress this assay. Reference Range HDL <40 mg/dL Low HDL Cholesterol HDL >or= 60 mg/dL High HDL Cholesterol Performed By: #### L 500.4100, L500.4050, L100.0100, L501.1400 ####[facility] [address] [place], [address] Cholesterol in LDL [Mass/Vol] 125 mg/dL Normal 0-130 [facility] Comment on above: Performed By: #### L 500.4100, L500.4050, L100.0100, L501.1400 ####[facility] [address] [place], [address] Cholesterol in VLDL [Mass/Vol] 36 mg/dL Normal 5-40 [facility] Comment on above: Performed By: #### L 500.4100, L500.4050, L100.0100, L501.1400 ####[facility] [address] [place], [place], [address] Triglyceride [Mass/Vol] 179 mg/dL Normal [facility] Comment on above: Result Comment: The drugs N-Acetylcysteine and Metamizole may falsely depress this assay. Serum Triglycerides Reference Interval Normal <150 mg/dL Borderline high 150 - 199 mg/dL High 200 - 499 mg/dL Very High > or = 500 mg/dL Performed By: #### L 500.4100, L500.4050, L100.0100, L501.1400 ####[facility] [address] [place], [address] Uric Acidon 07-16-2024 URIC 6.9 mg/dL High 2.6-6.0 [facility] Comment on above: Result Comment: The drugs N-Acetylcysteine and Metamizole may falsely depress this assay. Performed By: #### L 500.4100, L500.4050, L100.0100, L501.1400 ####[facility] [address] [place], [place], [address] Urgent Care Visit Reporton 0 06-22-2024 Urgent Care Visit Report [facility] [address], [address] [place] [address] OFFICE VISIT Date of Service: 06/22/24 MR#: [id number] Acct: [id number] Name: LAILA OLVERA ANN Rep #: [id number] : 1965 Provider: LINDA Castaneda Age/Sex: 58/F Location: [facility] Status: Signed Intake Vital Signs 03/12/24 12:10 06/22/24 09:50 Height 5 ft 7 in 5 ft 7 in Weight: 187 lb BMI 29.2 BP 146/96 H Blood Pressure Location Lt brachial Position Sitting Respiration 16 Pulse 107 H Pulse Source Monitor Temp 99.1 F Temp Source Temporal Pulse Oximetry (%) 98 Oxygen Delivery Method room air Intake Visit Reasons: L SIDE/FACIAL PAIN/SINUS PAIN/ST/SWOLLEN GLANDS Chief Complaint: LT SIDE EAR PAIN MAXILLARY FACIAL 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 [facility] Medical History Mitral valve prolapse Seasonal allergic rhinitis Vitamin D deficiency Palpitations Anxiety IBS (irritable bowel syndrome) HTN (hypertension) Surgical History History of section History of tympanoplasty of left ear History of meniscectomy of left knee Family History Father CHF (congestive heart failure) Mother Hypertension Pulmonary hypertension Social History Smoking Status: Never smoker HPI HPI Chief Complaint: LT SIDE EAR PAIN MAXILLARY FACIAL PAIN LT SIDE Details: LAILA OLVERA, is a 58 F who presents to the office today for initial evaluation at the [facility] for approximately 5-7-day history of progressively worsening L>R facial pressure/congestion with purulent postnasal drip/cough and left ear pressure. No fever, chills, myalgias, fatigue, runny nose, or nausea/vomiting/diarrhea. No complaints of chest pain/shortness of breath/dyspnea on exertion. No close contacts with similar complaints. No other associated symptoms and no other alleviating/aggravating factors. ROS Const Constitutional: No other (as above) Exam Const General: cooperative, healthy appearing and no acute distress Nutritional Appearance: average body habitus Orientation: alert, awake and oriented x3 HENMT Head: normal to inspection Ears: hearing grossly normal bilaterally, external ears normal, TM's normal bilaterally and EAC's normal Nose: external nose normal, nares normal, septum normal and no nasal discharge Face and sinus: normal facial exam, bilateral maxillary sinuses tender (with L>R maxillary fullness to palpation) and face symmetric Mouth: oral mucosae normal except apthous ulcer to palate, lip normal, tongue normal and oropharynx normal Throat: posterior oropharynx normal, tonsils normal, uvula midline and postnasal drainage (Purulent) Eyes General: appearance normal, both eyes and all related structures Neck Neck: normal visual inspection, full ROM, no meningeal signs, supple and lymphadenopathy (L>R anterior cervical lymph node swelling/tender to palpation) Neck mass: No Thyroid: thyroid normal Chest Chest palpation inspection: normal inspection of the chest Resp Effort Inspection: normal respiratory effort and able to speak in complete sentences Auscultation: Bilateral: Clear to Auscultation Cardio Palpation: normal PMI Rate: Tachycardic Rhythm: regular rhythm Heart Sounds: S1 normal, S2 normal, no gallops, no murmurs and no rubs Pulses: radial pulses present GI Inspection: normal to inspection Skin General: no rashes or lesions noted Neuro General: patient alert, patient awake and patient oriented x3 Cognition: normal cognition Speech: speech normal Psych Appearance: grossly normal Mental Status: mental status grossly normal Mood: congruent mood Affect: normal affect Speech and Movement: speech and movement normal Attitude: cooperative Diagnoses Acute maxillary sinusitis, unspecified J01.00 Assessment and Plan Assessment and Plan (1) Acute maxillary sinusitis, unspecified: Status: Acute Plan: - With apthous ulcer and uncontrolled hypertension Azithromycin as prescribed today. Supportive measures as instructed today. Work excuse provided today at (more content not included)... Normal [facility] Chiropractic Reporton 2023 Chiropractic Report [facility] [place] [address] OFFICE VISIT Date of Service: 06/18/24 MR#: [id number] Acct: [id number] Name: LAILA OLVERA ANN Rep #: [id number] : 1965 Provider: LONDON Mccray Age/Sex: 58/F Location: [facility] Status: Signed Intake Vital Signs 03/12/24 12:10 Height 5 ft 7 in Intake Visit Reasons: Back pain Chief Complaint: neck upper and low back pain Allergies Penicillins Allergy (Intermediate, Verified 06/18/24 13:51) hives Medications ???Medication ???Instructions ???Recorded ???Confirmed ???Type lisinopril 10 mg tablet 10 mg PO MOWEFR BP 01/06/21 06/18/24 History lisinopril 10 1 tablet PO SUTUTHSA BP 01/06/21 06/18/24 History mg-hydrochlorothiazide 12.5 mg tablet prednisone 10 mg tablet 10 mg PO DAILY #30 tabs 06/08/24 06/18/24 Rx PFSH Medical History Mitral valve prolapse Seasonal allergic rhinitis Vitamin D deficiency Palpitations Anxiety IBS (irritable bowel syndrome) HTN (hypertension) Surgical History History of section History of tympanoplasty of left ear History of meniscectomy of left knee Family History Father CHF (congestive heart failure) Mother Hypertension Pulmonary hypertension Social History Smoking Status: Never smoker HPI Back pain Chief Complaint: neck, upper and low back Visit Number: 8 Details: Laila is a 58 y/o female here to follow up on neck, upper and low back pain. Pt. advises her last adjustment was helpful in alleviating her discomfort. She recently had a flare up of gout which was treated with Prednisone, NSAID's and Allopurinol. Since being on these medications she reports very minimal pain and headaches. She complains of neck and upper back pain and stiffness that is equal bilaterally but greatly improved. She reports her headaches have also decreased. She also complains of low back pain today but states it is very minimal. She has been using her posture pump as well as doing exercises in the pool 3x a week. She denies new injury, numbness, tingling or radiculopathy. Pt. stretches and walks frequently to stay active and flexible. She reports chiropractic adjustments are helpful. Location: neck upper and low back Duration: intermittent Aggravating or associated factors: sitting, standing, computer work Relieving factors: chiro Pain Quality: aching and dull Exam Musc General: Yes normal posture, normal gait, joint tenderness and decreased range of motion; No muscle weakness Cervical Spine: Yes loss of normal cervical lordosis, Yes cervical muscular tenderness (slightly improved) bilateral diffuse , Yes cervical spasm left greater than right diffuse trapezius, paracervical muscles and intrinsics and Yes misalignment misalignment: C4, C5, C6 and C7 Thoracic/Lumber: Yes thoracic and lumbar spine normal to inspection, Yes paraspinal tenderness on the left greater than right (lumbopelvic,trap), Yes thoraco-lumbar spasm on the right greater than left (paraspinal L2-L5) and on the left greater than right (glute med,upper trap) and Yes misalignment T1, T2, T5, T6, L4, L5 and RIL Sacroiliac joints: bilaterally tender to palpation Office Procedures Procedures - Chiropractic Procedures Manipulation: Cervical C6, Lumbar L4, Thoracic T2 and T5 and Pelvis RIL Manipulation: 3-4 regions Traction, Mechanical: Yes Hot and/or cold packs: Yes Patient Response: positive Assessment and Plan Assessment and Plan (1) Lower back pain: Status: Acute Qualifiers: Back pain laterality: left Chronicity: acute Sciatica presence: without sciatica Qualified Code(s): M54.50 - Low back pain, unspecified (2) Neck pain: Status: Acute (3) Segmental and somatic dysfunction of cervical region: Status: Acute (4) Segmental and somatic dysfunction of thoracic region: Status: Acute (5) Segmental and somatic dysfunction of lumbar region: Status: Acute (6) Segmental and somatic dysfunction of pelvic region: Status: Acute (7) DDD (degenerative disc disease): Status: Chronic Qualifiers: Spinal region: cervicothoracic Qualified Code(s): M50.33 - Other cervical disc degeneration, cervicothoracic region Orders: Orders Chiropractic Treatments Today M50.33 - Other cervical disc degeneration, cervicothoracic region, M54.2 - Cervicalgia, M54.50 - Low back pain, unspecified, M99.01 - Segmental and somatic dysfunction of cervical region, M99.02 - Segmental and somatic dysfunction of thoracic region, M99.03 - Segmental and somatic dysfunction of lumbar region, M99.05 - Segmental and somatic dysfunction of pelvic region (more content not included)... Normal [facility] Urgent Care Visit Reporton 0 06-08-2024 Urgent Care Visit Report [facility] [address], [address] [place] [address] OFFICE VISIT Date of Service: 06/08/24 MR#: [id number] Acct: [id number] Name: LAILA OLVERA Rep #: [id number] : 1965 Provider: LINDA Castaneda Age/Sex: 58/F Location: [facility] Status: Signed with Addenda ADDENDUM by LINDA Castaneda on 06/08/24 at 1723 HPI Details: VS at 1715: bp 178/86, p 92, r 14, T 97.7f Assessment and Plan Assessment and Plan Medications: New prednisone 4 tablets daily x3 days, then 3 tablets daily x3 days, then 2 tablets daily x3 days, then 1 tablet daily x3 days 10 mg PO DAILY 30 tabs 0RF Plan Details Goals Barriers: Goals Improve ROM Decrease pain Decrease inflammation Target Due Date 05/03/24 Barriers Sacral insuff. fx- stable DDD-lower cervical 06/08/24 1723 Date Igor Rosas cc: * Signed Intake Vital Signs 03/12/24 12:10 Height 5 ft 7 in Intake Visit Reasons: Gout Chief Complaint: neck upper and low back pain Allergies Penicillins Allergy (Intermediate, Verified 05/14/24 12:16) hives [facility] Medical History Mitral valve prolapse Seasonal allergic rhinitis Vitamin D deficiency Palpitations Anxiety IBS (irritable bowel syndrome) HTN (hypertension) Surgical History History of section History of tympanoplasty of left ear History of meniscectomy of left knee Family History Father CHF (congestive heart failure) Mother Hypertension Pulmonary hypertension Social History Smoking Status: Never smoker HPI HPI Chief Complaint: neck upper and low back pain Details: LAILA OLVERA, is a 58 F who presents to the office today for initial evaluation proximately 48- hour history of progressively worsening right great toe MTPJ and IPJ erythema, warmth, swelling, tender without improvement with prescribed allopurinol from PCP. Patient notes having longstanding history of chronic recurring gout and is requesting additional treatment to relieve her symptoms. She notes no complaints of fever, chills, sweats, lightheadedness/dizziness , nausea/vomiting; no history of recent trauma to the same. No other associated symptoms and no other alleviating/aggravating factors. ROS Const Constitutional: No other (As above) Exam Const General: cooperative, healthy appearing and no acute distress Orientation: alert and awake Resp Effort Inspection: normal respiratory effort and able to speak in complete sentences Cardio Rate: regular rate Pulses: radial pulses present Skin General: no rashes or lesions noted Neuro General: patient alert and patient awake Cognition: normal cognition Speech: speech normal Extrem General: full ROM, capillary refill normal and normal exam except as noted (RGT IPJ and MTPJ erythema, warmth, swelling) Psych Appearance: grossly normal Mental Status: mental status grossly normal Mood: congruent mood Affect: normal affect Speech and Movement: speech and movement normal Attitude: cooperative Coding Level of Care Code Off vis,est,level 3 Diagnoses Gout M10.9 Assessment and Plan Assessment and Plan (1) Gout: Plan: Prednisone as prescribed today. Supportive measures as instructed today. Follow-up with PCP or podiatry in 5 to 7 days should symptoms not improve, sooner should symptoms only worsen or any other concerns develop. Patient states acknowledging understanding all the above. This note was generated with [employer] dictation software. It may contain incorrect words, spelling, and punctuation that were not noted in checking the note before signing. Medications: New prednisone 4 tablets daily x3 days, then 3 tablets daily x3 days, then 2 tablets daily x3 days, then 1 tablet daily x3 days 10 mg PO DAILY 30 tabs 0RF Plan Details Goals Barriers: Goals Improve ROM Decrease pain Decrease inflammation Target Due Date 05/03/24 Barriers Sacral insuff. fx- stable DDD-lower cervical 06/08/24 1720 Date Igor Edwards Signature: Date (if applicable) CC: Normal [facility] DIAGNOSTIC COLONOSCOPYon [facility] Gastroenterology Patient Name: Laila Olvera Procedure Date: 06/05/2024 8:38 AM Date of : 1965 Admit Type: Outpatient Age: 58 Room: [facility] room 1 Gender: Female Note Status: Finalized Attending MD: Liliana Andrews MD, [id number] Procedure: Colonoscopy Attending Participation: I was present and participated during the entire procedure, including non-betancourt portions. Indications: High risk colon cancer surveillance: Personal history of rectal cancer Providers: Liliana Andrews MD, Winter Miller RN (Nurse), Emma Morel, Wire Stripping Machine Operator Referring MD: Liliana Andrews MD Complications: No immediate complications. Estimated blood loss: None. Medicines: Fentanyl 150 micrograms IV, Midazolam 6 mg IV Requesting Provider: Procedure: Pre-Anesthesia Assessment: - Prior to the procedure, a History and Physical was performed, and patient medications and allergies were reviewed. The patient is competent. The risks and benefits of the procedure and the sedation options and risks were discussed with the patient. All questions were answered and informed consent was obtained. Patient identification and proposed procedure were verified by the physician, the nurse and the process environmental technician in the procedure room at 08:51 AM. Mental Status Examination: normal. Airway Examination: normal oropharyngeal airway and neck mobility and Mallampati Class II (the uvula but not tonsillar pillars visualized). Respiratory Examination: clear to auscultation. CV Examination: normal, Abdominal Examination: +BS, soft, non-tender, no masses and ostomy. Prophylactic Antibiotics: The patient does not require prophylactic antibiotics. Prior Anticoagulants: The patient has taken no anticoagulant or antiplatelet agents. ASA Grade Assessment: I - A normal, healthy patient. After reviewing the risks and benefits, the patient was deemed in satisfactory condition to undergo the procedure. The anesthesia plan was to use minimal sedation / analgesia (anxiolysis). Immediately prior to administration of medications, the patient was re-assessed for adequacy to receive sedatives. The heart rate, respiratory rate, oxygen saturations, blood pressure, adequacy of pulmonary ventilation, and response to care were monitored throughout the procedure. The physical status of the patient was re-assessed after the procedure. After I obtained informed consent, the scope was passed under direct vision. Throughout the procedure, the patient's blood pressure, pulse, and oxygen saturations were monitored continuously. The Colonoscope was introduced through the anus and advanced to the cecum, identified by appendiceal orifice and ileocecal valve. The colonoscopy was performed without difficulty. The patient tolerated the procedure well. The quality of the bowel preparation was excellent. The ileocecal valve and the appendiceal orifice were photographed. Findings: APR incision intact with no evidence of perineal hernia. There was evidence of a widely patent end colostomy in the descending colon. This was characterized by healthy appearing mucosa. The colon (entire examined portion) appeared normal. Impression: - Widely patent end colostomy with healthy appearing mucosa in the descending colon. - The entire examined colon is normal. - No specimens collected. Moderate Sedation: Moderate (conscious) sedation was administered by the nurse and supervised by the endoscopist. The following parameters were monitored: oxygen saturation, heart rate, blood pressure, and response to care. Total physician intraservice time was 37 minutes. Recommendation: (more content not included)... LAB, [facility] Radiology Study observation (narrative) [facility] CEAon 02-24-2024 Cea <2.0 Normal <=5.0 [facility] Comment on above: Result Comment: This test was performed on the [employer] IM Immunoassay platform which is a 2-step sandwich chemiluminescent immunoassay. It is important to note that assays using different manufacturers and/or methods may not be comparable. Performed By: #### C EA #### [facility] (DEFAULT) [address] [place] [address] Laboratory - Chemistry and C hemistry - challengeOrdered By: Zaheer Moran on 02-24-2024 Carcinoembryonic Ag [Mass/Vol] ng/mL NINF - 5.0 ng/mL [facility] Comment on above: This test was perfor med on the [employer] IM Immunoassay platform which is a 2-step sandwich chemiluminescent immunoassay. It is important to note that assays using different manufacturers and/or methods may not be comparable. No Panel InformationOrdered By: Zaheer Moran on 02-24-2024 Interpretation and review of laboratory results Normal [facility] - GOLDon 02-24-2024 CANCER CARE PROTOCOL Done Normal [facility] Comment on above: Performed By: #### L ABTCCPGOLD #### [facility] (DEFAULT) [address] [place] [address] Performed By: #### L ABTCCPLAV #### [facility] (DEFAULT) [address] [place] [address] CT ABDOMEN/PELVIS WITH CONTR Kevan 02-17-2024 CT ABDOMEN/PELVIS WITH CONTRAST EXAM: CT ABDOMEN/PELVIS WITH CONTRAST COMPARISON: 08/24/2023, 02/16/2023 CLINICAL INDICATIONS: Rectal cancer status post neoadjuvant chemoradiation followed by abdominoperineal resection with end colostomy on 06/09/2021. Surveillance. TECHNIQUE: CT scanning was performed through the abdomen and pelvis following the administration of intravenous contrast. PROTOCOL: Standard FINDINGS: LOWER THORAX: Please see dedicated chest CT scan of the same date for full description of the intrathoracic contents. LIVER: Diffuse hepatic steatosis. No focal hepatic lesions. The main portal vein is patent. BILIARY: Unremarkable. PANCREAS: Unremarkable. SPLEEN: Unremarkable. ADRENAL GLANDS: Unremarkable. KIDNEYS/URETERS: Unremarkable. PELVIC ORGANS/BLADDER: Mild pelvic floor laxity. Mild bladder and vaginal prolapse. The uterus, adnexa and bladder are otherwise grossly unremarkable. GI TRACT: Status post abdominoperineal resection. Mild presacral soft tissue thickening is similar to prior, likely treatment related. Stable left mid abdominal end colostomy. Normal appendix. The stomach is grossly unremarkable. No focal bowel wall thickening or bowel obstruction. PERITONEUM: No free air or free fluid. LYMPH NODES: No pathologically enlarged lymph nodes. VESSELS: Mild atherosclerosis. No abdominal aortic aneurysm. BONES AND SOFT TISSUES: Postsurgical changes in the anterior abdominal wall. No suspicious osseous lesions. Chronic right sacral insufficiency fracture again seen. Degenerative changes in the sacroiliac joints, stable. IMPRESSION: Stable exam status post abdominoperineal resection and left mid abdominal end colostomy, with no definite CT evidence for recurrent/metastatic disease in the abdomen/pelvis. Emilia Andre M.D. This report has been electronically signed and verified by the Radiologist whose name is printed above. This report contains privileged and confidential information and is intended solely for the use of the individual or entity to which it is addressed. If you are not the intended recipient of this report, you are hereby notified that any copying, distribution, dissemination or action taken in relation to the contents of this report is strictly prohibited and may be unlawful. If you have received this report in error, please notify the sender immediately at [phone] and permanently delete the original report and destroy any copies or printouts. Normal [facility] CT CHEST WITH CONTRASTon CT CHEST WITH CONTRAST EXAM: CT CHEST WI TH CONTRAST COMPARISON: August 24, 2023 CLINICAL INDICATIONS: Rectal cancer surveillance TECHNIQUE: IV contrast enhanced axial CT images of the chest 5 mm with 1 mm contiguous high-resolution, coronal MIP and sagittal MPR series. FINDINGS: No suspicious pulmonary nodule, mass, infiltrate or pleural effusion Minimal subsegmental atelectasis at the medial base of the right middle lobe No new thyroid nodule Patent airways No new adenopathy in the chest or axilla No new pericardial effusion No new aggressive osteolytic or blastic bony lesion Bones are mildly demineralized See separate CT abdomen/pelvis results from today IMPRESSION: 1. No evidence of new primary or metastatic neoplasia in the chest Ankur Grey M.D. This report has been electronically signed and verified by the Radiologist whose name is printed above. This report contains privileged and confidential information and is intended solely for the use of the individual or entity to which it is addressed. If you are not the intended recipient of this report, you are hereby notified that any copying, distribution, dissemination or action taken in relation to the contents of this report is strictly prohibited and may be unlawful. If you have received this report in error, please notify the sender immediately at [phone] and permanently delete the original report and destroy any copies or printouts. Normal [facility] CREAT/GFRon 02-15-2024 Creatinine [Mass/Vol] 0.64 mg/dL 0.50 - 1.20 mg/dL [facility] GFR/1.73 sq M.predicted CKD-EPI (S/P/Bld) [Vol rate/Area] - PINF [facility] Comment on above: Reported eGFR is bas ed on the CKD-EPI 2020 equation using creatinine, age, and sex. Interpretation and review of laboratory results Normal [facility] Test performed at ad dress of the patient encounter. [facility] Absolute lymphocyte countOrd ered By: Remus Floreskaty on 12-23-2023 Lymphocytes Auto (Unsp spec) [#/Vol] 0.80 10*3/uL 0.83-4.51 [facility] Automated lymphocyte count a s percentage of total leukocytesOrdered By: Remus Sandrakaty on 12-23-2023 Lymphocytes/100 WBC Auto (Unsp spec) 14.7 % 19-41 [facility] Basophil percentageOrdered B y: Remus Sandrakaty on 12-23-2023 Basophils/100 WBC (Bld) 0.9 % 0-1 [facility] Chloride [Moles/Vol] 111 mmol/L 98-107 [facility] Eosinophils/100 WBC (Bld) 1.1 % 0-5 [facility] Glucose [Mass/Vol] 107 mg/dL 74-106 [facility] Comment on above: Fasting Glucose resu lt from 100 to 125 mg/dL suggests IMPAIRED HOMEOSTASIS per A.D.A. criteria. Hemoglobin (Bld) [Mass/Vol] 12.6 g/dL 12.0-15.0 [facility] Monocytes/100 WBC (Bld) 7.3 % 0-10 [facility] Neutrophils (Bld) [#/Vol] 4.1 10*3/uL 2.0-7.7 [facility] Neutrophils/100 WBC (Bld) 75.3 % 47-70 [facility] Potassium [Moles/Vol] 4.0 mmol/L 3.5-5.1 [facility] Sodium [Moles/Vol] 141 mmol/L 136-145 [facility] WBC (Bld) [#/Vol] 5.5 10*3/uL 4.4-11.0 [facility] Determination of erythrocyte mean corpuscular volume (MCV)Ordered By: Rae Smith on 12-23-2023 MCV (RBC) [Entitic vol] 90.8 fL 81-99 [facility] Erythrocyte distribution wid th ratioOrdered By: [facility] Smith on 12-23-2023 Erythrocyte distribution width (RBC) [Ratio] 12.4 % 11.6-14.6 [facility] Erythrocyte distribution wid th standard deviationOrdered By: Rae Smith on 12-23-2023 Erythrocyte distribution width (RBC) [Entitic vol] 41.0 fL 35.1-43.9 [facility] Hematocrit Auto (Bld) [Volum e fraction]Ordered By: Rae Smith on 12-23-2023 Hematocrit (Bld) [Volume fraction] 37.7 % 37-47 [facility] Immature granulocytes/100 WB C Auto (Bld)Ordered By: [facility] Smith on 12-23-2023 Immature granulocytes/100 WBC (Bld) 0.700 % 0.0-0.9 [facility] Comment on above: IG% - Immature Granu locytes (promyelocytes, myelocytes and metamyelocytes) > 1% indicates that a LEFT SHIFT is Present. Laboratory - Chemistry and C hemistry - challengeOrdered By: Rae Smith on 12-23-2023 CO2 [Moles/Vol] 24.0 mmol/L 21.0-32.0 [facility] Urea nitrogen/Creatinine [Mass ratio] 19.2 mg/mg 10-20 [facility] Laboratory - Hematology and Cell countsOrdered By: Rae Smith on 12-23-2023 MCH (RBC) [Entitic mass] 30.4 pg 27.0-32.0 [facility] MCHC (RBC) [Mass/Vol] 33.4 g/dL 32-36 [facility] Nucleated RBC/100 WBC (Bld) [Ratio] 0 % 0-5 [facility] Platelet mean volume (Bld) [Entitic vol] 9.0 fL 6.2-12.0 [facility] Platelets (Bld) [#/Vol] 367 10*3/uL 150-450 [facility] No Panel InformationOrdered By: Rae Smith on 12-23-2023 Estimated Creatinine Clearance Calc 74.69 ml/min [facility] Estimated GFR (MDRD) Amer 79 mL/min >60 [facility] Comment on above: GFR Calc Estimated GFR (MDRD) Non-Af Amer 65 mL/min >60 [facility] Comment on above: Non- GFR Calc RBC Auto (Bld) [#/Vol]Ordere d By: Rae Smith on 12-23-2023 RBC (Bld) [#/Vol] 4.15 10*6/uL 4.2-5.4 [facility] Serum or plasma calcium mala urement (mass/volume)Ordered By: Rae Smith on 12-23-2023 Calcium [Mass/Vol] 8.9 mg/dL 8.5-10.1 [facility] Serum or plasma creatinine m easurement (mass/volume)Ordered By: Rae Smith on 12-23-2023 Creatinine [Mass/Vol] 0.94 mg/dL 0.55-1.02 [facility] Comment on above: The validity of the calculated GFR & GFRAA in patients over 70 years has not been determined. Clinical correlation is essential. Serum or plasma urea nitroge n measurement (mass/volume)Ordered By: Beaumont Luis on 12-23-2023 Urea nitrogen [Mass/Vol] 18 mg/dL 7-18 [facility] Thin prep Papanicolaou smear with manual screeningOrdered By: Rae Smith on 12-23-2023 Thin prep Papanicolaou smear with manual screening 6 5-15 [facility] Basophil percentageOrdered B y: Barney Brice on 12-18-2023 Chloride [Moles/Vol] 109 mmol/L 98-107 [facility] Glucose [Mass/Vol] 106 mg/dL 74-106 [facility] Comment on above: Fasting Glucose resu lt from 100 to 125 mg/dL suggests IMPAIRED HOMEOSTASIS per A.D.A. criteria. Potassium [Moles/Vol] 3.7 mmol/L 3.5-5.1 [facility] Sodium [Moles/Vol] 142 mmol/L 136-145 [facility] Laboratory - Chemistry and C hemistry - challengeOrdered By: Barney Brice on 12-18-2023 CO2 [Moles/Vol] 27.0 mmol/L 21.0-32.0 [facility] Urea nitrogen/Creatinine [Mass ratio] 15.2 mg/mg 10-20 [facility] No Panel InformationOrdered By: Barney Brice on 12-18-2023 Estimated GFR (MDRD) Amer 88 mL/min >60 [facility] Comment on above: GFR Calc Estimated GFR (MDRD) Non-Af Amer 73 mL/min >60 [facility] Comment on above: Non- GFR Calc Serum or plasma calcium mala urement (mass/volume)Ordered By: Barney Brice on 12-18-2023 Calcium [Mass/Vol] 8.9 mg/dL 8.5-10.1 [facility] Serum or plasma creatinine m easurement (mass/volume)Ordered By: Barney Brice on 12-18-2023 Creatinine [Mass/Vol] 0.86 mg/dL 0.55-1.02 [facility] Comment on above: The validity of the calculated GFR & GFRAA in patients over 70 years has not been determined. Clinical correlation is essential. Serum or plasma urea nitroge n measurement (mass/volume)Ordered By: Barney Brice on 12-18-2023 Urea nitrogen [Mass/Vol] 13 mg/dL 7-18 [facility] Serum or plasma uric acid me asurement (mass/volume)Ordered By: Barney Brice on 12-18-2023 Urate [Mass/Vol] 7.2 mg/dL 2.6-6.0 [facility] Comment on above: The drugs N-Acetylcy steine and Metamizole may falsely depress this assay. Thin prep Papanicolaou smear with manual screeningOrdered By: Barney Brice on 12-18-2023 Thin prep Papanicolaou smear with manual screening 6 5-15 [facility] Laboratory - Chemistry and C hemistry - challengeOrdered By: Jessie Mays on 08-26-2023 Carcinoembryonic Ag [Mass/Vol] ng/mL NINF - 5.0 ng/mL [facility] Comment on above: This test was perfor med on the [employer] Immunoassay platform which is a 2-step sandwich chemiluminescent immunoassay. It is important to note that assays using different manufacturers and/or methods may not be comparable. No Panel InformationOrdered By: Jessie Mays on 08-26-2023 Interpretation and review of laboratory results Normal [facility] CREAT/GFRon 08-24-2023 Creatinine [Mass/Vol] 0.81 mg/dL 0.50 - 1.20 mg/dL [facility] GFR/1.73 sq M.predicted CKD-EPI (S/P/Bld) [Vol rate/Area] 85 - PINF [facility] Comment on above: Reported eGFR is bas ed on the CKD-EPI 2020 equation using creatinine, age, and sex. Interpretation and review of laboratory results Normal [facility] Test performed at ad dress of the patient encounter. [facility] Basophil percentageOrdered B y: Dr. Brice on 04-22-2023 Chloride [Moles/Vol] 110 mmol/L 98-107 [facility] Glucose [Mass/Vol] 92 mg/dL 74-106 [facility] Potassium [Moles/Vol] 3.7 mmol/L 3.5-5.1 [facility] Sodium [Moles/Vol] 142 mmol/L 136-145 [facility] Laboratory - Chemistry and C hemistry - challengeOrdered By: Dr. Brice on 04-22-2023 CO2 [Moles/Vol] 26.0 mmol/L 21.0-32.0 [facility] Urea nitrogen/Creatinine [Mass ratio] 20.2 mg/mg 08-23 [facility] No Panel InformationOrdered By: Dr. Brice on 04-22-2023 Estimated GFR (MDRD) Amer 104 mL/min >60 [facility] Comment on above: GFR Calc Estimated GFR (MDRD) Non-Af Amer 86 mL/min >60 [facility] Comment on above: Non- GFR Calc Serum or plasma calcitriol m easurement (mass/volume)Ordered By: Dr. Brice on 04-22-2023 1,25-dihydroxyvitamin D3 [Mass/Vol] 57.7 pg/mL 24.8-81.5 [facility] Comment on above: Performed at: [address] [id number] Director: Red Cheney MD, Phone: [phone] Serum or plasma calcium mala urement (mass/volume)Ordered By: Dr. Brice on 04-22-2023 Calcium [Mass/Vol] 9.1 mg/dL 8.5-10.1 [facility] Serum or plasma creatinine m easurement (mass/volume)Ordered By: Dr. Brice on 04-22-2023 Creatinine [Mass/Vol] 0.74 mg/dL 0.55-1.02 [facility] Comment on above: The validity of the calculated GFR & GFRAA in patients over 70 years has not been determined. Clinical correlation is essential. Serum or plasma urea nitroge n measurement (mass/volume)Ordered By: Dr. Brice on 04-22-2023 Urea nitrogen [Mass/Vol] 15 mg/dL 05-21 [facility] Thin prep Papanicolaou smear with manual screeningOrdered By: Dr. Brice on 04-22-2023 Thin prep Papanicolaou smear with manual screening 6 03-18 [facility] MR Pelvis WO and W contrast Aleisha 04-01-2023 IMPRESSION: The abnormality in the right hemisacrum appears related to a healing insufficiency fracture, also demonstrating progressive sclerosis on prior CT scans from July 2022 to February 2023. No suspicious osseous lesion. OLOGY EXAM: MRI PELVIS MSK WITH AND WITHOUT CONTRAST, 04/01/2023 10:11 AM CLINICAL INDICATIONS: Suspected healing insufficiency fracture right sacrum - r/o bone mets; RELEVANT CLINICAL HISTORY: C20:Rectal cancer COMPARISON: CT abdomen and pelvis February 16, 2023 and July 12, 2022. Bone scan March 05, 2023. CONTRAST: gadoterate Meglumine (DOTAREM) 5 MMOL/10ML injection 3-60 mL; Route of Administration: Intravenous; Dose: 16 mL. TECHNIQUE: Multiplanar multisequence imaging of the pelvis was performed prior to and after the intravenous administration of Gadolinium contrast. FINDINGS: Soft Tissue: There is no obvious soft tissue swelling. No inguinal lymphadenopathy. Postsurgical changes in the pelvis related to prior abdominal perineal resection. No focal mass evident. Bone: Obliquely oriented linear signal abnormality in the right hemisacrum demonstrating diminished T1 and increased T2 signal. There is fairly minimal enhancement associated with this. This corresponds to the sclerotic appearing abnormalities seen on the recent CT scan. This was also present on the CT from July 12, 2022 though only faintly visualized at that time. There is an area which appears slightly more lobular, series 10 images 37-38, however this appears to be related to the obliquity. The imaging appearance and both the CT and MRI are otherwise consistent with a healing insufficiency fracture. There are no other osseous lesions evident. Joint: Osteoarthritic changes of the sacroiliac joints bilaterally. No evidence of joint effusion or synovitis. There are mild cystic changes associated with the sacroiliac joints bilaterally, more prevalent on the left than on the right. Both hips are anatomically aligned with osteoarthritic changes. RADIOLOGY Lucian Kenny MD - 04/01/2023 EXAM: MRI PELVIS MSK WITH AND WITHOUT CONTRAST, 04/01/2023 10:11 AM CLINICAL INDICATIONS: Suspected healing insufficiency fracture right sacrum - r/o bone mets; RELEVANT CLINICAL HISTORY: C20:Rectal cancer COMPARISON: CT abdomen and pelvis February 16, 2023 and July 12, 2022. Bone scan March 05, 2023. CONTRAST: gadoterate Meglumine (DOTAREM) 5 MMOL/10ML injection 3-60 mL; Route of Administration: Intravenous; Dose: 16 mL. TECHNIQUE: Multiplanar multisequence imaging of the pelvis was performed prior to and after the intravenous administration of Gadolinium contrast. FINDINGS: Soft Tissue: There is no obvious soft tissue swelling. No inguinal lymphadenopathy. Postsurgical changes in the pelvis related to prior abdominal perineal resection. No focal mass evident. Bone: Obliquely oriented linear signal abnormality in the right hemisacrum demonstrating diminished T1 and increased T2 signal. There is fairly minimal enhancement associated with this. This corresponds to the sclerotic appearing abnormalities seen on the recent CT scan. This was also present on the CT from July 12, 2022 though only faintly visualized at that time. There is an area which appears slightly more lobular, series 10 images 37-38, however this appears to be related to the obliquity. The imaging appearance and both the CT and MRI are otherwise consistent with a healing insufficiency fracture. There are no other osseous lesions evident. Joint: Osteoarthritic changes of the sacroiliac joints bilaterally. No evidence of joint effusion or synovitis. There are mild cystic changes associated with the sacroiliac joints bilaterally, more prevalent on the left than on the right. Both hips are anatomically aligned with osteoarthritic changes. IMPRESSION IMPRESSION: The abnormality in the right hemisacrum appears related to a healing insufficiency fracture, also demonstrating progressive sclerosis on prior CT scans from July 2022 to February 2023. No suspicious osseous lesion. [facility] Radiology Study observation (narrative) [facility] MR Pelvis WO and W contrast IVOrdered By: Lucian Kenny on 04-01-2023 [facility] Work Phone: NM (INTERPRETATION - OUTSIDE IMAGE)on 03-12-2023 IMPRESSION: Tracer uptake in the right sacroiliac joint, likely posttraumatic. Recommend correlation with cross-sectional imaging. Thank you for allowing Nuclear Medicine Oncology Imaging at [facility] to assist in the care of this patient. OLOGY EXAM: NM (INTERPRETA TION - OUTSIDE IMAGE), 03/11/2023 15:22 PM DATE- OUTSIDE STUDY PERFORMED: March 05, 2023 COMPARISON: No prior studies available for comparison. CLINICAL INDICATIONS: Reason for Exam:->Rule out or confirm metastatic disease at sacro-iliac joint C20:Rectal cancer M53.3:Sacral lesion DISCLAIMER: This is an interpretation of images obtained at an outside imaging facility. This report refers only to the anatomic area or body part in the study description, as requested. STUDY DESCRIPTION: Bone scan TECHNIQUE: Planar images of the whole-body and pelvis in multiple projections are available for interpretation. FINDINGS: Soft tissue tracer uptake representing the bilateral kidneys are noted. Heterogeneous tracer uptake in the thoracolumbar spine, likely degenerative in etiology. Focal tracer uptake in the region of the right sacroiliac joints. RADIOLOGY Ana Paula Garcia MD - 03/12/2023 EXAM: NM (INTERPRETATION - OUTSIDE IMAGE), 03/11/2023 15:22 PM DATE- OUTSIDE STUDY PERFORMED: March 05, 2023 COMPARISON: No prior studies available for comparison. CLINICAL INDICATIONS: Reason for Exam:->Rule out or confirm metastatic disease at sacro-iliac joint C20:Rectal cancer M53.3:Sacral lesion DISCLAIMER: This is an interpretation of images obtained at an outside imaging facility. This report refers only to the anatomic area or body part in the study description, as requested. STUDY DESCRIPTION: Bone scan TECHNIQUE: Planar images of the whole-body and pelvis in multiple projections are available for interpretation. FINDINGS: Soft tissue tracer uptake representing the bilateral kidneys are noted. Heterogeneous tracer uptake in the thoracolumbar spine, likely degenerative in etiology. Focal tracer uptake in the region of the right sacroiliac joints. IMPRESSION IMPRESSION: Tracer uptake in the right sacroiliac joint, likely posttraumatic. Recommend correlation with cross-sectional imaging. Thank you for allowing Nuclear Medicine Oncology Imaging at [facility] to assist in the care of this patient. [facility] NM (INTERPRETATION - OUTSIDE IMAGE)Ordered By: Derrell Garcia on 03-12-2023 [facility] Work Phone: NM (INTERPRETATION - OUTSIDE IMAGE)on 03-11-2023 Radiology Study observation (narrative) [facility] CREAT/GFRon 02-16-2023 Creatinine [Mass/Vol] 0.88 mg/dL 0.50 - 1.20 mg/dL [facility] GFR/1.73 sq M.predicted CKD-EPI (S/P/Bld) [Vol rate/Area] 77 - PINF [facility] Comment on above: Reported eGFR is bas ed on the CKD-EPI 2020 equation using creatinine, age, and sex. Interpretation and review of laboratory results Normal [facility] Test performed at ad dress of the patient encounter. [facility] No Panel InformationOrdered By: Lumiant on 12-25-2022 Hepatitis B Surface Antibody Reactive [facility] Comment on above: Non Reactive: Incons istent with immunity less than <10 mIU/mL Reactive: Consistent with immunity greater than or equal to 10 mIU/mL Rubella IgG Antibody Reactive Nonreactive [facility] Comment on above: Antibody Results Int erpretation of Immune Status Non Reactive Presumed Non-Immune Equivocal Equivocal Reactive Presumed Immune Serum measles virus IgG anti body assay (units/volume)Ordered By: [facility] Mungo on 12-25-2022 MeV IgG Qn (S) > 300.0 AU/mL Immune >16.4 [facility] Comment on above: Negative <13.5 Equiv ocal 13.5 - 16.4 Positive >16.4Presence of antibodies to Rubeola is presumptive evidenceof immunity except when acute infection is suspected.Performed at: [employer] [id number] Director: Kobi Hampton PhD, Phone: [phone] Serum mumps virus IgG antibo dy assay (units/volume)Ordered By: Lumiant on 12-25-2022 MuV IgG Qn (S) 96.8 AU/mL Immune >10.9 [facility] Comment on above: Negative <9.0 Equivo shelby 9.0 - 10.9 Positive >10.9A positive result generally indicates past exposure toMumps virus or previous vaccination. CEAOrdered By: Jessie younger on 11-26-2022 Carcinoembryonic Ag [Mass/Vol] ng/mL NINF - 5.0 ng/mL [facility] Comment on above: This test was perfor med on the [employer] IM Immunoassay platform which is a 2-step sandwich chemiluminescent immunoassay. It is important to note that assays using different manufacturers and/or methods may not be comparable. Interpretation and review of laboratory results Normal [facility] CMPN WITHOUT GLUCOSEon 11-26 Albumin [Mass/Vol] 4.3 g/dL 3.5 - 5.0 g/dL [facility] ALP [Catalytic activity/Vol] 62 U/L 32 - 126 U/L [facility] ALT [Catalytic activity/Vol] 18 U/L 9 - 48 U/L [facility] Anion gap [Moles/Vol] 9 mmol/L 7 - 17 mmol/L [facility] AST [Catalytic activity/Vol] 12 U/L 10 - 39 U/L [facility] Bilirubin [Mass/Vol] 0.8 mg/dL NINF - 1.5 mg/dL [facility] Calcium [Mass/Vol] 9.5 mg/dL 8.6 - 10. 5 mg/dL [facility] Chloride [Moles/Vol] 108 mmol/L 98 - 10 8 mmol/L [facility] CO2 [Moles/Vol] 27 mmol/L 21 - 31 mmol/L [facility] Creatinine [Mass/Vol] 0.73 mg/dL 0.50 - 1.20 mg/dL [facility] GFR/1.73 sq M.predicted CKD-EPI (S/P/Bld) [Vol rate/Area] - PINF [facility] Comment on above: Reported eGFR is bas ed on the CKD-EPI 2020 equation using creatinine, age, and sex. Interpretation and review of laboratory results Abnormal [facility] Potassium [Moles/Vol] 3.4 mmol/L Low 3.5 - 5.0 mmol/L [facility] Protein [Mass/Vol] 7.0 g/dL 6.4 - 8.3 g/dL [facility] Sodium [Moles/Vol] 141 mmol/L 135 - 145 mmol/L [facility] Urea nitrogen [Mass/Vol] 14 mg/dL 7 - 25 mg/dL [facility] Urea nitrogen/Creatinine [Mass ratio] 19 mg/mg [facility] CBC AND ELECTRONIC DIFFon Basophils (Bld) [#/Vol] 10*3/uL 0.00 - 0.15 K/uL [facility] Basophils/100 WBC (Bld) 0.8 % [facility] Differential cell count method Nom (Bld) Electronic Differential [facility] Eosinophils (Bld) [#/Vol] 0.09 10*3/uL 0.00 - 0.42 K/uL [facility] Eosinophils/100 WBC (Bld) 2.4 % [facility] Erythrocyte distribution width (RBC) [Ratio] 12.4 % 10.8 - 14.9 % [facility] Hematocrit (Bld) [Volume fraction] 36.7 % 34.9 - 44.3 % [facility] Hemoglobin (Bld) [Mass/Vol] 12.8 g/dL 11.4 - 15.2 g/dL [facility] Immature granulocytes (Bld) [#/Vol] 10*3/uL <=0.08 K/uL [facility] Immature granulocytes/100 WBC (Bld) 0.5 % [facility] Interpretation and review of laboratory results Abnormal [facility] Lymphocytes (Bld) [#/Vol] 0.74 10*3/uL Low 1.16 - 3.51 K/uL [facility] Lymphocytes/100 WBC (Bld) 19.8 % [facility] MCH (RBC) [Entitic mass] 31.8 pg 25.9 - 33.9 pg [facility] MCHC (RBC) [Mass/Vol] 34.9 g/dL 31.4 - 35.9 g/dL [facility] MCV (RBC) [Entitic vol] 91.1 fL 79.6 - 97.7 fL [facility] Monocytes (Bld) [#/Vol] 0.35 10*3/uL 0.22 - 0.87 K/uL [facility] Monocytes/100 WBC (Bld) 9.4 % [facility] Neutrophils (Bld) [#/Vol] 2.51 10*3/uL 1.64 - 7.28 K/uL [facility] Nucleated RBC/100 WBC (Bld) [Ratio] 0.0 % <=0.2 /100 WBC [facility] Platelet mean volume (Bld) [Entitic vol] 8.8 fL 8.5 - 12.2 fL [facility] Platelets (Bld) [#/Vol] 324 10*3/uL 150 - 393 K/uL [facility] RBC (Bld) [#/Vol] 4.03 10*6/uL [facility] Segmented neutrophils/100 WBC (Bld) 67.1 % [facility] WBC (Bld) [#/Vol] 3.74 10*3/uL Low 3.99 - 11. 19 K/uL [facility] CEAOrdered By: Morteza Maher on 07-12-2022 Carcinoembryonic Ag [Mass/Vol] ng/mL <=5.0 ng/mL [facility] Comment on above: This test was perfor med on the GetSet Immunoassay platform which is a 2-step sandwich chemiluminescent immunoassay. It is important to note that assays using different manufacturers and/or methods may not be comparable. Interpretation and review of laboratory results Normal [facility] CMPN WITHOUT GLUCOSEon 07-12 Albumin [Mass/Vol] 4.4 g/dL 3.5 - 5.0 g/dL [facility] ALP [Catalytic activity/Vol] 54 U/L 32 - 126 U/L [facility] ALT [Catalytic activity/Vol] 19 U/L 9 - 48 U/L [facility] Anion gap [Moles/Vol] 10 mmol/L 7 - 17 mmol/L [facility] AST [Catalytic activity/Vol] 14 U/L 10 - 39 U/L [facility] Bilirubin [Mass/Vol] 1.0 mg/dL <1.5 [facility] Calcium [Mass/Vol] 9.5 mg/dL 8.6 - 10. 5 mg/dL [facility] Chloride [Moles/Vol] 106 mmol/L 98 - 10 8 mmol/L [facility] CO2 [Moles/Vol] 28 mmol/L 21 - 31 mmol/L [facility] Creatinine [Mass/Vol] 0.74 mg/dL 0.50 - 1.20 mg/dL [facility] GFR/1.73 sq M.predicted CKD-EPI (S/P/Bld) [Vol rate/Area] >90 >=60 mL/min/1.73m 2 [facility] Comment on above: Reported eGFR is bas ed on the CKD-EPI 2020 equation using creatinine, age, and sex. Potassium [Moles/Vol] 3.8 mmol/L 3.5 - 5.0 mmol/L [facility] Protein [Mass/Vol] 7.2 g/dL 6.4 - 8.3 g/dL [facility] Sodium [Moles/Vol] 140 mmol/L 135 - 145 mmol/[facility] Urea nitrogen [Mass/Vol] 17 mg/dL 7 - 25 mg/[facility] Urea nitrogen/Creatinine [Mass ratio] 23 mg/mg [facility] Chest W contrast Aleisha IMPRESSION: Stable exam with no evidence of intrathoracic metastasis. I personally viewed and interpreted these images and I have reviewed and approved this report. OLOGY EXAM: CT CHEST WITH CONTRAST, 07/12/2022 14:35 PM COMPARISON: CT chest dated April 12, 2022. CLINICAL INDICATIONS: restaging rectal cancer; RELEVANT CLINICAL HISTORY: C20:Rectal cancer TECHNIQUE: CT images of the chest were obtained following administration of intravenous contrast. CONTRAST: barium sulfate (READI-CAT) 2 % oral susp 900 mL; Route of Administration: Oral; Dose: 900 mL. iohexol (OMNIPAQUE) 350 MG/ML injection 1-171 mL; Route of Administration: Intravenous; Dose: 90 mL. FINDINGS: Lungs and Pleura: The lungs are clear. No suspicious pulmonary nodule. No consolidation. No pleural fluid. Tracheobronchial tree: No abnormality. Mediastinum/Sultana: No mediastinal or hilar lymphadenopathy. Axilla and Supraclavicular Region: No axillary or supraclavicular adenopathy. Cardiovascular: The cardiac chambers and pericardium are within normal limits. The aorta and arch branch vessels, as well as the pulmonary arteries, are unremarkable. Upper Abdomen: Please see the abdominal CT from the same day for a full evaluation of the abdomen. Bones and Soft Tissue: No suspicious osseous lesion. RADIOLOGY Dalton Gill MD - 07/12/2022 EXAM: CT CHEST WITH CONTRAST, 07/12/2022 14:35 PM COMPARISON: CT chest dated April 12, 2022. CLINICAL INDICATIONS: restaging rectal cancer; RELEVANT CLINICAL HISTORY: C20:Rectal cancer TECHNIQUE: CT images of the chest were obtained following administration of intravenous contrast. CONTRAST: barium sulfate (READI-CAT) 2 % oral susp 900 mL; Route of Administration: Oral; Dose: 900 mL. iohexol (OMNIPAQUE) 350 MG/ML injection 1-171 mL; Route of Administration: Intravenous; Dose: 90 mL. FINDINGS: Lungs and Pleura: The lungs are clear. No suspicious pulmonary nodule. No consolidation. No pleural fluid. Tracheobronchial tree: No abnormality. Mediastinum/Sultana: No mediastinal or hilar lymphadenopathy. Axilla and Supraclavicular Region: No axillary or supraclavicular adenopathy. Cardiovascular: The cardiac chambers and pericardium are within normal limits. The aorta and arch branch vessels, as well as the pulmonary arteries, are unremarkable. Upper Abdomen: Please see the abdominal CT from the same day for a full evaluation of the abdomen. Bones and Soft Tissue: No suspicious osseous lesion. IMPRESSION IMPRESSION: Stable exam with no evidence of intrathoracic metastasis. I personally viewed and interpreted these images and I have reviewed and approved this report. [facility] Radiology Study observation (narrative) [facility] Chest W contrast IVOrdere d By: Dalton Gill on 07-12-2022 [facility] Work Phone: DIAGNOSTIC COLONOSCOPYon [facility] Gastroenterology Patient Name: Laila Olvera Procedure Date: 06/25/2022 10:00 AM Date of : 1965 Admit Type: Outpatient Age: 56 Room: [facility] room 3 Gender: Female Note Status: Finalized Attending MD: Liliana Andrews MD Procedure: Colonoscopy Attending Participation: I personally performed the entire procedure. Indications: High risk colon cancer surveillance: Personal history of rectal cancer Providers: Liliana Andrews MD, Gin Greene (Nurse), Emma Morel, Wire Stripping Machine Operator Referring MD: Liliaan Andrews MD Complications: No immediate complications. Estimated blood loss: None. Medicines: Fentanyl 100 micrograms IV, Midazolam 4 mg IV Requesting Provider: Procedure: Pre-Anesthesia Assessment: - Prior to the procedure, a History and Physical was performed, and patient medications and allergies were reviewed. The patient is competent. The risks and benefits of the procedure and the sedation options and risks were discussed with the patient. All questions were answered and informed consent was obtained. Patient identification and proposed procedure were verified by the physician, the nurse and the process environmental technician in the procedure room at 10:01 AM. Mental Status Examination: normal. Airway Examination: normal oropharyngeal airway and neck mobility and Mallampati Class II (the uvula but not tonsillar pillars visualized). Respiratory Examination: clear to auscultation. CV Examination: normal, Abdominal Examination: +BS, soft, non-tender, no masses and Colostomy. Prophylactic Antibiotics: The patient does not require prophylactic antibiotics. Prior Anticoagulants: The patient has taken no anticoagulant or antiplatelet agents. ASA Grade Assessment: II - A patient with mild systemic disease. After reviewing the risks and benefits, the patient was deemed in satisfactory condition to undergo the procedure. The anesthesia plan was to use moderate sedation / analgesia (conscious sedation). Immediately prior to administration of medications, the patient was re-assessed for adequacy to receive sedatives. The heart rate, respiratory rate, oxygen saturations, blood pressure, adequacy of pulmonary ventilation, and response to care were monitored throughout the procedure. The physical status of the patient was re-assessed after the procedure. After I obtained informed consent, the scope was passed under direct vision. Throughout the procedure, the patient's blood pressure, pulse, and oxygen saturations were monitored continuously. The Colonoscope was introduced through the descending colostomy and advanced to the cecum, identified by the appendiceal orifice, ileocecal valve and palpation. The colonoscopy was performed with ease. The patient tolerated the procedure well. The quality of the bowel preparation was excellent. The ileocecal valve and the appendiceal orifice were photographed. Findings: APR incision intact with no evidence of perineal hernia. The colon (entire examined portion) appeared normal. Impression: - The entire examined colon is normal. - No specimens collected. Moderate Sedation: Moderate (conscious) sedation was administered by the endoscopy nurse and supervised by the endoscopist. The following parameters were monitored: oxygen saturation, heart rate, blood pressure, and response to care. Total physician intraservice time was 27 minutes. Recommendation: - Patient has a contact number available for emergencies. The signs and symptoms of potential delayed complications were discussed with the patient. Return to normal activities tomorrow. (more content not included)... LAB, [facility] Radiology Study observation (narrative) [facility] CBC AND ELECTRONIC DIFFon Basophils (Bld) [#/Vol] 10*3/uL 0.00 - 0.15 K/uL [facility] Basophils/100 WBC (Bld) 0.9 % [facility] Differential cell count method Nom (Bld) Electronic Differential [facility] Eosinophils (Bld) [#/Vol] 0.07 10*3/uL 0.00 - 0.42 K/uL [facility] Eosinophils/100 WBC (Bld) 3.0 % [facility] Erythrocyte distribution width (RBC) [Ratio] 12.7 % 10.8 - 14.9 % [facility] Hematocrit (Bld) [Volume fraction] 35.3 % 34.9 - 44.3 % [facility] Hemoglobin (Bld) [Mass/Vol] 12.2 g/dL 11.4 - 15.2 g/dL [facility] Immature granulocytes (Bld) [#/Vol] 10*3/uL <=0.09 K/uL [facility] Immature granulocytes/100 WBC (Bld) 0.0 % [facility] Interpretation and review of laboratory results Abnormal [facility] Lymphocytes (Bld) [#/Vol] 0.50 10*3/uL Low 1.16 - 3.51 K/uL [facility] Lymphocytes/100 WBC (Bld) 21.5 % [facility] MCH (RBC) [Entitic mass] 31.6 pg 25.9 - 33.9 pg [facility] MCHC (RBC) [Mass/Vol] 34.6 g/dL 31.4 - 35.9 g/dL [facility] MCV (RBC) [Entitic vol] 91.5 fL 79.6 - 97.7 fL [facility] Monocytes (Bld) [#/Vol] 0.21 10*3/uL Low 0.22 - 0.87 K/uL [facility] Monocytes/100 WBC (Bld) 9.0 % [facility] Neutrophils (Bld) [#/Vol] 1.53 10*3/uL Low 1.64 - 7.28 K/uL [facility] Nucleated RBC/100 WBC (Bld) [Ratio] 0.0 % <=0.2 /100 WBC [facility] Platelet mean volume (Bld) [Entitic vol] 8.8 fL 8.5 - 12.2 fL [facility] Platelets (Bld) [#/Vol] 228 10*3/uL 150 - 393 K/uL [facility] RBC (Bld) [#/Vol] 3.86 10*6/uL Low [facility] Segmented neutrophils/100 WBC (Bld) 65.6 % [facility] WBC (Bld) [#/Vol] 2.33 10*3/uL Low 3.99 - 11. 19 K/uL [facility] Laboratory - Chemistry and C hemistry - challengeOrdered By: Miguel Strange on 04-20-2022 Carcinoembryonic Ag [Mass/Vol] ng/mL <=5.0 ng/mL [facility] Comment on above: This test was perfor med on the GetSet Immunoassay platform which is a 2-step sandwich chemiluminescent immunoassay. It is important to note that assays using different manufacturers and/or methods may not be comparable. Laboratory - Chemistry and C hemistry - challengeon 04-20-2022 Albumin [Mass/Vol] 4.2 g/dL 3.5 - 5.0 g/dL [facility] ALP [Catalytic activity/Vol] 47 U/L 32 - 126 U/L [facility] ALT [Catalytic activity/Vol] 17 U/L 9 - 48 U/L [facility] Anion gap [Moles/Vol] 10 mmol/L 7 - 17 mmol/L [facility] AST [Catalytic activity/Vol] 13 U/L 10 - 39 U/L [facility] Bilirubin [Mass/Vol] 1.0 mg/dL <1.5 [facility] Calcium [Mass/Vol] 9.1 mg/dL 8.6 - 10. 5 mg/dL [facility] Chloride [Moles/Vol] 108 mmol/L 98 - 10 8 mmol/L [facility] CO2 [Moles/Vol] 26 mmol/L 21 - 31 mmol/L [facility] Creatinine [Mass/Vol] 0.74 mg/dL 0.50 - 1.20 mg/dL [facility] GFR/1.73 sq M.predicted CKD-EPI (S/P/Bld) [Vol rate/Area] >90 >=60 mL/min/1.73m 2 [facility] Comment on above: Reported eGFR is bas ed on the CKD-EPI 2020 equation using creatinine, age, and sex. Potassium [Moles/Vol] 3.9 mmol/L 3.5 - 5.0 mmol/L [facility] Protein [Mass/Vol] 6.9 g/dL 6.4 - 8.3 g/dL [facility] Sodium [Moles/Vol] 140 mmol/L 135 - 145 mmol/L [facility] Urea nitrogen [Mass/Vol] 16 mg/dL 7 - 25 mg/dL [facility] Urea nitrogen/Creatinine [Mass ratio] 22 mg/mg [facility] No Panel InformationOrdered By: Miguel Strange on 04-20-2022 Interpretation and review of laboratory results Normal [facility] No Panel Informationon 04-20 [facility] COVID-19, MOLECULARon 2020 SARS-CoV-2 (COVID-19) RNA FITZ+probe Ql (Unsp spec) Not detected Normal Not Detected [facility] Comment on above: Result Comment: This test was performed under the FDA's Emergency Use Authorization (EUA). Testing was performed using the Shayla SARS-CoV-2 RT-PCR assay on the Steven Shayla 6800 System. This test has not been approved for use in asymptomatic patients and its performance in this patient population has not been evaluated. Negative results do not rule out the presence of SARS-CoV-2/COVID-19. Fact sheets for this EUA can be found at the following links: For Healthcare Providers: https://www.Udex.gov/media/325018/download For Patients: https://www.fda.gov/media/134476/download Performed By: #### L [id number] #### [facility] [address] [place] [address] Zachary Clarke M.D. [id number] Vital Signs Date Time Vital Sign Value Performing Clinician Facility 03-02-2025 10:15-0400 Body height 170.[address] Barney Brice MD Work Phone: 5(759)[phone] [place] [address] 03-02-2025 10:15-0400 Body mass index (BMI) [Ratio] 30.7 kg/m2 Dr. Barnye Brice MD Work Phone: 1(644)[phone] [place] [address] 03-02-2025 10:15-0400 Body weight 88.[address] Barney Brice MD Work Phone: 6(871)[phone] [place] [address] 03-02-2025 10:15-0400 Diastolic blood pressure 73 mm[Hg] Dr. Barney Brice MD Work Phone: 1(113)[phone] [place] [address] 03-02-2025 10:15-0400 Heart rate 72 /min Dr. Barney Brice MD Work Phone: [facility] 03-02-2025 10:15-0400 Respiratory rate 16 /min Dr. Barney Brice MD Work Phone: [facility] 03-02-2025 10:15-0400 SaO2% (BldA) [Mass fraction] 98 % Dr. Barney Brice MD Work Phone: [facility] 03-02-2025 10:15-0400 Systolic blood pressure 119 mm[Hg] Dr. Barney Brice MD Work Phone: [facility] 12-15-2024 11:20-0500 Body height 170.[address] Barney Brice MD Work Phone: [facility] 12-15-2024 11:20-0500 Body mass index (BMI) [Ratio] 30.7 kg/m2 Dr. Barney Brice MD Work Phone: [facility] 12-15-2024 11:20-0500 Body weight 88.[address] Barney Brice MD Work Phone: [facility] 12-15-2024 11:20-0500 Diastolic blood pressure 89 mm[Hg] Dr. Barney Brice MD Work Phone: [facility] 12-15-2024 11:20-0500 Heart rate 77 /min Dr. Barney Brice MD Work Phone: [facility] 12-15-2024 11:20-0500 Respiratory rate 18 /min Dr. Barney Brice MD Work Phone: [facility] 12-15-2024 11:20-0500 Systolic blood pressure 137 mm[Hg] Dr. Barney Birce MD Work Phone: [facility] 08-24-2024 10:04-0400 Body height 169.6 cm Stoney RAM Work Phone: [facility] Comment on above: Measured today w/o shoes 08-24-2024 10:04-0400 Body mass index (BMI) [Ratio] 31.14 kg/m2 Stoney RAM Work Phone: [facility] 08-24-2024 10:04-0400 Body temperature 97.2 [degF] Stoney RAM Work Phone: [facility] 08-24-2024 10:04-0400 Body weight 89.58 kg Stoney RAM Work Phone: [facility] Comment on above: w/o shoes 08-24-2024 10:04-0400 Diastolic blood pressure 69 mm[Hg] Stoney RAM Work Phone: [facility] 08-24-2024 10:04-0400 Heart rate 70 /min Stoney CADENABS Work Phone: [facility] 08-24-2024 10:04-0400 Respiratory rate 18 /min Stoney CADENABS Work Phone: [facility] 08-24-2024 10:04-0400 SaO2% (BldA) [Mass fraction] 98 % Stoneyponce CADENABS Work Phone: [facility] Comment on above: On room air 08-24-2024 10:04-0400 Systolic blood pressure 147 mm[Hg] Stoney RAM Work Phone: [facility] 06-05-2024 09:50-0400 Diastolic blood pressure 79 mm[Hg] Liliana Andrews MD Work Phone: [facility] 06-05-2024 09:50-0400 Heart rate 80 /min Liliana Andrews MD Work Phone: [facility] 06-05-2024 09:50-0400 Respiratory rate 21 /min Liliana Andrews MD Work Phone: [facility] 06-05-2024 09:50-0400 SaO2% (BldA) [Mass fraction] 98 % Liliana Andrews MD Work Phone: [facility] 06-05-2024 09:50-0400 Systolic blood pressure 143 mm[Hg] Liliana Andrews MD Work Phone: [facility] 06-05-2024 08:34-0400 Body height 167.6 cm Liliana Andrews MD Work Phone: [facility] 05-15-2024 14:24-0400 Body mass index (BMI) [Ratio] 30.19 kg/m2 Gardenia Alfredo PLACEMENT ASSISTANT-EAR MACHINE OPERATOR Work Phone: [facility] 05-15-2024 14:24-0400 Body temperature 97.81 [degF] Gardenia Chapins PLACEMENT ASSISTANT-EAR MACHINE OPERATOR Work Phone: [facility] 05-15-2024 14:24-0400 Body weight 86.55 kg Gardenia Chapins PLACEMENT ASSISTANT-EAR MACHINE OPERATOR Work Phone: [facility] 05-15-2024 14:24-0400 Diastolic blood pressure 68 mm[Hg] Gardenia Chapins PLACEMENT ASSISTANT-EAR MACHINE OPERATOR Work Phone: [facility] 05-15-2024 14:24-0400 Heart rate 92 /min Gardenia Chapins PLACEMENT ASSISTANT-EAR MACHINE OPERATOR Work Phone: [facility] 05-15-2024 14:24-0400 Respiratory rate 16 /min Gardenia Chapins PLACEMENT ASSISTANT-EAR MACHINE OPERATOR Work Phone: [facility] 05-15-2024 14:24-0400 SaO2% (BldA) [Mass fraction] 95 % Gardenia Chapins PLACEMENT ASSISTANT-EAR MACHINE OPERATOR Work Phone: [facility] 05-15-2024 14:24-0400 Systolic blood pressure 131 mm[Hg] Gardenia Chapins PLACEMENT ASSISTANT-EAR MACHINE OPERATOR Work Phone: [facility] 02-24-2024 10:17-0400 Body height 169.3 cm YO Arriaza MD Work Phone: [facility] Comment on above: without shoes 02-24-2024 10:17-0400 Body mass index (BMI) [Ratio] 30.23 kg/m2 YO Arriaza MD Work Phone: [facility] 02-24-2024 10:17-0400 Body temperature 97.39 [degF] YO Arriaza MD Work Phone: [facility] 02-24-2024 10:17-0400 Body weight 86.64 kg YO Arriaza MD Work Phone: [facility] Comment on above: without shoes 02-24-2024 10:17-0400 Diastolic blood pressure 57 mm[Hg] YO Arriaza MD Work Phone: [facility] 02-24-2024 10:17-0400 Heart rate 64 /min YO Arriaza MD Work Phone: [facility] 02-24-2024 10:17-0400 Respiratory rate 12 /min YO Arriaza MD Work Phone: [facility] 02-24-2024 10:17-0400 SaO2% (BldA) [Mass fraction] 96 % YO Arriaza MD Work Phone: [facility] Comment on above: room air 02-24-2024 10:17-0400 Systolic blood pressure 123 mm[Hg] YO Arriaza MD Work Phone: [facility] 02-15-2024 10:20-0400 Body height 170.2 cm Nikole Taj PLACEMENT ASSISTANT-EAR MACHINE OPERATOR Work Phone: [facility] 02-15-2024 10:20-0400 Diastolic blood pressure 82 mm[Hg] Nikoleakin Vang PLACEMENT ASSISTANT-EAR MACHINE OPERATOR Work Phone: [facility] 02-15-2024 10:20-0400 Heart rate 74 /min [facility] Taj PLACEMENT ASSISTANT-EAR MACHINE OPERATOR Work Phone: [facility] 02-15-2024 10:20-0400 Systolic blood pressure 151 mm[Hg] Nikoleakin Vang PLACEMENT ASSISTANT-EAR MACHINE OPERATOR Work Phone: [facility] 12-23-2023 10:52-0500 Body temperature 97.8 [degF] Dr. Barney Brice Work Phone: [facility] 12-23-2023 10:52-0500 Diastolic blood pressure 74 mm[Hg] Dr. Barney Brice Work Phone: [facility] 12-23-2023 10:52-0500 Heart rate 77 /min Dr. Barney Brice Work Phone: [facility] 12-23-2023 10:52-0500 Respiratory rate 14 /min Dr. Barney Brice Work Phone: [facility] 12-23-2023 10:52-0500 SaO2% (BldA) [Mass fraction] 99 % Dr. Barney Brice Work Phone: 6(497)969-107939 [place] [address] 12-23-2023 10:52-0500 Systolic blood pressure 126 mm[Hg] Dr. Barney Brice Work Phone: 6(828)907-215214 [address] 12-23-2023 07:43-0500 Body height 170.[address] Barney Brice Work Phone: [facility] 12-23-2023 07:43-0500 Body mass index (BMI) [Ratio] 29.9 kg/m2 Dr. Barney Brice Work Phone: 4(908)366-828514 [address] 12-23-2023 07:43-0500 Body weight 86.[address] Barney Brice Work Phone: [facility] 10-23-2023 08:41-0500 Body temperature 97.8 [degF] Dr. Barney Brice Work Phone: [facility] 10-23-2023 08:41-0500 Diastolic blood pressure 82 mm[Hg] Dr. Barney Brice Work Phone: [facility] 10-23-2023 08:41-0500 Heart rate 74 /min Dr. Barney Brice Work Phone: [facility] 10-23-2023 08:41-0500 Respiratory rate 16 /min Dr. Barney Brice Work Phone: [facility] 10-23-2023 08:41-0500 SaO2% (BldA) [Mass fraction] 98 % Dr. Barney Brice Work Phone: [facility] 10-23-2023 08:41-0500 Systolic blood pressure 130 mm[Hg] Dr. Barney Brice Work Phone: [facility] 10-08-2023 07:21-0500 Body mass index (BMI) [Ratio] 29 kg/m2 Dr. Barney Brice Work Phone: [facility] 10-08-2023 07:21-0500 Body temperature 98.5 [degF] Dr. Barney Brice Work Phone: [facility] 10-08-2023 07:21-0500 Body weight 83.[address] Barney Brice Work Phone: [facility] 10-08-2023 07:21-0500 Diastolic blood pressure 82 mm[Hg] Dr. Barney Brice Work Phone: [facility] 10-08-2023 07:21-0500 Heart rate 79 /min Dr. Barney Brice Work Phone: [facility] 10-08-2023 07:21-0500 Respiratory rate 14 /min Dr. Barney Brice Work Phone: [facility] 10-08-2023 07:21-0500 SaO2% (BldA) [Mass fraction] 96 % Dr. Barney Brice Work Phone: [facility] 10-08-2023 07:21-0500 Systolic blood pressure 152 mm[Hg] Dr. Barney Brice Work Phone: [facility] 08-26-2023 13:35-0400 Body height 168.5 cm Stoney RAM Work Phone: [facility] 08-26-2023 13:35-0400 Body mass index (BMI) [Ratio] 30.64 kg/m2 Stoney RAM Work Phone: [facility] 08-26-2023 13:35-0400 Body temperature 97.59 [degF] Stoney Bluee MBBS Work Phone: [facility] 08-26-2023 13:35-0400 Body weight 87 kg Stoney Bluee MBBS Work Phone: [facility] 08-26-2023 13:35-0400 Diastolic blood pressure 91 mm[Hg] Stoney Bluee MBBS Work Phone: [facility] 08-26-2023 13:35-0400 Heart rate 83 /min Stoney Bluee MBBS Work Phone: [facility] 08-26-2023 13:35-0400 Respiratory rate 16 /min Stoney Bluee MBBS Work Phone: [facility] 08-26-2023 13:35-0400 SaO2% (BldA) [Mass fraction] 98 % Stoney Bluee MBBS Work Phone: [facility] 08-26-2023 13:35-0400 Systolic blood pressure 148 mm[Hg] Stoney Bluee MBBS Work Phone: [facility] 08-24-2023 12:13-0400 Body height 170.2 cm Stoney Bluee MBBS Work Phone: [facility] 08-24-2023 12:13-0400 Body mass index (BMI) [Ratio] 29.29 kg/m2 Stoney Bluee MBBS Work Phone: [facility] 08-24-2023 12:13-0400 Body weight 84.82 kg Stoney Bluee MBBS Work Phone: [facility] 08-24-2023 12:13-0400 Diastolic blood pressure 82 mm[Hg] Stoneyponce Bluee MBBS Work Phone: [facility] 08-24-2023 12:13-0400 Heart rate 73 /min Stoney RAM Work Phone: [facility] 08-24-2023 12:13-0400 Systolic blood pressure 148 mm[Hg] Stoney RAM Work Phone: [facility] 05-31-2023 14:21-0400 Body mass index (BMI) [Ratio] 29.75 kg/m2 Delores Allison MD, PhD Work Phone: [facility] 05-31-2023 14:21-0400 Body temperature 97.9 [degF] Delores Allison MD, PhD Work Phone: [facility] 05-31-2023 14:21-0400 Body weight 84.96 kg Delores Allison MD, PhD Work Phone: [facility] 05-31-2023 14:21-0400 Diastolic blood pressure 65 mm[Hg] Delores Allison MD, PhD Work Phone: [facility] 05-31-2023 14:21-0400 Heart rate 88 /min Delores Allison MD, PhD Work Phone: [facility] 05-31-2023 14:21-0400 Respiratory rate 16 /min Delores Allison MD, PhD Work Phone: [facility] 05-31-2023 14:21-0400 SaO2% (BldA) [Mass fraction] 96 % Delores Allison MD, PhD Work Phone: [facility] 05-31-2023 14:21-0400 Systolic blood pressure 137 mm[Hg] Delores Allison MD, PhD Work Phone: [facility] 04-24-2023 08:28-0400 Body height 170.[address] Barney Brice Work Phone: [facility] 04-24-2023 08:28-0400 Body mass index (BMI) [Ratio] 28.8 kg/m2 Dr. Barney Brice Work Phone: [facility] 04-24-2023 08:28-0400 Body weight 83.[address] Barney Brice Work Phone: [facility] 02-16-2023 12:03-0400 Body height 170.2 cm Nikole Vang PLACEMENT ASSISTANT-EAR MACHINE OPERATOR Work Phone: [facility] 02-16-2023 12:03-0400 Body mass index (BMI) [Ratio] 28.19 kg/m2 Nikole Vang PLACEMENT ASSISTANT-EAR MACHINE OPERATOR Work Phone: [facility] 02-16-2023 12:03-0400 Body weight 81.65 kg Nikole Vang PLACEMENT ASSISTANT-EAR MACHINE OPERATOR Work Phone: [facility] 02-16-2023 12:03-0400 Diastolic blood pressure 79 mm[Hg] Nikole Vang PLACEMENT ASSISTANT-EAR MACHINE OPERATOR Work Phone: [facility] 02-16-2023 12:03-0400 Heart rate 74 /min Nikole Vang PLACEMENT ASSISTANT-EAR MACHINE OPERATOR Work Phone: [facility] 02-16-2023 12:03-0400 Systolic blood pressure 148 mm[Hg] [facility] Taj PLACEMENT ASSISTANT-EAR MACHINE OPERATOR Work Phone: [facility] 11-26-2022 13:28-0500 Body height 169 cm Nikoleakin Vang PLACEMENT ASSISTANT-EAR MACHINE OPERATOR Work Phone: [facility] Comment on above: without shoes 11-26-2022 13:28-0500 Body mass index (BMI) [Ratio] 28.46 kg/m2 Nikole Vang PLACEMENT ASSISTANT-EAR MACHINE OPERATOR Work Phone: [facility] 11-26-2022 13:28-0500 Body temperature 98.1 [degF] Nikole Vang PLACEMENT ASSISTANT-EAR MACHINE OPERATOR Work Phone: [facility] 11-26-2022 13:28-0500 Body weight 81.28 kg Nikoleakin Vang PLACEMENT ASSISTANT-EAR MACHINE OPERATOR Work Phone: [facility] Comment on above: without shoes 11-26-2022 13:28-0500 Diastolic blood pressure 69 mm[Hg] Nikole Vang PLACEMENT ASSISTANT-EAR MACHINE OPERATOR Work Phone: [facility] 11-26-2022 13:28-0500 Heart [facility] 71 [facility] ASSIST[facility]-EAR MACHINE OPERATOR Work Phone: [facility] 11-26-2022 13:28-0500 Respiratory rate 14 /min Nikole Vang PLACEMENT ASSISTANT-EAR MACHINE OPERATOR Work Phone: [facility] 11-26-2022 13:28-0500 SaO2% (BldA) [Mass fraction] 96 % [facility] PLACEMENT ASSISTANT-EAR MACHINE OPERATOR Work Phone: [facility] Comment on above: room air 11-26-2022 13:28-0500 Systolic blood pressure 144 mm[Hg] Nikole Vang PLACEMENT ASSISTANT-EAR MACHINE OPERATOR Work Phone: [facility] 06-25-2022 11:00-0400 Diastolic blood pressure 64 mm[Hg] Liliana Andrews MD Work Phone: [facility] 06-25-2022 11:00-0400 Heart rate 61 /min Liliana Andrews MD Work Phone: [facility] 06-25-2022 11:00-0400 Respiratory rate 14 /min Liliana Andrews MD Work Phone: [facility] 06-25-2022 11:00-0400 SaO2% (BldA) [Mass fraction] 98 % Liliana Andrews MD Work Phone: [facility] 06-25-2022 11:00-0400 Systolic blood pressure 119 mm[Hg] Liliana Andrews MD Work Phone: [facility] 06-25-2022 08:56-0400 Body height 170.2 cm Liliana Andrews MD Work Phone: [facility] 04-20-2022 09:54-0400 Body height 169.3 cm Stoney RAM Work Phone: [facility] Comment on above: w/o shoes 04-20-2022 09:54-0400 Body mass index (BMI) [Ratio] 27.73 kg/m2 Stoney RAM Work Phone: [facility] 04-20-2022 09:54-0400 Body temperature 98.4 [degF] Stoney RAM Work Phone: [facility] 04-20-2022 09:54-0400 Body weight 79.47 kg Stoney RAM Work Phone: [facility] Comment on above: w/o shoes 04-20-2022 09:54-0400 Diastolic blood pressure 70 mm[Hg] Stoney Bluee TAMMIBS Work Phone: [facility] 04-20-2022 09:54-0400 Heart rate 70 /min Stoney CADENABS Work Phone: [facility] 04-20-2022 09:54-0400 Respiratory rate 16 /min Stoney Bluee TAMMIBS Work Phone: [facility] 04-20-2022 09:54-0400 SaO2% (BldA) [Mass fraction] 98 % Stoney CADENABS Work Phone: [facility] Comment on above: On room air 04-20-2022 09:54-0400 Systolic blood pressure 128 mm[Hg] Stoney CADENABS Work Phone: [facility] 06-27-2021 17:03-0400 Body height 170.2 cm Liliana Andrews MD Work Phone: [facility] 06-27-2021 17:03-0400 Body mass index (BMI) [Ratio] 24.43 kg/m2 Liliana Andrews MD Work Phone: [facility] 06-27-2021 17:03-0400 Body weight 70.76 kg Liliana Andrews MD Work Phone: [facility] 06-27-2021 17:03-0400 Diastolic blood pressure 92 mm[Hg] Liliana Andrews MD Work Phone: [facility] 06-27-2021 17:03-0400 Heart rate 88 /min Liliana Andrews MD Work Phone: [facility] 06-27-2021 17:03-0400 Systolic blood pressure 173 mm[Hg] Liliana Andrews MD Work Phone: [facility] 06-22-2021 10:05-0400 Body height 170.2 cm Galilea Gilmore PLACEMENT ASSISTANT-EAR MACHINE OPERATOR Work Phone: [facility] 06-22-2021 10:05-0400 Body mass index (BMI) [Ratio] 24.9 kg/m2 Galilea Gilmore PLACEMENT ASSISTANT-EAR MACHINE OPERATOR Work Phone: [facility] 06-22-2021 10:05-0400 Body temperature 97.3 [degF] Galilea Gilmore PLACEMENT ASSISTANT-EAR MACHINE OPERATOR Work Phone: [facility] 06-22-2021 10:05-0400 Body weight 72.12 kg Galilea Gilmore PLACEMENT ASSISTANT-EAR MACHINE OPERATOR Work Phone: [facility] 06-22-2021 10:05-0400 Diastolic blood pressure 80 mm[Hg] Galilea Gilmore PLACEMENT ASSISTANT-EAR MACHINE OPERATOR Work Phone: [facility] 06-22-2021 10:05-0400 Heart rate 81 /min Galilea Gilmore APRN-EAR MACHINE OPERATOR Work Phone: [facility] 06-22-2021 10:05-0400 SaO2% (BldA) [Mass fraction] 100 % Galilea Gilmore APRN-EAR MACHINE OPERATOR Work Phone: [facility] 06-22-2021 10:05-0400 Systolic blood pressure 140 mm[Hg] Banner Gilmoreart LUNAN-EAR MACHINE OPERATOR Work Phone: [facility] Encounters Encounter Date Encounter Type Care Provider Facility Start: 05-24-2025 End: 05-24-[address] Evelyn Painter DC -[facility] Work Phone: Start: 05-24-2025 End: 05-24-[address] Barney Brice MD Work Phone: -[facility] Start: 05-10-2025 End: 05-10-2025 Telephone encounter Stoney RAM Work Phone: [facility] [place] Comment on above: Schedule Test/Referr al Start: 04-15-2025 End: 04-15-[address] Barney Brice MD Work Phone: [facility] Work Phone: Start: 04-15-2025 End: 04-15-[address] Barney Brice MD -[facility] Work Phone: Start: 04-15-2025 End: 04-15-2025 ambulatory Barney Brice Facility:[facility] Start: 04-08-2025 End: 04-08-[address] Evelyn Painter DC -[facility] Work Phone: Start: 04-08-2025 End: 04-08-[address] Barney Brice MD Work Phone: [facility] Work Phone: Start: 03-04-2025 End: 03-04-[address] Evelyn Painter DC -[facility] Work Phone: Start: 03-04-2025 End: 03-04-2025 ambulatory Evelyn Painter Facility:[facility] Start: 03-02-2025 End: 03-02-[address] Diandra Craig MD -[facility] Work Phone: Start: 03-02-2025 End: 03-02-2025 ambulatory Diandra Craig Facility:[facility] Start: 02-18-2025 End: 02-18-[address] Evelyn Painter DC -[facility] Work Phone: Start: 02-18-2025 End: 02-18-2025 ambulatory Eevlyn Painter Facility:[facility] Start: 02-04-2025 End: 02-04-[address] Barney Brice MD Work Phone: [facility] Work Phone: Start: 02-04-2025 End: 02-04-[address] Barney Brice MD Work Phone: [facility] Work Phone: Start: 02-04-2025 End: 02-04-[address] Evelyn Painter DC -[facility] Work Phone: Start: 02-04-2025 End: 02-04-2025 ambulatory Evelyn Painter Facility:[facility] Start: 02-04-2025 End: 02-04-2025 ambulatory Barney Brice Facility:[facility] Start: 02-01-2025 End: 02-01-[address] Barney Brice MD Work Phone: [facility] Work Phone: Start: 02-01-2025 End: 02-01-[address] Barney Brice MD Work Phone: -[facility] Work Phone: Start: 02-01-2025 End: 02-01-2025 ambulatory Barney Brice Facility:[facility] Start: 01-07-2025 End: 01-07-[address] Evelyn Painter DC -[facility] Work Phone: Start: 01-07-2025 End: 01-07-2025 ambulatory Evelyn Painter Facility:[facility] Start: 01-04-2025 ambulatory Diandra Rafa Facility:[facility] Start: 01-04-2025 Non-patient / Non-visit Dr. Diandra Craig MD -[facility] Start: 01-04-2025 End: 01-04-[address] Barney Brice MD Work Phone: [facility] Work Phone: Start: 01-04-2025 End: 01-04-[address] Diandra Craig MD -Cardiovascular Services Work Phone: Start: 01-04-2025 End: 01-04-2025 ambulatory Diandra Rafa Facility:[facility] Start: 12-28-2024 ambulatory Diandra Rafa Facility:[facility] Start: 12-28-2024 Non-patient / Non-visit Dr. Diandra Craig MD -[facility] Work Phone: Start: 12-28-2024 End: 12-28-[address] Diandra Craig MD -Pulmonary Services/Neurology Work Phone: Start: 12-28-2024 End: 12-28-2024 ambulatory Diandra [facility] Facility:[facility] Start: 12-15-2024 End: 12-15-[address] iDandra Craig MD -[facility] Work Phone: Start: 12-15-2024 End: 12-15-[address] Diandra Craig MD -[facility] Work Phone: Start: 12-15-2024 End: 12-15-2024 ambulatory Diandra Craig Facility:[facility] Start: 12-15-2024 End: 12-15-2024 ambulatory Diandra Craig Facility:[facility] Start: 11-12-2024 End: 11-12-[address] Evelyn Painter DC -[facility] Work Phone: Start: 11-12-2024 End: 11-12-2024 ambulatory Evelyn Painter Facility:[facility] Start: 10-15-2024 End: 10-15-[address] [facility] Work [facility]: Start: 10-15-2024 End: 10-15-2024 ambulatory Barney Brice Facility:[facility] Start: 10-08-2024 End: 10-08-[address] Evelyn Painter DC -[facility] Work Phone: Start: 10-08-2024 End: 10-08-2024 ambulatory Barney Brice Facility:[facility] Start: 09-03-2024 End: 09-03-2024 ambulatory Barney Brice Facility:[facility] Start: 08-27-2024 End: 08-27-2024 ambulatory Cornel MCKEON Facility:[facility] Start: 08-24-2024 End: 08-24-2024 Office outpatient visit 25 minutes Stoney RAM Work Phone: [facility] Comment on above: Rectal cancer (Prima ry Dx) Start: 08-24-2024 End: 08-24-2024 Clinical Support Encounter Stoney RAM Work Phone: [facility] Comment on above: Rectal cancer Start: 08-24-2024 ambulatory BARNEY BRICE [facility] Start: 08-22-2024 ambulatory NIKOLE VANG [facility] Start: 08-22-2024 End: 08-22-2024 Subsequent hospital visit by physician Stoney RAM Work Phone: [facility] Comment on above: Arrived Start: 07-23-2024 End: 07-23-2024 ambulatory Evelyn Painter Facility:[facility] Start: 07-16-2024 End: 07-16-2024 ambulatory Barney Brice Facility:[facility] Start: 06-22-2024 End: 06-22-2024 ambulatory Barney Brice Facility:[facility] Start: 06-18-2024 End: 06-18-2024 ambulatory Evelyn Painter Facility:[facility] Start: 06-08-2024 End: 06-08-2024 ambulatory Barney Brice Facility:[facility] Start: 06-05-2024 End: 06-05-2024 Subsequent hospital visit by physician Liliana Andrews MD Work Phone: [facility] Endoscopy Department Start: 06-05-2024 ambulatory LILIANA ANDREWS [facility] Start: 05-15-2024 End: 05-15-2024 Office outpatient visit 15 minutes Delores Allison MD, PhD Work Phone: Department of Radiation Oncology Comment on above: Vaginal discharge (P rimary Dx) Start: 05-15-2024 ambulatory DELORES ALLISON Facility: [facility] Start: 02-24-2024 End: 02-24-2024 Office outpatient visit 25 minutes YO Arriaza MD Work Phone: [facility] Comment on above: Rectal cancer (Prima ry Dx) Start: 02-24-2024 End: 02-24-2024 Clinical Support Encounter YO Arriaza MD Work Phone: [facility] 1 Comment on above: Rectal cancer; Examination of participant in clinical trial Start: 02-24-2024 ambulatory BARNEY Anthony BRICE Facility :[facility] Start: 02-24-2024 End: 02-24-2024 Patient encounter procedure YO Arriaza MD Work Phone: [facility] Start: 02-15-2024 ambulatory NIKOLE VANG Facility:[facility] Start: 02-15-2024 End: 02-15-2024 Subsequent hospital visit by physician Nikole Vang PLACEMENT ASSISTANT-EAR MACHINE OPERATOR Work Phone: [facility] Comment on above: Arrived Start: 12-23-2023 End: 12-23-2023 Emergency department patient visit Dr. Barney Brice Work Phone: [facility] Work Phone: Start: 12-18-2023 End: 12-18-[address] Barney Brice Work Phone: [facility] Work Phone: Start: 12-18-2023 End: 12-18-[address] Barney Brice Work Phone: [facility] Start: 10-23-2023 End: 10-23-[address] Barney Brice Work Phone: [facility] Work Phone: Start: 10-08-2023 End: 10-08-[address] Barney Brice Work Phone: [facility] Work Phone: Start: 08-26-2023 End: 08-26-2023 Office outpatient visit 25 minutes Stoney RAM Work Phone: [facility] [place] Comment on above: Rectal cancer (Prima ry Dx) Start: 08-26-2023 End: 08-26-2023 Clinical Support Encounter Stoney RAM Work Phone: [facility] 1 Comment on above: Rectal cancer Start: 08-24-2023 End: 08-24-2023 Subsequent hospital visit by physician Stoney RAM Work Phone: [facility] Comment on above: Arrived Start: 05-31-2023 End: 05-31-2023 Office outpatient visit 15 minutes Delores Allison MD, PhD Work Phone: Department of Radiation Oncology Comment on above: Encounter for follow -up examination after completed treatment for malignant neoplasm (Primary Dx); Personal history of irradiation, presenting hazards to health; Malignant neoplasm of rectum Start: 05-21-2023 End: 05-21-[address] Barney Brice Work Phone: [facility] Work Phone: Start: 05-21-2023 End: 05-21-[address] Barney Brice Work Phone: [facility]-MRI - [facility] Work Phone: Start: 04-24-2023 End: 04-24-[address] Barney Brice Work Phone: [facility] Start: 04-22-2023 End: 04-22-[address] Barney Brice Work Phone: [facility] Work Phone: Start: 04-22-2023 End: 04-22-[address] Barney Brice Work Phone: [facility] Start: 04-01-2023 End: 04-01-2023 Subsequent hospital visit by physician Stoney RAM Work Phone: [facility] Comment on above: Arrived Start: 03-11-2023 End: 03-11-2023 Patient encounter procedure [facility] Outside Imaging Nuc Med So Outside Imaging Second Opinion Start: 03-08-2023 End: 03-08-2023 ambulatory [facility] Work Phone: Start: 03-08-2023 End: 03-08-2023 Patient encounter procedure [facility]iology, [place] Start: 03-05-2023 End: 03-05-[address] [facility] sp[facility] Work Phone: Start: 03-05-2023 End: 03-05-2023 Patient encounter procedure [facility]-Nuclear Medicine, [facility] Start: 02-16-2023 End: 02-16-2023 Subsequent hospital visit by physician Nikole Vang APRN-EAR MACHINE OPERATOR Work Phone: [facility] Comment on above: Arrived Start: 12-25-2022 Registered Referred Chalo grayson [facility] [place] Start: 12-25-2022 Registered Recurring John [facility]enzuela [facility] Start: 11-26-2022 End: 11-26-2022 Office outpatient visit 15 minutes Stoney RAM Work Phone: [facility] [place] Comment on above: Rectal cancer (Prima ry Dx) Start: 07-12-2022 End: 07-12-2022 Clinical Support Encounter Stoney RAM Work Phone: [facility] 1 Comment on above: Rectal cancer Start: 07-12-2022 End: 07-12-2022 Subsequent hospital visit by physician Nikole Vang APRN-EAR MACHINE OPERATOR Work Phone: [facility] Comment on above: Arrived Start: 06-25-2022 End: 06-25-2022 Subsequent hospital visit by physician Liliana Andrews MD Work Phone: [facility] Endoscopy Department Start: 06-22-2022 End: 06-22-2022 Office outpatient visit 15 minutes Delores Allison MD, PhD Work Phone: Department of Radiation Oncology Comment on above: Rectal cancer (Prima ry Dx) Start: 04-20-2022 End: 04-20-2022 Office outpatient visit 25 minutes Stoney RAM Work Phone: Division of Medical Oncology Comment on above: Rectal cancer (Prima ry Dx) Start: 04-20-2022 End: 04-20-2022 Clinical Support Encounter Stoney RAM Work Phone: [facility] 1 Comment on above: Rectal cancer Start: 06-27-2021 End: 06-27-2021 Subsequent hospital visit by physician Liliana Andrews MD Work Phone: [facility] Comment on above: Arrived Start: 06-22-2021 End: 06-22-2021 Patient encounter procedure Galilea Gilmore 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 Barney Brice MD Work Phone: Start: 02-01-[address] Barney tate MD Work Phone: Comment on above: Nonsmokers <3.9 Smokers <5.6[employer] Electrochemiluminescence Immunoassay(ECLIA)Values obtained with different assay methods or kitscannot be used interchangeably. Results cannot beinterpreted as absolute evidence of the presence orabsence of malignant disease.Performed at: [employer] [place], [place] [id number] Director: Kobi Hampton PhD, Phone: [phone] Start: 01-04-2025 Radionuclide imaging of perfusion of myocardium under exercise stress Dr. Barney Brice MD Work Phone: Start: 12-15-2024 Measurement of renal function Dr. Barney nice MD Work Phone: Comment on above: GFR Calc Start: 12-15-2024 Evaluation of diagnostic study results Dr. Barney Brice MD Work Phone: Start: 10-15-[address] Barney tate MD Work Phone: Comment on above: Nonsmokers <3.9 Smokers <5.6[employer] Electrochemiluminescence Immunoassay(ECLIA)Values obtained with different assay methods or kitscannot be used interchangeably. Results cannot beinterpreted as absolute evidence of the presence orabsence of malignant disease.Performed at: [employer] [place], [place] [id number] Director: Kobi Hampton PhD, Phone: [phone] Start: 08-24-2024 Carcinoembryonic antigen cea Nikole Taj PLACEMENT ASSISTANT-EAR MACHINE OPERATOR Work Phone: Start: 08-22-2024 Creatinine blood Stoney Padron [facility] Work Phone: Start: 06-05-2024 Colonoscopy flx dx w/collj spec when pfrmd Liliana Andrews MD Work Phone: Start: 02-24-2024 Carcinoembryonic antigen cea Nikole Umar PLACEMENT ASSISTANT-EAR MACHINE OPERATOR Work Phone: Start: 02-15-2024 Creatinine blood Nikole Umezra PLACEMENT ASSISTANT-EAR MACHINE OPERATOR Work Phone: Start: 12-23-2023 CT angiography of chest with contrast Dr. Barney Brice Work Phone: Start: 08-26-2023 Carcinoembryonic antigen cea Nikole Taj PLACEMENT ASSISTANT-EAR MACHINE OPERATOR Work Phone: Start: 08-24-2023 Creatinine blood Stoneyponce [facility] Work Phone: Start: 04-24-2023 X-ray of lumbar spine, two or three views Dr. Barney Brice Work Phone: Start: 04-01-2023 Mri pelvis w/o & w/contrast material Stoneyponce Padron [facility] Work Phone: Start: 03-11-2023 Bone &/joint imaging whole body Nikole U mar PLACEMENT ASSISTANT-EAR MACHINE OPERATOR Work Phone: Start: 03-08-2023 Pelvis X-ray Start: 03-08-2023 Plain x-ray of pelvis and lower extremity Start: 03-05-2023 Radionuclide whole body bone study Start: 02-16-2023 Creatinine blood Nikole Taj PLACEMENT ASSISTANT-EAR MACHINE OPERATOR Work Phone: Start: 07-12-2022 Ct thorax w/contrast material Nikole Dali r PLACEMENT ASSISTANT-EAR MACHINE OPERATOR Work Phone: Start: 07-12-2022 Carcinoembryonic antigen cea Nikoel Umar PLACEMENT ASSISTANT-EAR MACHINE OPERATOR Work Phone: Start: 07-12-2022 CBC AND ELECTRONIC DIFF Nikole Umar PLACEMENT ASSISTANT-EAR MACHINE OPERATOR Work Phone: Start: 07-12-2022 Complete blood count with white cell differential, automated Nikole Umar PLACEMENT ASSISTANT-EAR MACHINE OPERATOR Work Phone: Start: 06-25-2022 Colonoscopy flx dx w/collj spec when pfrmd Liliana Andrews MD Work Phone: Start: 04-20-2022 Carcinoembryonic antigen cea Nikole Umar PLACEMENT ASSISTANT-EAR MACHINE OPERATOR Work Phone: Start: 04-20-2022 CBC AND ELECTRONIC DIFF Nikole Umar PLACEMENT ASSISTANT-EAR MACHINE OPERATOR Work Phone: Start: 04-20-2022 Complete blood count with white cell differential, automated Nikole Umar PLACEMENT ASSISTANT-EAR MACHINE OPERATOR Work Phone: Plan of Treatment Date Care Activity Detail Author Start: 07-05-2025 Influenza vaccination INFLUENZA VACCINE (#1) [facility] Start: 06-05-2025 Screening for malignant neoplasm of colon COLORECTAL CANCER SCREENING DISCUSSION [facility] Start: 05-31-2025 End: 05-31-2025 Patient encounter procedure 05/31/2025 1:40 PM EDT Office Visit [facility] [address] [place] [address] Stoney Padron [employer] [address] [place] [address] [place] [id number] [facility] Start: 05-28-2025 End: 05-28-2025 Patient encounter procedure 05/28/2025 2:30 PM EDT Office Visit Department of Radiation Oncology [address] [place] [address] Delores Allison MD, PhD [address] [place] [address] Department of Radiation Oncology Start: 02-22-2025 End: 08-24-2025 CT Abdomen and Pelvis W contrast IV CT ABDOMEN/PELVIS WITH CONTRAST Imaging Routine Rectal cancer Expected: 02/22/2025 (Approximate), Expires: 08/24/2025 [facility] Comment on above: Expected: 02/22/2025 (Approximate), Expi res: 08/24/2025 Start: 02-22-2025 End: 08-24-2025 CT Chest W contrast IV CT CHEST WITH CONTRAST Imaging Routine Rectal cancer Expected: 02/22/2025 (Approximate), Expires: 08/24/2025 [facility] Comment on above: Expected: 02/22/2025 (Approximate), Expi res: 08/24/2025 Start: 02-22-2025 End: 02-22-2025 Clinical Support Encounter Clinical Lab Augustin Hung Start: 02-13-2025 End: 02-13-2025 Patient encounter procedure [facility] Start: 08-25-2024 End: 02-23-2025 CT Abdomen and Pelvis W contrast IV CT ABDOMEN/PELVIS WITH CONTRAST Imaging Routine Rectal cancer Expected: 08/25/2024 (Approximate), Expires: 02/23/2025 [facility] Comment on above: Expected: 08/25/2024 (Approximate), Expi res: 02/23/2025 Start: 08-25-2024 End: 02-23-2025 CT Chest W contrast IV CT CHEST WITH CONTRAST Imaging Routine Rectal cancer Expected: 08/25/2024 (Approximate), Expires: 02/23/2025 [facility] Comment on above: Expected: 08/25/2024 (Approximate), Expi res: 02/23/2025 Start: 08-24-2024 End: 08-24-2024 Clinical Support Encounter Clinical Lab Augustin Hung Start: 08-22-2024 End: 08-22-2024 Patient encounter procedure [facility] Start: 07-05-2024 COVID-19 VACCINE () COVID-19 VACCINE () [facility] Start: 07-05-2024 COVID-19 VACCINE ( season) COVID-19 VACCINE ( season) [facility] Start: 07-05-2024 Influenza vaccination [facility] Start: 06-05-2024 End: 06-05-2024 Patient encounter procedure 06/05/2024 8:45 AM EDT Appointment [facility] Endoscopy Department [address] [place] [phone] Liliana Andrews MD [address] [facility] [address] [place] [phone] [facility] Endoscopy Department Start: 05-29-2024 End: 05-29-2024 Patient encounter procedure 05/29/2024 2:30 PM EDT Office Visit Department of Radiation Oncology [address] [place] [phone] Delores Allison MD, PhD [address] [place] [phone] Department of Radiation Oncology Start: 02-24-2024 End: 02-24-2024 Clinical Support Encounter Clinical Lab Augustin Milton Hung Start: 02-15-2024 End: 02-15-2024 Patient encounter procedure [facility] Start: 12-23-2023 [facility] Start: 11-25-2023 End: 11-25-2023 Telemedicine consultation with patient 11/25/2023 8:00 AM EST Telemedicine [facility] [place] [address] [place] [address] Stoney Padron MBBS [address] [place], [place] [id number] [facility] Start: 08-26-2023 End: 08-26-2024 CT Abdomen and Pelvis W contrast IV CT ABDOMEN/PELVIS WITH CONTRAST Imaging Routine Rectal cancer Expected: 08/26/2023, Expires: 08/26/2024 [facility] Comment on above: Expected: 08/26/2023, Expires: Start: 08-26-2023 End: 08-26-2024 CT Chest W contrast IV CT CHEST WITH CONTRAST Imaging Routine Rectal cancer Expected: 08/26/2023, Expires: 08/26/2024 [facility] Comment on above: Expected: 08/26/2023, Expires: Start: 08-26-2023 End: 08-26-2023 Clinical Support Encounter Clinical Lab Augustin Hung Start: 08-24-2023 End: 08-24-2023 Patient encounter procedure [facility] Start: 07-05-2023 COVID-19 VACCINE () COVID-19 VACCINE () [facility] Start: 07-05-2023 Influenza vaccination [facility] Start: 06-25-2023 Colonoscopy COLORECTAL CANCER SCREENING DISCUSSION [facility] Start: 06-25-2023 Screening for malignant neoplasm of colon COLORECTAL CANCER SCREENING DISCUSSION [facility] Start: 05-31-2023 End: 05-31-2023 Patient encounter procedure 05/31/2023 Office Visit Radiation Oncology Delores Allison MD, PhD [address] [place] [phone] Department of Radiation Oncology Start: 04-10-2023 End: 04-10-2023 Telemedicine consultation with patient 04/10/2023 Telemedicine Oncology Stoney Padron MBBS [address] [place] [address] [facility] [place] Start: 02-25-2023 End: 02-25-2023 Patient encounter procedure Clinical Lab Augustin Hung Start: 02-18-2023 End: 02-18-2023 Patient encounter procedure 02/18/2023 Appointment Computerized Tomography Scan Nikole Vang APRN-EAR MACHINE OPERATOR [address] [place] [address] [facility] Start: 01-18-2023 End: 01-18-2023 Patient encounter procedure 01/18/2023 Office Visit Radiation Oncology Delores Allison MD, PhD [address] [facility] [address] [place] [phone] Department of Radiation Oncology Start: 11-26-2022 End: 11-26-2023 CT Abdomen and Pelvis W contrast IV CT ABDOMEN/PELVIS WITH CONTRAST Imaging Routine Rectal cancer Expected: 11/26/2022, Expires: 11/26/2023 [facility] Comment on above: Expected: 11/26/2022, Expires: Start: 11-26-2022 End: 11-26-2023 CT Chest W contrast IV CT CHEST WITH CONTRAST Imaging Routine Rectal cancer Expected: 11/26/2022, Expires: 11/26/2023 [facility] Comment on above: Expected: 11/26/2022, Expires: Start: 07-21-2022 End: 04-20-2023 CEA CEA Lab Routine Rectal cancer Expected: 07/21/2022 (Approximate), Expires: 04/20/2023 [facility] Comment on above: Expected: 07/21/2022 (Approximate), Expi res: 04/20/2023 Start: 07-21-2022 End: 04-20-2023 CMPN WITHOUT GLUCOSE CMPN WITHOUT GLUCOSE Lab Routine Rectal cancer Expected: 07/21/2022 (Approximate), Expires: 04/20/2023 [facility] Comment on above: Expected: 07/21/2022 (Approximate), Expi res: 04/20/2023 Start: 07-21-2022 End: 04-20-2023 Complete blood count with white cell differential, automated CBC, EDIF, PLATELET Lab Routine Rectal cancer Expected: 07/21/2022 (Approximate), Expires: 04/20/2023 [facility] Comment on above: Expected: 07/21/2022 (Approximate), Expi res: 04/20/2023 Start: 07-18-2022 End: 07-18-2022 Telemedicine consultation with patient 07/18/2022 Telemedicine Oncology Stoney Padron MBBS [address] [place] [address] Division of Medical Oncology Start: 07-12-2022 End: 07-12-2022 Patient encounter procedure 07/12/2022 Appointment Computerized Tomography Scan Umar, Nikole, PLACEMENT ASSISTANT-EAR MACHINE OPERATOR [address] [place] [address] [facility] Start: 07-12-2022 End: 07-12-2022 Clinical Support Encounter 07/12/2022 Clinical Support Encounter Clinical Pathology/Laboratory Medicine Stoney Padron MBBS [address] [place] [address] Clinical Lab Augustin Pelican 1 Start: 07-05-2022 Influenza vaccination [facility] Start: 06-25-2022 End: 06-25-2022 Patient encounter procedure 06/25/2022 Appointment Endoscopy Liliana Andrews MD [address] [facility] [address] [place] [address] [facility] Endoscopy Department Start: 06-22-2022 End: 06-22-2022 Patient encounter procedure 06/22/2022 Office Visit Radiation Oncology Delores Allison MD, PhD [address] [place] [address] Department of Radiation Oncology Start: 04-20-2022 End: 04-20-2023 CT Abdomen and Pelvis W contrast IV CT ABDOMEN/PELVIS WITH CONTRAST Imaging Routine Rectal cancer Expected: 04/20/2022, Expires: 04/20/2023 [facility] Comment on above: Expected: 04/20/2022, Expires: Start: 04-20-2022 End: 04-20-2023 CT Chest W contrast IV CT CHEST WITH CONTRAST Imaging Routine Rectal cancer Expected: 04/20/2022, Expires: 04/20/2023 [facility] Comment on above: Expected: 04/20/2022, Expires: 3 Start: 01-12-2022 Colonoscopy COLORECTAL CANCER SCREENING DISCUSSION [facility] Start: 11-22-2021 End: 11-22-2021 Patient encounter procedure 11/22/2021 Office Visit Radiation Oncology Delores Allison MD, PhD [address] [place] [address] [address] [place] [phone] Department of Radiation Oncology Start: 07-21-2021 End: 07-21-2021 Clinical Support Encounter Clinical Lab Augustin Rose 1 Start: 07-13-2021 End: 07-13-2021 Patient encounter procedure 07/13/2021 Office Visit Colon & Rectal Surgery Liliana Andrews MD [address] [facility] [address] [place] [address] Colorectal Surgery [facility] Start: 07-05-2021 Influenza vaccination INFLUENZA VACCINE (#1) [facility] Start: 2016 Pneumococcal vaccination PNEUMOCOCCAL VACCINE SERIES (1 of 1 - PCV) [facility] Start: 2016 Zoster vaccine hzv live for subcutaneous use ZOSTER (SHINGLES) VACCINE (1 of 2) [facility] Start: 2006 Fasting lipid profile LIPID SCREENING [facility] Start: 2006 Lipid panel LIPID SCREENING [facility] Start: 2006 Screening for malignant neoplasm of breast MAMMOGRAM SCREENING DISCUSSION [facility] Start: 2006 Screening mammography MAMMOGRAM SCREENING DISCUSSION [facility] Start: 1987 Screening for malignant neoplasm of cervix CERVICAL CANCER SCREENING DISCUSSION [facility] Start: 1985 Hepatitis B vaccination HEP B VACCINE (1 of 3 - 19+ 3-dose series) [facility] Start: 1985 Third diphtheria, tetanus and acellular pertussis (DTaP) vaccination TDAP (ADULT) [facility] Start: 1985 Zoster vaccine hzv live for subcutaneous use ZOSTER (SHINGLES) VACCINE (1 of 2) [facility] Start: 1984 Tetanus vaccination TETANUS [facility] Start: 1981 HIV screening HIV SCREENING DISCUSSION [facility] Start: 1978 COVID-19 VACCINE (1) COVID-19 VACCINE (1) [facility] Start: 1972 PNEUMOCOCCAL VACCINE SERIES (1 - PCV) PNEUMOCOCCAL VACCINE SERIES (1 - PCV) [facility] Start: 1972 PNEUMOCOCCAL VACCINE SERIES (1 of 2 - PCV) PNEUMOCOCCAL VACCINE SERIES (1 of 2 - PCV) [facility] Start: 1971 COVID-19 VACCINE (#1) COVID-19 VACCINE (#1) [facility] Start: 01-17-1967 COVID-19 VACCINE (#1) COVID-19 VACCINE (#1) [facility] Start: 1966 Tetanus vaccination TETANUS [facility] Bldr irrigation smpl lavage &/instlj NC IRRIGATION BLADDER,SIMPLE NC Charge Routine Acute urinary retention Ordered: 06/22/2021 [facility] Work Phone: Comment on above: Ordered: 06/22/2021 Chiropractic manipulation [facility] End: 06-27-2021 Computed tomography of abdomen and pelvis with contrast [facility] Work Phone: Comment on above: 1 Occurrences starting 06/27/2021 until 06/27/2021 End: 07-12-2022 CT Abdomen and Pelvis W contrast IV [facility] Work Phone: Comment on above: 1 Occurrences starting 07/12/2022 until 07/12/2022 End: 02-16-2023 CT Abdomen and Pelvis W contrast IV [facility] Work Phone: Comment on above: 1 Occurrences starting 02/16/2023 until 02/16/2023 End: 08-24-2023 CT Abdomen and Pelvis W contrast IV [facility] Work Phone: Comment on above: 1 Occurrences starting 08/24/2023 until 08/24/2023 End: 02-15-2024 CT Abdomen and Pelvis W contrast IV [facility] Work Phone: Comment on above: 1 Occurrences starting 02/15/2024 until 02/15/2024 End: 08-22-2024 CT Abdomen and Pelvis W contrast IV [facility] Work Phone: Comment on above: 1 Occurrences starting 08/22/2024 until 08/22/2024 End: 02-16-2023 CT Chest W contrast IV [facility] Work Phone: Comment on above: 1 Occurrences starting 02/16/2023 until 02/16/2023 End: 08-24-2023 CT Chest W contrast IV [facility] Work Phone: Comment on above: 1 Occurrences starting 08/24/2023 until 08/24/2023 End: 02-15-2024 CT Chest W contrast IV [facility] Work Phone: Comment on above: 1 Occurrences starting 02/15/2024 until 02/15/2024 End: 08-22-2024 CT Chest W contrast IV [facility] Work Phone: Comment on above: 1 Occurrences starting 08/22/2024 until 08/22/2024 Mala post-voiding residual urine&/bladder cap NC MALA,POST-VOID RES,US,NON-IMAGING NC Charge Routine Acute urinary retention Ordered: 06/22/2021 [facility] Comment on above: Ordered: 06/22/2021 MR Pelvis WO and W contrast IV [facility] Patient Education ED Chest Wall Pain, Costochondritis ED Pneumonia (Adult) ED Chest Wall Strain [facility] Work Phone: Patient referral [facility] Work Phone: NC REMOVE JIMÉNEZ CATHETER NC REMOVE JIMÉNEZ CATHETER NC - OFFICE PERFORMED Routine Acute urinary retention Ordered: 06/22/2021 [facility] Comment on above: Ordered: 06/22/2021 TCCP - GOLD TCCP - GOLD Lab Routine Examination of participant in clinical trial 02/24/2024 9:30 AM EDT [facility] TCCP - LAV TCCP - LAV Lab R outine Examination of participant in clinical trial 02/24/2024 9:30 AM EDT [facility] TOTAL CANCER CARE PROTOCOL (AUGUSTIN ONLY) TOTAL CANCER CARE PROTOCOL (AUGUSTIN ONLY) Lab Routine Examination of participant in clinical trial 02/24/2024 9:30 AM EDT [facility] Work Phone: Payers Date Payer Category Payer Self-pay [id number] 2023 Managed Care (unspecified) [place] [id number] 2023 Private Health Insurance [employer] [id number] 2023-Present [address] [place] [address] [id number] 2023 Unknown [id number] 2020 Unknown ADELAIDA SON HM O PPO POS [id number] 2020-Present [address] [place] [address] [id number] 2020 Unknown ANTHEM ANTHEM HM O PPO POS [id number] 2020-Present [address] [place] [address] [id number] .[id number] 1966 Unknown [id number] 2.16.840.1.107450.3.579.2 .594 1966 Unknown [id number] 2.16.840.1.439272.3.579.2 .594 1966 Unknown [id number] 2..840.1.676130.3.579.2 .594 1966 Unknown [id number] 2.840.1.011783.3.579.2 .594 1966 Unknown [id number] 2.840.1.544927.3.579.2 .594 1966 Unknown [id number] 2..840.1.378421.3.579.2 .594 1966 Unknown [id number] 2..840.1.705308.3.579.2 .594 1966 Unknown [id number] 2.840.1.680489.3.579.2 .594 1966 Unknown [id number] 2..840.1.590325.3.579.2 .594 1966 Unknown [id number] 2.16.840.1.839475.3.579.2 .594 Unknown [id number] Unknown [id number] 2.16.840.1.893391.3.579.2 .462 Unknown [id number] 2.16.840.1.391981.3.579.2 .462 Unknown [id number] 2.16.840.1.731757.3.579.2 .462 Unknown [id number] 2.16.840.1.771308.3.579.2 .462 Unknown [id number] 2.16.840.1.070219.3.579.2 .462 Unknown [id number] 2.16.840.1.397511.3.579.2 .462 Unknown [id number] 2.16.840.1.612614.3.579.2 .462 Unknown [id number] 2.16.840.1.765273.3.579.2 .462 Unknown [id number] 2.16.840.1.151334.3.579.2 .462 Unknown [id number] 2.16.840.1.259235.3.579.2 .462 Unknown [id number] 2.840.1.709433.3.579.2 .462 Unknown [id number] 2.840.1.496895.3.579.2 .462 Unknown [id number] 2.16.840.1.894291.3.579.2 .462 Unknown [id number] 2.16840.1.350008.3.579.2 .462 Unknown [id number] 2.16840.1.675041.3.579.2 .462 Unknown [id number] 2.16840.1.339862.3.579.2 .462 Unknown [id number] 2.16.840.1.293632.3.579.2 .462 Unknown [id number] 2.16.840.1.487250.3.579.2 .462 Unknown [id number] 2.16.840.1.668575.3.579.2 .462 Unknown [id number] 2.16.840.1.437041.3.579.2 .462 Unknown [id number] 2.16.840.1.812965.3.579.2 .462 Unknown [id number] 2.16.840.1.942066.3.579.2 .462 Unknown [id number] 2.16.840.1.530254.3.579.2 .462 Unknown [id number] 2.16.840.1.359051.3.579.2 .462 Unknown [id number] 2.16.840.1.244177.3.579.2 .462 Unknown [id number] 2..840.1.262713.3.579.2 .462 Social History Date Type Detail Facility Start: 01-26-2021 End: 12-07-2024 Tobacco smoking status NHIS Never smoker [facility] Start: 01-26-2021 End: 06-05-2024 Tobacco use and exposure Never used [facility] Start: 06-22-2021 End: 08-24-2024 Alcohol intake Lifetime non-drinker (finding) [facility] Start: 02-10-2021 History SDOH Alcohol Frequency 1 [facility] Start: 1965 Sex Assigned At Not on file [facility] Start: 11-16-2022 End: 11-26-2022 Exposure to SARS-CoV-2 (event) Not sure [facility] Start: 02-06-2021 End: 12-23-2023 Tobacco smoking status NHIS Unknown if ever smoked [facility] Start: 1965 Sex Assigned At Female [facility] Start: 02-10-2021 End: 08-24-2024 History of Social function [facility] Start: 02-10-2021 End: 08-24-2024 Alcohol Use Disorder Identification Test - Consumption [AUDIT-C] [facility] How often to you hav e a drink containing alcohol? Never [facility] Average Number of Drinks Not on file [facility] Start: 01-25-2021 Gender identity Identifies as female gender (finding) [facility] Start: 08-25-2018 End: 01-15-2025 Sex Female (finding) [facility] Goals Date Patient Goal Desired Activity /State Functional Status Date Assessment Result Facility 06-09-2021 Are you deaf, or do you have serious difficulty hearing No 06/09/2021 4:27 PM EDT Sheryl Hooker RN No [facility] 06-09-2021 Are you blind, or do you have serious difficulty seeing, even when wearing glasses No 06/09/2021 4:27 PM EDT Sheryl Hooker RN No [facility] 06-09-2021 Do you have serious difficulty walking or climbing stairs No 06/09/2021 4:27 PM EDT Sheryl Hooker RN No [facility] 06-09-2021 Do you have difficul ty dressing or bathing No 06/09/2021 4:27 PM EDT Sheryl Hooker RN No [facility] 06-09-2021 Because of a physica l, mental, or emotional condition, do you have difficulty doing errands alone such as visiting a physician's office or shopping No 06/09/2021 4:27 PM EDT Sheryl Hooker RN No [facility] Mental Status Date Assessment Result Facility 12-23-2023 Cognitive function Voice/Name [facility] Work Phone: 06-09-2021 Because of a physica l, mental, or emotional condition, do you have serious difficulty concentrating, remembering, or making decisions No 06/09/2021 4:27 PM EDT Sheryl Hooker RN No [facility] Clinical Notes 06-22-2021 to 05-14-2025 Telephone Encounter - Cristela Olivares RN - 05/14/2025 4:53 PM EDTTelephone Encounter - Cristela Olivares RN - 05/14/2025 4:53 PM EDTTelephone Encounter - Soniya Hinton - 05/14/2025 1:35 PM EDT Note Date & Type Note Facility 05-14-2025 Telephone encounter Note Message to Nikole Vang CNP to see if ok to do her labs locally? 05/18/25 Lab order faxed to [facility]; fax # [phone], per patient's request. Pt made aware orders have been sent. [facility] 05-14-2025 Miscellaneous Notes Message to Nikole Vang CNP to see if ok to do her labs locally? Laila returned call, requested to schedule for 05/31. She would like to have labs done locally ahead of time at [facility]. Images from the original note were not included. Per Nikole Vang NP on 05/10 via In basket - Please give this patient a lab and clinic appointment with Dr. Padron. Please inform the patient, that she missed her appointment in February and Dr. Padron would like to see her please. I called Laila and left a v/m w/ dept number. I asked her to call us back to schedule an appt with Dr. Padron w/ blood draw prior documented in this encounter [facility] 05-14-2025 Miscellaneous Notes Message to Nikole Vang CNP to see if ok to do her labs locally? 05/18/25 Lab order faxed to [facility]; fax # [phone], per patient's request. Pt made aware orders have been sent. Laila returned call, requested to schedule for 05/31. She would like to have labs done locally ahead of time at [facility]. Images from the original note were not included. Per Nikole Vang NP on 05/10 via In basket - Please give this patient a lab and clinic appointment with Dr. Padron. Please inform the patient, that she missed her appointment in February and Dr. Padron would like to see her please. I called Laila and left a v/m w/ dept number. I asked her to call us back to schedule an appt with Dr. Padron w/ blood draw prior documented in this encounter [facility] 05-14-2025 Telephone encounter Note Laila returned call, requested to schedule for 05/31. She would like to have labs done locally ahead of time at [facility]. [facility] 05-10-2025 Telephone encounter Note Images from the original note were not included. Per Nikole Vang NP on 05/10 via In basket - Please give this patient a lab and clinic appointment with Dr. Padron. Please inform the patient, that she missed her appointment in February and Dr. Padron would like to see her please. I called Laila and left a v/m w/ dept number. I asked her to call us back to schedule an appt with Dr. Padron w/ blood draw prior [facility] 02-05-2025 Radiology Diagnostic study note [facility] Imaging Services [address] [place] [id number] Chest, Abd, Pel w/Contrast MR#: [id number] Acct: [id number] Name: LAILA OLVERA ANN Rep #: [id number] : 1965 F 59 From: Lacho Evangelista MD PCP: Dr. Barney Brice MD Status: [place] GARCIA Study:CT Chest, Abd, Pel w/Contrast Date of E xam: 02/04/25 Exam# [id number] Ordering Dr: GABBIE VANG PROCEDURE: CT CHEST, ABD, PEL W/CONTRAST 02/04/2025 REASON FOR EXAM: RECTAL CA Follow-up. Status post colostomy. TECHNIQUE: Chest, abdomen and pelvis CT with intravenous contrast. Coronal and Sagittal reconstruction series were provided. One or more dose reduction techniques were used (e.g., Automated exposure control, adjustment of the mA and/or kV according to patient size, use of iterative reconstruction technique. PATIENT PREPARATION: Per protocol ORAL CONTRAST TYPE: None. CONTRAST: Isovue 370 VOLUME: 100mL RADIATION DOSE SUMMARY: CTDlvol: 17 mGy DLP: 1703.7 mGycm COMPARISON: Comparison is made with prior CT scan of the thorax dated December 23, 2023. FINDINGS: CT CHEST: Hardware: None Lymph nodes: None Heart and Vasculature: No coronary artery calcification. Lungs and Airways: Mild dependent atelectasis. Pleura: Unremarkable Bones: Degenerative changes of the thoracic spine. CT ABDOMEN/PELVIS: Liver: Diffuse fatty infiltration. Gallbladder: Unremarkable Spleen: Normal size. Pancreas: Normal size without evidence of mass surrounding inflammation or ductal dilation. Adrenals: Unremarkable Kidneys: Unremarkable Bladder: Unremarkable Reproductive Organs: Normal uterine size and contour. Ovaries are unremarkable. Bowel: A colostomy is seen in the left anterior mid abdomen. Circumferential thickening of the rectum. Appendix: The appendix is not identified. There is no inflammatory process identified in the right lower quadrant to suggest appendicitis. Lymph nodes: Unremarkable. Vasculature: The abdominal aorta and IVC are normal. Peritoneum / Retroperitoneum: Bones: Unremarkable. CT/CT Chest, Abd, Pel w/Contrast IMPRESSION: Diffuse fatty infiltration of the liver. Colostomy seen in the anterior left midabdomen. Circumferential thickening of the rectum. Reading [facility] CC: Dr. 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: Signed [facility] 02-04-2025 Evaluation note Diagnosis Onset Date Resolution Segmental and somatic dysfunction of cervical region acute February 04, 2025 11:51am Segmental and somatic dysfunction of lumbar region acute February 04, 2025 11:51am Segmental and somatic dysfunction of pelvic region acute February 04, 2025 11:51am Segmental and somatic dysfunction of thoracic region acute February 04, 2025 11:51am DDD (degenerative disc disease) chronic February 04, 2025 11:51am Segmental and somatic dysfunction of cervical region acute February 18, 2025 11:52am Segmental and somatic dysfunction of lumbar region acute February 18, 2025 11:52am Segmental and somatic dysfunction of pelvic region acute February 18, 2025 11:52am Segmental and somatic dysfunction of thoracic region acute February 18, 2025 11:52am DDD (degenerative disc disease) chronic February 18, 2025 11:52am Diastolic dysfunction without heart failure chronic February 10:11am History of rectal cancer chronic March 02, 2025 10:11am HTN (hypertension) chronic March 02, 2025 10:11am Mitral valve regurgitation chronic March 02, 2025 10:11am Palpitations chronic March 02, 2025 10:11am Segmental and somatic dysfunction of cervical region acute March 04, 2025 11:51am Segmental and somatic dysfunction of lumbar region acute March 04, 2025 11:51am Segmental and somatic dysfunction of pelvic region acute March 04, 2025 11:51am Segmental and somatic dysfunction of thoracic region acute March 04, 2025 11:51am DDD (degenerative disc disease) chronic March 04, 2025 11:51am Lower back pain acute April 08, 2025 11:53am Segmental and somatic dysfunction of cervical region acute April 08, 2025 11:53am Segmental and somatic dysfunction of lumbar region acute April 08, 2025 11:53am Segmental and somatic dysfunction of pelvic region acute April 08, 2025 11:53am Segmental and somatic dysfunction of thoracic region acute April 08, 2025 11:53am DDD (degenerative disc disease) chronic April 08, 2025 11:53am Lower back pain acute May 3:19pm Segmental and somatic dysfunction of cervical region acute May 24, 2025 3:19pm Segmental and somatic dysfunction of lumbar region acute May 24, 2025 3:19pm Segmental and somatic dysfunction of pelvic region acute May 24, 2025 3:19pm Segmental and somatic dysfunction of thoracic region acute May 24, 2025 3:19pm [facility] Work Phone: 1(151) 847-229803-06-2025 Evaluation note* Diagnosis Onset Date Resolution Status Admit Date Segmental and somatic dysfunction of cervical region acute M arch 2024 2:18pm Segmental and somatic dysfunction of lumbar region acute Mar ch 2024 2:18pm Segmental and somatic dysfunction of pelvic region acute Mar ch 2024 2:18pm Segmental and somatic dysfunction of thoracic region acute M arch 2024 2:18pm 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, 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 2:18pm Segmental and somatic dysfunction of cervical region acute A pril 2024 11:51am Segmental and somatic dysfunction of lumbar region acute Apr il 2024 11:51am Segmental and somatic dysfunction of pelvic region acute Apr il 2024 11:51am Segmental and somatic dysfunction of thoracic region acute A pril 2024 11:51am 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 February 04, 2025 11:51am Segmental and somatic dysfunction of cervical region acute A pril 2024 11:52am Segmental and somatic dysfunction of lumbar region acute Apr il 2024 11:52am Segmental and somatic dysfunction of pelvic region acute Apr il 2024 11:52am Segmental and somatic dysfunction of thoracic region acute A pril 2024 11:52am 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 February 18, 2025 11:52am Diastolic dysfunction withou t heart failure chronic March 02, 2025 10:11am History of rectal cancer chronic March 02, 2025 10:11am HTN (hypertension) chronic March 02, 2025 10:11am Mitral valve regurgitation chronic March 02, 2025 10:11am Palpitations chronic March 02, 2025 10:11am Segmental and somatic dysfunction of cervical region acute M ay 2024 11:51am Segmental and somatic dysfunction of lumbar region acute March 04, 2025 11:51am Segmental and somatic dysfunction of pelvic region acute March 04, 2025 11:51am Segmental and somatic dysfunction of thoracic region acute M ay 2024 11:51am 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 04, 2025 11:51am Lower back pain acute April 08, 2025 11:53am Segmental and somatic dysfunction of cervical region acute J une 2024 11:53am Segmental and somatic dysfunction of lumbar region acute Toy e 2024 11:53am Segmental and somatic dysfunction of pelvic region acute Toy e 2024 11:53am Segmental and somatic dysfunction of thoracic region acute J une 2024 11:53am 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 April 08, 2025 11:53am [facility] Work Phone: 1(917) 605-766602-11-2025 Evaluation note* Diagnosis Onset Date Resolution Status Admit Date Dyspnea on exertion chronic Febru bebo 2024 10:56am History of mitral valve prolapse chronic December 15, 2 025 10:56am History of rectal cancer chronic December 15, 2024 10:56am HTN (hypertension) chronic Februa ry 2024 10:56am Palpitations chronic December 10:56am Segmental and somatic dysfunction of cervical region acute M arch 2024 2:18pm Segmental and somatic dysfunction of lumbar region acute Mar ch 2024 2:18pm Segmental and somatic dysfunction of pelvic region acute Mar ch 2024 2:18pm Segmental and somatic dysfunction of thoracic region acute M arch 2024 2:18pm DDD (degenerative disc disease) chronic January 07, 2025 2:18pm Segmental and somatic dysfunction of cervical region acute A pril 2024 11:51am Segmental and somatic dysfunction of lumbar region acute Apr il 2024 11:51am Segmental and somatic dysfunction of pelvic region acute Apr il 2024 11:51am Segmental and somatic dysfunction of thoracic region acute A pril 2024 11:51am DDD (degenerative disc disease) chronic February 04, 2025 11:51am Segmental and somatic dysfunction of cervical region acute A pril 2024 11:52am Segmental and somatic dysfunction of lumbar region acute Apr il 2024 11:52am Segmental and somatic dysfunction of pelvic region acute Apr il 2024 11:52am Segmental and somatic dysfunction of thoracic region acute A pril 2024 11:52am DDD (degenerative disc disease) chronic February 18, 2025 11:52am Diastolic dysfunction withou t heart failure chronic March 02, 2025 10:11am History of rectal cancer chronic March 02, 2025 10:11am HTN (hypertension) chronic March 02, 2025 10:11am Mitral valve regurgitation chronic March 02, 2025 10:11am Palpitations chronic March 02, 2025 10:11am Segmental and somatic dysfunction of cervical region acute M ay 2024 11:51am Segmental and somatic dysfunction of lumbar region acute March 04, 2025 11:51am Segmental and somatic dysfunction of pelvic region acute March 04, 2025 11:51am Segmental and somatic dysfunction of thoracic region acute M ay 2024 11:51am DDD (degenerative disc disease) chronic March 04, 2025 11 :51am Lower back pain acute April 08, 2025 11:53am Segmental and somatic dysfunction of cervical region acute J une 2024 11:53am Segmental and somatic dysfunction of lumbar region acute Toy e 2024 11:53am Segmental and somatic dysfunction of pelvic region acute Toy e 2024 11:53am Segmental and somatic dysfunction of thoracic region acute J une 2024 11:53am [facility] Work Phone: 1(826) 173-774301-09-2025 Evaluation note* Diagnosis Onset Date Resolution Status Admit Date Segmental and somatic dysfunction of cervical region acute J anuary 2024 11:50am Segmental and somatic dysfunction of lumbar region acute Harjit uary 2024 11:50am Segmental and somatic dysfunction of pelvic region acute Harjit uary 2024 11:50am Segmental and somatic dysfunction of thoracic region acute J anuary 2024 11:50am DDD (degenerative disc disease) chronic November 12 11:50am Dyspnea on exertion chronic u [email or web address] 10:56am History of mitral valve prolapse chronic December 15, 2 025 10:56am History of rectal cancer chronic December 15, 2024 10:56am HTN (hypertension) chronic ua ry 2024 10:56am Palpitations chronic December 10:56am Segmental and somatic dysfunction of cervical region acute M arch 2024 2:18pm Segmental and somatic dysfunction of lumbar region acute Mar ch 2024 2:18pm Segmental and somatic dysfunction of pelvic region acute Mar 2024 2:18pm Segmental and somatic dysfunction of thoracic region acute M arch 2024 2:18pm DDD (degenerative disc disease) chronic January 07, 2025 2:18pm Segmental and somatic dysfunction of cervical region acute A pril 2024 11:51am Segmental and somatic dysfunction of lumbar region acute Apr il 2024 11:51am Segmental and somatic dysfunction of pelvic region acute Apr il 2024 11:51am Segmental and somatic dysfunction of thoracic region acute A pril 2024 11:51am DDD (degenerative disc disease) chronic February 04, 2025 11:51am [facility] Work Phone: 1(309) 233-932912-05-2024 Evaluation note* Diagnosis Onset Date Resolution Status Admit Date Segmental and somatic dysfunction of cervical region acute D ecember 2023 11:52am Segmental and somatic dysfunction of lumbar region acute Dec ember 2023 11:52am Segmental and somatic dysfunction of pelvic region acute Dec ember 2023 11:52am Segmental and somatic dysfunction of thoracic region acute D ecember 2023 11:52am DDD (degenerative disc disease) chronic October 08 11:52am Segmental and somatic dysfunction of cervical region acute J anuary 2024 11:50am Segmental and somatic dysfunction of lumbar region acute Harjit uary 2024 11:50am Segmental and somatic dysfunction of pelvic region acute Harjit uary 2024 11:50am Segmental and somatic dysfunction of thoracic region acute J anuary 2024 11:50am DDD (degenerative disc disease) chronic November 12 11:50am Dyspnea on exertion chronic 2024 10:56am History of mitral valve prolapse chronic December 15, 2 025 10:56am History of rectal cancer chronic December 15, 2024 10:56am HTN (hypertension) chronic ua ry 2024 10:56am Palpitations chronic December 10:56am Segmental and somatic dysfunction of cervical region acute M arch 2024 2:18pm Segmental and somatic dysfunction of lumbar region acute Mar ch 2024 2:18pm Segmental and somatic dysfunction of pelvic region acute Mar ch 2024 2:18pm Segmental and somatic dysfunction of thoracic region acute M arch 2024 2:18pm DDD (degenerative disc disease) chronic January 07, 2025 2:18pm [facility] Work Phone: 1(893) 916-549710-21-2024 History of Present illness Narrative* Nikole Vang APRN-EAR MACHINE OPERATOR - 08/24/2024 10:20 AM EDT GI MEDICAL ONCOLOGY CLINIC NOTE Attending: Dr. Padron Chief Complaint Patient presents with Follow-up ICD-10-CM 1. Rectal cancer C20 CEA CT CHEST WITH CONTRAST CT ABDOMEN/PELVIS WITH CONTRAST History of Present Illness The patient is a 59-year-old female with a diagnosis of rectal cancer status post resection, here for a surveillance visit. She reports no changes in her bowel movements, including the absence of blood or color change. She also does not experience any new abdominal pain or discomfort. She has not received the influenza vaccine. She undergoes regular mammograms and reports no chest pain or cough. Additionally, she does not experience any neuropathy. She was recently prescribed another blood pressure medication and gout medication. She sees her primary care provider every 3 to 4 months. Her blood pressure is currently under control. However, she had some unexplained weight gain, and when she gains weight, her blood pressure tends to increase. Physical Exam Vitals: 08/24/24 1004 BP: 147/69 Pulse: 70 Resp: 18 Temp: 97.2 degrees F (36.2 degrees C) TempSrc: Infrared SpO2: 98% Weight: 89.6 kg (197 lb 8 oz) Height: 1.696 m (5' 6.77") APPEARANCE: Alert and oriented, Well-appearing EYES:nonicteric. HEENT: Head atraumatic, normocephalic. Oral Cavity: Moist mucosa without lesions. NECK: Supple with no cervical, supraclavicular, infraclavicular lymmphadenopathy. RESPIRATORY: Lungs are clear to auscultation bilaterally. CARDIOVASCULAR: Heart rate and rhythm regular. No murmurs/rubs. ABDOMEN: Soft, nontender, nondistended, without palpable masses. Normoactive bowel sounds. Ostomy intact LLQ MUSCULOSKELETAL: Extremities warm, well perfused. NEUROLOGIC: No focal deficits. Speech clear. SKIN: Skin warm and dry. No rash or jaundice appreciated. PATHOLOGY Pathologic Diagnosis A. Rectum and anus, [...] of ulceration measures 3.0 x 1.3 x 0.4cm Tumor Extension Cannot be assessed Macroscopic Tumor [...] Nodes (pN) pN0 . RADIOLOGY CT CHEST: 08/22/24 IMPRESSION: 1. No evidence of new primary or metastatic neoplasia in the chest CT ABDOMEN/PELVIS: 08/22/24 IMPRESSION: Final radiology report pending at this time. Assessment & Plan Stage I (T0 N0M0) Rectal Adenocarcinoma Laila Olvera is a 59 y.o. female with recently diagnosed rectal adenocarcinoma She started neoadjuvant chemoradiation with Xeloda on 02/27/21. Completed chemoradiation on 03/31/21. Underwent Robotic abdominoperineal resection with end colostomy on 06/09/21. Pathology T0N0, with no residual cancer. Dr. Padron offered surveillance versus adjuvant chemo. Patient decided to pursue surveillance. - Most recent colonoscopy completed in June 2024, with findings of normal colon exam. No specimens collected. Next colonoscopy due in 2025. Follows with Dr[address] Andrews. Ms. Olvera presents for follow up. She is doing very well. No signs or symptoms to suggest disease recurrence. CT chest, abd/pelvis from 08/22/[address] Padron, which do not show evidence of disease recurrence. CEA from today is pending. 1. Post-resection rectal cancer. She is currently three years post-surgery. Follow-up appointments are scheduled every six months for the next two years. Most recent colonoscopy in June 2024 without significant findings. Next colonoscopy due in 2 years (2025) 2. Hypertension. Her blood pressure is currently under control with the addition of a new blood pressure medication prescribed by her primary care provider. She is advised to continue monitoring her blood pressure and follow up with her primary care provider every three to four months. 3. Gout. She has been prescribed a new medication for gout by her primary care provider. She should continuetaking the medication as directed and report any side effects or concerns to her primary care provider. Follow-up Return in 6 months for follow-up with labs and scans prior. Patient was advised to contact with any questions or concerns that arise in the interim. They were advised to call the office for urgent matters and use My chart message for non-urgent matters. Advised to call 911 or go to the nearest emergency room for concerns requiring immediate medical attention. CARRIE Lennon * YO Arriaza - 08/24/2024 10:20 AM EDT Attending addendum I have personally seen and [...] my interview, exam, and medical decision making. History of Present Illness The patient presents for a follow-up visit. She reports no new or different symptoms since her last visit. She underwent a colonoscopy in 05/2024. On physical exam, Patient was AO, Breath sounds were adequate on both sides, Cardiac exam was not concerning for abnormal rhythm or murmurs, No concerning new LAD, Abdominal exam was normal wo any tenderness or swelling or pain, No gross neurological problems were noticed Stage II Rectal Adenocarcinoma s/p neoadjuvant BUS ESCORT and resection (had CR) TUMOR CHARACTERISTICS AT [...] to 6 cm from the anal verge. Involvesthe dentate line.Tumor very friable and bleeding with [...] osseous lesion. CT CAP 08/25/[address] CAP from 02/15/24 showed postsurgical changes with CARRIE. Right sacral insufficiency fracture remains stable. Assessment & Plan 1. Follow-up visit. The CT scan of the chest is normal, while the results of the abdominal CT scan are pending. The CEAtest was conducted today. If the current scan results are normal, she will be notified via [employer].In case of any abnormalities, a phone call will be made to discuss further steps. A repeat scan is scheduled in 6 months. 2. Health Maintenance. The last colonoscopy was performed in May of this year. The next colonoscopy is planned in 2 years, followed by every 5 years thereafter. UPDATE - Scans showed CARRIE. Continue surveillance. Notified patient through message. Colon Cancer Surveillance PE/CEA - every 3mfor 2 years, followed by every 6m Imaging - Every 6m [facility] - years , last one in 06/27 She prefers to get CEA locally with PCP. She knows to call me if she cannot get CEA locally or if the results are abnormal. If there is any concern for PCP about doing this test, she will let me know. RTC in 6m for labs and scans Patient was advised to contact with any questions or concerns that arise in the interim. They were advised to call the office for urgent matters and use My chart message for non-urgent matters. Advised to call 911 or go to the nearest emergency room for concerns requiring immediate medical attention. Note to patient: The Century Cures Act makes medical notes like these available to patients inthe interest of transparency. However, be advised this is a medical document. It is intended as peer to peer communication. It is written in medical language and may contain abbreviations or verbiagethat are unfamiliar. It may appear blunt or direct. Medical documents are intended to carry relevant information, facts as evident, and the clinical opinion of the practitioner. documented in this [facility]10-21-2024 Instructions* Patient Instructions* Ilya Mallory RN - 08/24/2024 10:20 AM EDT You will return in [address] Padron with labs and scans prior. documented in this [facility]08-02-2024 History and physical note* Isra Murphy MD - 06/05/2024 8:45 AM EDT COLON AND RECTAL SURGERY HISTORY AND PHYSICAL Patient: Laila Olvera Date: 06/04/2024 Attending Physician: Liliana Andrews MD ASSESSMENT / PLAN: Ms. Olvera is a 58 y.o. female with history of rectal cancer status post robotic APR with end colostomy, presenting for screening. Last CEA 02/24/24 < 2, last CT wo eo recurrence - Informed consent confirmed - Proceed to endoscopy - Plan is for surveillance colonoscopy Isra Murphy MD Colorectal Surgery Fellow, PGY-6 HISTORY OF PRESENT ILLNESS: Laila is a 58 y.o. female presenting for surveillance colonoscopy, currently CARRIE with rectal cancerstatus post APR. Past Medical History: Diagnosis Date Essential hypertension, benign History of radiation therapy Rectal cancer Past Surgical History: Procedure Laterality Date COLECTOMY PARTIAL ROBOTIC N/A 06/09/2021 Laterality: N/A; Surgeon: Liliana Andrews MD; Location: [facility] MAIN OR EXAM UNDER ANESTHESIA ANORECTAL N/A 02/15/2021 Laterality: N/A; Surgeon: Liliana Andrews MD; Location: [facility] PERIOP SECTION KNEE SURGERY times 2 on left knee OTHER SURGICAL ear left Social History Tobacco Use Smoking status: Never Smokeless tobacco: Never Substance Use Topics Alcohol use: Never (Not in a hospital admission) Allergies Allergen Reactions Penicillins Hives and Rash REVIEW OF SYSTEMS: GEN: no fevers, chills, night sweats, weight loss, or fatigue HEENT: no headache, dizziness, syncope, changes in vision, changes in hearing, sore throat, or rhinorrhea CV: no chest pain or palpitations RESP: no shortness of breath or cough GI: no abdominal pain, nausea, vomiting, diarrhea, constipation, melena, or hematochezia : no dysuria, no hematuria NEURO: no weakness, numbness/tingling MSK: no myalgias and joint pain HEME: no easy bruising or bleeding PSYCH: normal mood PHYSICAL EXAM: Smoking Status Never GEN: no acute distress, pleasant NEURO: alert and oriented, no gross motor deficits PULM: no e/o increased WOB on RA CVS: normal rate and regular rhythm GI: abdomen soft, non-tender, non-distended, colostomy appears healthy, well healed incisions MSK: no gross deformity PSYCH: normal affect; asks appropriate questions; no evidence of psychosis LABS: Lab Results Component Value Date HGB 13.5 02/25/2023 POTASSIUM 3.5 02/25/2023 CREATSERUM 0.64 02/15/2024 ALBUMIN 4.4 02/25/2023 INR 1.0 06/09/2021 ABORHDTYPE O NEG 06/10/2021 ANTIBODYSCRE NEG 06/09/2021 IMAGING: CT CHEST WITH CONTRAST Result Date: 02/17/2024 EXAM: CT CHEST WITH CONTRAST COMPARISON: August 24, 2023 CLINICAL INDICATIONS: Rectal cancer surveillance TECHNIQUE: IV contrast enhanced axial CT images of the chest 5 mm with 1 mm contiguous high-resolution, coronal MIP and sagittal MPR series. FINDINGS: No suspicious pulmonary nodule, mass, infiltrate or pleural effusion Minimal subsegmental atelectasis at the medial base of the right middle lobe No new thyroid nodule Patent airways No new adenopathy in the chest or axilla No new pericardial effusion No new aggressive osteolytic or blastic bony lesion Bones are mildly demineralized See separate CT abdomen/pelvis results from today IMPRESSION: 1. No evidence of new primary or metastatic neoplasia in the chest Ankur Grey M.D. This report has been electronically signed and verified by the Radiologist whose name is printed above. This report contains privileged and confidential information and is intended solely for the use of the individual or entity to which it is addressed. If you are not the intended recipient of this report, you are hereby notified that any copying, distribution, dissemination or action taken in relation to the contents of this report is strictly prohibited and may be unlawful. If you have receivedthis report in error, please notify the sender immediately at [phone] and permanently delete the original report and destroy any copies or printouts. CT ABDOMEN/PELVIS WITH CONTRAST Result Date: 02/17/2024 EXAM: CT ABDOMEN/PELVIS WITH CONTRAST COMPARISON: 08/24/2023, 02/16/2023 CLINICAL INDICATIONS: Rectal cancer status post neoadjuvant chemoradiation followed by abdominoperineal resection with end colostomy on 06/09/2021. Surveillance. TECHNIQUE: CT scanning was performed through the abdomen and pelvisfollowing the administration of intravenous contrast. PROTOCOL: Standard FINDINGS: LOWER THORAX: Please see dedicated chest CT scan of the same date for full description of the intrathoracic contents. LIVER: Diffuse hepatic steatosis. No focal hepatic lesions. The main portal vein is patent. BILIARY: Unremarkable. PANCREAS: Unremarkable. SPLEEN: Unremarkable. ADRENAL GLANDS: Unremarkable. KIDNEYS/URETERS: Unremarkable. PELVIC ORGANS/BLADDER: Mild pelvic floor laxity. Mild bladder and vaginal prolapse. The uterus, adnexa and bladder are otherwise grossly unremarkable. GI TRACT: Status post abdominoperineal resection. Mild presacral soft tissue thickening is similar to prior, likely treatmentrelated. Stable left mid abdominal end colostomy. Normal appendix. The stomach is grossly unremarkable. No focal bowel wall thickening or bowel obstruction. PERITONEUM: No free air or free fluid. LYMPH NODES: No pathologically enlarged lymph nodes. VESSELS: Mild atherosclerosis. No abdominal aorticaneurysm. BONES AND SOFT TISSUES: Postsurgical changes in the anterior abdominal wall. No suspicious osseous lesions. Chronic right sacral insufficiency fracture again seen. Degenerative changes in the sacroiliac joints, stable. IMPRESSION: Stable exam status post abdominoperineal resection and left mid abdominal end colostomy, with no definite CT evidence for recurrent/metastatic disease in the abdomen/pelvis. Emilia Andre M.D. This report has been electronically signed and verified by the Radiologist whose name is printed law licona. This report contains privileged and confidential information and is intended solely for the use of the individual or entity to which it is addressed. If you are not the intended recipient of this report, you are hereby notified that any copying, distribution, dissemination or action taken in r elation to the contents of this report is strictly prohibited and may be unlawful. If you have received this report in error, please notify the sender immediately at [phone] and permanently delete the original report and destroy any copies or printouts. [facility]08-02-2024 History and physical note* Isra Murphy MD - 06/05/2024 8:45 AM EDT COLON AND RECTAL SURGERY HISTORY AND PHYSICAL Patient: Laila Olvera Date: 06/04/2024 Attending Physician: Liliana Andrews MD ASSESSMENT / PLAN: Ms. Olvera is a 58 y.o. female with history of rectal cancer status post robotic APR with end colostomy, presenting for screening. Last CEA 02/24/24 < 2, last CT wo eo recurrence - Informed consent confirmed - Proceed to endoscopy - Plan is for surveillance colonoscopy Isra Murphy MD Colorectal Surgery Fellow, PGY-6 HISTORY OF PRESENT ILLNESS: Laila is a 58 y.o. female presenting for surveillance colonoscopy, currently CARRIE with rectal cancerstatus post APR. Past Medical History: Diagnosis Date Essential hypertension, benign History of radiation therapy Rectal cancer Past Surgical History: Procedure Laterality Date COLECTOMY PARTIAL ROBOTIC N/A 06/09/2021 Laterality: N/A; Surgeon: Liliana Andrews MD; Location: [facility] MAIN OR EXAM UNDER ANESTHESIA ANORECTAL N/A 02/15/2021 Laterality: N/A; Surgeon: Liliana Andrews MD; Location: [facility] PERIOP SECTION KNEE SURGERY times 2 on left knee OTHER SURGICAL ear left Social History Tobacco Use Smoking status: Never Smokeless tobacco: Never Substance Use Topics Alcohol use: Never (Not in a hospital admission) Allergies Allergen Reactions Penicillins Hives and Rash REVIEW OF SYSTEMS: GEN: no fevers, chills, night sweats, weight loss, or fatigue HEENT: no headache, dizziness, syncope, changes in vision, changes in hearing, sore throat, or rhinorrhea CV: no chest pain or palpitations RESP: no shortness of breath or cough GI: no abdominal pain, nausea, vomiting, diarrhea, constipation, melena, or hematochezia : no dysuria, no hematuria NEURO: no weakness, numbness/tingling MSK: no myalgias and joint pain HEME: no easy bruising or bleeding PSYCH: normal mood PHYSICAL EXAM: Smoking Status Never GEN: no acute distress, pleasant NEURO: alert and oriented, no gross motor deficits PULM: no e/o increased WOB on RA CVS: normal rate and regular rhythm GI: abdomen soft, non-tender, non-distended, colostomy appears healthy, well healed incisions MSK: no gross deformity PSYCH: normal affect; asks appropriate questions; no evidence of psychosis LABS: Lab Results Component Value Date HGB 13.5 02/25/2023 POTASSIUM 3.5 02/25/2023 CREATSERUM 0.64 02/15/2024 ALBUMIN 4.4 02/25/2023 INR 1.0 06/09/2021 ABORHDTYPE O NEG 06/10/2021 ANTIBODYSCRE NEG 06/09/2021 IMAGING: CT CHEST WITH CONTRAST Result Date: 02/17/2024 EXAM: CT CHEST WITH CONTRAST COMPARISON: August 24, 2023 CLINICAL INDICATIONS: Rectal cancer surveillance TECHNIQUE: IV contrast enhanced axial CT images of the chest 5 mm with 1 mm contiguous high-resolution, coronal MIP and sagittal MPR series. FINDINGS: No suspicious pulmonary nodule, mass, infiltrate or pleural effusion Minimal subsegmental atelectasis at the medial base of the right middle lobe No new thyroid nodule Patent airways No new adenopathy in the chest or axilla No new pericardial effusion No new aggressive osteolytic or blastic bony lesion Bones are mildly demineralized See separate CT abdomen/pelvis results from today IMPRESSION: 1. No evidence of new primary or metastatic neoplasia in the chest Ankur Grey M.D. This report has been electronically signed and verified by the Radiologist whose name is printed above. This report contains privileged and confidential information and is intended solely for the use of the individual or entity to which it is addressed. If you are not the intended recipient of this report, you are hereby notified that any copying, distribution, dissemination or action taken in relation to the contents of this report is strictly prohibited and may be unlawful. If you have receivedthis report in error, please notify the sender immediately at [phone] and permanently delete the original report and destroy any copies or printouts. CT ABDOMEN/PELVIS WITH CONTRAST Result Date: 02/17/2024 EXAM: CT ABDOMEN/PELVIS WITH CONTRAST COMPARISON: 08/24/2023, 02/16/2023 CLINICAL INDICATIONS: Rectal cancer status post neoadjuvant chemoradiation followed by abdominoperineal resection with end colostomy on 06/09/2021. Surveillance. TECHNIQUE: CT scanning was performed through the abdomen and pelvisfollowing the administration of intravenous contrast. PROTOCOL: Standard FINDINGS: LOWER THORAX: Please see dedicated chest CT scan of the same date for full description of the intrathoracic contents. LIVER: Diffuse hepatic steatosis. No focal hepatic lesions. The main portal vein is patent. BILIARY: Unremarkable. PANCREAS: Unremarkable. SPLEEN: Unremarkable. ADRENAL GLANDS: Unremarkable. KIDNEYS/URETERS: Unremarkable. PELVIC ORGANS/BLADDER: Mild pelvic floor laxity. Mild bladder and vaginal prolapse. The uterus, adnexa and bladder are otherwise grossly unremarkable. GI TRACT: Status post abdominoperineal resection. Mild presacral soft tissue thickening is similar to prior, likely treatmentrelated. Stable left mid abdominal end colostomy. Normal appendix. The stomach is grossly unremarkable. No focal bowel wall thickening or bowel obstruction. PERITONEUM: No free air or free fluid. LYMPH NODES: No pathologically enlarged lymph nodes. VESSELS: Mild atherosclerosis. No abdominal aorticaneurysm. BONES AND SOFT TISSUES: Postsurgical changes in the anterior abdominal wall. No suspicious osseous lesions. Chronic right sacral insufficiency fracture again seen. Degenerative changes in the sacroiliac joints, stable. IMPRESSION: Stable exam status post abdominoperineal resection and left mid abdominal end colostomy, with no definite CT evidence for recurrent/metastatic disease in the abdomen/pelvis. Emilia Andre M.D. This report has been electronically signed and verified by the Radiologist whose name is printed law licona. This report contains privileged and confidential information and is intended solely for the use of the individual or entity to which it is addressed. If you are not the intended recipient of this report, you are hereby notified that any copying, distribution, dissemination or action taken in r elation to the contents of this report is strictly prohibited and may be unlawful. If you have received this report in error, please notify the sender immediately at [phone] and permanently delete the original report and destroy any copies or printouts. documented in this [facility]07-12-2024 History of Present illness Narrative* Gardenia Alfredo, PLACEMENT ASSISTANT-EAR MACHINE OPERATOR - 05/15/2024 2:30 PM EDT RADIATION ONCOLOGY FOLLOW-UP VISIT CC/ID: Laila Olvera is a 58 y.o. female with a diagnosis of clinical [...] up. Interval since treatment completion: 2 years, 11 months History of Present Illness: Oncologic History: She underwent colonoscopy at [facility] on 01/12/21. The EVA revealed a palpable 4 cm firm rectal mass 1.0 cm from the anal verge. A frond- like/villous non-obstructing medium sized mass was found in [...] resection with end colostomy on 06/09/21 with noresidual cancer. She has continued in surveillance. Interval History: 02/15/24: CT scans showed no evidence of disease. CEA undetectable. 02/24/24: follow up with Dr. Padron Ms. Olvera is seen unaccompanied in clinic today. Her is in the waiting area. She reports overall feeling alright. Continues to have intermittent episodes of diarrhea, sometimes emptying her colostomy 4-5x daily. This can be accompanied by mild cramping prior to a bowel movement. She does feel this may be related to her dietary habits. She admits to not eating the healthiest some weeks; things such as Velveeta and ice cream. Appetite is otherwise good. Weight stable. Biggest concern today is increased vaginal discharge that can be odorous and white to painting in color. Goes through 1-3panty liners daily. Following with gynecology and they have no concerns. Tried estradiol cream but felt like it made her very fitzgerald and "not like herself." No other reported concerns. I have reviewed Ms. Olvera's medical, surgical and other pertinent history in detail, and have updated medication and allergy information in the computerized patient record. Physical Exam: CONSTITUTIONAL: Well developed, well nourished female, who looks their stated age of 58 y.o.. No acute distress noted. HEENT: Head: [...] her clinical situation. Data: Radiographic Studies: CT chest/abd/pelvis from 02/15/24 reviewed Laboratory studies: Reviewed in EMR Performance Status: ECOG Performance Status: Grade 1 - Restricted in physically strenuous activity but ambulatory and able to carry out work of a light or sedentary nature, e.g., light house work, office work Assessment and Plan: In summary, Ms. Olvera is a 58 y.o. female with a history of clinical [...] recurrent disease. Last colonoscopy in June 2022. Next scheduled on 06/05/24. She has CT scans on 08/22/24. She will follow with Dr. Padron on 08/26/23. We will plan to see her back in 1 year, potentially with CT imaging if needed at that time. She will move to annual imaging after scans in August and she will be >3 yrs post treatment completion. 2. Other relevant issues/problems are as follows: Diarrhea/cramps- discussed paying close attention to her diet, perhaps keeping a food journal, to look for any patterns related to her eating habits. She is scheduled for colonoscopy soon, as well. Vaginal discharge- will try 5 day course of metrogel. Did not complete pelvic exam in clinic but potential symptoms of BV. She was agreeable and wanting to try. Prescription sent to pharmacy. I also encouraged her to follow up with her accounting support specialist. We will have her return in 1 year for clinical exam. We can coordinate visits with Dr. Padron. Thank you for allowing me to participate in the care of this patient. Please do not hesitate to contact me with any questions or concerns. CARRIE Fuller Dept of Radiation Oncology [facility] History of Present illness Narrative* Stoney Padron MD, MBBS - 02/24/2024 10:20 AM EDT Attending addendum I have personally seen and [...] my interview, exam, and medical decision making. Laila Olvera presents today for follow up. Since last visit, she has been well. Stage II Rectal Adenocarcinoma s/p neoadjuvant BUS ESCORT and resection (had CR) TUMOR CHARACTERISTICS AT [...] to 6 cm from the anal verge. Involvesthe dentate line.Tumor very friable and bleeding with [...] osseous lesion. CT CAP 08/25/[address] CAP from 02/15/24 showed postsurgical changes with CARRIE. Right sacral insufficiency fracture remains stable. Assessment and Plan - Continue surveillance. We discussed diagnosis, imaging, pathology, staging, natural course of disease, and prognosis againtoday. I have personally reviewed available recent imaging and labs and discussed with the patient.Her CT C/A/P from 02/15/24 was stable with CARRIE. CEA today pending. She is almost 3 years out of surgery and remains well with CARRIE on clinical examination. I offered her to follow with Dr. Allison alone for surveillance visits. We will make a tentative appointment in 6 months and she was instructed to call us if she wishes to cancel. Colon Cancer Surveillance PE/CEA - every 3mfor [...] doing this test, she will let me know. RTC in 3 m for labs RTC in 6m for labs and scans Patient was advised to contact with any questions or concerns that arise in the interim. They were advised to call the office for urgent matters and use My chart message for non-urgent matters. Advised to call 911 or go to the nearest emergency room for concerns requiring immediate medical attention. Documented by Omar Layton, for Dr. Padron on 02/24/2024 at 4:34 PM. All medical record entries madeby the Kinjal were at my direction and personally dictated by me, Stoney Padron MD, YO . I have reviewed and edited the chart and agree that the record accurately reflects my personal performance of the history, physical exam, assessment and plan. I have also personally directed, reviewed, and agree with the discharge instructions. Note to patient: The 21st Century Cures Act makes medical notes like these available to patients inthe interest of transparency. However, be advised this is a medical document. It is intended as peer to peer communication. It is written in medical language and may contain abbreviations or verbiagethat are unfamiliar. It may appear blunt or direct. Medical documents are intended to carry relevant information, facts as evident, and the clinical opinion of the practitioner. CEA is normal and stick with the plan * Nikole Vang APRN-SADIE - 02/24/2024 10:20 AM EDT GI MEDICAL ONCOLOGY CLINIC NOTE Date of visit: 08/26/23 History/Reason for visit: Chief Complaint Patient presents with Follow-up Rectal cancer [C20] History of Present Illness: Laila Olvera is a 58 y.o. female who presents for follow up and CT scan review while on surveillance for rectal cancer. She reports doing well with good energy and appetite. Continues to work. Ostomy is working well. Denies hematochezia or melena. She reports noticing symptoms of dyspepsia forthe last couple of months. Denies nausea, vomiting, diarrhea or constipation. Denies new or worsening abdominal pain. No headaches, dizziness or edema. REVIEW OF SYSTEMS: General: No fevers, chills, sweats or change in weight, fatigue Skin: No changes in hair or nails, no itching, changing moles or non healing sores. A few scatteredpapules to the dorsal aspect of hands. +radiation [...] Laterality: N/A; Surgeon: Liliana Andrews MD; Location: [facility] MAIN OR EXAM UNDER ANESTHESIA ANORECTAL N/A 02/15/2021 Laterality: N/A; Surgeon: Liliana Andrews MD; Location: [facility] PERIOP SECTION KNEE SURGERY times 2 on left knee OTHER SURGICAL ear left Medications: Current Outpatient Medications Medication Sig lisinopril 10 MG tablet Take 1 tablet by mouth See admin instructions. Take Saturday, Saturday, Saturday lisinopril-hydrochlorothiazide 10-12.5 MG tablet Take 1 tablet by mouth See admin instructions. Take Saturday, , Saturday, and Saturday peg 3350 w/electrolytes oral solution For best results, take medication as directed by Colonoscopy Prep instructions Allergies: Allergies Allergen Reactions Penicillins Hives and [...] Never Smokeless tobacco: Never Vaping Use Vaping status: Never Used Substance and Sexual Activity Alcohol use: Never [...] Not on file Physical Examination: Vitals: BP 123/57 Pulse 64 Temp 97.4 F (36.3 C) (Infrared) Resp 12 Ht 1.693 m (5' 6.65") Comment: without shoes Wt 86.6 kg (191 lb) Comment: without shoes SpO2 96% Comment: room air BMI30.23 kg/m Smoking Status Never BMI: Body mass index is 30.23 kg/m . ECOG Performance Status: 1 General [...] CO2 28 02/25/2023 BUN 17 02/25/2023 CREATSERUM 0.64 02/15/2024 Lab Results Component Value Date ALT 21 02/25/2023 AST 14 02/25/2023 ALKPHOS 55 02/25/2023 BILITOTAL 1.1 02/25/2023 BILIDIRECT 0.2 02/24/2021 Lab Results Component Value Date CEA <2.0 02/24/2024 CEA <2.0 08/26/2023 CEA <2.0 02/25/2023 CEA <2.0 11/26/2022 CEA <2.0 07/12/2022 PATHOLOGY Pathologic Diagnosis A. Rectum and anus, [...] of ulceration measures 3.0 x 1.3 x 0.4cm Tumor Extension Cannot be assessed Macroscopic Tumor [...] Nodes (pN) pN0 . RADIOLOGY CT CHEST: 02/15/24 IMPRESSION: 1. No evidence of new primary or metastatic neoplasia in the chest CT ABDOMEN/PELVIS: 02/15/24 IMPRESSION: Stable exam status post abdominoperineal resection and left mid abdominal end colostomy, with no definite CT evidence for recurrent/metastatic disease in the abdomen/pelvis. Assessment and Plan Stage I (T0 N0M0) Rectal Adenocarcinoma Laila Olvera is a 58 y.o. female with recently [...] specimens collected. Next colonoscopy due in 2023. Emailed Dr. Andrews. - CT chest, abd/pelvis from 02/15/24 remains with CARRIE. CEA from today is undetectable. Ms. Olvera presents for follow up. She is doing very well. No signs or symptoms to suggest disease recurrence. We will continue with surveillance. 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 with labs and scans [...] medical attention. [facility]E Lennon [facility] Instructions* Patient Instructions* Tigist Mora RN - 02/24/2024 10:20 AM EDT Return in 6 months with RN labs and SCANS prior [facility] History of Present illness Narrative* YO Arriaza - 08/26/2023 1:40 PM EDT Attending addendum I have personally seen and [...] making. Stage II Rectal Adenocarcinoma s/p neoadjuvant BUS ESCORT and resection (had CR) TUMOR CHARACTERISTICS AT [...] to 6 cm from the anal verge. Involvesthe dentate line.Tumor very friable and bleeding with [...] staging, natural course of disease, and prognosis againtoday. I have personally reviewed available recent imaging and labs and discussed with the patient.Last colonoscopy was 12/2022. CT chest and abdomen [...] the discharge instructions. Note to patient: The Century Cures Act makes medical notes like these available to patients inthe interest of transparency. However, be advised this is a medical document. It is intended as peer to peer communication. It is written in medical language and may contain abbreviations or verbiagethat are unfamiliar. It may appear blunt or direct. Medical documents are intended to carry relevant information, facts as evident, and the clinical opinion of the practitioner. * Nikole Vang APRN-EAR MACHINE OPERATOR - 08/26/2023 1:40 PM EDT GI MEDICAL ONCOLOGY CLINIC NOTE Date of visit: 08/26/23 History/Reason for visit: Chief Complaint Patient presents with Follow-up Rectal cancer [C20] History of Present Illness: Laila Olvera is a 58 y.o. female who presents for follow up while on surveillance for rectal cancer. She reports doing very well. 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 States, she has new job that is [...] moles or non healing sores. A few scatteredpapules to the dorsal aspect of hands. +radiation [...] Laterality: N/A; Surgeon: Liliana Andrews MD; Location: [facility] MAIN OR EXAM UNDER ANESTHESIA ANORECTAL N/A 02/15/2021 Laterality: N/A; Surgeon: Liliana Andrews MD; Location: [facility] PERIOP SECTION KNEE SURGERY times 2 [...] (Oral) Resp 16 Ht 1.685 m (5' 6.34") Wt 87 kg (191 lb 12.8 oz) [...] dysplasia or carcinoma Fourteen benign lymph nodes (0). at 1725 Diagnosis Comments Extensive fibrosis with [...] of ulceration measures 3.0 x 1.3 x 0.4cm Tumor Extension Cannot be assessed Macroscopic Tumor [...] Plan Stage I (T0 N0M0) Rectal Adenocarcinoma Laila Olvera is a 58 y.o. female with recently [...] CARRIE. CEA from today is undetectable. Ms. Olvera presents for follow up. She is doing [...] medical attention. CARRIE Lennon documented in this [facility]10-23-2023 Instructions* Patient Instructions* Dalton Tomlinson RN - 08/26/2023 1:40 PM EDT You will be scheduled for a video visit with Dr. Padron in 3 months. Get your tumor marker checked afew business days before this visit. You will return to the clinic in [address] Padron with scans a week prior and FELT PAD CUTTER labs dayof return (may get labs day of scans if preferred). documented in this [facility]07-28-2023 History of Present illness Narrative* CARRIE Bullock - 05/31/2023 2:30 PM EDT RADIATION ONCOLOGY FOLLOW-UP VISIT CC/ID: Laila Olvera is a 57 y.o. female with a [...] Illness: Oncologic History: She underwent colonoscopy at [facility] on 01/12/21. The EVA revealed a palpable 4 cm firm rectal mass 1.0 cm from the anal verge. A frond- like/villous non-obstructing medium sized mass was found in [...] resection with end colostomy on 06/09/21 with noresidual cancer. She has continued in surveillance. Interval History: Ms. Olvera is seen in clinic accompanied by her . She reports overall doing well. She hasoccasional low back discomfort that is controlled with OTC medication if needed. She completed MRI in March 2023 that showed a healing insufficiency fracture. She denies nausea, vomiting, or abdominal discomfort. No issues with ostomy. No other reported concerns. We have reviewed Ms. Olvera's medical, surgical and other pertinent history in [...] work Assessment and Plan: In summary, Ms. Olvera is a 57 y.o. female with a [...] findings and the therapeutic plan with the CHEMICAL DEPENDENCY NURSE. I agree with the CHEMICAL DEPENDENCY NURSE's history, physical examination, and medical decisions as outlined. Laila Olvera is a 57 y.o. woman with a [...] Padron in August. I will plan to seeher back in 1 year for follow-up or [...] electronic health record Delores Allison MD, PhD Ent Nurse Radiation Oncology Pager: [phone] * Michael Shaikh, PLACEMENT ASSISTANT-EAR MACHINE OPERATOR - 05/31/2023 2:30 PM EDT RADIATION ONCOLOGY FOLLOW-UP VISIT CC/ID: Laila Olvera is a 57 y.o. female with a [...] Illness: Oncologic History: She underwent colonoscopy at [facility] on 01/12/21. The EVA revealed a palpable 4 cm firm rectal mass 1.0 cm from the anal verge. A frond- like/villous non-obstructing medium sized mass was found in [...] resection with end colostomy on 06/09/21 with noresidual cancer. She has continued in surveillance. Interval History: She is seen in clinic today accompanied by her . Since her visit, she reports that she is doing well. Her appetite and energy are good, weight is stable. 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 She reports that she has occasional LBP related to a right hemisacrum healing insufficiency fracture, relieved w/ rest and tylenol. Ostomy is functioning without issue. No issues w/ skin irritation around ostomy site or in treatment field. No CP/palpitations, SOB, cough, urinary issues, or other concernstoday. I have reviewed Ms. Olvera's medical, surgical and other pertinent history in detail, and have updated medication and allergy information in the computerized patient record. Past Medical History: She has a past medical history of Essential hypertension, benign, History of radiation therapy, andRectal cancer. She has no past medical history [...] work Assessment and Plan: In summary, Ms. Olvera is a 57 y.o. female with a [...] She is scheduled with her PCP Dr. Brice on 06/11/[address]. [address] scans on [...] developed by Dr. Allison. documented in this [facility]07-28-2023 Instructions* Patient Instructions* CARRIE Mendoza - 05/31/2023 2:30 PM EDT Plan to follow-up in clinic with Dr. Allison in 1 year. documented in this [facility]01-23-2023 History of Present illness Narrative* CARRIE Lennon - 11/26/2022 1:40 PM EST GI MEDICAL ONCOLOGY CLINIC NOTE Date of visit: 03/24/2021 History/Reason for visit: Chief Complaint Patient presents with Follow-up Rectal cancer [C20] History of Present Illness: Laila Olvera is a 57 y.o. female who presents for follow up while on surveillance for rectal cancer. She continues to do well. 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 Energy and appetite is good and has [...] moles or non healing sores. A few scatteredpapules to the dorsal aspect of hands. +radiation [...] Laterality: N/A; Surgeon: Liliana Andrews MD; Location: [facility] MAIN OR EXAM UNDER ANESTHESIA ANORECTAL N/A 02/15/2021 Laterality: N/A; Surgeon: Liliana Andrews MD; Location: [facility] PERIOP SECTION KNEE SURGERY times 2 on [...] (Oral) Resp 14 Ht 1.69 m (5' 6.54") Comment: without shoes Wt 81.3 kg (179 [...] of ulceration measures 3.0 x 1.3 x 0.4cm Tumor Extension Cannot be assessed Macroscopic Tumor [...] Plan Stage I (T0 N0M0) Rectal Adenocarcinoma Laila Olvera is a 57 y.o. female with recently diagnosed rectal adenocarcinoma She started neoadjuvant chemoradiation with Xeloda on 02/27/21. Completed chemoradiation on 03/31/21. Underwent Robotic abdominoperineal resection with end colostomy on 06/09/21. Pathology T0N0, with no residual cancer. Dr. Padron offered surveillance versus adjuvant chemo. Patient decided to pursue surveillance. - CT abd/pelvis from 07/12/22 remain with CARRIE. CEA from today is undtectable. Ms. Olvera presents for follow up. She is doing very well. - One year post surgery colonoscopy due in June 2023. She is following with Dr. More. We will continue with surveillance. RTC 3 months with labs and scans prior to see Dr. Padron Patient was advised to call the office should any questions or concerns arise in the interim. CARRIE Lennon documented [facility] encounter[facility] Instructions* Patient Instructions* Ilya Mallory RN - 11/26/2022 1:40 PM EST You will return in [address] Padron with labs/SCANS prior. CT scans: 3 months documented in this encounterC[facility]08-22-2022 History and physical note* Sunny Wu MD, PhD - 06/25/2022 8:45 AM EDT ENDOSCOPIC PREPROCEDURE HISTORY AND PHYSICAL HISTORY OF PRESENT ILLNESS: Laila Olvera is a 56 y.o. female seen in the preoprocedure area at [facility]. The indication for endoscopic evaluation includes: Rectal cancer Post op surveillance PAST MEDICAL HISTORY: Past Medical History: Diagnosis Date Essential hypertension, benign History of radiation therapy Rectal cancer SURGICAL HISTORY: Past Surgical History: Procedure Laterality Date COLECTOMY PARTIAL ROBOTIC N/A 06/09/2021 Laterality: N/A; Surgeon: Liliana Andrews MD; Location: [facility] OR EXAM UNDER ANESTHESIA ANORECTAL N/A 02/15/2021 Laterality: N/A; Surgeon: Liliana Andrews MD; Location: [facility] PERIOP SECTION KNEE SURGERY times 2 [...] 67 SpO2: 99% Height: 1.702 m (5' 7") PREPROCEDURE PHYSICAL EXAM: AIRWAY: normal, Mallampati: Class III (visualization of only the base of the uvula) HEART: Regular PULMONARY: NWB on RA ABDOMEN: Soft, nontender, nondistended, colostomy in place with scant liquid output in bag ASSESSMENT: Laila Olvera is a 56 y.o. female is ready for the planned procedure. ASA Class: ASA 2 - Patient with mild systemic disease with no functional limitations PLAN: Will plan to proceed with DIAGNOSTIC COLONOSCOPY using Moderate Sedation. Sunny Wu MD, PhD General Surgery PGY-2 Pager: [phone] [facility] Work Phone: [phone] History and physical note* Sunny Wu MD, PhD - 06/25/2022 8:45 AM EDT ENDOSCOPIC PREPROCEDURE HISTORY AND PHYSICAL HISTORY OF PRESENT ILLNESS: Laila Olvera is a 56 y.o. female seen in the preoprocedure area at [facility]. The indication for endoscopic evaluation includes: Rectal cancer Post op surveillance PAST MEDICAL HISTORY: Past Medical History: Diagnosis Date Essential hypertension, benign History of radiation therapy Rectal cancer SURGICAL HISTORY: Past Surgical History: Procedure Laterality Date COLECTOMY PARTIAL ROBOTIC N/A 06/09/2021 Laterality: N/A; Surgeon: Liliana Andrews MD; Location: [facility] OR EXAM UNDER ANESTHESIA ANORECTAL N/A 02/15/2021 Laterality: N/A; Surgeon: Liliana Andrews MD; Location: [facility] PERIOP SECTION KNEE SURGERY times 2 [...] 67 SpO2: 99% Height: 1.702 m (5' 7") PREPROCEDURE PHYSICAL EXAM: AIRWAY: normal, Mallampati: Class III (visualization of only the base of the uvula) HEART: Regular PULMONARY: NWB on RA ABDOMEN: Soft, nontender, nondistended, colostomy in place with scant liquid output in bag ASSESSMENT: Laila Olvera is a 56 y.o. female is ready for the planned procedure. ASA Class: ASA 2 - Patient with mild systemic disease with no functional limitations PLAN: Will plan to proceed with DIAGNOSTIC COLONOSCOPY using Moderate Sedation. Sunny Wu MD, PhD General Surgery PGY-2 Pager: [phone] documented in this encounterOS[facility] History of Present illness Narrative* Gardenia Alfredo APRN-EAR MACHINE OPERATOR - 06/22/2022 3:00 PM EDT RADIATION ONCOLOGY FOLLOW-UP VISIT CC/ID: Laila Olvera is a 56 y.o. female with a [...] Illness: Oncologic History: She underwent colonoscopy at [facility] on 01/12/21. The EVA revealed a palpable 4 cm firm rectal mass 1.0 cm from the anal verge. A frond- like/villous non-obstructing medium sized mass was found in [...] resection with end colostomy on 06/09/21 with noresidual cancer. She has continued in surveillance. Interval History: She is seen unaccompanied in clinic today. She reports mild joint discomfort since completing chemotherapy. She has intermittent sciatica pain, up to a 6/10 at it's worst. She doesn't take any medications for this. Mild fatigue. 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 No longer discomfort with sitting. She notes a dull headache most days for the past 4-6 weeks. She takes Tylenol maybe twice weekly, which helps. Ostomy is functioning without issue. Appetite is good. Weight stable. No urinary issues, cough, increased shortness of breath, swelling, or other concerns.She is doing well. I have reviewed Ms. Olvera's medical, surgical and other pertinent history in detail, and have updated medication and allergy information in the computerized patient record. Past Medical History: She has a past medical history of Essential hypertension, benign, History of radiation therapy, andRectal cancer. She has no past medical history [...] work Assessment and Plan: In summary, Ms. Olvera is a 56 y.o. female with a [...] plan. CARRIE Fuller Dept of Radiation Oncology * Ame Mcmullen RN - 06/22/2022 3:00 PM EDT documented in this encounterCleveland Clinic [facility]06-17-2022 Instructions* Patient Instructions* Cristela Olivares RN - 04/20/2022 11:01 AM EDT Video in [address] Padron, CT scans and labs prior. Ok to have labs drawn on same day as CT scans. Prescriptions today: none documented in this encounterOS[facility]06-17-[facility] History of Present illness Narrative* YO Arriaza - 04/20/2022 10:20 AM EDT GI MEDICAL ONCOLOGY CLINIC NOTE THIS IS A VIDEO VISIT History/Reason for visit: No chief complaint on file. Rectal cancer [C20] History of Present Illness: Laila Olvera is a 56 y.o. female REVIEW OF [...] Laterality: N/A; Surgeon: Liliana Andrews MD; Location: [facility] OR EXAM UNDER ANESTHESIA ANORECTAL N/A 02/15/2021 Laterality: N/A; Surgeon: Liliana Andrews MD; Location: [facility] PERIOP SECTION KNEE SURGERY times 2 [...] Assessment/Plan Stage II Rectal Adenocarcinoma s/p neoadjuvant BUS ESCORT and resection (had CR) TUMOR CHARACTERISTICS AT [...] to 6 cm from the anal verge. Involvesthe dentate line.Tumor very friable and bleeding with [...] staging, natural course of disease, and prognosis againtoday. I have personally reviewed available recent imaging and labs and discussed with the patient.There is no clear evidence of liver lesions or recurrence. We had a lengthy discussion today. We started with N0 disease and she had CR with BUS ESCORT. After discussing pros/cons of adjuvant therapy, we decided to put her on surveillance. She understands the risksincluding recurrence. The plan now is to put her in surveillance. Her last CEA is < 0.5, and I am comfortable without having a CT chest now. We shall get a PET in october to evaluate chest and also residual/recurrent disease (including the liver lesion). RTC after scans * YO Arriaza - 04/20/2022 10:20 AM EDT Attending addendum I have personally seen and [...] making. Stage II Rectal Adenocarcinoma s/p neoadjuvant BUS ESCORT and resection (had CR) TUMOR CHARACTERISTICS AT [...] to 6 cm from the anal verge. Involvesthe dentate line.Tumor very friable and bleeding with [...] staging, natural course of disease, and prognosis againtoday. I have personally reviewed available recent imaging and labs and discussed with the patient.There is no clear evidence of liver lesions or recurrence this time too but the scans were wo contrast. Given her stage II disease and normal CEA last time, I will not tepeat CT w contrast now but ifCEA comes back high, will consider it She is scheduled to have CSC in 05/25 with Rafael - that should be fine Colon Cancer Surveillance PE/CEA - every 3mfor 2 years, followed by every 6m Imaging - Every 6m CSC - years -in 05/25? RTC with scans * Nikole Vang APRN-SADIE - 04/20/2022 10:20 AM EDT GI MEDICAL ONCOLOGY CLINIC NOTE Date of visit: 03/24/2021 History/Reason for visit: Chief Complaint Patient presents with Follow-up Rectal cancer [C20] History of Present Illness: Laila Olvera is a 56 y.o. female who presents for follow up and Ct scan review. She continues to do well with great energy and appetite. 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 Her bowels are regular. She denies hematochezia or melena. She denies new or worsening abdominal pain, nausea or vomiting. REVIEW OF SYSTEMS: General: No fevers, chills, sweats or change in weight, fatigue Skin: No changes in hair or nails, no itching, changing moles or non healing sores. A few scatteredpapules to the dorsal aspect of hands. +radiation [...] Laterality: N/A; Surgeon: Liliana Andrews MD; Location: [facility] PERIOP SECTION KNEE SURGERY times 2 [...] (Oral) Resp 16 Ht 1.693 m (5' 6.65") Comment: w/o shoes Wt 79.5 kg (175 [...] of ulceration measures 3.0 x 1.3 x 0.4cm Tumor Extension Cannot be assessed Macroscopic Tumor [...] Plan Stage I (T0 N0M0) Rectal Adenocarcinoma Laila Olvera is a 56 y.o. female with recently [...] show any suspicious arterially enhancing lesions. Ms. Olvera presents for follow up. She is doing [...] the interim. CARRIE Lennon documented in this encounterC[facility]08-19-2021 History of Present illness Narrative* CARRIE Rust - 06/22/2021 10:00 AM EDT Chief Complaint Void trial HPI Ms. Olvera is a 55 y.o. female who presents to urology clinic today for void trial. She was recently hospitalized 06/09/21 - 06/14/21 for robotic partial colectomy with end colostomy for rectal cancer. She developed urinary retention while admitted and failed void trial inpatient. She was discharged with a jiménez catheter in place. She denies baseline voiding issues. Has never had this happen before. She is taking tamsulosin. Has been for one week. Her colostomy is functioning. She is drinking plenty of water. Past Medical History She has a past medical history of Essential hypertension, benign and Rectal cancer. She also has nopast medical history of History of chemotherapy, History of radiation therapy, or Pacemaker. Past Surgical History She has a past surgical history that includes knee surgery; other surgical; section; exam under anesthesia anorectal (N/A, 02/15/2021); and colectomy partial robotic (N/A, 06/09/2021). Medications She has a current medication list which includes the following prescription(s): acetaminophen, docusate, gabapentin, ibuprofen, lisinopril, lisinopril- hydrochlorothiazide, tamsulosin hcl, and oxycodone. Allergies She is [...] F (36.3 C) Ht 1.702 m (5' 7") Wt 72.1 kg (159 lb) SpO2 100% BMI 24.90 kg/m Smoking Status Never Smoker Constitutional: NAD, WDWN. HEENT: NCAT. Conjunctivae normal. MMM. Pulmonary/Chest: Respirations are even and non-labored bilaterally. Abdominal: No obvious distension. Neurological: A + O x 3. Cranial Nerves II-XII grossly intact. Extremities: Warm. No clubbing. No cyanosis. Lower extremity edema: Skin: Richey, warm and dry. No rashes noted. Psych: [...] performed today: 11 ml Problem List/Assessment: Ms. Olvera presents to urology clinic today for TOV following episode of post operative urinary retention. She passed today and had no issues spontaneously voiding. Plan 1. Follow up as needed. Patient and her were educated on return to clinic/ED protocol. Voiced understanding. Call or send [facility] message for new gross hematuria, new urinary symptoms, or other questions or concerns At the conclusion of the discussion, all questions were answered to satisfaction and the patient agreed with the plan. * Tobias Rodriguez LPN - 06/22/2021 10:00 AM EDT Pt was given an explanation regarding the voiding trial and wishes to proceed. Pt undressed and the jiménez bag was removed from the catheter. The [...] any questions or concerns. documented in this encounterC[facility]Evaluation note* Diagnosis Acute urinary retention- Primary Other specified retention of urine documented [facility] this encounter [facility]* Diagnosis Abdominal wall abscess Cellulitis and abscess of trunk documented [facility] this encounter [facility]* Diagnosis Rectal cancer- Primary Malignant neoplasm of rectum documented [facility] this encounter [facility]* Diagnosis Rectal cancer Malignant neoplasm of rectum documented [facility] encounter [facility]* Diagnosis Rectal cancer- Primary Malignant neoplasm of rectum documented in this encounter [facility]* Diagnosis Rectal cancer Malignant neoplasm of rectum documented [facility] this encounter [facility]* Diagnosis Rectal cancer Malignant neoplasm of rectum documented in this encounter [facility]* Diagnosis Rectal cancer- Primary Malignant neoplasm of rectum documented in this encounter [facility]* Diagnosis Rectal cancer Malignant neoplasm of rectum documented in this encounter [facility] noteNo assessment information available [facility] Work Phone: Evaluation note* Diagnosis Rectal cancer Malignant neoplasm of rectum documented in this encounter [facility] [place] [facility]* Diagnosis Onset Date Resolution Status Sacral insufficiency fracture acute [facility] Work Phone: Evaluation note* Diagnosis Encounter for follow-up examination after completed treatment for malignant neoplasm- Primary Unspecified follow-up examination Personal history of irradiation, presenting hazards to health Malignant neoplasm of rectum documented [facility] this encounter [facility]* Diagnosis Rectal cancer Malignant neoplasm of rectum documented in this encounter [facility] [place] [facility]* Diagnosis Rectal cancer Malignant neoplasm of rectum [facility] Diagnosis Rectal cancer- Primary Malignant neoplasm of rectum [facility]* Diagnosis Onset Date Resolution Status Shingles [facility] Work Phone: Evaluation note* Diagnosis Rectal cancer Malignant neoplasm of rectum [facility]* Diagnosis Rectal cancer Malignant neoplasm of rectum Examination of participant in clinical trial [facility]* Diagnosis Rectal cancer- Primary Malignant neoplasm of rectum [facility]* Diagnosis Vaginal discharge- Primary Leukorrhea, not specified as infective [facility]* Diagnosis Rectal cancer Malignant neoplasm of rectum [facility]* Diagnosis Rectal cancer Malignant neoplasm of rectum Rectal cancer- Primary Malignant neoplasm of rectum [facility]* Diagnosis Rectal cancer- Primary Malignant neoplasm of rectum documented in this encounter [facility] (narrative)No reason for referral information availableWOhioHealth [facility] Work Phone: Summary Purpose Family History No Family History Records Found Relationship Condition Age at Onset Recorded Date/T dnia father Congestive heart failure Unknown mother Hypertension Unknown Pulmonary hypertension Unknown Advance Directives No Advanced Directives Records FoundLatest Code Status on File Code Status Date Activated Date Inactivated Comments Full Code 06/09/2021 5:42 AM 06/09/2021 4:26 PM Latest Code Status on File Code Status Date Activated Date Inactivated Comments Full Code 06/09/2021 5:42 AM 06/09/2021 4:26 PM Latest Code Status on File Code Status Date Activated Date Inactivated Comments Full Code 06/09/2021 5:42 AM 06/09/2021 4:26 PM Advance Directive Response Recorded Date/ Time Living Will No February 06, 2021 6:05pm Power of Assembling Machine Operator No February 06 6:05pm Latest Code Status on File Code Status Date Activated Date Inactivated Comments Full Code 06/09/2021 5:42 AM 06/09/2021 4:26 PM Advance Directive Response Recorded Date/ Time Living Will No December 23 8:02am Power of Assembling Machine Operator No December 23, 2023 8:02am Date Activated Date Inactivated Comments 06/09/2021 5:42 AM 06/09/2021 4:26 PM Date Activated Date Inactivated Comments 06/09/2021 5:42 AM 06/09/2021 4:26 PM Advance Directive Response Recorded Date/ Time Living Will No December 23 9:02am Power of Assembling Machine Operator No December 23, 2023 9:02am Advance Directive Response Recorded Date/ Time Living Will No December 23 9:02am Do you have a Healthcare Power of Assembling Machine Operator? No December 23, 2023 9:02am Reason for Referral Specialty Diagnoses / Procedures Referred By Contac t Referred To Contact Diagnoses Abdominal wall abscess Procedures CT ABDOMEN/PELVIS WITH CONTRAST CHG CT SCAN,ABDOMENT AND PELVIS,W CONTRAST Liliana Andrews MD [address] [facility] [address] [place] [address] Referral ID Status Reason Start Date Expiration Date Visits Re quested Visits Authorized [id number] Closed 06/27/2021 07/22/2022 1 1 Specialty Diagnoses / Procedures Referred By Contac t Referred To Contact Diagnoses Rectal cancer Procedures CT ABDOMEN/PELVIS WITH CONTRAST CHG CT SCAN,ABDOMENT AND PELVIS,W CONTRAST Nikole Vang, PLACEMENT ASSISTANT-EAR MACHINE OPERATOR [address] [facility] [address] [place] [address] Referral ID Status Reason Start Date Expiration Date V isits Requested Visits Authorized [id number] New Request 04/20/2022 05/15/2023 1 1 Specialty Diagnoses / Procedures Referred By Contac t Referred To Contact Diagnoses Rectal cancer Procedures CT CHEST WITH CONTRAST CHG DIAGNOSTIC COMPUTED TOMOGRAPHY THORAX W/CONTRAST UmNikole munguia, PLACEMENT ASSISTANT-EAR MACHINE OPERATOR [address] [facility] [address] [place] [address] Referral ID Status Reason Start Date Expiration Date V isits Requested Visits Authorized [id number] New Request 04/20/2022 05/15/2023 1 1 Specialty Diagnoses / Procedures Referred By Contac t Referred To Contact Diagnoses Rectal cancer Procedures DIAGNOSTIC COLONOSCOPY NC COLONOSCOPY FLX DX W/COLLJ SPEC WHEN Liliana Joseph MD [address] [facility] [address] [place] [address] Referral ID Status Reason Start Date Expiration Date Visits Re quested Visits Authorized [id number] Closed 04/12/2022 05/07/2023 1 1 Referral ID Status Reason Start Date Expiration Date Visits Re quested Visits Authorized [id number] Closed 04/20/2022 05/15/2023 1 1 Referral ID Status Reason Start Date Expiration Date V isits Requested Visits Authorized [id number] New Request 11/26/2022 12/21/2023 1 1 Referral ID Status Reason Start Date Expiration Date V isits Requested Visits Authorized [id number] New Request 11/26/2022 12/21/2023 1 1 Referral ID Status Reason Start Date Expiration Date V isits Requested Visits Authorized [id number] Pending Review 11/26/2022 12/21/2023 1 1 Referral ID Status Reason Start Date Expiration Date V isits Requested Visits Authorized [id number] Pending Review 11/26/2022 12/21/2023 1 1 Specialty Diagnoses / Procedures Referred By Contac t Referred To Contact Diagnoses Rectal cancer Procedures MRI PELVIS MSK WITH AND WITHOUT CONTRAST MRI HIP RIGHT WITH AND WITHOUT CONTRAST NC MRI, JOINT OF LEG. COMBO NC MRI, PELVIS, COMBO Stoney Padron MBBS [address] [place] [address] Referral ID Status Reason Start Date Expiration Date Visits Re quested Visits Authorized [id number] Closed 03/11/2023 04/04/2024 1 1 Specialty Diagnoses / Procedures Referred By Contac t Referred To Contact Diagnoses Rectal cancer Procedures CT CHEST WITH CONTRAST CHG DIAGNOSTIC COMPUTED TOMOGRAPHY THORAX W/CONTRAST Stoney Padron MBBS [address] [place] [address] Referral ID Status Reason Start Date Expiration Date Visits Re quested Visits Authorized [id number] Closed 02/25/2023 03/21/2024 1 1 Specialty Diagnoses / Procedures Referred By Contac t Referred To Contact Diagnoses Rectal cancer Procedures CT ABDOMEN/PELVIS WITH CONTRAST CHG CT SCAN,ABDOMENT AND PELVIS,W CONTRAST Stoney Padron MBBS [address] [place] [address] Referral ID Status Reason Start Date Expiration Date Visits Re quested Visits Authorized [id number] Closed 02/25/2023 03/21/2024 1 1 Referral ID Status Reason Start Date Expiration Date V isits Requested Visits Authorized [id number] New Request 08/26/2023 09/19/2024 1 1 Referral ID Status Reason Start Date Expiration Date V isits Requested Visits Authorized [id number] New Request 08/26/2023 09/19/2024 1 1 Referral ID Status Reason Start Date Expiration Date V isits Requested Visits Authorized [id number] Pending Review 08/26/2023 09/19/2024 1 1 Referral ID Status Reason Start Date Expiration Date V isits Requested Visits Authorized [id number] Pending Review 08/26/2023 09/19/2024 1 1 Referral ID Status Reason Start Date Expiration Date V isits Requested Visits Authorized [id number] New Request 02/24/2024 03/20/2025 1 1 Referral ID Status Reason Start Date Expiration Date V isits Requested Visits Authorized [id number] New Request 02/24/2024 03/20/2025 1 1 Specialty Diagnoses / Procedures Referred By Contac t Referred To Contact Diagnoses Rectal cancer Procedures DIAGNOSTIC COLONOSCOPY NC COLONOSCOPY FLX DX W/COLLJ SPEC WHEN PFRMD Liliana Andrews MD [address] [facility] [address] [place] [address] Referral ID Status Reason Start Date Expiration Date Visits Re quested Visits Authorized [id number] Closed 05/18/2024 03/20/2025 1 1 Referral ID Status Reason Start Date Expiration Date Visits Re quested Visits Authorized [id number] Closed 02/24/2024 03/20/2025 1 1 Referral ID Status Reason Start Date Expiration Date Visits Re quested Visits Authorized [id number] Closed 02/24/2024 03/20/2025 1 1 Specialty Diagnoses / Procedures Referred By Contac t Referred To Contact Diagnoses Rectal cancer Procedures CT ABDOMEN/PELVIS WITH CONTRAST CHG CT ABDOMEN & PELVIS W/CONTRAST MATERIAL Nikole Vang, PLACEMENT ASSISTANT-EAR MACHINE OPERATOR [address] [place] [address] Referral ID Status Reason Start Date Expiration Date V isits Requested Visits Authorized [id number] New Request 08/24/2024 09/18/2025 1 1 Referral ID Status Reason Start Date Expiration Date V isits Requested Visits Authorized [id number] New Request 08/24/2024 09/18/2025 1 1 Chief Complaint and Reason for Visit Chief Complaint RECTAL CA HIP FRACTURE Chief Complaint RECTAL CA HIP FRACTURE LUMBER SPINE RM 5 Reason for Visit Sacral insufficiency fracture Chief Complaint RECTAL CA HIP FRACTURE LUMBER SPINE RM 5 SACRAL FX Reason for Visit Sacral insufficiency fracture Chief Complaint SINUS DISCOMFORT CONCERN FOR SHINGLES CHEST OTHER Reason for Visit Shingles Chief Complaint Admit Date Back pain October 08, 2024 1 1:52am Back pain November 12, 2024 11 :50am PALPS (BRICE) December 15, 2024 10:56am EORDER December 15, 2024 12:03pm PALP December 28, 2024 7:20am PALP December 28, 2024 7:32am LINDSAY January 04, 2025 6:29 am LINDSAY January 04, 2025 11:4 6am Back pain January 07, 2025 2:18 pm Reason for Visit Admit Date Segmental and somatic dysfunction of cer vical region October 08, 2024 11:52am Segmental and somatic dysfunction of lum bar region October 08, 2024 11:52am Segmental and somatic dysfunction of pel mick region October 08, 2024 11:52am Segmental and somatic dysfunction of tho racic region October 08, 2024 11:52am DDD (degenerative disc disease) October 08, 2024 11:52am Segmental and somatic dysfunction of cer vical region November 12, 2024 11:50am Segmental and somatic dysfunction of lum bar region November 12, 2024 11:50am Segmental and somatic dysfunction of pel mick region November 12, 2024 11:50am Segmental and somatic dysfunction of tho racic region November 12, 2024 11:50am DDD (degenerative disc disease) November 12, 2024 11:50am Dyspnea on exertion December 15, 2024 10:56am History of mitral valve prolapse 2024 10:56am History of rectal cancer December 15, 2024 10:56am HTN (hypertension) December 15, 2024 10:56am Palpitations December 15, 2024 10:56am Segmental and somatic dysfunction of cer vical region January 07, 2025 2:18pm Segmental and somatic dysfunction of lum bar region January 07, 2025 2:18pm Segmental and somatic dysfunction of pel mick region January 07, 2025 2:18pm Segmental and somatic dysfunction of tho racic region January 07, 2025 2:18pm DDD (degenerative disc disease) January 2:18pm Chief Complaint Admit Date Back pain November 12, 2024 11 :50am PALPS (BRICE) December 15, 2024 10:56am EORDER December 15, 2024 12:03pm PALP December 28, 2024 7:20am PALP December 28, 2024 7:32am LINDSAY January 04, 2025 6:29 am LINDSAY January 04, 2025 11:4 6am Back pain January 07, 2025 2:18 pm Back pain February 04, 2025 11:5 1am [facility] February 04 2:26pm Reason for Visit Admit Date Segmental and somatic dysfunction of cer vical region November 12, 2024 11:50am Segmental and somatic dysfunction of lum bar region November 12, 2024 11:50am Segmental and somatic dysfunction of pel mick region November 12, 2024 11:50am Segmental and somatic dysfunction of tho racic region November 12, 2024 11:50am DDD (degenerative disc disease) November 12, 2024 11:50am Dyspnea on exertion December 15, 2024 10:56am History of mitral valve prolapse 2024 10:56am History of rectal cancer December 15, 2024 10:56am HTN (hypertension) December 15, 2024 10:56am Palpitations December 15, 2024 10:56am Segmental and somatic dysfunction of cer vical region January 07, 2025 2:18pm Segmental and somatic dysfunction of lum bar region January 07, 2025 2:18pm Segmental and somatic dysfunction of pel mick region January 07, 2025 2:18pm Segmental and somatic dysfunction of tho racic region January 07, 2025 2:18pm DDD (degenerative disc disease) January 2:18pm Segmental and somatic dysfunction of cer vical region February 04, 2025 11:51am Segmental and somatic dysfunction of lum bar region February 04, 2025 11:51am Segmental and somatic dysfunction of pel mick region February 04, 2025 11:51am Segmental and somatic dysfunction of tho racic region February 04, 2025 11:51am DDD (degenerative disc disease) February 11:51am Chief Complaint Admit Date PALPS (BRICE) December 15, 2024 10:56am EORDER December 15, 2024 12:03pm PALP December 28, 2024 7:20am PALP December 28, 2024 7:32am LINDSAY January 04, 2025 6:29 am LINDSAY January 04, 2025 11:4 6am Back pain January 07, 2025 2:18 pm Back pain February 04, 2025 11:5 1am [facility] February 04 2:26pm BACK PAIN February 18, 2025 11: 52am 3 M FU March 02, 2025 10: 11am Back pain March 04, 2025 11:51a m Back pain April 08, 2025 11:53 am Reason for Visit Admit Date Dyspnea on exertion December 15, 2024 10:56am History of mitral valve prolapse 2024 10:56am History of rectal cancer December 15, 2024 10:56am HTN (hypertension) December 15, 2024 10:56am Palpitations December 15, 2024 10:56am Segmental and somatic dysfunction of cer vical region January 07, 2025 2:18pm Segmental and somatic dysfunction of lum bar region January 07, 2025 2:18pm Segmental and somatic dysfunction of pel mick region January 07, 2025 2:18pm Segmental and somatic dysfunction of tho racic region January 07, 2025 2:18pm DDD (degenerative disc disease) January 2:18pm Segmental and somatic dysfunction of cer vical region February 04, 2025 11:51am Segmental and somatic dysfunction of lum bar region February 04, 2025 11:51am Segmental and somatic dysfunction of pel mick region February 04, 2025 11:51am Segmental and somatic dysfunction of tho racic region February 04, 2025 11:51am DDD (degenerative disc disease) February 11:51am Segmental and somatic dysfunction of cer vical region February 18, 2025 11:52am Segmental and somatic dysfunction of lum bar region February 18, 2025 11:52am Segmental and somatic dysfunction of pel mick region February 18, 2025 11:52am Segmental and somatic dysfunction of tho racic region February 18, 2025 11:52am DDD (degenerative disc disease) February 182024 11:52am Diastolic dysfunction without heart fail ure March 02, 2025 10:11am History of rectal cancer March 02 10:11am HTN (hypertension) March 02, 2025 10: 11am Mitral valve regurgitation March 02, 025 10:11am Palpitations March 02, 2025 10: 11am Segmental and somatic dysfunction of cer vical region March 04, 2025 11:51am Segmental and somatic dysfunction of lum bar region March 04, 2025 11:51am Segmental and somatic dysfunction of pel mick region March 04, 2025 11:51am Segmental and somatic dysfunction of tho racic region March 04, 2025 11:51am DDD (degenerative disc disease) March 04, 2025 11:51am Lower back pain April 08, 2025 11:53 am Segmental and somatic dysfunction of cer vical region April 08, 2025 11:53am Segmental and somatic dysfunction of lum bar region April 08, 2025 11:53am Segmental and somatic dysfunction of pel mick region April 08, 2025 11:53am Segmental and somatic dysfunction of tho racic region April 08, 2025 11:53am Chief Complaint Admit Date PALP December 28, 2024 7:20am PALP December 28, 2024 7:32am LINDSAY January 04, 2025 6:29 am LINDSAY January 04, 2025 11:4 6am Back pain January 07, 2025 2:18 pm Back pain February 04, 2025 11:5 1am [facility] February 04 2:26pm BACK PAIN February 18, 2025 11: 52am 3 M FU March 02, 2025 10: 11am Back pain March 04, 2025 11:51a m Back pain April 08, 2025 11:53 am Reason for Visit Admit Date Segmental and somatic dysfunction of cer vical region January 07, 2025 2:18pm Segmental and somatic dysfunction of lum bar region January 07, 2025 2:18pm Segmental and somatic dysfunction of pel mick region January 07, 2025 2:18pm Segmental and somatic dysfunction of tho racic region January 07, 2025 2:18pm DDD (degenerative disc disease) January 2:18pm Segmental and somatic dysfunction of cer vical region February 04, 2025 11:51am Segmental and somatic dysfunction of lum bar region February 04, 2025 11:51am Segmental and somatic dysfunction of pel mick region February 04, 2025 11:51am Segmental and somatic dysfunction of tho racic region February 04, 2025 11:51am DDD (degenerative disc disease) February 11:51am Segmental and somatic dysfunction of cer vical region February 18, 2025 11:52am Segmental and somatic dysfunction of lum bar region February 18, 2025 11:52am Segmental and somatic dysfunction of pel mick region February 18, 2025 11:52am Segmental and somatic dysfunction of tho racic region February 18, 2025 11:52am DDD (degenerative disc disease) February 182024 11:52am Diastolic dysfunction without heart fail ure March 02, 2025 10:11am History of rectal cancer March 02 10:11am HTN (hypertension) March 02, 2025 10: 11am Mitral valve regurgitation March 02, 2 025 10:11am Palpitations March 02, 2025 10: 11am Segmental and somatic dysfunction of cer vical region March 04, 2025 11:51am Segmental and somatic dysfunction of lum bar region March 04, 2025 11:51am Segmental and somatic dysfunction of pel mick region March 04, 2025 11:51am Segmental and somatic dysfunction of tho racic region March 04, 2025 11:51am DDD (degenerative disc disease) March 04, 2025 11:51am Lower back pain April 08, 2025 11:53 am Segmental and somatic dysfunction of cer vical region April 08, 2025 11:53am Segmental and somatic dysfunction of lum bar region April 08, 2025 11:53am Segmental and somatic dysfunction of pel mick region April 08, 2025 11:53am Segmental and somatic dysfunction of tho racic region April 08, 2025 11:53am DDD (degenerative disc disease) April 11:53am Chief Complaint Admit Date Back pain February 04, 2025 11:5 1am [facility] February 04 2:26pm BACK PAIN February 18, 2025 11: 52am 3 M FU March 02, 2025 10: 11am Back pain March 04, 2025 11:51a m Back pain April 08, 2025 11:53 am Back pain May 24, 2025 3:19 pm Reason for Visit Admit Date Segmental and somatic dysfunction of cer vical region February 04, 2025 11:51am Segmental and somatic dysfunction of lum bar region February 04, 2025 11:51am Segmental and somatic dysfunction of pel mick region February 04, 2025 11:51am Segmental and somatic dysfunction of tho racic region February 04, 2025 11:51am DDD (degenerative disc disease) February 11:51am Segmental and somatic dysfunction of cer vical region February 18, 2025 11:52am Segmental and somatic dysfunction of lum bar region February 18, 2025 11:52am Segmental and somatic dysfunction of pel mick region February 18, 2025 11:52am Segmental and somatic dysfunction of tho racic region February 18, 2025 11:52am DDD (degenerative disc disease) February 182024 11:52am Diastolic dysfunction without heart fail ure March 02, 2025 10:11am History of rectal cancer March 02 10:11am HTN (hypertension) March 02, 2025 10: 11am Mitral valve regurgitation March 02, 2 025 10:11am Palpitations March 02, 2025 10: 11am Segmental and somatic dysfunction of cer vical region March 04, 2025 11:51am Segmental and somatic dysfunction of lum bar region March 04, 2025 11:51am Segmental and somatic dysfunction of pel mick region March 04, 2025 11:51am Segmental and somatic dysfunction of tho racic region March 04, 2025 11:51am DDD (degenerative disc disease) March 04, 2025 11:51am Lower back pain April 08, 2025 11:53 am Segmental and somatic dysfunction of cer vical region April 08, 2025 11:53am Segmental and somatic dysfunction of lum bar region April 08, 2025 11:53am Segmental and somatic dysfunction of pel mick region April 08, 2025 11:53am Segmental and somatic dysfunction of tho racic region April 08, 2025 11:53am DDD (degenerative disc disease) April 11:53am Lower back pain May 24, 2025 3:19 pm Segmental and somatic dysfunction of cer vical region May 24, 2025 3:19pm Segmental and somatic dysfunction of lum bar region May 24, 2025 3:19pm Segmental and somatic dysfunction of pel mick region May 24, 2025 3:19pm Segmental and somatic dysfunction of tho racic region May 24, 2025 3:19pm Additional Source Comments INFORMATION SOURCE (unrecogn ized section and content) DATE CREATED AUTHOR 06/06/2021 [facility] DATE CREATED AUTHOR AUTHOR'S ORGANIZ ATION 08/27/2024 [facility] DATE CREATED AUTHOR AUTHOR'S ORGANIZ ATION 05/26/2025 [facility] Reason for Visit (unrecogniz ed section and content) Reason Comments Follow-up Specialty Diagnoses / Procedures Referred By Ryan t Referred To Contact Medical Oncology / Oncology Diagnoses 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 labs/scans prior Procedures RETURN PATIENT Barney Brice MD [address] [place] [address] Stoney Padron MBBS [address] [place] [address] Referral ID Status Reason Start Date Expiration Date Visits Re quested Visits Authorized [id number] Closed 08/26/2023 09/19/2024 1 1 Reason Comments Labs Only Specialty Diagnoses / Procedures Referred By Contac t Referred To Contact Clinical Pathology/Laboratory Medicine Diagnoses Vito labs Procedures BLOOD DRAW Clinical Lab Augustin Rose [address] [address] [place] [address] Referral ID Status Reason Start Date Expiration Date Visits Re quested Visits Authorized [id number] Closed 08/26/2023 09/19/2024 1 1 Reason Comments New Patient void trial Specialty Diagnoses / Procedures Referred By Contac t Referred To Contact Urology Diagnoses Rectal cancer Acute urinary retention Mirtha Linares, PLACEMENT ASSISTANT-EAR MACHINE OPERATOR [address] [facility] [address] [place] [address] Referral ID Status Reason Start Date Expiration Date V isits Requested Visits Authorized [id number] New Request 06/14/2021 07/09/2022 1 1 Specialty Diagnoses / Procedures Referred By Contac t Referred To Contact Diagnoses Abdominal wall abscess Procedures CT ABDOMEN/PELVIS WITH CONTRAST CHG CT SCAN,ABDOMENT AND PELVIS,W CONTRAST Liliana Andrews MD [address] [facility] [address] [place] [address] Referral ID Status Reason Start Date Expiration Date Visits Re quested Visits Authorized [id number] Closed 06/27/2021 07/22/2022 1 1 Reason Comments Follow-up Specialty Diagnoses / Procedures Referred By Contac t Referred To Contact Diagnoses Rectal cancer Procedures DIAGNOSTIC COLONOSCOPY NC COLONOSCOPY FLX DX W/COLLJ SPEC WHEN PFRMD Liliana Andrews MD [address] [facility] [address] [place] [address] Referral ID Status Reason Start Date Expiration Date Visits Re quested Visits Authorized [id number] Closed 04/12/2022 05/07/2023 1 1 Specialty Diagnoses / Procedures Referred By Contac t Referred To Contact Diagnoses Rectal cancer Procedures CT ABDOMEN/PELVIS WITH CONTRAST CHG CT SCAN,ABDOMENT AND PELVIS,W CONTRAST Nikole Vang, PLACEMENT ASSISTANT-EAR MACHINE OPERATOR [address] [facility] [address] [place] [address] Referral ID Status Reason Start Date Expiration Date Visits Re quested Visits Authorized [id number] Closed 04/20/2022 05/15/2023 1 1 Specialty Diagnoses / Procedures Referred By Contac t Referred To Contact Diagnoses Rectal cancer Procedures CT CHEST WITH CONTRAST CHG DIAGNOSTIC COMPUTED TOMOGRAPHY THORAX W/CONTRAST Umar, Nikole, PLACEMENT ASSISTANT-EAR MACHINE OPERATOR [address] [facility] [address] [place] [address] Referral ID Status Reason Start Date Expiration Date V isits Requested Visits Authorized [id number] Pending Review 11/26/2022 12/21/2023 1 1 Referral ID Status Reason Start Date Expiration Date V isits Requested Visits Authorized [id number] Pending Review 11/26/2022 12/21/2023 1 1 Specialty Diagnoses / Procedures Referred By Contac t Referred To Contact Diagnoses Rectal cancer Procedures MRI PELVIS MSK WITH AND WITHOUT CONTRAST MRI HIP RIGHT WITH AND WITHOUT CONTRAST NC MRI, JOINT OF LEG. COMBO NC MRI, PELVIS, COMBO Stoney Padron [place] [address] Referral ID Status Reason Start Date Expiration Date Visits Re quested Visits Authorized [id number] Closed 03/11/2023 04/04/2024 1 1 Specialty Diagnoses / Procedures Referred By Contac t Referred To Contact Diagnoses Rectal cancer Procedures CT CHEST WITH CONTRAST CHG DIAGNOSTIC COMPUTED TOMOGRAPHY THORAX W/CONTRAST Stoney Padron MBBS [address] [place] [id number] Referral ID Status Reason Start Date Expiration Date Visits Re quested Visits Authorized [id number] Closed 02/25/2023 03/21/2024 1 1 Specialty Diagnoses / Procedures Referred By Contac t Referred To Contact Diagnoses Rectal cancer Procedures CT ABDOMEN/PELVIS WITH CONTRAST CHG CT SCAN,ABDOMENT AND PELVIS,W CONTRAST Stoney [place]ron [place] [address] Referral ID Status Reason Start Date Expiration Date Visits Re quested Visits Authorized [id number] Closed 02/25/2023 03/21/2024 1 1 Referral ID Status Reason Start Date Expiration Date V isits Requested Visits Authorized [id number] Pending Review 08/26/2023 09/19/2024 1 1 Referral ID Status Reason Start Date Expiration Date V isits Requested Visits Authorized [id number] Pending Review 08/26/2023 09/19/2024 1 1 Specialty Diagnoses / Procedures Referred By Contac t Referred To Contact Clinical Pathology/Laboratory Medicine Diagnoses Vito lab Procedures BLOOD DRAW Stoney Padron MD, YO [address] [place] [address] Clinical Lab Augustin [facility]ehouse [address] [place] [address] Referral ID Status Reason Start Date Expiration Date Visits Re quested Visits Authorized [id number] Closed 02/24/2024 03/20/2025 1 1 Specialty Diagnoses / Procedures Referred By Contac t Referred To Contact Medical Oncology / Oncology Diagnoses 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, 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,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 Procedures RETURN PATIENT Stoney Padron MD, MBBS [address] [place] [address] Stoney Padron MD, MBBS [address] [facility] [address] [place] [address] Referral ID Status Reason Start Date Expiration Date Visits Re quested Visits Authorized [id number] Closed 02/24/2024 03/20/2025 1 1 Specialty Diagnoses / Procedures Referred By Contac t Referred To Contact Diagnoses Rectal cancer Procedures DIAGNOSTIC COLONOSCOPY NC COLONOSCOPY FLX DX W/COLLJ SPEC WHEN PFRMD Liliana Andrews MD [address] [facility] [address] [place] [address] Referral ID Status Reason Start Date Expiration Date Visits Re quested Visits Authorized [id number] Closed 05/18/2024 03/20/2025 1 1 Referral ID Status Reason Start Date Expiration Date Visits Re quested Visits Authorized [id number] Closed 02/24/2024 03/20/2025 1 1 Referral ID Status Reason Start Date Expiration Date Visits Re quested Visits Authorized [id number] Closed 02/24/2024 03/20/2025 1 1 Reason Onset Date Comments Schedule Test/Referral 05/10/2025 Care Teams (unrecognized sec tion and content) Community Support Worker Relationship Specialty Start Date End Date Barney Brice MD [address] [facility] [address] [place], [place] [address] PCP - General Family Medicine 01/26/21 Community Support Worker Relationship Specialty Start Date End Date Barney Brice MD [address] [place] [address] PCP - General Family Medicine 01/26/21 Community Support Worker Relationship Specialty Start Date End Date Barney Brice MD [address] [place] [address] PCP - General Family Medicine 01/26/21 Community Support Worker Relationship Specialty Start Date End Date Barney Brice MD [address] [place] [address] PCP - General Family Medicine 01/26/21 Community Support Worker Relationship Specialty Start Date End Date Barney Brice MD [address] [place] [address] PCP - General Family Medicine 01/26/21 Community Support Worker Relationship Specialty Start Date End Date Barney Brice MD [address] [place] [address] PCP - General Family Medicine 01/26/21 Community Support Worker Relationship Specialty Start Date End Date Barney Brice MD [address] [place] [address] PCP - General Family Medicine 01/26/21 Community Support Worker Relationship Specialty Start Date End Date Barney Brice MD [address] [facility] [address] [place] [address] PCP - General Family Medicine 01/26/21 Community Support Worker Relationship Specialty Start Date End Date Barney Brice MD [address] [place] [address] PCP - General Family Medicine 01/26/21 Community Support Worker Relationship Specialty Start Date End Date Barney Brice MD [address] [facility] [address] [place] [address] PCP - General Family Medicine 01/26/21 Team Status: Active Member Role Status Dates Dr. Barney Brice MD Family Provider Active Dr. Barney Brice MD Primary Care Provider Active Team Status: Active Member Role Status Dates Employee Health Attending Provider Active Team Status: Active Member Role Status Dates Dr. Barney Brice MD Primary Care Provider Active Health Risk Assessment Attending Provider Active Team Status: Inactive Member Role Status Dates Dr. Barney Brice MD Primary Care Provider Active VITO PYLE Attending Provider, Referring Provider A ctive Team Status: Active Member Role Status Dates Dr. Barney Brice MD Primary Care Provi tony, Attending Provider, Referring Provider Active Team Status: Inactive Member Role Status Dates Dr. Barney Brice MD Primary Care Provi tony, Attending Provider, Referring Provider Active Community Support Worker Relationship Specialty Start Date End Date Barney Brice MD [address] [place] [address] PCP - General Family Medicine 01/26/21 Team Status: Inactive Member Role Status Dates Dr. Barney Brice MD Primary Care Provider, Referring Provider Active Dr. Stephane Dumas DO Attending Provider Active Team Status: Inactive Member Role Status Dates Dr. Barney Brice MD Primary Care Provider Active Dr. Jose Wheeler MD Attending Provider Active Team Status: Inactive Member Role Status Dates Dr. Barney Brice MD Primary Care Provider Active Dr. Stephane Dumas DO Attending Provider, Referring P zeus Active Community Support Worker Relationship Specialty Start Date End Date Barney Brice MD [address] [facility] [address] [place] [address] PCP - General Family Medicine 01/26/21 Community Support Worker Relationship Specialty Start Date End Date Barney Brice MD [address] [facility] [address] [place] [address] PCP - General Family Medicine 01/26/21 Community Support Worker Relationship Specialty Start Date End Date Barney Brice MD [address] [place] [address] PCP - General Family Medicine 01/26/21 Community Support Worker Relationship Specialty Start Date End Date Barney Brice MD [address] [place] [address] PCP - General Family Medicine 01/26/21 Community Support Worker Relationship Specialty Start Date End Date Barney Brice MD [address] [place] [address] PCP - General Family Medicine 01/26/21 Team Status: Inactive Member Role Status Dates Dr. Barney Brice MD Primary Care Provider, Referring Provider Active Igor Rosas PA, PA Attending Provider Active Team Status: Inactive Member Role Status Dates Dr. Barney Brice MD Primary Care Provider, Referring Provider Active Cornel MCKEON, PA Attending Provider Active Team Status: Active Member Role Status Dates Dr. Barney Brice MD Primary Care Provider, Attending Provider Active Team Status: Inactive Member Role Status Dates Dr. Barney Brice MD Primary Care Provider Active Dr. Rae Smith DO Emergency Provider Active Team Status: Inactive Member Role Status Dates Dr. Barney Brice MD Primary Care Provider, Attending Provider Active Community Support Worker Relationship Specialty Start Date End Date Barney Brice MD [address] [place] [address] PCP - General Family Medicine 01/26/21 Community Support Worker Relationship Specialty Start Date End Date Barney Brice MD [address] [place] [address] PCP - General Family Medicine 01/26/21 Community Support Worker Relationship Specialty Start Date End Date Barney Brice MD [address] [place] [address] PCP - General Family Medicine 01/26/21 Community Support Worker Relationship Specialty Start Date End Date Barney Brice MD [address] [place] [address] PCP - General Family Medicine 01/26/21 Community Support Worker Relationship Specialty Start Date End Date Barney Brice MD [address] [place] [address] PCP - General Family Medicine 01/26/21 Community Support Worker Relationship Specialty Start Date End Date Barney Brice MD [address] [place] [address] PCP - General Family Medicine 01/26/21 Community Support Worker Relationship Specialty Start Date End Date Barney Brice MD [address] [place] [address] PCP - General Family Medicine 01/26/21 Community Support Worker Relationship Specialty Start Date End Date Barney Brice MD [address] [place] [address] PCP - General Family Medicine 01/26/21 Community Support Worker Relationship Specialty Start Date End Date Barney Brice MD [address] [place] [address] PCP - General Family Medicine 01/26/21 Team Status: Active Member Role Status Dates Dr. Barney Brice MD Primary Care Provider Active Team Status: Inactive Member Role Status Dates Dr. Barney Brice MD Primary Care Provider Active Start: October 08, 2024 End: October 08, 2024 Dr. Barney Brice MD Referring Provider Active Start: October 08, 2024 End: October 08, 2024 Dr. Evelyn Painter DC Attending Provider Active S tart: October 08, 2024 End: October 08, 2024 Team Status: Inactive Member Role Status Dates Dr. Barney Brice MD Primary Care Provider Active Start: October 15, 2024 End: October 15, 2024 Dr. Barney Brice MD Attending Provider Active Start: October 15, 2024 End: October 15, 2024 Dr. Barney Brice MD Referring Provider Active Start: October 15, 2024 End: October 15, 2024 Team Status: Inactive Member Role Status Dates Dr. Barney Brice MD Primary Care Provider Active Start: November 12, 2024 End: November 12, 2024 Dr. Barney Brice MD Referring Provider Active Start: November 12, 2024 End: November 12, 2024 Dr. Evelyn Painter DC Attending Provider Active S tart: November 12, 2024 End: November 12, 2024 Team Status: Inactive Member Role Status Dates Dr. Barney Brice MD Primary Care Provider Active Start: December 15, 2024 End: December 15, 2024 Dr. Barney Brice MD Referring Provider Active Start: December 15, 2024 End: December 15, 2024 Dr. Diandra Craig MD Attending Provider Active Start: December 15, 2024 End: December 15, 2024 Team Status: Inactive Member Role Status Dates Dr. Barney Brice MD Primary Care Provider Active Start: December 15, 2024 End: December 15, 2024 Dr. Diandra Craig MD Attending Provider Active Start: December 15, 2024 End: December 15, 2024 Dr. Diandra Craig MD Referring Provider Active Start: December 15, 2024 End: December 15, 2024 Team Status: Inactive Member Role Status Dates Dr. Barney Brice MD Primary Care Provider Active Start: December 28, 2024 End: December 28, 2024 Dr. Diandra Craig MD Attending Provider Active Start: December 28, 2024 End: December 28, 2024 Dr. Diandra Craig MD Referring Provider Active Start: December 28, 2024 End: December 28, 2024 Team Status: Active Member Role Status Dates Dr. Barney Brice MD Primary Care Provider Active Start: December 28, 2024 Dr. Diandra Craig MD Attending Provider Active Start: December 28, 2024 Dr. Diandra Craig MD Referring Provider Active Start: December 28, 2024 Team Status: Inactive Member Role Status Dates Dr. Barney Brice MD Primary Care Provider Active Start: January 04, 2025 End: January 04, 2025 Dr. Diandra Craig MD Attending Provider Active Start: January 04, 2025 End: January 04, 2025 Dr. Diandra Craig MD Referring Provider Active Start: January 04, 2025 End: January 04, 2025 Team Status: Active Member Role Status Dates Dr. Barney Brice MD Primary Care Provider Active Start: January 04, 2025 Dr. Diandra Craig MD Attending Provider Active Start: January 04, 2025 Dr. Diandra Craig MD Referring Provider Active Start: January 04, 2025 Dr. Diandra Craig MD Other Provider Active Star t: January 04, 2025 Team Status: Inactive Member Role Status Dates Dr. Barney Brice MD Primary Care Provider Active Start: January 07, 2025 End: January 07, 2025 Dr. Barney Brice MD Referring Provider Active Start: January 07, 2025 End: January 07, 2025 Dr. Evelyn Painter DC Attending Provider Active S tart: January 07, 2025 End: January 07, 2025 Team Status: Inactive Member Role Status Dates Dr. Barney Brice MD Primary Care Provider Active Start: February 01, 2025 End: February 01, 2025 TAJ AGUSTIN Attending Provider Active Start: [facility] 2024 End: February 01, 2025 TAJ AGUSTIN Referring Provider Active Start: [facility] 2024 End: February 01, 2025 Team Status: Inactive Member Role Status Dates Dr. Barney Brice MD Primary Care Provider Active Start: February 04, 2025 End: February 04, 2025 Dr. Barney Brice MD Referring Provider Active Start: February 04, 2025 End: February 04, 2025 Dr. Evelyn Painter DC Attending Provider Active S tart: February 04, 2025 End: February 04, 2025 Team Status: Inactive Member Role Status Dates Dr. Barney Brice MD Primary Care Provider Active Start: February 04, 2025 End: February 04, 2025 TAJ AGUSTIN Attending Provider Active Start: Ap 2024 End: February 04, 2025 TAJ AGUSTIN Referring Provider Active Start: Ap ril 2024 End: February 04, 2025 Team Status: Inactive Member Role Status Dates Dr. Barney Brice MD Primary Care Provider Active Start: February 18, 2025 End: February 18, 2025 Dr. Barney Brice MD Referring Provider Active Start: February 18, 2025 End: February 18, 2025 Dr. Evelyn Painter DC Attending Provider Active S tart: February 18, 2025 End: February 18, 2025 Team Status: Inactive Member Role Status Dates Dr. Barney Brice MD Primary Care Provider Active Start: March 02, 2025 End: March 02, 2025 Dr. Barney Brice MD Referring Provider Active Start: March 02, 2025 End: March 02, 2025 Dr. Diandra Craig MD Attending Provider Active Start: March 02, 2025 End: March 02, 2025 Team Status: Inactive Member Role Status Dates Dr. Barney Brice MD Primary Care Provider Active Start: March 04, 2025 End: March 04, 2025 Dr. Barney Brice MD Referring Provider Active Start: March 04, 2025 End: March 04, 2025 Dr. Evelyn Painter DC Attending Provider Active S tart: March 04, 2025 End: March 04, 2025 Team Status: Inactive Member Role Status Dates Dr. Barney Brice MD Primary Care Provider Active Start: April 08, 2025 End: April 08, 2025 Dr. Barney Brice MD Referring Provider Active Start: April 08, 2025 End: April 08, 2025 Dr. Evelyn Painter DC Attending Provider Active S tart: April 08, 2025 End: April 08, 2025 Team Status: Inactive Member Role Status Dates Dr. Barney Brice MD Primary Care Provider Active Start: April 15, 2025 End: April 15, 2025 Dr. Barney Brice MD Attending Provider Active Start: April 15, 2025 End: April 15, 2025 Dr. Barney Brice MD Referring Provider Active Start: April 15, 2025 End: April 15, 2025 Community Support Worker Relationship Specialty Start Date End Date Barney Brice MD PCP - General Family Medicine 01/26/21 Team Status: Active Member Role/Relationship Status Dates Dr. Barney Brice MD Primary Care Provider Active Team Status: Inactive Member Role/Relationship Status Dates Dr. Barney Brice MD Primary Care Provider Active Start: February 01, 2025 End: February 01, 2025 [facility] Attending Provider Active Start: [facility] 2024 End: February 01, 2025 [facility] Referring Provider Active Start: [facility] 2024 End: February 01, 2025 Team Status: Inactive Member Role/Relationship Status Dates Dr. Barney Brice MD Primary Care Provider Active Start: February 04, 2025 End: February 04, 2025 Dr. Barney Brice MD Referring Provider Active Start: February 04, 2025 End: February 04, 2025 Dr. Evelyn Painter DC Attending Provider Active S tart: February 04, 2025 End: February 04, 2025 Team Status: Inactive Member Role/Relationship Status Dates Dr. Barney Brice MD Primary Care Provider Active Start: February 04, 2025 End: February 04, 2025 [facility] Attending Provider Active Start: [facility] 2024 End: February 04, 2025 [facility] Referring Provider Active Start: ril 2024 End: February 04, 2025 Team Status: Inactive Member Role/Relationship Status Dates Dr. Barney Brice MD Primary Care Provider Active Start: February 18, 2025 End: February 18, 2025 Dr. Barney Brice MD Referring Provider Active Start: February 18, 2025 End: February 18, 2025 Dr. Evelyn Painter DC Attending Provider Active S tart: February 18, 2025 End: February 18, 2025 Team Status: Inactive Member Role/Relationship Status Dates Dr. Barney Brice MD Primary Care Provider Active Start: March 02, 2025 End: March 02, 2025 Dr. Barney Brice MD Referring Provider Active Start: March 02, 2025 End: March 02, 2025 Dr. Diandra Craig MD Attending Provider Active Start: March 02, 2025 End: March 02, 2025 Team Status: Inactive Member Role/Relationship Status Dates Dr. Barney Brice MD Primary Care Provider Active Start: March 04, 2025 End: March 04, 2025 Dr. Barney Brice MD Referring Provider Active Start: March 04, 2025 End: March 04, 2025 Dr. Evelyn Painter DC Attending Provider Active S tart: March 04, 2025 End: March 04, 2025 Team Status: Inactive Member Role/Relationship Status Dates Dr. Barney Brice MD Primary Care Provider Active Start: April 08, 2025 End: April 08, 2025 Dr. Barney Brice MD Referring Provider Active Start: April 08, 2025 End: April 08, 2025 Dr. Evelyn Painter DC Attending Provider Active S tart: April 08, 2025 End: April 08, 2025 Team Status: Inactive Member Role/Relationship Status Dates Dr. Barney Brice MD Primary Care Provider Active Start: April 15, 2025 End: April 15, 2025 Dr. Barney Brice MD Attending Provider Active Start: April 15, 2025 End: April 15, 2025 Dr. Barney Brice MD Referring Provider Active Start: April 15, 2025 End: April 15, 2025 Team Status: Inactive Member Role/Relationship Status Dates Dr. Barney Brice MD Primary Care Provider Active Start: May 24, 2025 End: May 24, 2025 Dr. Barney Brice MD Referring Provider Active Start: May 24, 2025 End: May 24, 2025 Dr. Evelyn Painter DC Attending Provider Active S tart: May 24, 2025 End: May 24, 2025 Goals (unrecognized section and content) Goals may be documented in a n alternate sectionGoals may be documented in an alternate sectionGoals may be documented in an alternate sectionGoals may be documented in an alternate sectionGoals may be documented in an alternate sectionGoals may be documented in an alternate section FOR RECORDS PERTAINING TO PATIENTS WHO ARE [...] BE BASED ON THE PRIMARY CLINICAL RECORDS. [employer] [facility] provides no warranty or guarantee of the accuracy or completeness of information in this document.
[2025-05-28 04:07] LABS: Carcinoembryonic Antigen 1.8 ng/mL (0.0-4.7)
== END | disposition home or self-care (01) ==
LOC: MTLAB 14:59
PROVIDERS: PCP Family Medicine; Referring Provider Nurse Practitioner; Visit Provider Nurse Practitioner
DX: C20 Malignant neoplasm of rectum (principal)
CPT/HCPCS: 36415; 82378

== ENCOUNTER → 2025-06-18 | Outpatient (CLI) | payer OTHER, SELFPAY ==
--- OUTSIDE RECORDS SUMMARY | 2025-06-18 20:21 | XMS RPT_ITS | CCD ---
Author Organization [facility] Care Team Providers Care News Video Editor Name Role Phone LILIANA ANDREWS Referring Unavailable LILIANA ANDREWS Admitting Unavailable Barney Brice MD Primary Care Provider Barney Brice MD Primary Care Provider Dr. Barney Brice Primary Care Provider Dr. Barney Brice Referring Provider Dr. Stephane Dumas Attending Provider Dr. Jose Wheeler Attending Provider Barney Brice MD Primary Care Provider Dr. Barney Brice Primary Care Provider Dr. Barney Brice Referring Provider LINDA Sanches Attending Provider LINDA Cox Attending Provider Dr. Barney Brice MD Primary Care Provider Dr. Barney Brice MD Referring Provider Dr. Evelyn Painter DC Attending Provider Dr. Barney Brice MD Attending Provider Dr. Diandra Craig MD Attending Provider Dr. Diandra Craig MD Referring Provider Dr. Diandra Craig MD Other Provider NIKOLE VAGN Attending Provider [phone] NIKOLE VANG Referring Provider Yuniel ECHAVARRIA, Dr. Corley Primary Care Provider Yuniel ECHAVARRIA, Dr. Corley Referring Provider Dosdean DC, Dr. Rivas Attending Provider UMAR, NIKOLE Attending Provider UMAR, NIKOLE Referring Provider Yunile ECHAVARRIA, Dr. Corley Primary Care Provider Yuniel ECHAVARRIA, Dr. Corley Referring Provider Dossi DC, Dr. Rivas Attending Provider Yuniel ECHAVARRIA, Dr. Corley Primary Care Provider Rafa ECHAVARRIA, Dr. Jim Attending Provider Rafa ECHAVARRIA, Dr. Jim Referring Provider Yuniel ECHAVARRIA, Dr. Corley Referring Provider Yuniel ECHAVARRIA, Dr. Corley Attending Provider Yuniel ECHAVARRIA, Barney Cruz Primary Care Provider Yuniel ECHAVARRIA, Dr. Corley Primary Care Provider Yuniel ECHAVARRIA, Dr. Corley Referring Provider Dossi DC, Dr. Rivas Attending Provider Rafa ECHAVARRIA, Dr. Jim Attending Provider BARNEY BRICE Primary Care Unavailable VITO, STONEY Attending Unavailable VITO, STONEY Referring Unavailable BRICE, BARNEY R Primary Care Unavailable ANDREWS, LILIANA A Attending Unavailable JULIANA, LILIANA A Referring Unavailable BRICE, BARNEY R Primary Care Unavailable AR, NIKOLE Referring Unavailable VITO, STONEY Attending Unavailable BRICE, BARNEY R Primary Care Unavailable AR, NIKOLE Referring Unavailable VITO, STONEY Attending Unavailable BRICE, BARNEY R Referring Unavailable VITO, STONEY Attending Unavailable BRICE, BARNEY R Primary Care Unavailable BRICE, BARNEY R Referring Unavailable VITO, STONEY Attending Unavailable BRICE, BARNEY R Primary Care Unavailable Winnie ECHAVARRIA, Dr. Greenwood Attending Provider Umar [employer]-C, Nikole Attending Provider Umar [employer]-C, Nikole Referring Provider [phone] Yuniel ECHAVARRIA, Dr. Corley Primary Care Provider Yuniel ECHAVARRIA, Dr. Corley Referring Provider [phone] Dosdean CALLAHAN, Dr. Rivas Attending Provider Brice, Barney Primary Care Unavailable Brice, Barney Referring Unavailable Brice, Barney Attending Unavailable Rafa, Diandra Referring Unavailable Rafa, Diandra Attending Unavailable Brice, Barney Primary Care Unavailable Sibilia, Cade V Attending Unavailable Sibilia, Cade V Referring Unavailable Brice, Barney Primary Care Unavailable Brice, Barney Referring Unavailable Brice, Barney Primary Care Unavailable Brice, Barney Attending Unavailable Brice, Barney Referring Unavailable Dossi, Evelyn Attending Unavailable Brice, Barney Primary Care Unavailable Brice, Barney Referring Unavailable Dossi, Evelyn Attending Unavailable Brice, Barney Primary Care Unavailable Brice, Barney Referring Unavailable Dossi, Evelyn Attending Unavailable Brice, Barney Primary Care Unavailable Brice, Barney Referring Unavailable Cornel Cox Attending Unavailable Brice, Barney Primary Care Unavailable Rafa, Diandra Referring Unavailable Rafa, Diandra Attending Unavailable Brice, Barney Primary Care Unavailable Rafa, Diandra Referring Unavailable Rafa, Diandra [...] Brice, Barney Primary Care Unavailable Rafa, Diandra Referring Unavailable Rafa, Diandra Attending Unavailable Brice, Barney Primary Care Unavailable Brice, Barney Primary Care Unavailable Rafa, Diandra Referring Unavailable Rafa, Diandra Consulting Unavailable Rafa, Diandra Attending Unavailable Brice, Barney Referring Unavailable Dossi, Evelyn Attending Unavailable Brice, Barney Primary Care Unavailable Brice, Barney Referring Unavailable Brice, Barney Primary Care Unavailable Igor Sanches Attending Unavailable Brice, Barney Primary Care Unavailable Brice, Barney Attending Unavailable Rafa, Diandra Attending Unavailable Brice, Barney Referring Unavailable Brice, Barney Primary Care Unavailable DosEvelyn moran Attending Unavailable Brice, Barney Referring Unavailable Brice, Barney Primary Care Unavailable Brice, Barney Primary Care Unavailable YAMILE, KATHIA Attending Unavailable YAMILE, KATHIA Referring Unavailable Brice, Barney Primary Care Unavailable YAMILE, KATHIA Attending Unavailable YAMILE, KATHIA Referring Unavailable Brice, Barney Primary Care Unavailable Umar, Nikole Attending Unavailable Umar, Nikole Referring Unavailable Brice, Barney Referring Unavailable Rafa, Diandra Attending Unavailable Brice, Barney Primary Care Unavailable Brice, Barney Referring Unavailable Dossi, Evelyn Attending Unavailable Brice, Barney Primary Care Unavailable Allergies Allergy Classification Reported Allergen(s) Allergy Type Date of Onset Reaction(s) Facility Penicillins (antibiotic) (1 source) Penicillins Drug Allergy 8 [facility] (12 sources) Penicillins Propensity to adverse reactions to drug 8 [facility] (14 sources) Penicillins Allergy to substance 1 [facility] (20 sources) Penicillins Propensity to adverse reactions to drug 8 [facility] (1 source) Penicillins Drug allergy (disorder) 5 [facility] Repository Medications Current Medications Medication Drug Class(es) [...] 06/24/2021 Active metroNIDAZOLE 0.0075 mg/mg vaginal gel (12 sources) Nitroimidazole Antimicrobial Start: 05-15-2024 metroNIDAZOLE 0.75 [...] tablet 0 06/14/2021 Active polyethylene glycol 3350 [id number] mg / potassium chloride 2970 mg / sodium bicarbonate 6740 mg / sodium chloride 5860 mg / sodium sulfate 04331 mg powder for oral solution (20 sources) [...] / HYDROcodone bitartrate 5 mg oral tablet (10 sources) Opioid Agonist Start: 12-23-2023 End: 04-23-2024 [...] / oxyCODONE hydrochloride 5 mg oral tablet (14 sources) Opioid Agonist Start: 02-06-2021 End: 02-09-2021 [...] 2021 11:07pm allopurinol 100 mg oral tablet (14 sources) Xanthine Oxidase Inhibitor Start: 08-14-2024 End: 12-15-2024 take 2 tablets by mouth once daily Allopurinol 100 mg tablet Discontinued 200 mg PO daily August 27, 2024 12:00am December 15, 2024 12:19pm amLODIPine 5 mg oral tablet (14 sources) Dihydropyridine Calcium Channel Victorino Start: 08-13-2024 End: 12-15-2024 take 1 tablet by mouth once daily Amlodipine 5 mg tablet Discontinued 5 mg PO daily August 27, 2024 12:00am December 15, 2024 12:19pm azithromycin 250 mg oral tablet (20 sources) Macrolide Antimicrobial Start: 08-27-2024 End: 10-08-2024 take 2-5 tablets by mouth once daily Azithromycin 250 mg tablet Discontinued 0 PO .COMPLEX 6 August 27, 2024 12:00am October 08, 2024 [...] mL calcium carbonate 1500 mg oral tablet (14 sources) Start: 01-06-2021 End: 01-06-2021 take 1 tablet by mouth once daily Calcium Carbonate (Calcium 600) 600 mg calcium (1,500 mg) tablet Discontinued 600 mg PO DAILY January 06, 2021 1:00am January 06, 2021 9:54am clindamycin 300 mg oral capsule (8 sources) Lincosamide Antibacterial Start: 06-22-2024 End: 08-27-2024 take 1 capsule by mouth three times daily Clindamycin Hcl 300 mg capsule Discontinued 300 mg PO THREE TIMES A DAY 30 June 22, 2024 12:00am August 27, 2024 11:11am febuxostat 40 mg oral tablet (8 sources) Xanthine Oxidase Inhibitor Start: 12-07-2024 End: [...] Discontinued 1 NMA PO every Saturday, , Sat January 06, 2021 1:00am August 27, 2024 11:10am BP Start: 01-06-2021 take 1 tablet by ousmane th once Lisinopril-Hydrochlorothiazide Active 1 TAB PO every Saturday, , Sat January 06, 2021 12:00am Iohexol [...] 2024 12:19pm loratadine 10 mg oral tablet (14 sources) Start: 01-06-2021 End: 04-24-2023 take 1 [...] (VERSED) injection predniSONE 10 mg oral tablet (18 sources) Start: 06-08-2024 End: 06-22-2024 take 4 tablets by mouth once daily, then take 3 tablets by mouth once daily, then take 2 tablets by mouth once daily, then take 1 tablet by mouth once daily Prednisone 10 mg tablet Discontinued 10 mg PO DAILY 30 0 June 08, 2024 12:00am June 22, 2024 [...] tablet Discontinued 10 mg PO daily 25 10 0 October 23, 2023 1:00am November 01, [...] 1-100 mL valACYclovir 1000 mg oral tablet (10 sources) Herpesvirus Nucleoside Analog DNA Polymerase Inhibitor, [...] 12:05am vitamin b6 250 mg oral tablet (14 sources) Start: 01-06-2021 End: 01-06-2021 take 1 tablet by mouth once daily Pyridoxine (Vitamin B6) 250 mg tablet Discontinued 250 mg PO DAILY January 06, 2021 1:00am January 06, 2021 9:54am Problems Active Problems Problem Classification Problem Date Documented Date Episodic/Chronic Abdominal pain (14 sources) Left lower quadrant pain; Translations: [Left lower quadrant pain] 01-06-2021 Episodic Comment on above: Burning sensation le ft lower quadrant near lateral incision Anxiety disorders (8 sources) Anxiety; Translations: [Anxiety disorder, unspecified] 12-07-2024 Chronic Cancer of rectum and anus (20 sources) Malignant tumor of rectum; Translations: [Malignant neoplasm of rectum] Onset: 02-01-2021 06-14-2021 Chronic Essential hypertension (20 sources) Benign essential hypertension; Translations: [Essential (primary) hypertension] Onset: 01-15-2025 12-07-2024 Chronic Gout and other crystal arthropathies (9 sources) Gout; Translations: [Gout, unspecified] Onset: 11-17-2024 12-07-2024 Chronic Heart valve disorders (18 sources) Mitral valve prolapse; Translations: [Nonrheumatic mitral (valve) prolapse] 12-07-2024 Chronic Other aftercare (1 source) H/O: malignant neoplasm; Translations: [Encounter for follow-up examination after completed treatment for malignant neoplasm] 05-31-2023 Episodic Other and ill-defined heart disease (10 sources) Diastolic dysfunction; Translations: [Other ill-defined heart [...] region] Onset: 05-24-2025 Episodic Other circulatory disease (12 sources) H/O: heart disorder; Translations: [Personal history of other diseases of the circulatory system] 12-15-2024 Episodic Other circulatory disease (8 sources) Finding of systemic arterial pressure; Translations: [Elevated blood-pressure reading, without diagnosis of hypertension] 12-07-2024 Episodic Other female genital disorders (1 source) Vaginal discharge; Translations: [Other specified noninflammatory disorders of vagina] 05-15-2024 Episodic Other lower respiratory disease (12 sources) Dyspnea on exertion; Translations: [Other forms of dyspnea] 12-15-2024 Episodic Other nutritional; endocrine; and metabolic disorders (8 sources) Body mass index 30+ - obesity; Translations: [Body mass index (BMI) 30.0-30.9, adult] 12-07-2024 Chronic Other nutritional; endocrine; and metabolic disorders (1 source) Obese class I; Translations: [Obesity (BMI 30.0-34.9)] Onset: 05-31-2025 05-31-2025 Chronic Other upper respiratory infections (8 sources) Acute pharyngitis; Translations: [Acute pharyngitis, unspecified] 08-27-2024 Episodic Pathological fracture (14 sources) Stress fracture of sacrum; Translations: [Pathological fracture, other site, initial encounter for fracture] 04-24-2023 Episodic Pneumonia (except that caused by tuberculosis or sexually transmitted disease) (10 sources) Pneumonia; Translations: [Pneumonia, unspecified organism] 12-23-2023 Episodic Residual codes; unclassified (1 source) Hypersomnia, unspecified; Translations: [Hypersomnia, unspecified] Onset: 06-11-2025 Chronic Residual codes; unclassified (1 source) H/O: radiation exposure; Translations: [Personal history of irradiation] 05-31-2023 Episodic Spondylosis; intervertebral disc disorders; other back problems (20 sources) Degeneration of intervertebral disc; Translations: [Degeneration of intervertebral disc, site unspecified] Onset: 02-04-2025 04-16-2024 Chronic Spondylosis; intervertebral disc disorders; other back problems (20 sources) Low back pain; Translations: [Low back pain] 04-24-2023 Episodic Sprains and strains (10 sources) Strain of muscle of chest wall; Translations: [Strain of muscle and tendon of front wall of thorax, initial encounter] 12-23-2023 Episodic Viral infection (12 sources) Herpes zoster; Translations: [Zoster without complications] 10-23-2023 Episodic Past or Other Problems Problem Classification Problem Date Documented Da te Episodic/Chronic Cancer of rectum and anus (18 sources) History of malignant neoplasm of rectum; Translations: [Personal history of other malignant neoplasm of rectum, rectosigmoid junction, and anus] Onset: 12-15-2024 12-15-2024 Episodic Cardiac dysrhythmias (19 sources) Palpitations; Translations: [Palpitations] Onset: 12-15-2024 12-15-2024 Episodic Genitourinary symptoms and ill-defined conditions (20 sources) Acute retention of urine ; Translations: [Other retention of urine] Onset: 06-14-2021 Episodic Mood disorders (20 sources) Mood disorders Onset: 12-15-2021 Resolved: 05-31-2025 12-15-2021 Other circulatory disease (1 source) Personal history of other diseases of the circulatory system; Translations: [Personal history of other diseases of the circulatory system] Onset: 12-15-2024 Episodic Other lower respiratory disease (2 sources) Other forms of dyspnea; Translations: [Other forms of dyspnea] Onset: 01-05-2025 Episodic Skin and subcutaneous tissue infections (1 source) Abscess of abdominal wall; Translations: [Cutaneous abscess of abdominal wall] Episodic Results Test Name Value Interpretation Reference Range Facility Chiropractic Reporton 2024 Chiropractic Report [facility] [address] [place] [address] OFFICE VISIT Date of Service: 06/10/25 MR#: [id number] Acct: [id number] Name: LAILA OLVERA Rep #: [id number] : 1965 Provider: LONDON Mccray Age/Sex: 59/F Location: [facility] Status: Signed Intake Vital Signs 03/02/25 10:15 Height 5 ft 7 in Intake Visit Reasons: Back pain Chief Complaint: neck, upper and low back pain Is patient in pain?: Yes (upper and low back) Pain scale (1-10): 6 Allergies Penicillins Allergy (Intermediate, Verified 06/10/25 12:28) hives Medications ???Medication ???Instructions ???Recorded ???Confirmed ???Type lisinopril 10 mg tablet 10 mg PO .MWF 12/15/24 06/10/25 Hi story lisinopril 10 tab PO .TUTHSASU 12/15/24 06/10/25 History mg-hydrochlorothiazide 12.5 mg tablet [facility] Medical History Diastolic blood pressure 80 [...] Visit Number: 8 Details: Laila is a 59 y/o female here to follow up on neck, upper, and low back pain. Pt. c/o neck and bilateral trap pain and tightness. She has a dull CHANG today and rates her neck pain 8/10. She states her low back is sore especially on the left side. She rates her low back pain 6/10 today. She has been working on a construction project at home lately which has contributed to her pain. She denies new injury, numbness, tingling or radiculopathy. Pt. stretches and walks frequently to stay active and flexible. She reports chiropractic adjustments are helpful in relieving her pain and discomfort but it gradually returns. Location: neck upper and low back Duration: frequent Aggravating or associated factors: sitting, standing, computer [...] fx- stable DDD-lower cervical Follow Up: 2 wks Coding Level of Care Code No Charge Diagnoses Segmental and somatic dysfunction of cervical region M99.01 Segmental and somatic dysfunction of thoracic region M99.02 Segmental and somatic dysfunction of lumbar region M (more content not included)... Normal [facility] Carcinoembryonic Antigenon 0 - CEA 1.8 ng/mL Normal 0.0-4.7 [facility] Comment on above: Order Comment: FAX R ESULTS TO [phone] Result Comment: Nons mokers <3.9 Smokers <5.6 [facility] Electrochemiluminescence Immunoassay (ECLIA) Values obtained with different assay methods or kits cannot be used interchangeably. Results cannot be interpreted as absolute evidence of the presence or absence of malignant disease. Performed at: [address] [id number] Maintainer Plant: Kobi Hampton PhD, Phone: [phone] Performed By: #### L 3100.2300 #### [facility] [address] [place], [address] Serum or plasma carcinoembry onic antigen measurement (mass/volume)Ordered By: Nikole Vang on 05-26-2025 Carcinoembryonic Ag [Mass/Vol] 1.8 ng/mL 0.0-4.7 [facility] Comment on above: Nonsmokers <3.9 Smok ers <5.6[facility] Electrochemiluminescence Immunoassay(ECLIA)Values obtained with different assay methods or kitscannot be used interchangeably. Results cannot beinterpreted as absolute evidence of the presence orabsence of malignant disease.Performed at: [facility] [id number] Director: Kobi Hampton PhD, Phone: [phone] Chiropractic Reporton 2024 Chiropractic Report [facility] [address] [place] [address] OFFICE VISIT Date of Service: 05/24/25 MR#: [id number] Acct: [id number] Name: LAILA OLVERA ANN Rep #: [id number] : 1965 Provider: LONDON Mccray Age/Sex: 59/F Location: [facility] Status: Signed Intake Vital Signs 03/02/25 10:15 Height 5 ft 7 in Weight: 196 lb BMI 30.7 BP 119/73 Blood Pressure Location Lt brachial Position Sitting Respiration 16 Pulse 72 Pulse Source Monitor Pulse Oximetry (%) 98 Oxygen Delivery Method room air Intake Visit Reasons: Back pain Chief Complaint: neck, upper and low back pain Allergies Penicillins Allergy (Intermediate, Verified 04/08/25 12:02) hives [facility] Medical History Diastolic blood pressure 80 [...] M99.02 Seg (more content not included)... Normal [facility] Absolute lymphocyte countOrd ered By: Barney Brice on 04-15-2025 Lymphocytes Auto (Unsp spec) [#/Vol] 0.78 10*3/uL Low 0.83-4.51 [facility] Absolute neutrophil countOrd ered By: Barney Brice on 04-15-2025 Neutrophils (Bld) [#/Vol] 2.7 10*3/uL 2.0-7.7 [facility] Anion gap in Serum or Plasma Ordered By: Barney Brice on 04-15-2025 Anion gap [Moles/Vol] 12 mmol/L 5-15 [facility] Automated lymphocyte count a s percentage of total leukocytesOrdered By: Barney Brice on 04-15-2025 Lymphocytes/100 WBC Auto (Unsp spec) 19.6 % 19-41 [facility] BUN/creatinine ratioOrdered By: Barney Brice on 04-15-2025 Urea nitrogen/Creatinine [Mass ratio] 20.8 mg/mg High 10-20 [facility] Basic Metabolic Profile (BMP )on 04-15-2025 BUN/CRE 20.8 RATIO High 10-20 [facility] Comment on above: Performed By: #### L 100.0100, L500.2500, L500.4100, L501.9520, L502.0250 #### [facility] [address] [place], [address] Calcium [Mass/Vol] 9.0 mg/dL Normal 7.6-11.0 [facility] Comment on above: Performed By: #### L 100.0100, L500.2500, L500.4100, L501.9520, L502.0250 #### [facility] [address] [place], [address] Chloride [Moles/Vol] 108 mmol/L Normal 98-108 [facility] Comment on above: Performed By: #### L 100.0100, L500.2500, L500.4100, L501.9520, L502.0250 #### [facility] [address] [place], [address] CO2 [Moles/Vol] 20.3 mmol/L Low 21.0-32.0 [facility] Comment on above: Performed By: #### L 100.0100, L500.2500, L500.4100, L501.9520, L502.0250 #### [facility] [address] [place], [address] Creatinine [Mass/Vol] 0.82 mg/dL Normal 0.70-1.20 [facility] Comment on above: Performed By: #### L 100.0100, L500.2500, L500.4100, L501.9520, L502.0250 #### [facility] [address] [place], [address] GAP 12 Normal 5-15 [facility] Comment on above: Performed By: #### L 100.0100, L500.2500, L500.4100, L501.9520, L502.0250 #### [facility] [address] [place], [address] GFR/1.73 sq M.predicted among non-blacks MDRD (S/P/Bld) [Vol rate/Area] 83 mL/min/{1.73_m2} Normal >60 [facility] Comment on above: Result Comment: mL/m in/1.73m2 CKD-EPI Creatinine Equation (2020) Performed By: #### L 100.0100, L500.2500, L500.4100, L501.9520, L502.0250 #### [facility] [address] [place], [address] Glucose [Mass/Vol] 110 mg/dL High 70-99 [facility] Comment on above: Performed By: #### L 100.0100, L500.2500, L500.4100, L501.9520, L502.0250 #### [facility] [address] [place], [address] Potassium [Moles/Vol] 4.4 mmol/L Normal 3.3-5.1 [facility] Comment on above: Performed By: #### L 100.0100, L500.2500, L500.4100, L501.9520, L502.0250 #### [facility] [address] [place], [address] Sodium [Moles/Vol] 141 mmol/L Normal 133-145 [facility] Comment on above: Performed By: #### L 100.0100, L500.2500, L500.4100, L501.9520, L502.0250 #### [facility] [address] [place], [address] Urea nitrogen [Mass/Vol] 17 mg/dL Normal 4-19 [facility] Comment on above: Performed By: #### L 100.0100, L500.2500, L500.4100, L501.9520, L502.0250 #### [facility] [address] [place], [address] Basophil percentageOrdered B y: Barney Brice on 04-15-2025 Basophils/100 WBC (Bld) 0.8 % 0-1 [facility] CBC W/Diff, Automatedon 04-04 Absolute Lymph 0.78 X10 3/uL Low 0.83-4.51 [facility] Comment on above: Performed By: #### L 100.0100, L500.2500, L500.4100, L501.9520, L502.0250 #### [facility] [address] [place], [address] Absolute Neut 2.7 X10 3/uL Normal 2.0-7.7 [facility] Comment on above: Performed By: #### L 100.0100, L500.2500, L500.4100, L501.9520, L502.0250 #### [facility] [address] [place], [address] Basophils/100 WBC (Bld) 0.8 % Normal 0-1 [facility] Comment on above: Performed By: #### L 100.0100, L500.2500, L500.4100, L501.9520, L502.0250 #### [facility] [address] [place], [address] Eosinophils/100 WBC (Bld) 2.8 % Normal 0-5 [facility] Comment on above: Performed By: #### L 100.0100, L500.2500, L500.4100, L501.9520, L502.0250 #### [facility] [address] [place], [address] Erythrocyte distribution width (RBC) [Ratio] 12.7 % Normal 11.6-14.6 [facility] Comment on above: Performed By: #### L 100.0100, L500.2500, L500.4100, L501.9520, L502.0250 #### [facility] [address], [address] Hematocrit (Bld) [Volume fraction] 39.8 % Normal 37-47 [facility] Comment on above: Performed By: #### L 100.0100, L500.2500, L500.4100, L501.9520, L502.0250 #### [facility] [address] [place], [address] Hemoglobin (Bld) [Mass/Vol] 13.6 g/dL Normal 12.0-15.0 [facility] Comment on above: Performed By: #### L 100.0100, L500.2500, L500.4100, L501.9520, L502.0250 #### [facility] [address], [address] IG% 0.500 Normal 0.0-0.9 [facility] Comment on above: Result Comment: IG% - Immature Granulocytes (promyelocytes, myelocytes and metamyelocytes) > 1% indicates that a LEFT SHIFT is Present. Performed By: #### L 100.0100, L500.2500, L500.4100, L501.9520, L502.0250 #### [facility] [address] [place], [address] Lymphocytes/100 WBC (Bld) 19.6 % Normal 19-41 [facility] Comment on above: Performed By: #### L 100.0100, L500.2500, L500.4100, L501.9520, L502.0250 #### [facility] [address] [place], [address] MCH (RBC) [Entitic mass] 31.8 pg Normal 27.0-32.0 [facility] Comment on above: Performed By: #### L 100.0100, L500.2500, L500.4100, L501.9520, L502.0250 #### [facility] [facility] [address] [place], [address] MCHC (RBC) [Mass/Vol] 34.2 g/dL Normal 32-36 [facility] Comment on above: Performed By: #### L 100.0100, L500.2500, L500.4100, L501.9520, L502.0250 #### [facility] [address] [place], [address] MCV (RBC) [Entitic vol] 93.0 fL Normal 81-99 [facility] Comment on above: Performed By: #### L 100.0100, L500.2500, L500.4100, L501.9520, L502.0250 #### [facility] [address] [place], [address] Monocytes/100 WBC (Bld) 9.5 % Normal 0-10 [facility] Comment on above: Performed By: #### L 100.0100, L500.2500, L500.4100, L501.9520, L502.0250 #### [facility] [address] [place], [address] Neutrophils/100 WBC (Bld) 66.8 % Normal 47-70 [facility] Comment on above: Performed By: #### L 100.0100, L500.2500, L500.4100, L501.9520, L502.0250 #### [facility] [address] [place], [address] Nucleated RBC (Bld) [#/Vol] 0 10*3/uL Normal 0-5 [facility] Comment on above: Performed By: #### L 100.0100, L500.2500, L500.4100, L501.9520, L502.0250 #### [facility] [address] [place], [address] Platelet mean volume (Bld) [Entitic vol] 9.6 fL Normal 6.2-12.0 [facility] Comment on above: Performed By: #### L 100.0100, L500.2500, L500.4100, L501.9520, L502.0250 #### [facility] [address] [place], [address] Platelets (Bld) [#/Vol] 271 10*3/uL Normal 150-450 [facility] Comment on above: Performed By: #### L 100.0100, L500.2500, L500.4100, L501.9520, L502.0250 #### [facility] [address] [place], [address] RBC (Bld) [#/Vol] 4.28 10*6/uL Normal 4.2-5.4 [facility] Comment on above: Performed By: #### L 100.0100, L500.2500, L500.4100, L501.9520, L502.0250 #### [facility] [address] [place], [address] RDW SD 43.4 fl Normal 35.1-43.9 [facility] Comment on above: Performed By: #### L 100.0100, L500.2500, L500.4100, L501.9520, L502.0250 #### [facility] [address] [place], [address] WBC (Bld) [#/Vol] 4.0 10*3/uL Low 4.4-11.0 [facility] Comment on above: Performed By: #### L 100.0100, L500.2500, L500.4100, L501.9520, L502.0250 #### [facility] [address] [place], [address] Calculated very low density lipoprotein (VLDL) cholesterol measurementOrdered By: Barney Brice on 04-15-2025 Calculated very low density lipoprotein (VLDL) cholesterol measurement 23 mg/dL 5-40 [facility] Carbon dioxide, total [Moles /volume] in Central venous bloodOrdered By: Barney Brice on 04-15-2025 CO2 [Moles/Vol] 20.3 mmol/L Low 21.0-32.0 [facility] Chloride assayOrdered By: Linda Brice on 04-15-2025 Chloride [Moles/Vol] 108 mmol/L 98-108 [facility] Eosinophil percentageOrdered By: Barney Brice on 04-15-2025 Eosinophils/100 WBC (Bld) 2.8 % 0-5 [facility] Erythrocyte distribution wid th ratioOrdered By: Barney Brice on 04-15-2025 Erythrocyte distribution width (RBC) [Ratio] 12.7 % 11.6-14.6 [facility] Erythrocyte distribution wid th standard deviationOrdered By: Barney Brice on 04-15-2025 Erythrocyte distribution width (RBC) [Ratio] 43.4 fl 35.1-43.9 [facility] Glomerular filtration rate ( GFR) estimation/1.73 sq m using serum, plasma, or whole bOrdered By: Barney Brice on 04-15-2025 GFR/1.73 sq M.predicted among non-blacks MDRD (S/P/Bld) [Vol rate/Area] 83 mL/min/{1.73_m2} >60 [facility] Comment on above: mL/min/1.73m2 CKD-EP I Creatinine Equation (2020) Hematocrit Auto (Bld) [Volum e fraction]Ordered By: Barney Brice on 04-15-2025 Hematocrit (Bld) [Volume fraction] 39.8 % 37-47 [facility] Hemoglobin measurementOrdere d By: Barney Brice on 04-15-2025 Hemoglobin (Bld) [Mass/Vol] 13.6 g/dL 12.0-15.0 [facility] Immature granulocytes/100 WB C Auto (Bld)Ordered By: Barney Brice on 04-15-2025 Immature granulocytes/100 WBC (Bld) 0.500 % 0.0-0.9 [facility] Comment on above: IG% - Immature Granu locytes (promyelocytes, myelocytes and metamyelocytes) > 1% indicates that a LEFT SHIFT is Present. LDL calc ser/plasOrdered By: Barney Brice on 04-15-2025 Cholesterol in LDL [Mass/Vol] 145 mg/dL [facility] Comment on above: Epalirfquc=569-395 m g/dL & Higher Hryp=685 mg/dL or greater Lipid Profileon 04-15-2025 CHOL:HDL 5.07 Normal [facility] Comment on above: Performed By: #### L 100.0100, L500.2500, L500.4100, L501.9520, L502.0250 ####[facility] [address], [address] Cholesterol [Mass/Vol] 209 mg/dL High <=200 [facility] Comment on above: Result Comment: Chol esterol level, Desirable <200 mg/dL Borderline high cholesterol 200-239 mg/dL High cholesterol >=240 mg/dL Recommendations of the NCEP Adult Treatment Panel for the following risk-cutoff thresholds for the [place] population. Performed By: #### L 100.0100, L500.2500, L500.4100, L501.9520, L502.0250 ####[facility] [address] [place], [address] Cholesterol in HDL [Mass/Vol] 41 mg/dL Normal [facility] Comment on above: Result Comment: Letitia onal Cholesterol Education Program (NCEP) guidelines: <40 mg/dL: Low HDL-cholesterol (major risk factor for CHD) >= 60 mg/dL: High HDL-cholesterol (negative risk factor for CHD) HDL-cholesterol is affected by a number of factors, e.g. smoking, exercise, hormones, sex and age. Performed By: #### L 100.0100, L500.2500, L500.4100, L501.9520, L502.0250 ####[facility] [address] [place], [address] Cholesterol in LDL [Mass/Vol] 145 mg/dL Normal [facility] Comment on above: Result Comment: Bord turimp=783-380 mg/dL Higher Sfox=334 mg/dL or greater Performed By: #### L 100.0100, L500.2500, L500.4100, L501.9520, L502.0250 ####[facility] [address] [place], [address] Cholesterol in VLDL [Mass/Vol] 23 mg/dL Normal 5-40 [facility] Comment on above: Performed By: #### L 100.0100, L500.2500, L500.4100, L501.9520, L502.0250 ####[facility] [address] [place], [address] Triglyceride [Mass/Vol] 115 mg/dL Normal [facility] Comment on above: Result Comment: The drugs N-Acetylcysteine and Metamizole may falsely depress this assay. Normal range: <150 mg/dL Borderline High: 150-199 mg/dL High: 200-499 mg/dL Very High: >500 mg/dL Performed By: #### L 100.0100, L500.2500, L500.4100, L501.9520, L502.0250 ####[facility] [address] [place], [address] MCV (mean corpuscular volume ) determinationOrdered By: Barney Brice on 04-15-2025 MCV (RBC) [Entitic vol] 93.0 fL 81-99 [facility] Mean corpuscular hemoglobin (MCH) determinationOrdered By: Barney Brice on 04-15-2025 MCH (RBC) [Entitic mass] 31.8 pg 27.0-32.0 [facility] Mean corpuscular hemoglobin concentration (MCHC) determinationOrdered By: Barney Brice on 04-15-2025 MCHC (RBC) [Mass/Vol] 34.2 g/dL 32-36 [facility] Mean platelet volume determi nationOrdered By: Barney Brice on 04-15-2025 Platelet mean volume (Bld) [Entitic vol] 9.6 fL 6.2-12.0 [facility] Microalb:Creat Ratio,Random URon 04-15-2025 Creatinine [Mass/Vol] 147.00 mg/dL Normal 28.00-217.00 [facility] Comment on above: Performed By: #### L 100.0100, L500.2500, L500.4100, L501.9520, L502.0250 #### [facility] [address] [place], [address] MALB:CREAT UNABLE TO CALCULATE Normal [facility] Comment on above: Performed By: #### L 100.0100, L500.2500, L500.4100, L501.9520, L502.0250 #### [facility] [address] [place], [address] MICROALBUMIN,UR < 12.0 Normal NO RANGE EST. [facility] Comment on above: Performed By: #### L 100.0100, L500.2500, L500.4100, L501.9520, L502.0250 #### [facility] [address] [place], [place], [address] (260) Microalbumin/creat ratio urO rdered By: Barney Brice on 04-15-2025 Urine microalbumin/creatinin e ratio measurement UNABLE TO CALCULATE mg/g CRE [facility] Monocyte percentageOrdered B y: Barney Brice on 04-15-2025 Monocytes/100 WBC (Bld) 9.5 % 0-10 [facility] Neutrophil percentageOrdered By: Barney Brice on 04-15-2025 Neutrophils/100 WBC (Bld) 66.8 % 47-70 [facility] Nucleated red blood cell per centageOrdered By: Barney Brice on 04-15-2025 Nucleated RBC/100 WBC (Bld) [Ratio] 0 % 0-5 [facility] Platelet countOrdered By: Linda Brice on 04-15-2025 Platelets (Bld) [#/Vol] 271 10*3/uL 150-450 [facility] Potassium measurement (mass/ volume)Ordered By: Barney Brice on 04-15-2025 Potassium (Unsp spec) [Mass/Vol] 4.4 mmol/L 3.3-5.1 [facility] RBC Auto (Bld) [#/Vol]Ordere d By: Barney Brice on 04-15-2025 RBC (Bld) [#/Vol] 4.28 10*6/uL 4.2-5.4 [facility] Random urine creatinine mala urement (mass/volume)Ordered By: Barney Brice on 04-15-2025 Creatinine Unsp time (U) [Mass/Vol] 147.00 mg/dL 28.00-217.00 [facility] Screening total cholesterol/ high density lipoprotein (HDL) cholesterol ratioOrdered By: Barney Brice on 04-15-2025 Cholesterol.total/Chol esterol in HDL [Mass ratio] 5.07 {ratio} [facility] Serum creatinine measurement (mass/volume)Ordered By: Barney Brice on 04-15-2025 Creatinine [Mass/Vol] 0.82 mg/dL 0.70-1.20 [facility] Serum glucose measurement (m ass/volume)Ordered By: Barney Brice on 04-15-2025 Glucose [Mass/Vol] 110 mg/dL High 70-99 [facility] Serum or plasma calcium mala urement (mass/volume)Ordered By: Barney Brice on 04-15-2025 Calcium [Mass/Vol] 9.0 mg/dL 7.6-11.0 [facility] Serum or plasma cholesterol in HDL measurement (mass/volume)Ordered By: Barney Brice on 04-15-2025 Cholesterol in HDL [Mass/Vol] 41 mg/dL >40 [facility] Comment on above: National Cholesterol Education Program (NCEP) guidelines:<40 mg/dL: Low HDL-cholesterol (major risk factor for CHD)>= 60 mg/dL: High HDL-cholesterol (negative risk factor for CHD)HDL-cholesterol is affected by a number of factors, e.g. smoking, exercise, hormones, sex and age. Serum or plasma cholesterol measurement (mass/volume)Ordered By: Barney Brice on 04-15-2025 Cholesterol [Mass/Vol] 209 mg/dL High <201 [facility] Comment on above: Cholesterol level, D esirable <200 mg/dLBorderline high cholesterol 200-239 mg/dLHigh cholesterol >=240 mg/dLRecommendations of the NCEP Adult Treatment Panel for the following risk-cutoff thresholds for the [place] population. Serum or plasma urea nitroge n measurement (mass/volume)Ordered By: Barney Brice on 04-15-2025 Urea nitrogen [Mass/Vol] 17 mg/dL 4-19 [facility] Sodium levelOrdered By: Barney Brice on 04-15-2025 Sodium [Moles/Vol] 141 mmol/L 133-145 [facility] TSH DL <= 0.005 mIU/L QnOrde red By: Barney Brice on 04-15-2025 TSH Qn 2.300 uIU/mL 0.300-4.200 [facility] Thyroid Stim Hormone (TSH)on 04-15-2025 TSH 2.300 uIU/mL Normal 0.300-4.200 [facility] Comment on above: Performed By: #### L 100.0100, L500.2500, L500.4100, L501.9520, L502.0250 ####[facility] [address] [place], [address] Triglycerides measurementOrd ered By: Barney Brice on 04-15-2025 Triglyceride [Mass/Vol] 115 mg/dL <199 [facility] Comment on above: The drugs N-Acetylcy steine and Metamizole may falsely depress this assay. Normal range: <150 mg/dLBorderline High: 150-199 mg/dLHigh: 200-499 mg/dLVery High: >500 mg/dL Urine albumin measurement [facility] detection limit of 20 mg/L or less (mass/volume)Ordered By: Barney Brice on 04-15-2025 Albumin DL <= 20 mg/L (U) [Mass/Vol] < 12.0 mg/L NO RANGE EST. [facility] White blood cell (WBC) count Ordered By: Barney Briec on 04-15-2025 WBC (Bld) [#/Vol] 4.0 10*3/uL Low 4.4-11.0 [facility] Chiropractic Reporton 2024 Chiropractic Report [facility] Chiropractic [facility] [place] [address] OFFICE VISIT Date of Service: 04/08/25 MR#: [id number] Acct: [id number] Name: LAILA OLVERA Rep #: [id number] : 1965 Provider: LONDON Mccray Age/Sex: 59/F [place] [facility] [place]: Signed Intake Vital Signs 12/15/24 11:20 [...] Patient wa (more content not included)... Normal [facility] Chiropractic Reporton 2024 Chiropractic Report [facility] Chiropractic [address] [place] [address] OFFICE VISIT Date of Service: 03/04/25 MR#: [id number] Acct: [id number] Name: LAILA OLVERA ANN Rep #: [id number] : 1965 Provider: LONDON Mccray Age/Sex: 59/F [place] [facility] [place]: Signed Intake Vital Signs 12/15/24 11:20 [...] 12/15/24 03/04/25 History mg-hydrochlorothiazide 12.5 mg tablet [facility] Medical History Diastolic blood pressure 80 [...] thoracic re (more content not included)... Normal [facility] Cardiology Visit Reporton Cardiology Visit Report [facility] [place] [address] OFFICE VISIT Date of Service: 03/02/25 MR#: [id number] Acct: [id number] Name: LAILA OLVERA Rep #: [id number] : 1965 Provider: Dr. 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 Normal [facility] Chiropractic Reporton 2024 Chiropractic Report [facility] Chiropractic [facility] [place] [address] OFFICE VISIT Date of Service: 02/18/25 MR#: [id number] Acct: [id number] Name: LAILA OLVERA ANN Rep #: [id number] : 1965 Provider: LONDON Mccray Age/Sex: 59/F [place] [facility] [place]: Signed Intake Vital Signs 12/15/24 11:20 Height 5 ft 7 in Intake Visit Reasons: Back pain Chief Complaint: neck, upper and low back pain Allergies Penicillins Allergy (Intermediate, Verified 02/04/25 12:12) hives [facility] Medical History Diastolic blood pressure 80 [...] somatic dysfunction (more content not included)... Normal [facility] Chest, Abd, Pel w/Contras ton 02-04-2025 CT Chest, Abd, Pel w/Contrast [facility] Imaging Services [address] [place] [address] CT Chest, Abd, Pel w/Contrast MR#: [id number] Acct: [id number] Name: LAILA OLVERA ANN Rep #: [id number] : 1965 F 59 From: Daniel tinajero MD PCP: Dr. Barney Brice MD Status: REG CL Study: CT Chest, Abd, Pel w/Contrast Date of Exam: Exam# [id number] Ordering Dr: KALA VANG PROCEDURE: CT CHEST, [...] Circumferential thickening of the rectum. Reading Location: [facility] CC: Dr. Barney Brice MD; KALA VANG Dairy Husbandry Worker: Signed Normal [facility] Chiropractic Reporton 2024 Chiropractic Report [facility] Chiropractic [address] [place] [address] OFFICE VISIT Date of Service: 02/04/25 MR#: [id number] Acct: [id number] Name: MAYMACIE Rep #: [id number] : 1965 Provider: LONDON Mccray Age/Sex: 59/F Location: [facility] Status: Signed Intake Vital Signs 12/15/24 11:20 [...] M99.05 - (more content not included)... Normal [facility] Carcinoembryonic Antigenon 0 02-02-2025 CEA 1.9 ng/mL Normal 0.0-4.7 [facility] Comment on above: Result Comment: Nons mokers <3.9 Smokers <5.6 [facility] Electrochemiluminescence Immunoassay (ECLIA) Values obtained with different assay methods or kits cannot be used interchangeably. Results cannot be interpreted as absolute evidence of the presence or absence of malignant disease. Performed at: [facility] [employer] [address] [id number] Maintainer Plant: Kobi Hampton PhD, Phone: [phone] Performed By: #### L 3100.2300 ####[facility] [address] [place], [address] Serum or plasma carcinoembry onic antigen measurement (mass/volume)on 02-01-2025 Carcinoembryonic Ag [Mass/Vol] 1.9 ng/mL 0.0-4.7 [facility] Comment on above: Nonsmokers <3.9 Smok ers <5.6[facility] Electrochemiluminescence Immunoassay(ECLIA)Values obtained with different assay methods or kitscannot be used interchangeably. Results cannot beinterpreted as absolute evidence of the presence orabsence of malignant disease.Performed at: [facility] [id number] Director: Kobi Hampton PhD, Phone: [phone] Chiropractic Reporton 2024 Chiropractic Report [facility] Chiropractic [address] [id number] OFFICE VISIT Date of Service: 01/07/25 MR#: [id number] Acct: [id number] Name: LAILA OLVERA ANN Rep #: [id number] : 1965 Provider: LONDON Mccray Age/Sex: 59/F Location: [facility] Status: Signed Intake Vital Signs 06/22/24 09:50 02/11/25 11:20 Height 5 ft 7 in 5 [...] care. Plan (more content not included)... Normal [facility] Cardiovascular stress test r eportOrdered By: Diandra Craig on 01-04-[address] [facility] [address] [place] [address] MR#: [id number] Acct: [id number] Name: LAILA OLVERA Rep #: [id number] [...] of 80%. This note was generated with Yagomart dictation software. It may contain incorrectwords, spelling, and punctuation that were not noted in checking the note beforesigning. 01/04/25 1148 Date _ Diandra Craig MD CC: Dr. Diandra Craig MD; Dr. Barney Brice MD ~ Date Dictated: 01/04/25 1146 Date Transcribed: 01/04/25 114 Dairy Husbandry Worker: EZRA Nettles [facility] Work Phone: Echo Completeon 01-04-2025 Echo Complete [facility] [address] [place] [address] Echo Complete 01/04/25 0816 MR#: [id number] Acct: [id number] Name: LAILA OLVERA Rep #: [id number] : 1965 59 From: Diandra Craig MD Attending Dr: Dr. Diandra Craig MD Status: REG CLI Ordering Dr: Diandra Craig MD Date: 01/04/25 Location: [facility] Sex: F C Admitted: Reason For Study [...] Physician: Barney Brice Performed By: France Loera RD 01/04/25 1210 Date Diandra Craig MD CC: Dr. Diandra Craig MD; Dr. Barney Brice MD Date Dictated: 01/04/25 0816 Date Transcribed: 01/04/25 1210 Dairy Husbandry Worker: Signed Normal [facility] Echocardiogram study reportO rdered By: Diandra Craig on 01-04-2025 Study report [facility] [address] [place] [address] Echo Complete 01/04/25 0816 MR#: [id number] Acct: [id number] Name: LAILA OLVERA Rep #:[id number] : 1965 59 From: Diandra Craig MD Attending Dr: Dr. Diandra Craig MD Status: REG CLI Ordering Dr: Diandra Craig MD Date: Location: [facility] Sex: F C Admitted: Reason For Study [...] Physician: Barney Brice Performed By: France Loera ZE 01/04/25 1210 Date _ Diandra Craig MD CC: Dr. Diandra Craig MD; Dr. Barney Brice MD ~ Date Dictated: 01/04/25815 Date Transcribed: 01/04/25 121 Dairy Husbandry Worker: Signed [facility] Work Phone: Stress Reporton 01-04-[address] [facility] [address] [place] [address] MR#: [id number] Acct: [id number] Name: LAILA OLVERA Rep #: [id number] : 1965 59 From: Diandra Craig MD [...] of 80%. This note was generated with Dwellableation software. It may contain incorrect words, spelling, and punctuation that were not noted in checking the note before signing. 01/04/25 1148 Date Diandra Craig MD CC: Dr. Diandra Craig MD; Dr. Barney Brice MD Date Dictated: 01/04/25 1146 Date Transcribed: 01/04/25 1146 Dairy Husbandry Worker: EZRA Signed Normal [facility] 12 Lead EKG performed by [facility] on 12-15-2024 12 Lead EKG performed by [facility] [address] [place] [address] 12 Lead EKG performed by [facility] 12/15/24 1122 MR#: [id number] Acct: [id number] Name: LAILA OLVERA Rep #: [id number] : 1965 59 From: Diandra Craig MD Attending Dr: Dr. Diandra Craig MD Status: DEP AMB Ordering Dr: Diandra Craig MD Date: 12/15/24 Location: [facility] Sex: F C Admitted: BMS/12 Lead EKG performed by [facility] ECG Report Interpretation -Sinus Rhythm WITHIN NORMAL LIMITSElectronically signed on 03/31/2025 at 12:[address] Diandra Craig 12Return Software Version [id number] 03/31/25 1252 Date Diandra Craig MD CC: Dr. Barney Brice MD Date Dictated: 12/15/241121 Date Transcribed: 12/15/241121 Dairy Husbandry Worker: AR Signed Normal [facility] Basic Metabolic Profile (BMP )on 12-15-2024 BUN/CRE 17.3 RATIO Normal 10-20 [facility] Comment on above: Performed By: #### L 500.2500, L501.9520 ####[facility] [address] [place], [address] CA,Total 9.3 mg/dL Normal 8.5-10.1 [facility] Comment on above: Performed By: #### L 500.2500, L501.9520 ####[facility] [address] [place], [address] Chloride [Moles/Vol] 106 mmol/L Normal 98-107 [facility] Comment on above: Performed By: #### L 500.2500, L501.9520 ####[facility] [address] [place], [address] CO2 [Moles/Vol] 28.0 mmol/L Normal 21.0-32.0 [facility] Comment on above: Performed By: #### L 500.2500, L501.9520 ####[facility] [address] [place], [address] Creatinine [Mass/Vol] 0.81 mg/dL Normal 0.55-1.02 [facility] Comment on above: Result Comment: The validity of the calculated GFR GFRAA in patients over 70 years has not been determined. Clinical correlation is essential. Performed By: #### L 500.2500, L501.9520 ####[facility] [address] [place], [address] EST GFR - AA 94 mL/min Normal >60 [facility] Comment on above: Result Comment: Afri can Japanese GFR Calc Performed By: #### L 500.2500, L501.9520 ####[facility] [address] [place], [address] GAP 5 Normal 5-15 [facility] Comment on above: Performed By: #### L 500.2500, L501.9520 ####[facility] [address] [place], [address] GFR/1.73 sq M.predicted among non-blacks MDRD (S/P/Bld) [Vol rate/Area] 77 mL/min/{1.73_m2} Normal >60 [facility] Comment on above: Result Comment: Non- GFR Calc Performed By: #### L 500.2500, L501.9520 ####[facility] [address] [place], [address] Glucose [Mass/Vol] 94 mg/dL Normal 74-106 [facility] Comment on above: Performed By: #### L 500.2500, L501.9520 ####[facility] [address] [place], [address] Potassium [Moles/Vol] 3.9 mmol/L Normal 3.5-5.1 [facility] Comment on above: Performed By: #### L 500.2500, L501.9520 ####[facility] [address] [place], [address] Sodium [Moles/Vol] 139 mmol/L Normal 136-145 [facility] Comment on above: Performed By: #### L 500.2500, L501.9520 ####[facility] [address] [place], [address] Urea nitrogen [Mass/Vol] 14 mg/dL Normal 7-18 [facility] Comment on above: Performed By: #### L 500.2500, L501.9520 ####[facility] [address] [place], [address] Blood urea nitrogen (BUN)/cr eatinine ratioOrdered By: Diandra Craig on 12-15-2024 Urea nitrogen/Creatinine [Mass ratio] 17.3 mg/mg 10-20 [facility] Carbon dioxide measurementOr dered By: Diandra Craig on 12-15-2024 CO2 [Moles/Vol] 28.0 mmol/L 21.0-32.0 [facility] Cardiology Visit Reporton Cardiology Visit Report [facility] [address] [place], [place] [address] OFFICE VISIT Date of Service: 12/15/24 MR#: [id number] Acct: [id number] Name: LAILA OLVERA Rep #: [id number] : 1965 Provider: Dr. 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 Normal [facility] Chloride measurementOrdered By: Diandra Craig on 12-15-2024 Chloride [Moles/Vol] 106 mmol/L 98-107 [facility] Estimated glomerular filtrat ion rate (GFR) AmericanOrdered By: Diandra Craig on 12-15-2024 Estimated GFR (MDRD) Amer 94 mL/min >60 [facility] Comment on above: GFR Calc Glomerular filtration rate ( GFR) estimationOrdered By: Diandra Craig on 12-15-2024 Estimated GFR (MDRD) Non-Af Amer 77 mL/min >60 [facility] Comment on above: Non- GFR Calc GFR/1.73 sq M.predicted among non-blacks MDRD (S/P/Bld) [Vol rate/Area] 77 mL/min/{1.73_m2} >60 [facility] Comment on above: Non- GFR Calc Glucose measurementOrdered B y: Diandra Craig on 12-15-2024 Glucose [Mass/Vol] 94 mg/dL 74-106 [facility] Potassium measurementOrdered By: Diandra Craig on 12-15-2024 Potassium [Moles/Vol] 3.9 mmol/L 3.5-5.1 [facility] Serum anion gap measurementO rdered By: Diandra Craig on 12-15-2024 Anion gap [Moles/Vol] 5 mmol/L 5-15 [facility] Serum or plasma calcium mala urement (mass/volume)Ordered By: Diandra Craig on 12-15-2024 Calcium [Mass/Vol] 9.3 mg/dL 8.5-10.1 [facility] Serum or plasma creatinine m easurement (mass/volume)Ordered By: Diandra Craig on 12-15-2024 Creatinine [Mass/Vol] 0.81 mg/dL 0.55-1.02 [facility] Comment on above: The validity of the calculated GFR & GFRAA in patients over 70 years has not been determined. Clinical correlation is essential. Serum or plasma thyroid stim ulating hormone (TSH) measurement (units/volume)Ordered By: Diandra Craig on 12-15-2024 TSH Qn 2.190 uIU/mL 0.358-3.740 [facility] Serum or plasma urea nitroge n measurement (mass/volume)Ordered By: Diandra Craig on 12-15-2024 Urea nitrogen [Mass/Vol] 14 mg/dL 7-18 [facility] Sodium levelOrdered By: Delfin Craig on 12-15-2024 Sodium [Moles/Vol] 139 mmol/L 136-145 [facility] TSH QnOrdered By: Diandra younger on 12-15-2024 Thyroid Stimulating Hormone (TSH) 2.190 uIU/mL 0.358-3.740 [facility] Thyroid Stim Hormone (TSH)on 12-15-2024 TSH 2.190 uIU/mL Normal 0.358-3.740 [facility] Comment on above: Performed By: #### L 500.2500, L501.9520 ####[facility] [address] [place], [place], [address] Chiropractic Reporton 2024 Chiropractic Report [facility] Chiropractic [address] [place] [address] OFFICE VISIT Date of Service: 11/12/24 MR#: [id number] Acct: [id number] Name: LAILA OLVERA ANN Rep #: [id number] : 1965 Provider: LONDON Mccray Age/Sex: 59/F Location: [facility] Status: Signed Intake Vital Signs 06/22/24 09:50 [...] and low back Visit Number: 1 Details: Lalia is a 59 y/o female here to [...] Decrease i (more content not included)... Normal [facility] Carcinoembryonic Antigenon 1 12-20-2023 CEA 1.9 ng/mL Normal 0.0-4.7 [facility] Comment on above: Result Comment: Nons mokers <3.9 Smokers <5.6 [facility] Electrochemiluminescence Immunoassay (ECLIA) Values obtained with different assay methods or kits cannot be used interchangeably. Results cannot be interpreted as absolute evidence of the presence or absence of malignant disease. Performed at: [address] [id number] Maintainer Plant: Kobi Hampton PhD, Phone: [phone] Performed By: #### L 3100.2300, L500.2500, L501.1400 ####[facility] [address] [place], [address] Basic Metabolic Profile (BMP )on 10-15-2024 BUN/CRE 17.4 RATIO Normal 10-20 [facility] Comment on above: Performed By: #### L 3100.2300, L500.2500, L501.1400 ####[facility] [address] [place], [address] CA,Total 9.4 mg/dL Normal 8.5-10.1 [facility] Comment on above: Performed By: #### L 3100.2300, L500.2500, L501.1400 ####[facility] [address] [place], [address] Chloride [Moles/Vol] 106 mmol/L Normal 98-107 [facility] Comment on above: Performed By: #### L 3100.2300, L500.2500, L501.1400 ####[facility] [address] [place], [address] CO2 [Moles/Vol] 27.0 mmol/L Normal 21.0-32.0 [facility] Comment on above: Performed By: #### L 3100.2300, L500.2500, L501.1400 ####[facility] [address] [place], [address] Creatinine [Mass/Vol] 0.80 mg/dL Normal 0.55-1.02 [facility] Comment on above: Result Comment: The validity of the calculated GFR GFRAA in patients over 70 years has not been determined. Clinical correlation is essential. Performed By: #### L 3100.2300, L500.2500, L501.1400 ####[facility] [address] [place], [address] EST GFR - AA 94 mL/min Normal >60 [facility] Comment on above: Result Comment: Afri can Japanese GFR Calc Performed By: #### L 3100.2300, L500.2500, L501.1400 ####[facility] [address] [place], [address] GAP 6 Normal 5-15 [facility] Comment on above: Performed By: #### L 3100.2300, L500.2500, L501.1400 ####[facility] [address] [place], [address] GFR/1.73 sq M.predicted among non-blacks MDRD (S/P/Bld) [Vol rate/Area] 78 mL/min/{1.73_m2} Normal >60 [facility] Comment on above: Result Comment: Non- GFR Calc Performed By: #### L 3100.2300, L500.2500, L501.1400 ####[facility] [address] [place], [address] Glucose [Mass/Vol] 124 mg/dL High 74-106 [facility] Comment on above: Result Comment: Fast ing Glucose result from 100 to 125 mg/dL suggests IMPAIRED HOMEOSTASIS per A.D.A. criteria. Performed By: #### L 3100.2300, L500.2500, L501.1400 ####[facility] [address] [place], [address] Potassium [Moles/Vol] 4.0 mmol/L Normal 3.5-5.1 [facility] Comment on above: Performed By: #### L 3100.2300, L500.2500, L501.1400 ####[facility] [address] [place], [address] Sodium [Moles/Vol] 139 mmol/L Normal 136-145 [facility] Comment on above: Performed By: #### L 3100.2300, L500.2500, L501.1400 ####[facility] [address] [place], [address] Urea nitrogen [Mass/Vol] 14 mg/dL Normal 7-18 [facility] Comment on above: Performed By: #### L 3100.2300, L500.2500, L501.1400 ####[facility] [address] [place], [address] Blood urea nitrogen (BUN)/cr eatinine ratioOrdered By: Barney Brice on 10-15-2024 Urea nitrogen/Creatinine [Mass ratio] 17.4 mg/mg 10-20 [facility] Carbon dioxide measurementOr dered By: Barney Brice on 10-15-2024 CO2 [Moles/Vol] 27.0 mmol/L 21.0-32.0 [facility] Chloride measurementOrdered By: Barney Brice on 10-15-2024 Chloride [Moles/Vol] 106 mmol/L 98-107 [facility] Estimated glomerular filtrat ion rate (GFR) AmericanOrdered By: Barney Brice on 10-15-2024 Estimated GFR (MDRD) Amer 94 mL/min >60 [facility] Comment on above: GFR Calc Glomerular filtration rate ( GFR) estimationOrdered By: Barney Brice on 10-15-2024 Estimated GFR (MDRD) Non-Af Amer 78 mL/min >60 [facility] Comment on above: Non- GFR Calc Glucose measurementOrdered B y: Barney Brice on 10-15-2024 Glucose [Mass/Vol] 124 mg/dL High 74-106 [facility] Comment on above: Fasting Glucose resu lt from 100 to 125 mg/dL suggests IMPAIRED HOMEOSTASIS per A.D.A. criteria. Potassium measurementOrdered By: Barney Brice on 10-15-2024 Potassium [Moles/Vol] 4.0 mmol/L 3.5-5.1 [facility] Serum anion gap measurementO rdered By: Barney Brice on 10-15-2024 Anion gap [Moles/Vol] 6 mmol/L 5-15 [facility] Serum or plasma calcium mala urement (mass/volume)Ordered By: Barney Brice on 10-15-2024 Calcium [Mass/Vol] 9.4 mg/dL 8.5-10.1 [facility] Serum or plasma creatinine m easurement (mass/volume)Ordered By: Barney Brice on 10-15-2024 Creatinine [Mass/Vol] 0.80 mg/dL 0.55-1.02 [facility] Comment on above: The validity of the calculated GFR & GFRAA in patients over 70 years has not been determined. Clinical correlation is essential. Serum or plasma urea nitroge n measurement (mass/volume)Ordered By: Barney Brice on 10-15-2024 Urea nitrogen [Mass/Vol] 14 mg/dL 7-18 [facility] Serum or plasma uric acid me asurement (mass/volume)Ordered By: Barney Brice on 10-15-2024 Urate [Mass/Vol] 7.0 mg/dL High 2.6-6.0 [facility] Comment on above: The drugs N-Acetylcy steine and Metamizole may falsely depress this assay. Sodium levelOrdered By: Barney Brice on 10-15-2024 Sodium [Moles/Vol] 139 mmol/L 136-145 [facility] Uric Acidon 10-15-2024 URIC 7.0 mg/dL High 2.6-6.0 [facility] Comment on above: Result Comment: The drugs N-Acetylcysteine and Metamizole may falsely depress this assay. Performed By: #### L 3100.2300, L500.2500, L501.1400 ####[facility] [address] [place], [address] Chiropractic Reporton 2023 Chiropractic Report [facility] Chiropractic [facility] [place], [place] [address] OFFICE VISIT Date of Service: 10/08/24 MR#: [id number] Acct: [id number] Name: LAILA OLVERA ANN Rep #: [id number] : 1965 Provider: LONDON Rivas Do ssi Age/Sex: 59/F [place] [facility]: Signed Intake Vital Signs 06/22/24 09:50 [...] Diagnoses Segme (more content not included)... Normal [facility] Chiropractic Reporton 2023 Chiropractic Report [facility] Chiropractic [address] [place] [address] OFFICE VISIT Date of Service: 09/03/24 MR#: [id number] Acct: [id number] Name: LAILA OLVERA ANN Rep #: [id number] : 1965 Provider: LONDON Mccray Age/Sex: 59/F [place] [facility] [place]: Signed Intake Vital Signs 06/22/24 09:50 [...] somatic dysfunctio (more content not included)... Normal [facility] Urgent Care Visit Reporton 1 Urgent Care Visit Report [facility] [address], [address] [place] [address] OFFICE VISIT Date of Service: 08/27/24 MR#: [id number] Acct: [id number] Name: OLVERAMACIE Rep #: [id number] : 1965 Provider: LINDA Rene Age/Sex: 59/F Location: [facility] Status: Signed Intake Vital Signs 06/22/24 09:50 Height 5 ft 7 in Weight: 187 lb BMI 29.2 BP 146/96 H Blood Pressure Location Lt brachial Position Sitting Respiration 16 Pulse 107 H Pulse Source Monitor Temp 99.1 F Temp Source Temporal Pulse Oximetry (%) 98 Oxygen Delivery Method room air Intake Visit Reasons: SORE THROAT Chief Complaint: SORE THROAT 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 It is important to note that assays using different manufacturers and/or methods may not be comparable. Performed By: #### C EA #### [facility] (DEFAULT) [address] [place] [address] CT ABDOMEN/PELVIS WITH CONTR Kevan 08-24-2024 CT [...] error, please notify the sender immediately at [phone] and permanently delete the original report and destroy any copies or printouts. Normal [facility] CT CHEST WITH CONTRASTon CT CHEST WITH [...] have reviewed and approved this report. Normal [facility] - Chemistry and C hemistry - challengeon 08-24-2024 Carcinoembryonic Ag [Mass/Vol] 4.5 ng/mL NINF - 5.0 ng/mL [facility] Comment on above: This test was perfor med on the Siemens Sensorly IM Immunoassay platform which is a 2-step sandwich chemiluminescent immunoassay. It is important to note that assays using different manufacturers and/or methods may not be comparable. No Panel Informationon 08-24 Interpretation and review of laboratory results Normal [facility] CREAT/GFRon 08-22-2024 Creatinine [Mass/Vol] 0.93 mg/dL 0.50 - 1.20 mg/dL [facility] GFR/1.73 sq M.predicted CKD-EPI (S/P/Bld) [Vol rate/Area] 71 - PINF [facility] Comment on above: Reported eGFR is bas ed on the CKD-EPI 2020 equation using creatinine, age, and sex. Interpretation and review of laboratory results Normal [facility] Test performed at ad dress of the patient encounter. [facility] Chiropractic Reporton 2023 Chiropractic Report [facility] Chiropractic [address] [place] [address] OFFICE VISIT Date of Service: 07/23/24 MR#: [id number] Acct: [id number] Name: LAILA OLVERA Rep #: [id number] : 1965 Provider: LONDON Mccray Age/Sex: 59/F Location: [facility] Status: Signed Intake Vital Signs 03/12/24 12:10 06/22/24 09:50 Height 5 ft 7 in 5 ft 7 in Intake Visit Reasons: Back pain Chief Complaint: Neck/mid/LBP Is patient in pain?: Yes Pain scale (1-10): 6 Allergies Penicillins Allergy (Intermediate, Verified 07/23/24 12:05) hives [facility] Mitral valve prolapse Seasonal [...] M50.33 Spin (more content not included)... Normal [facility] CBC W/Diff, Automatedon 07-05 Absolute Lymph 0.81 X10 3/uL Low 0.83-4.51 [facility] Comment on above: Performed By: #### L 500.4100, L500.4050, L100.0100, L501.1400 ####[facility] [address] [place], [address] Absolute Neut 2.1 X10 3/uL Normal 2.0-7.7 [facility] Comment on above: Performed By: #### L 500.4100, L500.4050, L100.0100, L501.1400 ####[facility] [address] [place], [address] Basophils/100 WBC (Bld) 0.9 % Normal 0-1 [facility] Comment on above: Performed By: #### L 500.4100, L500.4050, L100.0100, L501.1400 ####[facility] [address] [place], [address] Eosinophils/100 WBC (Bld) 1.5 % Normal 0-5 [facility] Comment on above: Performed By: #### L 500.4100, L500.4050, L100.0100, L501.1400 ####[facility] [address] [place], [address] Erythrocyte distribution width (RBC) [Ratio] 12.6 % Normal 11.6-14.6 [facility] Comment on above: Performed By: #### L 500.4100, L500.4050, L100.0100, L501.1400 ####[facility] [address] [place], [address] Hematocrit (Bld) [Volume fraction] 38.9 % Normal 37-47 [facility] Comment on above: Performed By: #### L 500.4100, L500.4050, L100.0100, L501.1400 ####[facility] [address] [place], [address] Hemoglobin (Bld) [Mass/Vol] 13.0 g/dL Normal 12.0-15.0 [facility] Comment on above: Performed By: #### L 500.4100, L500.4050, L100.0100, L501.1400 ####[facility] [address] [place], [address] IG% 0.300 Normal 0.0-0.9 [facility] Comment on above: Result Comment: IG% - Immature Granulocytes (promyelocytes, myelocytes and metamyelocytes) > 1% indicates that a LEFT SHIFT is Present. Performed By: #### L 500.4100, L500.4050, L100.0100, L501.1400 ####[facility] [address] [place], [address] Lymphocytes/100 WBC (Bld) 24.6 % Normal 19-41 [facility] Comment on above: Performed By: #### L 500.4100, L500.4050, L100.0100, L501.1400 ####[facility] [address] [place], [address] MCH (RBC) [Entitic mass] 31.1 pg Normal 27.0-32.0 [facility] Comment on above: Performed By: #### L 500.4100, L500.4050, L100.0100, L501.1400 ####[facility] [address] [place], [address] MCHC (RBC) [Mass/Vol] 33.4 g/dL Normal 32-36 [facility] Comment on above: Performed By: #### L 500.4100, L500.4050, L100.0100, L501.1400 ####[facility] [address] [place], [address] MCV (RBC) [Entitic vol] 93.1 fL Normal 81-99 [facility] Comment on above: Performed By: #### L 500.4100, L500.4050, L100.0100, L501.1400 ####[facility] [address] [place], [address] Monocytes/100 WBC (Bld) 10.0 % Normal 0-10 [facility] Comment on above: Performed By: #### L 500.4100, L500.4050, L100.0100, L501.1400 ####[facility] [address] [place], [address] Neutrophils/100 WBC (Bld) 62.7 % Normal 47-70 [facility] Comment on above: Performed By: #### L 500.4100, L500.4050, L100.0100, L501.1400 ####[facility] [address] [place], [address] Nucleated RBC (Bld) [#/Vol] 0 10*3/uL Normal 0-5 [facility] Comment on above: Performed By: #### L 500.4100, L500.4050, L100.0100, L501.1400 ####[facility] [address] [place], [address] Platelet mean volume (Bld) [Entitic vol] 9.5 fL Normal 6.2-12.0 [facility] Comment on above: Performed By: #### L 500.4100, L500.4050, L100.0100, L501.1400 ####[facility] [address] [place], [address] Platelets (Bld) [#/Vol] 251 10*3/uL Normal 150-450 [facility] Comment on above: Performed By: #### L 500.4100, L500.4050, L100.0100, L501.1400 ####[facility] [address] [place], [address] RBC (Bld) [#/Vol] 4.18 10*6/uL Low 4.2-5.4 [facility] Comment on above: Performed By: #### L 500.4100, L500.4050, L100.0100, L501.1400 ####[facility] [address] [place], [address] RDW SD 42.6 fl Normal 35.1-43.9 [facility] Comment on above: Performed By: #### L 500.4100, L500.4050, L100.0100, L501.1400 ####[facility] [address] [place], [address] WBC (Bld) [#/Vol] 3.3 10*3/uL Low 4.4-11.0 [facility] Comment on above: Performed By: #### L 500.4100, L500.4050, L100.0100, L501.1400 ####[facility] [address] [place], [address] Comprehensive Metabolic Prof [facility] 07-16-2024 Albumin [Mass/Vol] 3.6 g/dL Normal 3.2-5.0 [facility] Comment on above: Performed By: #### L 500.4100, L500.4050, L100.0100, L501.1400 ####[facility] [address] [place], [address] Albumin/Globulin [Mass ratio] 1.0 {ratio} Normal 0.9-2.4 [facility] Comment on above: Performed By: #### L 500.4100, L500.4050, L100.0100, L501.1400 ####[facility] [address] [place], [address] ALK P 66 U/L Normal 45-117 [facility] Comment on above: Performed By: #### L 500.4100, L500.4050, L100.0100, L501.1400 ####[facility] [address] [place], [address] ALT [Catalytic activity/Vol] 50 U/L Normal 13-56 [facility] Comment on above: Performed By: #### L 500.4100, L500.4050, L100.0100, L501.1400 ####[facility] [address] [place], [address] AST [Catalytic activity/Vol] 25 U/L Normal 15-37 [facility] Comment on above: Performed By: #### L 500.4100, L500.4050, L100.0100, L501.1400 ####[facility] [address] [place], [address] Bilirubin [Mass/Vol] 0.90 mg/dL Normal 0.20-1.00 [facility] Comment on above: Result Comment: For patients on eltrombopag therapy, use of Dimension [place] TBIL is not recommended. Performed By: #### L 500.4100, L500.4050, L100.0100, L501.1400 ####[facility] [address] [place], [address] BUN/CRE 16.9 RATIO Normal 10-20 [facility] Comment on above: Performed By: #### L 500.4100, L500.4050, L100.0100, L501.1400 ####[facility] [address] [place], [address] CA,Total 9.6 mg/dL Normal 8.5-10.1 [facility] Comment on above: Performed By: #### L 500.4100, L500.4050, L100.0100, L501.1400 ####[facility] [address] [place], [address] Chloride [Moles/Vol] 108 mmol/L High 98-107 [facility] Comment on above: Performed By: #### L 500.4100, L500.4050, L100.0100, L501.1400 ####[facility] [address] [place], [address] CO2 [Moles/Vol] 25.0 mmol/L Normal 21.0-32.0 [facility] Comment on above: Performed By: #### L 500.4100, L500.4050, L100.0100, L501.1400 ####[facility] [address] [place], [address] Creatinine [Mass/Vol] 0.71 mg/dL Normal 0.55-1.02 [facility] Comment on above: Result Comment: The validity of the calculated GFR GFRAA in patients over 70 years has not been determined. Clinical correlation is essential. Performed By: #### L 500.4100, L500.4050, L100.0100, L501.1400 ####[facility] [address] [place], [address] EST GFR - AA 108 mL/min Normal >60 [facility] Comment on above: Result Comment: Afri can Japanese GFR Calc Performed By: #### L 500.4100, L500.4050, L100.0100, L501.1400 ####[facility] [address] [place], [address] GAP 8 Normal 5-15 [facility] Comment on above: Performed By: #### L 500.4100, L500.4050, L100.0100, L501.1400 ####[facility] [address] [place], [address] GFR/1.73 sq M.predicted among non-blacks MDRD (S/P/Bld) [Vol rate/Area] 90 mL/min/{1.73_m2} Normal >60 [facility] Comment on above: Result Comment: Non- GFR Calc Performed By: #### L 500.4100, L500.4050, L100.0100, L501.1400 ####[facility] [address] [place], [address] Globulin (S) [Mass/Vol] 3.7 g/dL Normal 2.2-4.2 [facility] Comment on above: Performed By: #### L 500.4100, L500.4050, L100.0100, L501.1400 ####[facility] [address] [place], [address] Glucose [Mass/Vol] 100 mg/dL Normal 74-106 [facility] Comment on above: Result Comment: Fast ing Glucose result from 100 to 125 mg/dL suggests IMPAIRED HOMEOSTASIS per A.D.A. criteria. Performed By: #### L 500.4100, L500.4050, L100.0100, L501.1400 ####[facility] [address] [place], [address] Potassium [Moles/Vol] 3.8 mmol/L Normal 3.5-5.1 [facility] Comment on above: Performed By: #### L 500.4100, L500.4050, L100.0100, L501.1400 ####[facility] [address] [place], [address] Sodium [Moles/Vol] 141 mmol/L Normal 136-145 [facility] Comment on above: Performed By: #### L 500.4100, L500.4050, L100.0100, L501.1400 ####[facility] [address] [place], [address] T PROT 7.3 g/dL Normal 6.4-8.2 [facility] Comment on above: Performed By: #### L 500.4100, L500.4050, L100.0100, L501.1400 ####[facility] [address] [place], [address] Urea nitrogen [Mass/Vol] 12 mg/dL Normal 7-18 [facility] Comment on above: Performed By: #### L 500.4100, L500.4050, L100.0100, L501.1400 ####[facility] [address] [place], [address] Lipid Profileon 07-16-2024 Cholesterol [Mass/Vol] 205 mg/dL High 200 [facility] Comment on above: Result Comment: <200 mg/dL Desirable 200-240 mg/dL Borderline >240 mg/dL High Risk Performed By: #### L 500.4100, L500.4050, L100.0100, L501.1400 ####[facility] [address] [place], [address] Cholesterol in HDL [Mass/Vol] 44 mg/dL Normal [facility] Comment on above: Result Comment: The drugs N-Acetylcysteine and Metamizole may falsely depress this assay. Reference Range HDL <40 mg/dL Low HDL Cholesterol HDL >or= 60 mg/dL High HDL Cholesterol Performed By: #### L 500.4100, L500.4050, L100.0100, L501.1400 ####[facility] [address] [place], [address] Cholesterol in LDL [Mass/Vol] 125 mg/dL Normal 0-130 [facility] Comment on above: Performed By: #### L 500.4100, L500.4050, L100.0100, L501.1400 ####[facility] [address] [place], [address] Cholesterol in VLDL [Mass/Vol] 36 mg/dL Normal 5-40 [facility] Comment on above: Performed By: #### L 500.4100, L500.4050, L100.0100, L501.1400 ####[facility] [address] [place], [address] Triglyceride [Mass/Vol] 179 mg/dL Normal [facility] Comment on above: Result Comment: The drugs N-Acetylcysteine and Metamizole may falsely depress this assay. Serum Triglycerides Reference Interval Normal <150 mg/dL Borderline high 150 - 199 mg/dL High 200 - 499 mg/dL Very High > or = 500 mg/dL Performed By: #### L 500.4100, L500.4050, L100.0100, L501.1400 ####[facility] [address] [place], [address] Uric Acidon 07-16-2024 URIC 6.9 mg/dL High 2.6-6.0 [facility] Comment on above: Result Comment: The drugs N-Acetylcysteine and Metamizole may falsely depress this assay. Performed By: #### L 500.4100, L500.4050, L100.0100, L501.1400 ####[facility] [address] 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 [facility] Medical History Mitral valve prolapse Seasonal [...] today at (more content not included)... Normal [facility] Chiropractic Reporton 2023 Chiropractic Report [facility] [address] [place], [place] [id number] OFFICE VISIT Date of Service: 06/18/24 MR#: [id number] Acct: [id number] Name: LAILA OLVERA Rep #: [id number] : 1965 Provider: LONDON Mccray Age/Sex: 58/F Location: [facility] Status: Signed Intake Vital Signs 03/12/24 12:10 [...] pelvic region (more content not included)... Normal [facility] DIAGNOSTIC COLONOSCOPYon [facility] Gastroenterology Patient Name: Laila Olvera Procedure Date: 06/05/2024 8:38 AM Date of : 1965 Admit Type: Outpatient Age: 58 Room: [facility] room 1 Gender: Female Note Status: Finalized Attending MD: Liliana Adnrews MD, [id number] Procedure: Colonoscopy Attending Participation: I was present and participated during the entire procedure, including non-betancourt portions. Indications: High risk colon cancer surveillance: Personal history of rectal cancer Providers: Liliana Andrews MD, Winter Miller RN (Nurse), Emma Morel, De Ionizer Operator Referring MD: Liliana Andrews MD Complications: [...] by the physician, the nurse and the earth science laboratory technician in the procedure room at 08:51 [...] minutes. Recommendation: (more content not included)... LAB, [facility] Radiology Study observation (narrative) [facility] Laboratory - Chemistry and C hemistry - challengeOrdered By: Zaheer Moran on 02-24-2024 Carcinoembryonic Ag [Mass/Vol] ng/mL NINF - 5.0 ng/mL [facility] Comment on above: This test was perfor med on the Xueersi Immunoassay platform which is a 2-step sandwich chemiluminescent immunoassay. It is important to note that assays using different manufacturers and/or methods may not be comparable. No Panel InformationOrdered By: Zaheer Moran on 02-24-2024 Interpretation and review of laboratory results Normal [facility] CREAT/GFRon 02-15-2024 Creatinine [Mass/Vol] 0.64 mg/dL 0.50 - 1.20 mg/dL [facility] GFR/1.73 sq M.predicted CKD-EPI (S/P/Bld) [Vol rate/Area] - PINF [facility] Comment on above: Reported eGFR is bas ed on the CKD-EPI 2020 equation using creatinine, age, and sex. Interpretation and review of laboratory results Normal [facility] Test performed at ad dress of the patient encounter. [facility] Absolute lymphocyte countOrd ered By: Remus Luis on 12-23-2023 Lymphocytes Auto (Unsp spec) [#/Vol] 0.80 10*3/uL 0.83-4.51 [facility] Automated lymphocyte count a s percentage of total leukocytesOrdered By: Remus Luis on 12-23-2023 Lymphocytes/100 WBC Auto (Unsp spec) 14.7 % 19-41 [facility] Basophil percentageOrdered B y: Remus Luis on 12-23-2023 Basophils/100 WBC (Bld) 0.9 % 0-1 [facility] Chloride [Moles/Vol] 111 mmol/L 98-107 [facility] Eosinophils/100 WBC (Bld) 1.1 % 0-5 [facility] Glucose [Mass/Vol] 107 mg/dL 74-106 [facility] Comment on above: Fasting Glucose resu lt from 100 to 125 mg/dL suggests IMPAIRED HOMEOSTASIS per A.D.A. criteria. Hemoglobin (Bld) [Mass/Vol] 12.6 g/dL 12.0-15.0 [facility] Monocytes/100 WBC (Bld) 7.3 % 0-10 [facility] Neutrophils (Bld) [#/Vol] 4.1 10*3/uL 2.0-7.7 [facility] Neutrophils/100 WBC (Bld) 75.3 % 47-70 [facility] Potassium [Moles/Vol] 4.0 mmol/L 3.5-5.1 [facility] Sodium [Moles/Vol] 141 mmol/L 136-145 [facility] WBC (Bld) [#/Vol] 5.5 10*3/uL 4.4-11.0 [facility] Determination of erythrocyte mean corpuscular volume (MCV)Ordered By: Rae Smith on 12-23-2023 MCV (RBC) [Entitic vol] 90.8 fL 81-99 [facility] Erythrocyte distribution wid th ratioOrdered By: Rae Smith on 12-23-2023 Erythrocyte distribution width (RBC) [Ratio] 12.4 % 11.6-14.6 [facility] Erythrocyte distribution wid th standard deviationOrdered By: Rae Smith on 12-23-2023 Erythrocyte distribution width (RBC) [Entitic vol] 41.0 fL 35.1-43.9 [facility] Hematocrit Auto (Bld) [Volum e fraction]Ordered By: [facility] Ohious Smith on 12-23-2023 Hematocrit (Bld) [Volume fraction] 37.7 % 37-47 [facility] Immature granulocytes/100 WB C Auto (Bld)Ordered By: [facility] Ohious Smith on 12-23-2023 Immature granulocytes/100 WBC (Bld) 0.700 % 0.0-0.9 [facility] Comment on above: IG% - Immature Granu locytes (promyelocytes, myelocytes and metamyelocytes) > 1% indicates that a LEFT SHIFT is Present. Laboratory - Chemistry and C hemistry - challengeOrdered By: Rae Smith on 12-23-2023 CO2 [Moles/Vol] 24.0 mmol/L 21.0-32.0 [facility] Urea nitrogen/Creatinine [Mass ratio] 19.2 mg/mg 10-20 [facility] Laboratory - Hematology and Cell countsOrdered By: Rae Smith on 12-23-2023 MCH (RBC) [Entitic mass] 30.4 pg 27.0-32.0 [facility] MCHC (RBC) [Mass/Vol] 33.4 g/dL 32-36 [facility] Nucleated RBC/100 WBC (Bld) [Ratio] 0 % 0-5 [facility] Platelet mean volume (Bld) [Entitic vol] 9.0 fL 6.2-12.0 [facility] Platelets (Bld) [#/Vol] 367 10*3/uL 150-450 [facility] No Panel InformationOrdered By: Rae Smith on 12-23-2023 Estimated Creatinine Clearance Calc 74.69 ml/min [facility] Estimated GFR (MDRD) Amer 79 mL/min >60 [facility] Comment on above: GFR Calc Estimated GFR (MDRD) Non-Af Amer 65 mL/min >60 [facility] Comment on above: Non- GFR Calc RBC Auto (Bld) [#/Vol]Ordere d By: Rae Smith on 12-23-2023 RBC (Bld) [#/Vol] 4.15 10*6/uL 4.2-5.4 [facility] Serum or plasma calcium mala urement (mass/volume)Ordered By: Rae Smith on 12-23-2023 Calcium [Mass/Vol] 8.9 mg/dL 8.5-10.1 [facility] Serum or plasma creatinine m easurement (mass/volume)Ordered By: Rae Smith on 12-23-2023 Creatinine [Mass/Vol] 0.94 mg/dL 0.55-1.02 [facility] Comment on above: The validity of the calculated GFR & GFRAA in patients over 70 years has not been determined. Clinical correlation is essential. Serum or plasma urea nitroge n measurement (mass/volume)Ordered By: [place] Luis on 12-23-2023 Urea nitrogen [Mass/Vol] 18 mg/dL 7-18 [facility] Thin prep Papanicolaou smear with manual screeningOrdered By: [facility] Ohious Smith on 12-23-2023 Thin prep Papanicolaou smear with manual screening 6 5-15 [facility] Basophil percentageOrdered B y: Barney Brice on 12-18-2023 Chloride [Moles/Vol] 109 mmol/L 98-107 [facility] Glucose [Mass/Vol] 106 mg/dL 74-106 [facility] Comment on above: Fasting Glucose resu lt from 100 to 125 mg/dL suggests IMPAIRED HOMEOSTASIS per A.D.A. criteria. Potassium [Moles/Vol] 3.7 mmol/L 3.5-5.1 [facility] Sodium [Moles/Vol] 142 mmol/L 136-145 [facility] Laboratory - Chemistry and C hemistry - challengeOrdered By: Barney Brice on 12-18-2023 CO2 [Moles/Vol] 27.0 mmol/L 21.0-32.0 [facility] Urea nitrogen/Creatinine [Mass ratio] 15.2 mg/mg 10-20 [facility] No Panel InformationOrdered By: Barney Brice on 12-18-2023 Estimated GFR (MDRD) Amer 88 mL/min >60 [facility] Comment on above: GFR Calc Estimated GFR (MDRD) Non-Af Amer 73 mL/min >60 [facility] Comment on above: Non- GFR Calc Serum or plasma calcium maal urement (mass/volume)Ordered By: Barney Brice on 12-18-2023 Calcium [Mass/Vol] 8.9 mg/dL 8.5-10.1 [facility] Serum or plasma creatinine m easurement (mass/volume)Ordered By: Barney Brice on 12-18-2023 Creatinine [Mass/Vol] 0.86 mg/dL 0.55-1.02 [facility] Comment on above: The validity of the calculated GFR & GFRAA in patients over 70 years has not been determined. Clinical correlation is essential. Serum or plasma urea nitroge n measurement (mass/volume)Ordered By: Barney Brice on 12-18-2023 Urea nitrogen [Mass/Vol] 13 mg/dL 7-18 [facility] Serum or plasma uric acid me asurement (mass/volume)Ordered By: Barney Brice on 12-18-2023 Urate [Mass/Vol] 7.2 mg/dL 2.6-6.0 [facility] Comment on above: The drugs N-Acetylcy steine and Metamizole may falsely depress this assay. Thin prep Papanicolaou smear with manual screeningOrdered By: Barney Brice on 12-18-2023 Thin prep Papanicolaou smear with manual screening 6 5-15 [facility] Laboratory - Chemistry and C hemistry - challengeOrdered By: Jessie Mays on 08-26-2023 Carcinoembryonic Ag [Mass/Vol] ng/mL NINF - 5.0 ng/mL [facility] Comment on above: This test was perfor med on the Jumpido IM Immunoassay platform which is a 2-step sandwich chemiluminescent immunoassay. It is important to note that assays using different manufacturers and/or methods may not be comparable. No Panel InformationOrdered By: Jessie Mays on 08-26-2023 Interpretation and review of laboratory results Normal [facility] CREAT/GFRon 08-24-2023 Creatinine [Mass/Vol] 0.81 mg/dL 0.50 - 1.20 mg/dL [facility] GFR/1.73 sq M.predicted CKD-EPI (S/P/Bld) [Vol rate/Area] 85 - PINF [facility] Comment on above: Reported eGFR is bas ed on the CKD-EPI 2020 equation using creatinine, age, and sex. Interpretation and review of laboratory results Normal [facility] Test performed at ad dress of the patient encounter. [facility] Basophil percentageOrdered B y: Dr. Brice on 04-22-2023 Chloride [Moles/Vol] 110 mmol/L 98-107 [facility] Glucose [Mass/Vol] 92 mg/dL 74-106 [facility] Potassium [Moles/Vol] 3.7 mmol/L 3.5-5.1 [facility] Sodium [Moles/Vol] 142 mmol/L 136-145 [facility] Laboratory - Chemistry and C hemistry - challengeOrdered By: Dr. Brice on 04-22-2023 CO2 [Moles/Vol] 26.0 mmol/L 21.0-32.0 [facility] Urea nitrogen/Creatinine [Mass ratio] 20.2 mg/mg 08-23 [facility] No Panel InformationOrdered By: Dr. Brice on 04-22-2023 Estimated GFR (MDRD) Amer 104 mL/min >60 [facility] Comment on above: GFR Calc Estimated GFR (MDRD) Non-Af Amer 86 mL/min >60 [facility] Comment on above: Non- GFR Calc Serum or plasma calcitriol m easurement (mass/volume)Ordered By: Dr. Brice on 04-22-2023 1,25-dihydroxyvitamin D3 [Mass/Vol] 57.7 pg/mL 24.8-81.5 [facility] Comment on above: Performed at: [address] [id number] Director: Red Cheney MD, Phone: [phone] Serum or plasma calcium mala urement (mass/volume)Ordered By: Dr. Brice on 04-22-2023 Calcium [Mass/Vol] 9.1 mg/dL 8.5-10.1 [facility] Serum or plasma creatinine m easurement (mass/volume)Ordered By: Dr. Brice on 04-22-2023 Creatinine [Mass/Vol] 0.74 mg/dL 0.55-1.02 [facility] Comment on above: The validity of the calculated GFR & GFRAA in patients over 70 years has not been determined. Clinical correlation is essential. Serum or plasma urea nitroge n measurement (mass/volume)Ordered By: Dr. Brice on 04-22-2023 Urea nitrogen [Mass/Vol] 15 mg/dL 05-21 [facility] Thin prep Papanicolaou smear with manual screeningOrdered By: Dr. Brice on 04-22-2023 Thin prep Papanicolaou smear with manual screening 03-18 [facility] MR Pelvis WO and W contrast Aleisha [...] to February 2023. No suspicious osseous lesion. [facility] Radiology Study observation (narrative) [facility] MR Pelvis WO and W contrast IVOrdered By: Lucian Kenny on 04-01-2023 [facility] Work Phone: NM (INTERPRETATION - OUTSIDE IMAGE)on 03-12-2023 IMPRESSION: Tracer uptake in the right sacroiliac joint, likely posttraumatic. Recommend correlation with cross-sectional imaging. Thank you for allowing [facility] Oncology Imaging at [facility] to assist in the care [...] for allowing [facility] On[facility] at [facility] to assist in the care of this patient. [facility] NM (INTERPRETATION - OUTSIDE IMAGE)Ordered By: Derrell Garcia on 03-12-2023 [facility] Work Phone: [place] (INTERPRETATION - OUTSIDE IMAGE)on 03-11-2023 Radiology Study observation (narrative) [facility] CREAT/GFRon 02-16-2023 Creatinine [Mass/Vol] 0.88 mg/dL 0.50 - 1.20 mg/dL [facility] GFR/1.73 sq M.predicted CKD-EPI (S/P/Bld) [Vol rate/Area] 77 - PINF [facility] Comment on above: Reported eGFR is bas ed on the CKD-EPI 2020 equation using creatinine, age, and sex. Interpretation and review of laboratory results Normal [facility] Test performed at ad dress of the patient encounter. [facility] No Panel InformationOrdered By: [employer] on 12-25-2022 Hepatitis B Surface Antibody Reactive [facility] Comment on above: Non Reactive: Incons istent with immunity less than <10 mIU/mL Reactive: Consistent with immunity greater than or equal to 10 mIU/mL Rubella IgG Antibody Reactive Nonreactive [facility] Comment on above: Antibody Results Int erpretation of Immune Status Non Reactive Presumed Non-Immune Equivocal Equivocal Reactive Presumed Immune Serum measles virus IgG anti body assay (units/volume)Ordered By: [employer] on 12-25-2022 MeV IgG Qn (S) > 300.0 AU/mL Immune >16.4 [facility] Comment on above: Negative <13.5 Equiv ocal 13.5 - 16.4 Positive >16.4Presence of antibodies to Rubeola is presumptive evidenceof immunity except when acute infection is suspected.Performed at: [facility] [id number] Director: Kobi Hampton PhD, Phone: [phone] Serum mumps virus IgG antibo dy assay (units/volume)Ordered By: [employer] on 12-25-2022 MuV IgG Qn (S) 96.8 AU/mL Immune >10.9 [facility] Comment on above: Negative <9.0 Equivo shelby 9.0 - 10.9 Positive >10.9A positive result generally indicates past exposure toMumps virus or previous vaccination. CEAOrdered By: Jessie younger on 11-26-2022 Carcinoembryonic Ag [Mass/Vol] ng/mL NINF - 5.0 ng/mL [facility] Comment on above: This test was perfor med on the Jumpido IM Immunoassay platform which is a 2-step sandwich chemiluminescent immunoassay. It is important to note that assays using different manufacturers and/or methods may not be comparable. Interpretation and review of laboratory results Normal [facility] CMPN WITHOUT GLUCOSEon 11-26 Albumin [Mass/Vol] 4.3 g/dL 3.5 - 5.0 g/dL [facility] ALP [Catalytic activity/Vol] 62 U/L 32 - 126 U/L [facility] ALT [Catalytic activity/Vol] 18 U/L 9 - 48 U/L [facility] Anion gap [Moles/Vol] 9 mmol/L 7 - 17 mmol/L [facility] AST [Catalytic activity/Vol] 12 U/L 10 - 39 U/L [facility] Bilirubin [Mass/Vol] 0.8 mg/dL NINF - 1.5 mg/dL [facility] Calcium [Mass/Vol] 9.5 mg/dL 8.6 - 10. 5 mg/dL [facility] Chloride [Moles/Vol] 108 mmol/L 98 - 10 8 mmol/L [facility] CO2 [Moles/Vol] 27 mmol/L 21 - 31 mmol/L [facility] Creatinine [Mass/Vol] 0.73 mg/dL 0.50 - 1.20 mg/dL [facility] GFR/1.73 sq M.predicted CKD-EPI (S/P/Bld) [Vol rate/Area] - PINF [facility] Comment on above: Reported eGFR is bas ed on the CKD-EPI 2020 equation using creatinine, age, and sex. Interpretation and review of laboratory results Abnormal [facility] Potassium [Moles/Vol] 3.4 mmol/L Low 3.5 - 5.0 mmol/L [facility] Protein [Mass/Vol] 7.0 g/dL 6.4 - 8.3 g/dL [facility] Sodium [Moles/Vol] 141 mmol/L 135 - 145 mmol/L [facility] Urea nitrogen [Mass/Vol] 14 mg/dL 7 - 25 mg/dL [facility] Urea nitrogen/Creatinine [Mass ratio] 19 mg/mg [facility] CBC AND ELECTRONIC DIFFon Basophils (Bld) [#/Vol] 10*3/uL 0.00 - 0.15 K/uL [facility] Basophils/100 WBC (Bld) 0.8 % [facility] Differential cell count method Nom (Bld) Electronic Differential [facility] Eosinophils (Bld) [#/Vol] 0.09 10*3/uL 0.00 - 0.42 K/uL [facility] Eosinophils/100 WBC (Bld) 2.4 % [facility] Erythrocyte distribution width (RBC) [Ratio] 12.4 % 10.8 - 14.9 % [facility] Hematocrit (Bld) [Volume fraction] 36.7 % 34.9 - 44.3 % [facility] Hemoglobin (Bld) [Mass/Vol] 12.8 g/dL 11.4 - 15.2 g/dL [facility] Immature granulocytes (Bld) [#/Vol] 10*3/uL <=0.08 K/uL [facility] Immature granulocytes/100 WBC (Bld) 0.5 % [facility] Interpretation and review of laboratory results Abnormal [facility] Lymphocytes (Bld) [#/Vol] 0.74 10*3/uL Low 1.16 - 3.51 K/uL [facility] Lymphocytes/100 WBC (Bld) 19.8 % [facility] MCH (RBC) [Entitic mass] 31.8 pg 25.9 - 33.9 pg [facility] MCHC (RBC) [Mass/Vol] 34.9 g/dL 31.4 - 35.9 g/dL [facility] MCV (RBC) [Entitic vol] 91.1 fL 79.6 - 97.7 fL [facility] Monocytes (Bld) [#/Vol] 0.35 10*3/uL 0.22 - 0.87 K/uL [facility] Monocytes/100 WBC (Bld) 9.4 % [facility] Neutrophils (Bld) [#/Vol] 2.51 10*3/uL 1.64 - 7.28 K/uL [facility] Nucleated RBC/100 WBC (Bld) [Ratio] 0.0 % <=0.2 /100 WBC [facility] Platelet mean volume (Bld) [Entitic vol] 8.8 fL 8.5 - 12.2 fL [facility] Platelets (Bld) [#/Vol] 324 10*3/uL 150 - 393 K/uL [facility] RBC (Bld) [#/Vol] 4.03 10*6/uL [facility] Segmented neutrophils/100 WBC (Bld) 67.1 % [facility] WBC (Bld) [#/Vol] 3.74 10*3/uL Low 3.99 - 11. 19 K/uL [facility] CEAOrdered By: Morteza Maher on 07-12-2022 Carcinoembryonic Ag [Mass/Vol] ng/mL <=5.0 ng/mL [facility] Comment on above: This test was perfor med on the Xueersi Immunoassay platform which is a 2-step sandwich chemiluminescent immunoassay. It is important to note that assays using different manufacturers and/or methods may not be comparable. Interpretation and review of laboratory results Normal [facility] CMPN WITHOUT GLUCOSEon 07-12 Albumin [Mass/Vol] 4.4 g/dL 3.5 - 5.0 g/dL [facility] ALP [Catalytic activity/Vol] 54 U/L 32 - 126 U/L [facility] ALT [Catalytic activity/Vol] 19 U/L 9 - 48 U/L [facility] Anion gap [Moles/Vol] 10 mmol/L 7 - 17 mmol/L [facility] AST [Catalytic activity/Vol] 14 U/L 10 - 39 U/L [facility] Bilirubin [Mass/Vol] 1.0 mg/dL <1.5 [facility] Calcium [Mass/Vol] 9.5 mg/dL 8.6 - 10. 5 mg/dL [facility] Chloride [Moles/Vol] 106 mmol/L 98 - 10 8 mmol/L [facility] CO2 [Moles/Vol] 28 mmol/L 21 - 31 mmol/L [facility] Creatinine [Mass/Vol] 0.74 mg/dL 0.50 - 1.20 mg/dL [facility] GFR/1.73 sq M.predicted CKD-EPI (S/P/Bld) [Vol rate/Area] >90 >=60 mL/min/1.73m 2 [facility] Comment on above: Reported eGFR is bas ed on the CKD-EPI 2020 equation using creatinine, age, and sex. Potassium [Moles/Vol] 3.8 mmol/L 3.5 - 5.0 mmol/L [facility] Protein [Mass/Vol] 7.2 g/dL 6.4 - 8.3 g/dL [facility] Sodium [Moles/Vol] 140 mmol/L 135 - 145 mmol/L [facility] Urea nitrogen [Mass/Vol] 17 mg/dL 7 - 25 mg/dL [facility] Urea nitrogen/Creatinine [Mass ratio] 23 mg/mg [facility] Aleisha IMPRESSION: [...] I have reviewed and approved this report. [facility] Radiology Study [facility]narrative[facility] W contrast IVOrdere d By: Dalton Gill on 07-12-2022 [facility] Work Phone: DIAGNOSTIC COLONOSCOPYon [facility] Gastroenterology Patient Name: Laila Olvera Procedure Date: 06/25/2022 10:00 AM Date of : 1965 Admit Type: Outpatient Age: 56 Room: [facility] room 3 Gender: Female Note Status: Finalized Attending MD: Liliana Andrews MD Procedure: Colonoscopy Attending Participation: I personally performed the entire procedure. Indications: High risk colon cancer surveillance: Personal history of rectal cancer Providers: Liliana Andrews MD, Gin Greene (Nurse), Emma Morel, De Ionizer Operator Referring MD: Liliana Andrews MD Complications: [...] by the physician, the nurse and the earth science laboratory technician in the procedure room at 10:01 [...] tomorrow. (more content not included)... LAB, [facility] Radiology Study observation (narrative) [facility] CBC AND ELECTRONIC DIFFon Basophils (Bld) [#/Vol] 10*3/uL 0.00 - 0.15 K/uL [facility] Basophils/100 WBC (Bld) 0.9 % [facility] Differential cell count method Nom (Bld) Electronic Differential O [facility] Eosinophils (Bld) [#/Vol] 0.07 10*3/uL 0.00 - 0.42 K/uL [facility] Eosinophils/100 WBC (Bld) 3.0 % [facility] Erythrocyte distribution width (RBC) [Ratio] 12.7 % 10.8 - 14.9 % [facility] Hematocrit (Bld) [Volume fraction] 35.3 % 34.9 - 44.3 % [facility] Hemoglobin (Bld) [Mass/Vol] 12.2 g/dL 11.4 - 15.2 g/dL [facility] Immature granulocytes (Bld) [#/Vol] 10*3/uL <=0.09 K/uL [facility] Immature granulocytes/100 WBC (Bld) 0.0 % [facility] Interpretation and review of laboratory results Abnormal [facility] Lymphocytes (Bld) [#/Vol] 0.50 10*3/uL Low 1.16 - 3.51 K/uL [facility] Lymphocytes/100 WBC (Bld) 21.5 % [facility] MCH (RBC) [Entitic mass] 31.6 pg 25.9 - 33.9 pg [facility] MCHC (RBC) [Mass/Vol] 34.6 g/dL 31.4 - 35.9 g/dL [facility] MCV (RBC) [Entitic vol] 91.5 fL 79.6 - 97.7 fL [facility] Monocytes (Bld) [#/Vol] 0.21 10*3/uL Low 0.22 - 0.87 K/uL [facility] Monocytes/100 WBC (Bld) 9.0 % [facility] Neutrophils (Bld) [#/Vol] 1.53 10*3/uL Low 1.64 - 7.28 K/uL [facility] Nucleated RBC/100 WBC (Bld) [Ratio] 0.0 % <=0.2 /100 WBC [facility] Platelet mean volume (Bld) [Entitic vol] 8.8 fL 8.5 - 12.2 fL [facility] Platelets (Bld) [#/Vol] 228 10*3/uL 150 - 393 K/uL [facility] RBC (Bld) [#/Vol] 3.86 10*6/uL Low [facility] Segmented neutrophils/100 WBC (Bld) 65.6 % [facility] WBC (Bld) [#/Vol] 2.33 10*3/uL Low 3.99 - 11. 19 K/uL [facility] Laboratory - Chemistry and C hemistry - challengeOrdered By: Miguel Strange on 04-20-2022 Carcinoembryonic Ag [Mass/Vol] ng/mL <=5.0 ng/mL [facility] Comment on above: This test was perfor med on the Jumpido IM Immunoassay platform which is a 2-step sandwich chemiluminescent immunoassay. It is important to note that assays using different manufacturers and/or methods may not be comparable. Laboratory - Chemistry and C hemistry - challengeon 04-20-2022 Albumin [Mass/Vol] 4.2 g/dL 3.5 - 5.0 g/dL [facility] ALP [Catalytic activity/Vol] 47 U/L 32 - 126 U/L [facility] ALT [Catalytic activity/Vol] 17 U/L 9 - 48 U/L [facility] Anion gap [Moles/Vol] 10 mmol/L 7 - 17 mmol/L [facility] AST [Catalytic activity/Vol] 13 U/L 10 - 39 U/L [facility] Bilirubin [Mass/Vol] 1.0 mg/dL <1.5 [facility] Calcium [Mass/Vol] 9.1 mg/dL 8.6 - 10. 5 mg/dL [facility] Chloride [Moles/Vol] 108 mmol/L 98 - 10 8 mmol/L [facility] CO2 [Moles/Vol] 26 mmol/L 21 - 31 mmol/L [facility] Creatinine [Mass/Vol] 0.74 mg/dL 0.50 - 1.20 mg/dL [facility] GFR/1.73 sq M.predicted CKD-EPI (S/P/Bld) [Vol rate/Area] >90 >=60 mL/min/1.73m 2 [facility] Comment on above: Reported eGFR is bas ed on the CKD-EPI 2020 equation using creatinine, age, and sex. Potassium [Moles/Vol] 3.9 mmol/L 3.5 - 5.0 mmol/L [facility] Protein [Mass/Vol] 6.9 g/dL 6.4 - 8.3 g/dL [facility] Sodium [Moles/Vol] 140 mmol/L 135 - 145 mmol/L [facility] Urea nitrogen [Mass/Vol] 16 mg/dL 7 - 25 mg/dL [facility] Urea nitrogen/Creatinine [Mass ratio] 22 mg/mg [facility] No Panel InformationOrdered By: Miguel Strange on 04-20-2022 Interpretation and review of laboratory results Normal [facility] No Panel Informationon 04-20 [facility] COVID-19, MOLECULARon 2020 SARS-CoV-2 (COVID-19) RNA FITZ+probe Ql (Unsp spec) Not detected Normal Not Detected [facility] Comment on above: Result Comment: This test [...] at the following links: For Healthcare Providers: https://www.fda.gov/media/197964/download For Patients: https://www.fda.gov/media/993605/download Performed By: #### L [id number] #### [facility] [address] [place] [address] Zachary Clarke M.D. [id number] Vital Signs Date Time Vital Sign Value Performing Clinician Facility 05-31-2025 13:55-0400 Body height 169 cm Stoney RAM Work Phone: [facility] Comment on above: shoes off 05-31-2025 13:55-0400 Body mass index (BMI) [Ratio] 31.21 kg/m2 Stoney RAM Work Phone: [facility] 05-31-2025 13:55-0400 Body temperature 97.81 [degF] Stoneyponce RAM Work Phone: [facility] 05-31-2025 13:55-0400 Body weight 89.13 kg Stoneyponce RAM Work Phone: [facility] Comment on above: shoes off 05-31-2025 13:55-0400 Diastolic blood pressure 63 mm[Hg] Stoney RAM Work Phone: [facility] 05-31-2025 13:55-0400 Heart rate 85 /min Stoney RAM Work Phone: [facility] 05-31-2025 13:55-0400 Respiratory rate 18 /min Stoney RAM Work Phone: [facility] 05-31-2025 13:55-0400 SaO2% (BldA) [Mass fraction] 95 % Stoney RAM Work Phone: [facility] Comment on above: room air 05-31-2025 13:55-0400 Systolic blood pressure 139 mm[Hg] Stoney RAM Work Phone: [facility] 03-02-2025 10:15-0400 Body height 170.[address] Barney Brice MD Work Phone: [facility] 03-02-2025 10:15-0400 Body mass index (BMI) [Ratio] 30.7 kg/m2 Dr. Barney Brice MD Work Phone: [facility] 03-02-2025 10:15-0400 Body weight 88.[address] Barney Brice MD Work Phone: [facility] 03-02-2025 10:15-0400 Diastolic blood pressure 73 mm[Hg] Dr. Barney Brice MD Work Phone: [facility] 03-02-2025 10:15-0400 Heart rate 72 /min Dr. Barney Brice MD Work Phone: [facility] 03-02-2025 10:15-0400 Respiratory rate 16 /min Dr. Barney Brice MD Work Phone: [facility] 03-02-2025 10:15-0400 SaO2% (BldA) [Mass fraction] 98 % Dr. Barney Brice MD Work Phone: [facility] 03-02-2025 10:15-0400 Systolic blood pressure 119 mm[Hg] Dr. Barney Brice MD Work Phone: [facility] 12-15-2024 11:20-0500 Body height 170.[address] Barney Brice MD Work Phone: [facility] 12-15-2024 11:20-0500 Body mass index (BMI) [Ratio] 30.7 kg/m2 Dr. Barney Brice MD Work Phone: [facility] 12-15-2024 11:20-0500 Body weight 88.[address] Barney Brice MD Work Phone: [facility] 12-15-2024 11:20-0500 Diastolic blood pressure 89 mm[Hg] Dr. Barney Brice MD Work Phone: [facility] 12-15-2024 11:20-0500 Heart rate 77 /min Dr. Barney Brice MD Work Phone: [facility] 12-15-2024 11:20-0500 Respiratory rate 18 /min Dr. Barney Brice MD Work Phone: [facility] 12-15-2024 11:20-0500 Systolic blood pressure 137 mm[Hg] Dr. Barney Brice MD Work Phone: [facility] 08-24-2024 10:04-0400 Body height 169.6 cm Stoney RAM Work Phone: [facility] Comment on above: Measured today w/o shoes 08-24-2024 10:04-0400 Body mass index (BMI) [Ratio] 31.14 kg/m2 Stoney RAM Work Phone: [facility] 08-24-2024 10:04-0400 Body temperature 97.2 [degF] Stoney RAM Work Phone: [facility] 08-24-2024 10:04-0400 Body weight 89.58 kg Stoney RAM Work Phone: [facility] Comment on above: w/o shoes 08-24-2024 10:04-0400 Diastolic blood pressure 69 mm[Hg] Stoney RAM Work Phone: [facility] 08-24-2024 10:04-0400 Heart rate 70 /min Stoneyponce RAM Work Phone: [facility] 08-24-2024 10:04-0400 Respiratory rate 18 /min Stoney RAM Work Phone: [facility] 08-24-2024 10:04-0400 SaO2% (BldA) [Mass fraction] 98 % Stoney Vito RAM Work Phone: [facility] Comment on above: On room air 08-24-2024 10:04-0400 Systolic blood pressure 147 mm[Hg] Stonye RAM Work Phone: [facility] 06-05-2024 09:50-0400 Diastolic blood pressure 79 mm[Hg] Liliana Andrews MD Work Phone: [facility] 06-05-2024 09:50-0400 Heart rate 80 /min Liliana Andrews MD Work Phone: [facility] 06-05-2024 09:50-0400 Respiratory rate 21 /min Liliana Andrews MD Work Phone: [facility] 06-05-2024 09:50-0400 SaO2% (BldA) [Mass fraction] 98 % Liliana Andrews MD Work Phone: [facility] 06-05-2024 09:50-0400 Systolic blood pressure 143 mm[Hg] Liliana Andrews MD Work Phone: [facility] 06-05-2024 08:34-0400 Body height 167.6 cm Liliana Andrews MD Work Phone: [facility] 05-15-2024 14:24-0400 Body mass index (BMI) [Ratio] 30.19 kg/m2 Gardenia Alfredo [employer] Work Phone: [facility] 05-15-2024 14:24-0400 Body temperature 97.81 [degF] Gardenia Alfredo [employer] Work Phone: [facility] 05-15-2024 14:24-0400 Body weight 86.55 kg Gardenia Chapins [employer] Work Phone: [facility] 05-15-2024 14:24-0400 Diastolic blood pressure 68 mm[Hg] Gardenia Chapins [employer] Work Phone: [facility] 05-15-2024 14:24-0400 Heart rate 92 /min Gardenia Chapins [employer] Work Phone: [facility] 05-15-2024 14:24-0400 Respiratory rate 16 /min Gardenia Chapins [employer] Work Phone: [facility] 05-15-2024 14:24-0400 SaO2% (BldA) [Mass fraction] 95 % Gardenia Chapins [employer] Work Phone: [facility] 05-15-2024 14:24-0400 Systolic blood pressure 131 mm[Hg] Gardenia Juni [employer] Work Phone: [facility] 02-24-2024 10:17-0400 Body height 169.3 cm YO Arriaza MD Work Phone: [facility] Comment on above: without shoes 02-24-2024 10:17-0400 Body mass index (BMI) [Ratio] 30.23 kg/m2 YO Arriaza MD Work Phone: [facility] 02-24-2024 10:17-0400 Body temperature 97.39 [degF] YO Arriaza MD Work Phone: [facility] 02-24-2024 10:17-0400 Body weight 86.64 kg YO Arriaza MD Work Phone: [facility] Comment on above: without shoes 02-24-2024 10:17-0400 Diastolic blood pressure 57 mm[Hg] YO Arriaza MD Work Phone: [facility] 02-24-2024 10:17-0400 Heart rate 64 /min YO Arriaza MD Work Phone: [facility] 02-24-2024 10:17-0400 Respiratory rate 12 /min YO Arriaza MD Work Phone: [facility] 02-24-2024 10:17-0400 SaO2% (BldA) [Mass fraction] 96 % YO Arriaza MD Work Phone: [facility] Comment on above: room air 02-24-2024 10:17-0400 Systolic blood pressure 123 mm[Hg] YO Arriaza MD Work Phone: [facility] 02-15-2024 10:20-0400 Body height [facility].2 [facility] [facility] Work Phone: [facility] 02-15-2024 10:20-0400 Diastolic blood pressure 82 mm[Hg] [facility] [employer] Work Phone: [facility] 02-15-2024 10:20-0400 Heart rate 74 /min [facility] [employer] Work Phone: [facility] 02-15-2024 10:20-0400 Systolic blood pressure 151 mm[Hg] [facility] [employer] Work Phone: [facility] 12-23-2023 10:52-0500 Body temperature 97.8 [degF] Dr. Barney Brice Work Phone: [facility] 12-23-2023 10:52-0500 Diastolic blood pressure 74 mm[Hg] Dr. Barney Brice Work Phone: [facility] 12-23-2023 10:52-0500 Heart rate 77 /min Dr. Barney Brice Work Phone: [facility] 12-23-2023 10:52-0500 Respiratory rate 14 /min Dr. Barney Brice Work Phone: [facility] 12-23-2023 10:52-0500 SaO2% (BldA) [Mass fraction] 99 % Dr. Barney Brice Work Phone: [facility] 12-23-2023 10:52-0500 Systolic blood pressure 126 mm[Hg] Dr. Barney Brice Work Phone: [facility] 12-23-2023 07:43-0500 Body height 170.[address] Barney Brice Work Phone: [facility] 12-23-2023 07:43-0500 Body mass index (BMI) [Ratio] 29.9 kg/m2 Dr. Barney Brice Work Phone: [facility] 12-23-2023 07:43-0500 Body weight 86.[address] Barney Brice Work Phone: [facility] 10-23-2023 08:41-0500 Body temperature 97.8 [degF] Dr. Barney Brice Work Phone: [facility] 10-23-2023 08:41-0500 Diastolic blood pressure 82 mm[Hg] Dr. Barney Brice Work Phone: [facility] 10-23-2023 08:41-0500 Heart rate 74 /min Dr. Barney Brice Work Phone: [facility] 10-23-2023 08:41-0500 Respiratory rate 16 /min Dr. Barney Brice Work Phone: [facility] 10-23-2023 08:41-0500 SaO2% (BldA) [Mass fraction] 98 % Dr. Barney Brice Work Phone: [facility] 10-23-2023 08:41-0500 Systolic blood pressure 130 mm[Hg] Dr. Barney Brice Work Phone: [facility] 10-08-2023 07:21-0500 Body mass index (BMI) [Ratio] 29 kg/m2 Dr. Barney Brice Work Phone: [facility] 10-08-2023 07:21-0500 Body temperature 98.5 [degF] Dr. Barney Brice Work Phone: [facility] 10-08-2023 07:21-0500 Body weight 83.[address] Barney Brice Work Phone: [facility] 10-08-2023 07:21-0500 Diastolic blood pressure 82 mm[Hg] Dr. Barney Brice Work Phone: [facility] 10-08-2023 07:21-0500 Heart rate 79 /min Dr. Barney Brice Work Phone: [facility] 10-08-2023 07:21-0500 Respiratory rate 14 /min Dr. Barney Brice Work Phone: [facility] 10-08-2023 07:21-0500 SaO2% (BldA) [Mass fraction] 96 % Dr. Barney Brice Work Phone: [facility] 10-08-2023 07:21-0500 Systolic blood pressure 152 mm[Hg] Dr. Barney Brice Work Phone: [facility] 08-26-2023 13:35-0400 Body height 168.5 cm Stoney RAM Work Phone: [facility] 08-26-2023 13:35-0400 Body mass index (BMI) [Ratio] 30.64 kg/m2 Stoney RAM Work Phone: [facility] 08-26-2023 13:35-0400 Body temperature 97.59 [degF] Stoney RAM Work Phone: [facility] 08-26-2023 13:35-0400 Body weight 87 kg Stoney RAM Work Phone: [facility] 08-26-2023 13:35-0400 Diastolic blood pressure 91 mm[Hg] Stoney Bluee MBBS Work Phone: [facility] 08-26-2023 13:35-0400 Heart rate 83 /min Stoney Vito MBBS Work Phone: [facility] 08-26-2023 13:35-0400 Respiratory rate 16 /min Stoney Bluee MBBS Work Phone: [facility] 08-26-2023 13:35-0400 SaO2% (BldA) [Mass fraction] 98 % Stoney Bluee MBBS Work Phone: [facility] 08-26-2023 13:35-0400 Systolic blood pressure 148 mm[Hg] Stoney Bluee MBBS Work Phone: [facility] 08-24-2023 12:13-0400 Body height 170.2 cm Stoney Bluee MBBS Work Phone: [facility] 08-24-2023 12:13-0400 Body mass index (BMI) [Ratio] 29.29 kg/m2 Stoney Bluee MBBS Work Phone: [facility] 08-24-2023 12:13-0400 Body weight 84.82 kg Stoney Bluee MBBS Work Phone: [facility] 08-24-2023 12:13-0400 Diastolic blood pressure 82 mm[Hg] Stoney Vito MBBS Work Phone: [facility] 08-24-2023 12:13-0400 Heart rate 73 /min Stoney Vito MBBS Work Phone: [facility] 08-24-2023 12:13-0400 Systolic blood pressure 148 mm[Hg] Stoney Vito MBBS Work Phone: [facility] 05-31-2023 14:21-0400 Body mass index (BMI) [Ratio] 29.75 kg/m2 Hussain Bullard MD, PhD Work Phone: [facility] 05-31-2023 14:21-0400 Body temperature 97.9 [degF] Hussain Bullard MD, PhD Work Phone: [facility] 05-31-2023 14:21-0400 Body weight 84.96 kg Hussain Bullard MD, PhD Work Phone: [facility] 05-31-2023 14:21-0400 Diastolic blood pressure 65 mm[Hg] Hussain Bullard MD, PhD Work Phone: [facility] 05-31-2023 14:21-0400 Heart rate 88 /min Hussain Bullard MD, PhD Work Phone: [facility] 05-31-2023 14:21-0400 Respiratory rate 16 /min Hussain Bullard MD, PhD Work Phone: [facility] 05-31-2023 14:21-0400 SaO2% (BldA) [Mass fraction] 96 % Hussain Bullard MD, PhD Work Phone: [facility] 05-31-2023 14:21-0400 Systolic blood pressure 137 mm[Hg] Hussain Bullard MD, PhD Work Phone: [facility] 04-24-2023 08:28-0400 Body height 170.[address] Barney Brice Work Phone: [facility] 04-24-2023 08:28-0400 Body mass index (BMI) [Ratio] 28.8 kg/m2 Dr. Barney Brice Work Phone: [facility] 04-24-2023 08:28-0400 Body weight 83.[address] Barney Brice Work Phone: [facility] 02-16-2023 12:03-0400 Body height 170.2 cm Nikole Vang [employer] Work Phone: [facility] 02-16-2023 12:03-0400 Body mass index (BMI) [Ratio] 28.19 kg/m2 Nikole Vang [employer] Work Phone: [facility] 02-16-2023 12:03-0400 Body weight 81.65 kg Nikole Vang [employer] Work Phone: [facility] 02-16-2023 12:03-0400 Diastolic blood pressure 79 mm[Hg] Nikole Vang [employer] Work Phone: [facility] 02-16-2023 12:03-0400 Heart rate 74 /min Nikole Vang [employer] Work Phone: [facility] 02-16-2023 12:03-0400 Systolic blood pressure 148 mm[Hg] Nikole Vang [employer] Work Phone: [facility] 11-26-2022 13:28-0500 Body height 169 cm Nikoleakin Vang [employer] Work Phone: [facility] Comment on above: without shoes 11-26-2022 13:28-0500 Body mass index (BMI) [Ratio] 28.46 kg/m2 Nikole Vang [employer] Work Phone: [facility] 11-26-2022 13:28-0500 Body temperature 98.1 [degF] Nikole Vang [employer] Work Phone: [facility] 11-26-2022 13:28-0500 Body weight 81.28 kg [facility] Taj [employer] Work Phone: [facility] Comment on above: without shoes 11-26-2022 13:28-0500 Diastolic blood pressure 69 mm[Hg] Nikole Vang [employer] Work Phone: [facility] 11-26-2022 13:28-0500 Heart rate 71 /min Nikole Vang [employer] Work Phone: [facility] 11-26-2022 13:28-0500 Respiratory rate 14 /min Nikole Vang [employer] Work Phone: [facility] 11-26-2022 13:28-0500 SaO2% (BldA) [Mass fraction] 96 % [facility] [facility] Work Phone: [facility] Comment on above: room air 11-26-2022 13:28-0500 Systolic blood pressure 144 mm[Hg] Nikole ezra [employer] Work Phone: [facility] 06-25-2022 11:00-0400 Diastolic blood pressure 64 mm[Hg] Liliana Andrews MD Work Phone: [facility] 06-25-2022 11:00-0400 Heart rate 61 /min Liliana Andrews MD Work Phone: [facility] 06-25-2022 11:00-0400 Respiratory rate 14 /min Liliana Andrews MD Work Phone: [facility] 06-25-2022 11:00-0400 SaO2% (BldA) [Mass fraction] 98 % Liliana Andrews MD Work Phone: [facility] 06-25-2022 11:00-0400 Systolic blood pressure 119 mm[Hg] Liliana Andrews MD Work Phone: [facility] 06-25-2022 08:56-0400 Body height 170.2 cm Liliana Andrews MD Work Phone: [facility] 04-20-2022 09:54-0400 Body height 169.3 cm Stoney CADENABS Work Phone: [facility] Comment on above: w/o shoes 04-20-2022 09:54-0400 Body mass index (BMI) [Ratio] 27.73 kg/m2 Stoney Bluee MBBS Work Phone: [facility] 04-20-2022 09:54-0400 Body temperature 98.4 [degF] Stoney Bluee TAMMIBS Work Phone: [facility] 04-20-2022 09:54-0400 Body weight 79.47 kg Stoney Bluee TAMMIBS Work Phone: [facility] Comment on above: w/o shoes 04-20-2022 09:54-0400 Diastolic blood pressure 70 mm[Hg] Stoney Bluee TAMMIBS Work Phone: [facility] 04-20-2022 09:54-0400 Heart rate 70 /min Stoney Bluee TAMMIBS Work Phone: [facility] 04-20-2022 09:54-0400 Respiratory rate 16 /min Stoney Bluee TAMMIBS Work Phone: [facility] 04-20-2022 09:54-0400 SaO2% (BldA) [Mass fraction] 98 % Stoney Bluee TAMMIBS Work Phone: [facility] Comment on above: On room air 04-20-2022 09:54-0400 Systolic blood pressure 128 mm[Hg] Stoney Bluee MBBS Work Phone: [facility] 06-27-2021 17:03-0400 Body height 170.2 cm Liliana Andrews MD Work Phone: [facility] 06-27-2021 17:03-0400 Body mass index (BMI) [Ratio] 24.43 kg/m2 Liliana Andrews MD Work Phone: [facility] 06-27-2021 17:03-0400 Body weight 70.76 kg Liliana Andrews MD Work Phone: [facility] 06-27-2021 17:03-0400 Diastolic blood pressure 92 mm[Hg] Liliana Andrews MD Work Phone: [facility] 06-27-2021 17:03-0400 Heart rate 88 /min Liliana Andrews MD Work Phone: [facility] 06-27-2021 17:03-0400 Systolic blood pressure 173 mm[Hg] Liliana Andrews MD Work Phone: [facility] 06-22-2021 10:05-0400 Body height 170.2 cm Galilea Gilmore [employer] Work Phone: [facility] 06-22-2021 10:05-0400 Body mass index (BMI) [Ratio] 24.9 kg/m2 Galilea Gilmore [employer] Work Phone: [facility] 06-22-2021 10:05-0400 Body temperature 97.3 [degF] Galilea Gilmore [employer] Work Phone: [facility] 06-22-2021 10:05-0400 Body weight 72.12 kg Galilea Gilmore [employer] Work Phone: [facility] 06-22-2021 10:05-0400 Diastolic blood pressure 80 mm[Hg] Galilea Gilmore [employer] Work Phone: [facility] 06-22-2021 10:05-0400 Heart rate 81 /min Galilea Gilmore [employer] Work Phone: [facility] 06-22-2021 10:05-0400 SaO2% (BldA) [Mass fraction] 100 % Galilea Gilmore [employer] Work Phone: [facility] 06-22-2021 10:05-0400 Systolic blood pressure 140 mm[Hg] Galilea Gilmore [employer] Work Phone: [facility] Encounters Encounter Date Encounter Type Care Provider Facility Start: 06-18-2025 ambulatory Cade Watson ty:[facility] Start: 06-10-2025 End: 06-10-[address] Evelyn Painter DC -[facility] Work Phone: Start: 06-10-2025 End: 06-10-[address] Barney Brice MD Work Phone: -[facility] Start: 05-31-2025 ambulatory BARNEY BRICE Facility :[facility] Start: 05-31-2025 End: 05-31-2025 Office outpatient visit 25 minutes Stoney RAM Work Phone: [facility] Comment on above: Rectal cancer (Prima ry Dx) Start: 05-26-2025 End: 05-26-[address] Barney Brice MD Work Phone: [facility] Start: 05-26-2025 End: 05-26-2025 Patient encounter procedure Nikole Vang [employer] [place] Work Phone: Start: 05-26-2025 End: 05-26-2025 ambulatory Barney Brcie Facility:[facility] Start: 05-24-2025 End: 05-24-[address] Evelyn Painter DC -[facility] Work Phone: Start: 05-24-2025 End: 05-24-[address] Barney Brice MD Work Phone: -[facility] Start: 05-10-2025 End: 05-10-2025 Telephone encounter Stoney RAM Work Phone: [facility] Comment on above: Schedule Test/Referr al Start: 05-04-2025 Non-patient / Non-visit Dr. Krystyna Zhou MD -[facility] Work Phone: Start: 04-15-2025 End: 04-15-[address] Barney Brice MD Work Phone: [facility] Work Phone: Start: 04-15-2025 End: 04-15-[address] Barney Brice MD -[facility] Work Phone: Start: 04-15-2025 End: 04-15-2025 ambulatory Barney Brice Facility:[facility] Start: 04-08-2025 End: 04-08-[address] Evelyn Painter DC -[facility] Work Phone: Start: 04-08-2025 End: 04-08-[address] Barney Brice MD Work Phone: [facility] Work Phone: Start: 03-04-2025 End: 03-04-[address] Evelyn Painter DC -[facility] Work Phone: Start: 03-04-2025 End: 03-04-2025 ambulatory Evelyn Painter Facility:[facility] Start: 03-02-2025 End: 03-02-[address] Diandra Craig MD -[facility] Work Phone: Start: 03-02-2025 End: 03-02-2025 ambulatory Diandra Craig Facility:[facility] Start: 02-18-2025 End: 02-18-[address] Evelyn Painter DC -[facility] Work Phone: Start: 02-18-2025 End: 02-18-2025 ambulatory Evelyn Painter Facility:[facility] Start: 02-04-2025 End: 02-04-[address] Barney Brice MD Work Phone: [facility] Work Phone: Start: 02-04-2025 End: 02-04-[address] Barney Brice MD Work Phone: -[facility] Work Phone: Start: 02-04-2025 End: 02-04-[address] Evelyn Painter DC -[facility] Work Phone: Start: 02-04-2025 End: 02-04-2025 ambulatory Evelyn Painter Facility:[facility] Start: 02-04-2025 End: 02-04-2025 ambulatory Barney Brice Facility:[facility] Start: 02-01-2025 End: 02-01-[address] Barney Brice MD Work Phone: [facility] Work Phone: Start: 02-01-2025 End: 02-01-[address] Barney Brice MD Work Phone: [facility] Work Phone: Start: 02-01-2025 End: 02-01-2025 ambulatory Barney Brice Facility:[facility] Start: 01-07-2025 End: 01-07-[address] Evelyn Painter DC -[facility] Work Phone: Start: 01-07-2025 End: 01-07-2025 ambulatory Barney Brice Facility:[facility] Start: 01-04-2025 ambulatory Barney Brice Facility:[facility] Start: 01-04-2025 Non-patient / Non-visit Dr. Diandra Craig MD -[facility] Start: 01-04-2025 End: 01-04-[address] Barney Brice MD Work Phone: [facility] Work Phone: Start: 01-04-2025 End: 01-04-[address] Diandra Craig MD -Cardiovascular Services Work Phone: Start: 01-04-2025 End: 01-04-2025 ambulatory Diandra Rafa Facility:[facility] Start: 12-28-2024 ambulatory Diandra Rafa Facility:[facility] Start: 12-28-2024 Non-patient / Non-visit Dr. Diandra Craig MD -[facility] Work Phone: Start: 12-28-2024 End: 12-28-[address] Diandra Craig MD -Pulmonary Services/Neurology Work Phone: Start: 12-28-2024 End: 12-28-2024 ambulatory [facility] Facility:[facility] Start: 12-15-2024 End: 12-15-[address] Diandra Criag MD -[facility] [place] Work Phone: Start: 12-15-2024 End: 12-15-[address] Diandra Craig MD -[facility] Work Phone: Start: 12-15-2024 End: 12-15-2024 ambulatory [facility] Facility:[facility] Start: 12-15-2024 End: 12-15-2024 ambulatory [facility] Facility:[facility] Start: 11-12-2024 End: 11-12-[address] Evelyn Painter DC -[facility] Work Phone: Start: 11-12-2024 End: 11-12-2024 [facility] Start: 10-15-2024 End: 10-15-[address] Barney Brice MD -[facility] [place] Work Phone: Start: 10-15-2024 End: 10-15-2024 ambulatory [facility] Facility:[facility] Start: 10-08-2024 End: 10-08-[address] Evelyn Painter DC -[facility] Work Phone: Start: 10-08-2024 End: 10-08-2024 ambulatory Barney Brice [facility] Start: 09-03-2024 End: 09-03-2024 ambulatory Barney Brice [facility] Start: 08-27-2024 End: 08-27-2024 ambulatory Barney Wilcoxelsen [facility] Start: 08-24-2024 End: 08-24-2024 Office outpatient visit 25 minutes Stoney RAM Work Phone: [facility] Comment on above: Rectal cancer (Prima ry Dx) Start: 08-24-2024 End: 08-24-2024 Clinical Support Encounter Stoney RAM Work Phone: [facility] Comment on above: Rectal cancer Start: 08-24-2024 ambulatory BARNEY BRICE Facility :[facility] LOC Start: 08-22-2024 ambulatory BARNEY Anthony BRICE Facility :[facility] LOC Start: 08-22-2024 End: 08-22-2024 Subsequent hospital visit by physician Stoney RAM Work Phone: [facility] [place] Comment on above: Arrived Start: 07-23-2024 End: 07-23-2024 ambulatory Barney Brice Facility:[facility] Start: 07-16-2024 End: 07-16-2024 ambulatory Barney Brice Facility:[facility] Start: 06-22-2024 End: 06-22-2024 ambulatory Barney Brice Facility:[facility] Start: 06-18-2024 End: 06-18-2024 ambulatory Barney Brice [facility] Start: 06-05-2024 End: 06-05-2024 Subsequent hospital visit by physician Liliana Andrews MD Work Phone: [facility] Start: 06-05-2024 ambulatory BARNEY BRICE Facility :[facility] LOC Start: 05-15-2024 End: 05-15-2024 Office outpatient visit 15 minutes Hussain Bullard MD, PhD Work Phone: Department of Radiation Oncology Comment on above: Vaginal discharge (P rimary Dx) Start: 02-24-2024 End: 02-24-2024 Office outpatient visit 25 minutes YO Arriaza MD Work Phone: [facility] Comment on above: Rectal cancer (Prima ry Dx) Start: 02-24-2024 End: 02-24-2024 Clinical Support Encounter YO Arriaza MD Work Phone: [facility] 1 Comment on above: Rectal cancer; Examination of participant in clinical trial Start: 02-24-2024 End: 02-24-2024 Patient encounter procedure YO Arriaza MD Work Phone: [facility] Start: 02-15-2024 End: 02-15-2024 Subsequent hospital visit by physician Nikole BUTLER Work Phone: [facility] [place] Comment on above: Arrived Start: 12-23-2023 End: 12-23-2023 Emergency department patient visit Dr. Barney Brice Work Phone: [facility] Work Phone: Start: 12-18-2023 End: 12-18-[address] Barney Brice Work Phone: [facility] Work Phone: Start: 12-18-2023 End: 12-18-[address] Barney Brice Work Phone: [facility] Start: 10-23-2023 End: 10-23-[address] Barney Brice Work Phone: [facility] Work Phone: Start: 10-08-2023 End: 10-08-[address] Barney Brice Work Phone: [facility] Work Phone: Start: 08-26-2023 End: 08-26-2023 Office outpatient visit 25 minutes Stoney RAM Work Phone: [facility] Comment on above: Rectal cancer (Prima ry Dx) Start: 08-26-2023 End: 08-26-2023 Clinical Support Encounter Stoney RAM Work Phone: [facility] 1 Comment on above: Rectal cancer Start: 08-24-2023 End: 08-24-2023 Subsequent hospital visit by physician Stoney RAM Work Phone: [facility] [place] Comment on above: Arrived Start: 05-31-2023 End: 05-31-2023 Office outpatient visit 15 minutes Hussain Bullard MD, PhD Work Phone: Department of Radiation Oncology Comment on above: Encounter for follow -up examination after completed treatment for malignant neoplasm (Primary Dx); Personal history of irradiation, presenting hazards to health; Malignant neoplasm of rectum Start: 05-21-2023 End: 05-21-[address] Barney Brice Work Phone: [facility] Work Phone: Start: 05-21-2023 End: 05-21-[address] Barney Brice Work Phone: [facility] Work Phone: Start: 04-24-2023 End: 04-24-[address] Barney Brice Work Phone: [facility] Start: 04-22-2023 End: 04-22-[address] Barney Brice Work Phone: [facility] Work Phone: Start: 04-22-2023 End: 04-22-[address] Barney Brice Work Phone: [facility] Start: 04-01-2023 End: 04-01-2023 Subsequent hospital visit by physician Stoney RAM Work Phone: [facility] Comment on above: Arrived Start: 03-11-2023 End: 03-11-2023 Patient encounter procedure [facility] Outside Imaging Nuc Med So Outside Imaging Second Opinion Start: 03-08-2023 End: 03-08-2023 ambulatory [facility] Work Phone: Start: 03-08-2023 End: 03-08-2023 Patient encounter procedure [facility] [place] Start: 03-05-2023 End: 03-05-2023 ambulatory [facility] Work Phone: Start: 03-05-2023 End: 03-05-2023 Patient encounter procedure [facility] Start: 02-16-2023 End: 02-16-2023 Subsequent hospital visit by physician Nikole BUTLER Work Phone: [facility] [place] Comment on above: Arrived Start: 12-25-2022 Registered Referred [facility] Start: 12-25-2022 [facility]istered [facility] Start: 11-26-2022 End: 11-26-2022 Office outpatient visit 15 minutes Stoney RAM Work Phone: [facility] Comment on above: Rectal cancer (Prima ry Dx) Start: 07-12-2022 End: 07-12-2022 Clinical Support Encounter Stoney RAM Work Phone: [facility] 1 Comment on above: Rectal cancer Start: 07-12-2022 End: 07-12-2022 Subsequent hospital visit by physician Nikole BUTLER Work Phone: [facility] Comment on above: Arrived Start: 06-25-2022 End: 06-25-2022 Subsequent hospital visit by physician Liliana Andrews MD Work Phone: [facility] Start: 06-22-2022 End: 06-22-2022 Office outpatient visit 15 minutes Hussain Bullard MD, PhD Work Phone: Department of Radiation Oncology Comment on above: Rectal cancer (Prima ry Dx) Start: 04-20-2022 End: 04-20-2022 Office outpatient visit 25 minutes Stoney RAM Work Phone: Division of Medical Oncology Comment on above: Rectal cancer (Prima ry Dx) Start: 04-20-2022 End: 04-20-2022 Clinical Support Encounter Stoney Vito RAM Work Phone: [facility] 1 Comment on above: Rectal cancer Start: 06-27-2021 End: 06-27-2021 Subsequent hospital visit by physician Liliana Andrews MD Work Phone: [facility] [place] Comment on above: Arrived Start: 06-22-2021 End: 06-22-2021 Patient encounter procedure Galilea Gilmore [employer]OD [employer]-H[employer] ANALYST Work Phone: [facility] Comment on above: Acute urinary retent ion (Primary Dx) Start: 06-05-2021 End: 06-05-2021 ambulatory LILIANA ANDREWS [facility] Procedures Date Procedure Procedure Detail Performing Clinician [...] the presence orabsence of malignant disease.Performed at: [address] [id number] Director: Kobi Hampton PhD, Phone: [phone] Start: 01-04-2025 Radionuclide imaging of perfusion of [...] the presence orabsence of malignant disease.Performed at: [address] [id number] Director: Kobi Hampton PhD, Phone: [phone] Start: 08-24-2024 Carcinoembryonic antigen cea Nikole Vang [employer]-[facility] Work Phone: Start: 08-22-2024 Creatinine blood Stoney CADENA Work Phone: Start: 06-05-2024 Colonoscopy flx dx w/collj spec when pfrmd Liliana Andrews MD Work Phone: Start: 02-24-2024 Carcinoembryonic antigen cea Nikole Vang [employer]-[facility] Work Phone: Start: 02-15-2024 Creatinine blood Nikole Vang [employer] Work Phone: Start: 12-23-2023 CT angiography of chest with contrast Dr. Barney Brice Work Phone: Start: 08-26-2023 Carcinoembryonic antigen cea Nikole Taj [employer] Work Phone: Start: 08-24-2023 Creatinine blood Stoney RAM Work Phone: Start: 04-24-2023 X-ray of lumbar spine, two or three views Dr. Barney Brice Work Phone: Start: 04-01-2023 Mri pelvis w/o & w/contrast material Stoney RAM Work Phone: Start: 03-11-2023 Bone &/joint imaging whole body Nikole U mar [employer] ANALYST Work Phone: Start: 03-08-2023 Pelvis X-ray Start: 03-08-2023 Plain x-ray of pelvis and lower extremity Start: 03-05-2023 Radionuclide whole body bone study Start: 02-16-2023 Creatinine blood Nikole Vang [employer] ANALYST Work Phone: Start: 07-12-2022 Ct thorax w/contrast material Nikole Dali r [employer]HIM ANALYST Work Phone: Start: 07-12-2022 Carcinoembryonic antigen cea Nikole Taj [employer]HIM ANALYST Work Phone: Start: 07-12-2022 CBC AND ELECTRONIC DIFF Nikole Taj [employer] ANALYST Work Phone: Start: 07-12-2022 Complete blood count with white cell differential, automated Nikole Taj [employer] MAKER-HIM ANALYST Work Phone: Start: 06-25-2022 Colonoscopy flx dx w/collj spec when pfrmd Liliana Andrews MD Work Phone: Start: 04-20-2022 Carcinoembryonic antigen cea Nikole Taj [employer]HIM ANALYST Work Phone: Start: 04-20-2022 CBC AND ELECTRONIC DIFF Nikole Umezra [employer] MAK[employer]HIM ANALYST Work Phone: Start: 04-20-2022 Complete blood count with white cell differential, automated Nikole Umezra [employer] MAKER-HIM ANALYST Work Phone: Plan of Treatment Date Care Activity Detail Author Start: 09-06-2025 End: 09-06-2025 Clinical Support Encounter [facility] Start: 08-31-2025 End: 05-31-2026 CEA CEA Lab Routine Rectal cancer Expected: 08/31/2025, Expires: 05/31/2026 [facility] Comment on above: Expected: 08/31/2025, Expires: Start: 08-31-2025 End: 05-31-2026 CT Abdomen and Pelvis W contrast IV CT ABDOMEN/PELVIS WITH CONTRAST Imaging Routine Rectal cancer Expected: 08/31/2025, Expires: 05/31/2026 [facility] Comment on above: Expected: 08/31/2025, Expires: Start: 08-31-2025 End: 05-31-2026 CT Chest W contrast IV CT CHEST WITH CONTRAST Imaging Routine Rectal cancer Expected: 08/31/2025, Expires: 05/31/2026 [facility] Comment on above: Expected: 08/31/2025, Expires: Start: 08-28-2025 End: 08-28-2025 Patient encounter procedure [facility] [place] Start: 07-05-2025 Influenza vaccination INFLUENZA VACCINE (#1) [facility] Start: 06-05-2025 Screening for malignant neoplasm of colon COLORECTAL CANCER SCREENING DISCUSSION [facility] Start: 05-31-2025 End: 05-31-2025 Patient encounter procedure 05/31/2025 1:40 PM EDT Office Visit [facility] [address] [place] [address] Stoney Arteaga MBBS [address] [place] [address] [place] [phone] [facility] Start: 05-28-2025 End: 05-28-2025 Patient encounter procedure 05/28/2025 2:30 PM EDT Office Visit Department of Radiation Oncology [address] [place] [phone] Hussain Bullard MD, PhD [address] [place] [address] Department of Radiation Oncology Start: 02-22-2025 End: 08-24-2025 CT Abdomen and Pelvis W contrast IV CT ABDOMEN/PELVIS WITH CONTRAST Imaging Routine Rectal cancer Expected: 02/22/2025 (Approximate), Expires: 08/24/2025 [facility] Comment on above: Expected: 02/22/2025 (Approximate), Expi res: 08/24/2025 Start: 02-22-2025 End: 08-24-2025 CT Chest W contrast IV CT CHEST WITH CONTRAST Imaging Routine Rectal cancer Expected: 02/22/2025 (Approximate), Expires: 08/24/2025 [facility] Comment on above: Expected: 02/22/2025 (Approximate), Expi res: 08/24/2025 Start: 02-22-2025 End: 02-22-2025 Clinical Support Encounter Clinical [facility] Start: 02-13-2025 End: 02-13-2025 Patient encounter procedure [facility] Start: 08-25-2024 End: 02-23-2025 CT Abdomen and Pelvis W contrast IV CT ABDOMEN/PELVIS WITH CONTRAST Imaging Routine Rectal cancer Expected: 08/25/2024 (Approximate), Expires: 02/23/2025 [facility] Comment on above: Expected: 08/25/2024 (Approximate), Expi res: 02/23/2025 Start: 08-25-2024 End: 02-23-2025 CT Chest W contrast IV CT CHEST WITH CONTRAST Imaging Routine Rectal cancer Expected: 08/25/2024 (Approximate), Expires: 02/23/2025 [facility] Comment on above: Expected: 08/25/2024 (Approximate), Expi res: 02/23/2025 Start: 08-24-2024 End: 08-24-2024 Clinical Support Encounter [facility] Start: 08-22-2024 End: 08-22-2024 Patient encounter procedure [facility] Start: 07-05-2024 COVID-19 VACCINE () COVID-19 VACCINE () [facility] Start: 07-05-2024 COVID-19 VACCINE () COVID-19 VACCINE () [facility] Start: 07-05-2024 Influenza vaccination [facility] Start: 06-05-2024 End: 06-05-2024 Patient encounter procedure 06/05/2024 8:[address] [facility] [address] [place] [address] Liliana Andrews MD [address] [facility] [address] [place] [phone] [facility] Start: 05-29-2024 End: 05-29-2024 Patient encounter procedure 05/29/2024 2:30 PM EDT Office Visit Department of Radiation Oncology [address] [place] [phone] Hussain Bullard MD, PhD [address] [place] [address] Department of Radiation Oncology Start: 02-24-2024 End: 02-24-2024 Clinical Support Encounter [facility] Start: 02-15-2024 End: 02-15-2024 Patient encounter procedure [facility] Start: 12-23-2023 [facility] Start: 11-25-2023 End: 11-25-2023 Telemedicine consultation with patient 11/25/2023 8:00 AM EST Telemedicine [facility] [address] [place], [place] [phone] Stoney Arteaga MBBS [address] [place], [place] [phone] [facility] Start: 08-26-2023 End: 08-26-2024 CT Abdomen and Pelvis W contrast IV CT ABDOMEN/PELVIS WITH CONTRAST Imaging Routine Rectal cancer Expected: 08/26/2023, Expires: 08/26/2024 [facility] Comment on above: Expected: 08/26/2023, Expires: Start: 08-26-2023 End: 08-26-2024 CT Chest W contrast IV CT CHEST WITH CONTRAST Imaging Routine Rectal cancer Expected: 08/26/2023, Expires: 08/26/2024 [facility] Comment on above: Expected: 08/26/2023, Expires: Start: 08-26-2023 End: 08-26-2023 Clinical Support Encounter Clinical [facility] 1 Start: 08-24-2023 End: 08-24-2023 Patient encounter procedure [facility] Start: 07-05-2023 COVID-19 VACCINE () COVID-19 VACCINE () [facility] Start: 07-05-2023 Influenza vaccination [facility] Start: 06-25-2023 Colonoscopy COLORECTAL CANCER SCREENING DISCUSSION [facility] Start: 06-25-2023 Screening for malignant neoplasm of colon COLORECTAL CANCER SCREENING DISCUSSION [facility] Start: 05-31-2023 End: 05-31-2023 Patient encounter procedure 05/31/2023 Office Visit Radiation Oncology Hussain Bullard MD, PhD [address] [place] [address] Department of Radiation Oncology Start: 04-10-2023 End: 04-10-2023 Telemedicine consultation with patient 04/10/2023 Telemedicine Oncology Stoney Arteaga MBBS [address] [place] [address] [facility] Start: 02-25-2023 End: 02-25-2023 Patient encounter procedure Clinical [facility] 1 Start: 02-18-2023 End: 02-18-2023 Patient encounter procedure 02/18/2023 Appointment Computerized Tomography Scan Taj, Nikole, WOOD SKI MAKER-HIM ANALYST [address] [place] [address] [facility] Start: 01-18-2023 End: 01-18-2023 Patient encounter procedure 01/18/2023 Office Visit Radiation Oncology Hussain Bullard MD, PhD [address] [place] [address] Department of Radiation Oncology Start: 11-26-2022 End: 11-26-2023 CT Abdomen and Pelvis W contrast IV CT ABDOMEN/PELVIS WITH CONTRAST Imaging Routine Rectal cancer Expected: 11/26/2022, Expires: 11/26/2023 [facility] Comment on above: Expected: 11/26/2022, Expires: Start: 11-26-2022 End: 11-26-2023 CT Chest W contrast IV CT CHEST WITH CONTRAST Imaging Routine Rectal cancer Expected: 11/26/2022, Expires: 11/26/2023 [facility] Comment on above: Expected: 11/26/2022, Expires: Start: 07-21-2022 End: 04-20-2023 CEA CEA Lab Routine Rectal cancer Expected: 07/21/2022 (Approximate), Expires: 04/20/2023 [facility] Comment on above: Expected: 07/21/2022 (Approximate), Expi res: 04/20/2023 Start: 07-21-2022 End: 04-20-2023 CMPN WITHOUT GLUCOSE CMPN WITHOUT GLUCOSE Lab Routine Rectal cancer Expected: 07/21/2022 (Approximate), Expires: 04/20/2023 [facility] Comment on above: Expected: 07/21/2022 (Approximate), Expi res: 04/20/2023 Start: 07-21-2022 End: 04-20-2023 Complete blood count with white cell differential, automated CBC, EDIF, PLATELET Lab Routine Rectal cancer Expected: 07/21/2022 (Approximate), Expires: 04/20/2023 [facility] Comment on above: Expected: 07/21/2022 (Approximate), Expi res: 04/20/2023 Start: 07-18-2022 End: 07-18-2022 Telemedicine consultation with patient 07/18/2022 Telemedicine Oncology Stoney Arteaga MBBS [address] [place] [address] Division of Medical Oncology Start: 07-12-2022 End: 07-12-2022 Patient encounter procedure 07/12/2022 Appointment Computerized Tomography Scan Taj, Nikole, WOOD SKI MAKER-HIM ANALYST [address] [place] [address] [facility] Start: 07-12-2022 End: 07-12-2022 Clinical Support Encounter 07/12/2022 Clinical Support Encounter Clinical Pathology/Laboratory Medicine Stoney Arteaga MBBS [address] [place] [address] Clinical Lab [facility] 1 Start: 07-05-2022 Influenza vaccination [facility] Start: 06-25-2022 End: 06-25-2022 Patient encounter procedure 06/25/2022 Appointment Endoscopy Liliana Andrews MD [address] [facility] [address] [place] [address] [facility] Start: 06-22-2022 End: 06-22-2022 Patient encounter procedure 06/22/2022 Office Visit Radiation Oncology Hussain Bullard MD, PhD [address] [place] [address] Department of Radiation Oncology Start: 04-20-2022 End: 04-20-2023 CT Abdomen and Pelvis W contrast IV CT ABDOMEN/PELVIS WITH CONTRAST Imaging Routine Rectal cancer Expected: 04/20/2022, Expires: 04/20/2023 [facility] Comment on above: Expected: 04/20/2022, Expires: 3 Start: 04-20-2022 End: 04-20-2023 CT Chest W contrast IV CT CHEST WITH CONTRAST Imaging Routine Rectal cancer Expected: 04/20/2022, Expires: 04/20/2023 [facility] Comment on above: Expected: 04/20/2022, Expires: 3 Start: 01-12-2022 Colonoscopy COLORECTAL CANCER SCREENING DISCUSSION [facility] Start: 11-22-2021 End: 11-22-2021 Patient encounter procedure 11/22/2021 Office Visit Radiation Oncology Hussain Bullard MD, PhD [address] [place], [place] [address] [address] [place] [address] Department of Radiation Oncology Start: 07-21-2021 End: 07-21-2021 Clinical Support Encounter Clinical Lab [facility] 1 Start: 07-13-2021 End: 07-13-2021 Patient encounter procedure 07/13/2021 Office Visit Colon & Rectal Surgery Liliana Andrews MD [address] [facility] [address] [place] [address] Colorectal Surgery [facility] Start: 07-05-2021 Influenza vaccination INFLUENZA VACCINE (#1) [facility] Start: 2016 Pneumococcal vaccination PNEUMOCOCCAL VACCINE SERIES (1 of 1 - PCV) [facility] Start: 2016 Zoster vaccine hzv live for subcutaneous use ZOSTER (SHINGLES) VACCINE (1 of 2) [facility] Start: 2006 Fasting lipid profile LIPID SCREENING [facility] Start: 2006 Lipid panel LIPID SCREENING [facility] Start: 2006 Screening for malignant neoplasm of breast MAMMOGRAM SCREENING DISCUSSION [facility] Start: 2006 Screening mammography MAMMOGRAM SCREENING DISCUSSION [facility] Start: 1987 Screening for malignant neoplasm of cervix CERVICAL CANCER SCREENING DISCUSSION [facility] Start: 1985 Hepatitis B vaccination HEP B VACCINE (1 of 3 - 19+ 3-dose series) [facility] Start: 1985 Third diphtheria, tetanus and acellular pertussis (DTaP) vaccination TDAP (ADULT) [facility] Start: 1985 Zoster vaccine hzv live for subcutaneous use ZOSTER (SHINGLES) VACCINE (1 of 2) [facility] Start: 1984 Tetanus vaccination TETANUS [facility] Start: 1981 HIV screening HIV SCREENING DISCUSSION [facility] Start: 1978 COVID-19 VACCINE (1) COVID-19 VACCINE (1) [facility] Start: 1972 PNEUMOCOCCAL VACCINE SERIES (1 - PCV) PNEUMOCOCCAL VACCINE SERIES (1 - PCV) [facility] Start: 1972 PNEUMOCOCCAL VACCINE SERIES (1 of 2 - PCV) PNEUMOCOCCAL VACCINE SERIES (1 of 2 - PCV) [facility] Start: 1971 COVID-19 VACCINE (#1) COVID-19 VACCINE (#1) [facility] Start: 01-17-1967 COVID-19 VACCINE (#1) COVID-19 VACCINE (#1) [facility] Start: 1966 Tetanus vaccination TETANUS [facility] Bldr irrigation smpl lavage &/instlj [place] IRRIGATION BLADDER,SIMPLE [place] Charge Routine Acute urinary retention Ordered: 06/22/2021 [facility] Work Phone: Comment on above: Ordered: 06/22/2021 Chiropractic manipulation [facility] End: 06-27-2021 Computed tomography of abdomen and pelvis with contrast [facility] Work Phone: Comment on above: 1 Occurrences starting 06/27/2021 until 06/27/2021 End: 07-12-2022 CT Abdomen and Pelvis W contrast IV [facility] Work Phone: Comment on above: 1 Occurrences starting 07/12/2022 until 07/12/2022 End: 02-16-2023 CT Abdomen and Pelvis W contrast IV [facility] Work Phone: Comment on above: 1 Occurrences starting 02/16/2023 until 02/16/2023 End: 08-24-2023 CT Abdomen and Pelvis W contrast IV [facility] Work Phone: Comment on above: 1 Occurrences starting 08/24/2023 until 08/24/2023 End: 02-15-2024 CT Abdomen and Pelvis W contrast IV [facility] Work Phone: Comment on above: 1 Occurrences starting 02/15/2024 until 02/15/2024 End: 08-22-2024 CT Abdomen and Pelvis W contrast IV [facility] Work Phone: Comment on above: 1 Occurrences starting 08/22/2024 until 08/22/2024 End: 02-16-2023 CT Chest W contrast IV [facility] Work Phone: Comment on above: 1 Occurrences starting 02/16/2023 until 02/16/2023 End: 08-24-2023 CT Chest W contrast IV [facility] Work Phone: Comment on above: 1 Occurrences starting 08/24/2023 until 08/24/2023 End: 02-15-2024 CT Chest W contrast IV [facility] Work Phone: Comment on above: 1 Occurrences starting 02/15/2024 until 02/15/2024 End: 08-22-2024 CT Chest W contrast IV [facility] Work Phone: Comment on above: 1 Occurrences starting 08/22/2024 until 08/22/2024 Mala post-voiding residual urine&/bladder cap [place] MALA,POST-VOID RES,US,NON-IMAGING [place] Charge Routine Acute urinary retention Ordered: 06/22/2021 [facility] Comment on above: Ordered: 06/22/2021 MR Pelvis WO and W contrast IV [facility] Patient Education ED Chest Wall Pain, Costochondritis ED Pneumonia (Adult) ED Chest Wall Strain [facility] Work Phone: Patient referral [facility] Work Phone: [place] REMOVE JIMÉNEZ CATHETER W[place] REMOVE JIMÉNEZ CATHETER [place] - OFFICE PERFORMED Routine Acute urinary retention Ordered: 06/22/2021 [facility] Comment on above: Ordered: 06/22/2021 TCCP - GOLD TCCP - GOLD Lab Routine Examination of participant in clinical trial 02/24/2024 9:30 AM EDT [facility] TCCP - LAV TCC - LAV Lab R outine Examination of participant in clinical trial 02/24/2024 9:30 AM EDT [facility] TOTAL CANCER CARE PROTOCOL ([place] ONLY) TOTAL CANCER CARE PROTOCOL ([place] ONLY) Lab Routine Examination of participant in clinical trial 02/24/2024 9:30 AM EDT [facility] Work Phone: Payers Date Payer Category Payer Self-pay [id number] 2023 Managed Care (unspecified) [employer]ILLA [id number] .7.9.724569.25196.315 2023 Private Health Insurance AEALEXA VILLA [id number] 2023-Present [address] [place] [address] 1.2.840.560547.1.13.172.2 .7.3.513932.315 2023 Unknown [id number] 2020 Unknown ANTHEM ANTHEM HM O PPO POS [id number] 2020-Present [address] [place] [address] [id number] 1.2.840.890901.1.13.172.2 .7.3.760904.315 2020 Unknown ANTHEM ANTHEM HM O PPO POS [id number] 2020-Present [address] [place] [address] 1.2.840.134355.1.13.172.2 .7.3.327589.315 1965 Unknown [id number] 2.16.840.1.988520.3.579.2 .594 1965 Unknown [id number] 2.16.840.1.030104.3.579.2 .594 1965 Unknown [id number] 2..840.1.355493.3.579.2 .594 1965 Unknown [id number] 2..840.1.656011.3.579.2 .594 1965 Unknown [id number] 2..840.1.603389.3.579.2 .594 1965 Unknown [id number] 2.840.1.336136.3.579.2 .594 Unknown [id number] Unknown [id number] 2.840.1.501807.3.579.2 .462 Unknown [id number] 2.840.1.306817.3.579.2 .462 Unknown [id number] 2.840.1.901413.3.579.2 .462 Unknown [id number] 2.840.1.503544.3.579.2 .462 Unknown [id number] 2.840.1.300414.3.579.2 .462 Unknown [id number] 2.840.1.657688.3.579.2 .462 Unknown [id number] 2.840.1.008048.3.579.2 .462 Unknown [id number] 2.16840.1.758149.3.579.2 .462 Unknown [id number] 2.16840.1.715129.3.579.2 .462 Unknown [id number] 2.840.1.772084.3.579.2 .462 Unknown [id number] 2.16.840.1.092485.3.579.2 .462 Unknown [id number] 2.16.840.1.036723.3.579.2 .462 Unknown [id number] 2.16.840.1.719809.3.579.2 .462 Unknown [id number] 2.16.840.1.581915.3.579.2 .462 Unknown [id number] 2.16.840.1.846840.3.579.2 .462 Unknown [id number] 2.16.840.1.090525.3.579.2 .462 Unknown [id number] 2.16.840.1.897488.3.579.2 .462 Unknown [id number] 2.16.840.1.871480.3.579.2 .462 Unknown [id number] 2..840.1.691823.3.579.2 .462 Unknown [id number] 2.16.840.1.649408.3.579.2 .462 Unknown [id number] 2.16.840.1.917526.3.579.2 .462 Unknown [id number] 2.16.840.1.775548.3.579.2 .462 Unknown [id number] 2.16.840.1.758275.3.579.2 .462 Unknown [id number] 2.16840.1.293704.3.579.2 .462 Unknown [id number] 2.16.840.1.973439.3.579.2 .462 Unknown [id number] 2.16.840.1.784642.3.579.2 .462 Unknown [id number] 2.16840.1.263203.3.579.2 .462 Unknown [id number] 2.16.840.1.058867.3.579.2 .462 Social History Date Type Detail Facility Start: 01-26-2021 End: 12-07-2024 Tobacco smoking status NHIS Never smoker [facility] Start: 01-26-2021 End: 06-05-2024 Tobacco use and exposure Never used [facility] Start: 06-22-2021 End: 05-31-2025 Alcohol intake Lifetime non-drinker (finding) [facility] Start: 02-10-2021 History SDOH Alcohol Frequency 1 [facility] Start: 1965 Sex Assigned At Not on file [facility] Start: 11-16-2022 End: 11-26-2022 Exposure to SARS-CoV-2 (event) Not sure [facility] Start: 02-06-2021 End: 12-23-2023 Tobacco smoking status NHIS Unknown if ever smoked [facility] Start: 1965 Sex Assigned At Female [facility] Start: 02-10-2021 End: 05-31-2025 History of Social function [facility] Start: 02-10-2021 End: 05-31-2025 Alcohol Use Disorder Identification Test - Consumption [AUDIT-C] [facility] How often to you hav e a drink containing alcohol? Never [facility] Average Number of Drinks Not on file [facility] Start: 01-25-2021 Gender identity Identifies as female gender (finding) [facility] Start: 08-25-2018 End: 01-15-2025 Sex Female (finding) [facility] Goals Date Patient Goal Desired Activity /State Functional Status Date Assessment Result Facility 06-09-2021 Are you deaf, or do you have serious difficulty hearing No 06/09/2021 4:27 PM Sheryl Ott, AMEYA No [facility] 06-09-2021 Are you blind, or do you have serious difficulty seeing, even when wearing glasses No 06/09/2021 4:27 PM Sheryl Ott, RN No [facility] 06-09-2021 Do you have serious difficulty walking or climbing stairs No 06/09/2021 4:27 PM Sheryl Ott, AMEYA No [facility] 06-09-2021 Do you have difficul ty dressing or bathing No 06/09/2021 4:27 PM EDT Sheryl Hooker RN No [facility] 06-09-2021 Because of a physica l, mental, or emotional condition, do you have difficulty doing errands alone such as visiting a physician's office or shopping No 06/09/2021 4:27 PM EDT Sheryl Hooker RN No [facility] Mental Status Date Assessment Result Facility 12-23-2023 Cognitive function Voice/Name [facility] Work Phone: 06-09-2021 Because of a physica l, mental, or emotional condition, do you have serious difficulty concentrating, remembering, or making decisions No 06/09/2021 4:27 PM EDT Sheryl Hooker RN No [facility] Clinical Notes 06-22-2021 to 05-31-2025 YO Arriaza - 05/31/2025 1:40 PM EDTPatient InstructionsTelephone Encounter - Cristela Olivares RN - 05/14/2025 4:53 PM EDTTelephone Encounter - Cristela Olivares RN - 05/14/2025 4:53 PM EDT Note Date & Type Note Facility 05-31-2025 History of Presen t illness Narrative Attending [...] visit. She reports no new or different symptoms. A blood test was conducted in [place] last Saturday, but she does not have the results at hand. She is curious about the frequency of her CAT scans. Her last colonoscopy was performed in 2023, and she is due for another one in 2025. She underwent surgery on 06/24/2024. On physical exam, Patient was AO, Breath sounds were adequate on both sides, Cardiac exam was not concerning for abnormal rhythm or murmurs, No concerning new LAD, Abdominal exam was normal wo any tenderness or swelling or pain, No gross neurological problems were noticed Stage II Rectal Adenocarcinoma s/p neoadjuvant OVEN DAUBER and resection (had CR) TUMOR CHARACTERISTICS AT [...] CARRIE. Right sacral insufficiency fracture remains stable. - Scans: 02/04/2025, Did not show any evidence of disease Results Labs - CEA: 05/26/2025, 1.8, normal - CEA: 02/01/2025, 1.9, normal Imaging - Scans: 02/04/2025, Did not show any evidence of disease Assessment & Plan 1. Cancer. CEA levels are within the normal range, with a reading of 1.8 on 05/26/2025 and 1.9 on 02/01/2025. Scans from 02/04/2025 did not show any evidence of disease. A scan is recommended in August or September 2025 and another one in March or April 2026. After the scan in March or April 2026, further scans may be discontinued. Annual scans should continue for approximately 5 years post-surgery, until June 2026. A colonoscopy is also recommended in 2025. Blood work will be conducted during the visit in August 2025. Follow-up Follow up in 3 months, with subsequent scans and labs to be conducted in 6 months. Colon Cancer Surveillance PE/CEA - every 3mfor 2 years, followed by every 6m Imaging - Every 6m [facility] - years , last one in 06/27 RTC in 3m for labs and scans Patient was advised [...] opinion of the practitioner. documented in this encounter [facility] 05-31-2025 Instructions Ilya Mallory RN - 05/31/2025 1:40 PM EDT Return in [address] Arteaga with labs and scans prior Scans: 3 months documented in this encounter [facility] 05-14-2025 Telephone encount er Note Message to Nikole Vang CNP to see if ok to do her labs locally? 05/18/25 Lab order faxed to [facility]; fax # [phone], per patient's request. Pt made aware orders have been sent. [facility] 05-14-2025 Miscellaneous Notes Formattin g of this note might be different from the original. Message to Nikole Vang CNP to see if ok to do her labs locally? Laila returned call, requested to schedule for 05/31. She would like to have labs done locally ahead of time at [facility]. Images from the original note were not included. Per Nikole Vang NP on 05/10 via In basket - Please give this patient a lab and clinic appointment with Dr. Arteaga. Please inform the patient, that she missed her appointment in February and Dr. Arteaga would like to see her please. I called Laila and left a v/m w/ dept number. I asked her to call us back to schedule an appt with Dr. Arteaga w/ blood draw prior documented in this encounter [facility] 05-14-2025 Miscellaneous Notes Formattin g of this note might be different from the original. Message to Nikole Vang CNP to see if ok to do her labs locally? 05/18/25 Lab order faxed to [facility]; fax # [phone], per patient's request. Pt made aware orders have been sent. Laila returned call, requested to schedule for 05/31. She would like to have labs done locally ahead of time at [facility]. Images from the original note were not included. Per Nikole Vang NP on 05/10 via In basket - Please give this patient a lab and clinic appointment with Dr. Arteaga. Please inform the patient, that she missed her appointment in February and Dr. Arteaga would like to see her please. I called Laila and left a v/m w/ dept number. I asked her to call us back to schedule an appt with Dr. Arteaga w/ blood draw prior documented in this encounter [facility] 05-14-2025 Telephone encount er Note Laila returned call, requested to schedule for 05/31. She would like to have labs done locally ahead of time at [facility]. [facility] 05-10-2025 Telephone encount er Note Images from the original note were not included. Per Nikole Vang NP on 05/10 via In basket - Please give this patient a lab and clinic appointment with Dr. Arteaga. Please inform the patient, that she missed her appointment in February and Dr. Arteaga would like to see her please. I called Laila and left a ankit/jack w/ dept number. I asked her to call us back to schedule an appt with Dr. Arteaga w/ blood draw prior [facility] Evaluation note Diagnosis Onset Date Resolution Segmental [...] disc disease) chronic April 08, 2025 11:53am Segmental and somatic dysfunction of cervical region acute May 24, 2025 3:19pm Segmental and somatic dysfunction of lumbar region acute May 24, 2025 3:19pm Segmental and somatic dysfunction of pelvic region acute May 24, 2025 3:19pm Segmental and somatic dysfunction of thoracic region acute May 24, 2025 3:19pm DDD (degenerative disc disease) chronic May 24, 2025 3:19pm [facility] Work Phone: 1(143) 531-170204-04-2025 Radiology Diagnostic study note [facility] Imaging Services [address], [place] [id number] CT Chest, Abd, Pel w/Contrast MR#: [id number] Acct: [id number] Name: LAILA OLVERA ANN Rep #: [id number] : 1965 F 59 From: Lacho Evangelista MD PCP: Dr. Barney Brice MD Status: REG C LI Study:CT Chest, Abd, Pel w/Contrast Date of E xam: 02/04/25 Exam# [id number] Ordering Dr: GABBIE VANG PROCEDURE: CT CHEST, [...] Circumferential thickening of the rectum. Reading Location: [facility] CC: Dr. 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: Signed [facility]04-03-2025 Evaluation note* Diagnosis Onset Date Resolution Status Admit Date Segmental and somatic dysfunction of cervical region acute A pril 2024 11:51am Segmental and somatic dysfunction of lumbar region acute Apr il 2024 11:51am Segmental and somatic dysfunction of pelvic region acute Apr il 2024 11:51am Segmental and somatic dysfunction of thoracic region acute A pril 2024 11:51am DDD (degenerative disc disease) 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 February 04, 2025 11:51am Segmental and somatic dysfunction of cervical region acute A pril 2024 11:52am Segmental and somatic dysfunction of lumbar region acute Apr il 2024 11:52am Segmental and somatic dysfunction of pelvic region acute Apr il 2024 11:52am Segmental and somatic dysfunction of thoracic region acute A pril 2024 11:52am DDD (degenerative disc disease) [employer]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 February 18, 2025 11:52am Diastolic dysfunction [...] ay 2024 11:51am DDD (degenerative disc disease) [employer]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 March 04, 2025 11:51am Lower back pain acute April 08, 2025 11:53am Segmental and somatic dysfunction of cervical region acute J [facility] 2024 11:53am Segmental and somatic dysfunction of lumbar region acute Toy e 2024 11:53am Segmental and somatic dysfunction of pelvic region acute Toy e 2024 11:53am Segmental and somatic dysfunction of thoracic region acute J une 2024 11:53am DDD (degenerative disc disease) 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 April 08, 2025 11:53am Lower back pain acute May 3:19pm Segmental and somatic dysfunction of cervical region acute J umberto 2024 3:19pm Segmental and somatic dysfunction of lumbar region acute May 3:19pm Segmental and somatic dysfunction of pelvic region acute May 3:19pm Segmental and somatic dysfunction of thoracic region acute J umberto 2024 3:19pm [facility] Work Phone: 1(447) 999-713104-03-2025 Evaluation note* Diagnosis Onset Date Resolution Status Admit Date Segmental and somatic dysfunction of cervical region acute A pril 2024 11:51am Segmental and somatic dysfunction of lumbar region acute Apr il 2024 11:51am Segmental and somatic dysfunction of pelvic region acute Apr il 2024 11:51am Segmental and somatic dysfunction of thoracic region acute A pril 2024 11:51am DDD (degenerative disc disease) [employer]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 February 04, 2025 11:51am Segmental and somatic dysfunction of cervical region acute A pril 2024 11:52am Segmental and somatic dysfunction of lumbar region acute Apr il 2024 11:52am Segmental and somatic dysfunction of pelvic region acute Apr il 2024 11:52am Segmental and somatic dysfunction of thoracic region acute A pril 2024 11:52am DDD (degenerative disc disease) [employer]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 February 18, 2025 11:52am Diastolic dysfunction [...] ay 2024 11:51am DDD (degenerative disc disease) [employer]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 March 04, 2025 11:51am Lower back [...] une 2024 11:53am DDD (degenerative disc disease) [employer]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 April 08, 2025 11:53am Segmental and somatic dysfunction of cervical region acute J umberto 2024 3:19pm Segmental and somatic dysfunction of lumbar region acute May 3:19pm Segmental and somatic dysfunction of pelvic region acute May 3:19pm Segmental and somatic dysfunction of thoracic region acute J umberto 2024 3:19pm DDD (degenerative disc disease) [employer]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 May 24, 2025 3:19pm [facility] Work Phone: 1(229) 416-526003-06-2025 Evaluation note* Diagnosis Onset Date Resolution Status Admit Date Segmental and somatic dysfunction of cervical region acute M arch 2024 2:18pm Segmental and somatic dysfunction of lumbar region acute Mar ch 2024 2:18pm Segmental and somatic dysfunction of pelvic region acute Mar ch 2024 2:18pm Segmental and somatic dysfunction of thoracic region acute M arch 2024 2:18pm DDD (degenerative disc disease) [employer]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 January 07, 2025 2:18pm Segmental and somatic dysfunction of cervical region acute A pril 2024 11:51am Segmental and somatic dysfunction of lumbar region acute Apr il 2024 11:51am Segmental and somatic dysfunction of pelvic region acute Apr il 2024 11:51am Segmental and somatic dysfunction of thoracic region acute A pril 2024 11:51am DDD (degenerative disc disease) [employer]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 February 04, 2025 11:51am Segmental and somatic dysfunction of cervical region acute A pril 2024 11:52am Segmental and somatic dysfunction of lumbar region acute Apr il 2024 11:52am Segmental and somatic dysfunction of pelvic region acute Apr il 2024 11:52am Segmental and somatic dysfunction of thoracic region acute A pril 2024 11:52am DDD (degenerative disc disease) [employer]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 February 18, 2025 11:52am Diastolic dysfunction [...] ay 2024 11:51am DDD (degenerative disc disease) [employer]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 March 04, 2025 11:51am Lower back [...] une 2024 11:53am DDD (degenerative disc disease) sv[employer]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 April 08, 2025 11:53am [facility] Work Phone: 1(825) 127-804602-11-2025 Evaluation note* Diagnosis Onset Date Resolution Status [...] thoracic region acute J une 2024 11:53am [facility] Work Phone: 1(967) 910-525701-09-2025 Evaluation note* Diagnosis Onset Date Resolution Status Admit Date Segmental and somatic dysfunction of cervical region acute J anuary 2024 11:50am Segmental and somatic dysfunction of lumbar region acute Harjit ua2024 11:50am Segmental and somatic dysfunction of pelvic region acute Harjit ua 2024 11:50am Segmental and somatic dysfunction of [...] disc disease) chronic February 04, 2025 11:51am [facility] Work Phone: 1(319) 809-513612-05-2024 Evaluation note* Diagnosis Onset Date Resolution Status [...] somatic dysfunction of pelvic region acute Harjit [facility] 2024 11:50am Segmental and somatic dysfunction of [...] disc disease) chronic January 07, 2025 2:18pm [facility] Work Phone: 1(186) 831-161710-21-2024 History of Present illness Narrative* Nikole Vang APRN-HIM ANALYST - 08/24/2024 10:20 AM EDT GI MEDICAL ONCOLOGY CLINIC NOTE Attending: Dr. Arteaga Chief Complaint Patient presents with Follow-up ICD-10-CM [...] lb 8 oz) Height: 1.696 m (5' 6.77) APPEARANCE: Alert and oriented, Well-appearing EYES:nonicteric. HEENT: [...] Pathology T0N0, with no residual cancer. Dr. Arteaga offered surveillance versus adjuvant chemo. Patient decided to pursue surveillance. - Most recent colonoscopy completed in June 2024, with findings of normal colon exam. No specimens collected. Next colonoscopy due in 2025. Follows with Dr. Andrews. Ms. Olvrea presents for follow up. She is doing very well. No signs or symptoms to suggest disease recurrence. CT chest, abd/pelvis from 08/22/[address] Arteaga, which do not show evidence of disease [...] noticed Stage II Rectal Adenocarcinoma s/p neoadjuvant OVEN DAUBER and resection (had CR) TUMOR CHARACTERISTICS AT [...] showed CARRIE CT CAP on 02/16/23 Showed ACRRIE Bone scan on 03/05/23 showed questionable bone [...] are normal, she will be notified via Withings.In case of any abnormalities, a phone call [...] by every 6m Imaging - Every 6m [facility] [place] , last one in 06/27 [...] immediate medical attention. Note to patient: The Cures Act makes medical notes like these [...] opinion of the practitioner. [facility] Instructions* Patient Instructions* Ilya Mallory RN - 08/24/2024 10:20 AM EDT You will return in [address] Arteaga with labs and scans prior. [facility] History and physical note* Isra Murphy MD [...] Laterality: N/A; Surgeon: Liliana Andrews MD; Location: [facility] PERIOP SECTION KNEE SURGERY times 2 [...] error, please notify the sender immediately at [phone] and permanently delete the original report and [...] error, please notify the sender immediately at [phone] and permanently delete the original report and destroy any copies or printouts. [facility]08-02-2024 History and physical note* Isra Murphy MD [...] Laterality: N/A; Surgeon: Liliana Andrews MD; Location: [facility] PERIOP SECTION KNEE SURGERY times 2 [...] error, please notify the sender immediately at [phone] and permanently delete the original report and [...] by the Radiologist whose name is printed a livan. This report contains privileged and confidential information [...] error, please notify the sender immediately at [phone] and permanently delete the original report and destroy any copies or printouts. documented in this [facility]07-12-2024 History of Present illness Narrative* Gardenia Alfredo, MOIZ-HIM ANALYST - 05/15/2024 2:30 PM EDT RADIATION ONCOLOGY [...] Illness: Oncologic History: She underwent colonoscopy at [facility] on 01/12/21. The EVA revealed a palpable [...] CEA undetectable. 02/24/24: follow up with Dr. Arteaga Ms. Olvera is seen unaccompanied in clinic [...] like it made her very fitzgerald and not like herself. No other reported concerns. I have reviewed [...] on 08/22/24. She will follow with Dr. Arteaga on 08/26/23. We will plan to see [...] encouraged her to follow up with her production assembler. We will have her return in 1 year for clinical exam. We can coordinate visits with Dr. Arteaga. Thank you for allowing me to participate in the care of this patient. Please do not hesitate to contact me with any questions or concerns. [facility] Fuller Dept of Radiation Oncology [facility] History of Present illness Narrative* Stoney Arteaga MD, MBBS - 02/24/2024 10:20 AM EDT [...] well. Stage II Rectal Adenocarcinoma s/p neoadjuvant OVEN DAUBER and resection (had CR) TUMOR CHARACTERISTICS AT [...] I offered her to follow with Dr. Bullard alone for surveillance visits. We will make [...] attention. Documented by Omar Layton, for Dr. Arteaga on 02/24/2024 at 4:34 PM. All medical record entries madeby the Kin[facility] were at my direction and personally dictated by me, Stoney Arteaga MD, MBBS . I have reviewed and edited the [...] stick with the plan * Nikole Vang APRN-HIM ANALYST - 02/24/2024 10:20 AM EDT GI MEDICAL [...] Laterality: N/A; Surgeon: Liliana Andrews MD; Location: [facility] MAIN OR EXAM UNDER ANESTHESIA ANORECTAL N/A 02/15/2021 Laterality: N/A; Surgeon: Liliana Andrews MD; Location: [facility] PERIOP SECTION KNEE SURGERY times 2 [...] (Infrared) Resp 12 Ht 1.693 m (5' 6.65) Comment: without shoes Wt 86.6 kg (191 [...] Pathology T0N0, with no residual cancer. Dr. Arteaga offered surveillance versus adjuvant chemo. Patient decided [...] medical attention. CARRIE Lennon documented in this [facility]04-22-2024 Instructions* Patient Instructions* Tigist Mora RN - 02/24/2024 10:20 AM EDT Return in 6 months with RN labs and SCANS prior documented in this [facility]10-23-2023 History of Present illness Narrative* YO Arriaza [...] making. Stage II Rectal Adenocarcinoma s/p neoadjuvant OVEN DAUBER and resection (had CR) TUMOR CHARACTERISTICS AT [...] by every 6m Imaging - Every 6m [facility] [place] , last one in 06/25 [...] scans Documented by Ena Layton, for Dr. Arteaga on 08/26/2023 at 10:11 PM. All medical [...] the discharge instructions. Note to patient: The Cures Act makes medical notes like these [...] opinion of the practitioner. * Nikole Vang APRN-HIM ANALYST - 08/26/2023 1:40 PM EDT GI MEDICAL ONCOLOGY CLINIC NOTE Date of visit: 08/26/23 History/Reason for visit: Chief Complaint Patient presents with Follow-up Rectal cancer [C20] History of Present Illness: Laila Olvera is a 58 y.o. female who presents for follow up while on surveillance for rectal cancer. She reports doing very well. 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 States, she has new job that is [...] Laterality: N/A; Surgeon: Liliana Andrews MD; Location: [facility] MAIN OR EXAM UNDER ANESTHESIA ANORECTAL N/A 02/15/2021 Laterality: N/A; Surgeon: Liliana Andrews MD; Location: [facility] PERIOP SECTION KNEE SURGERY times 2 [...] (Oral) Resp 16 Ht 1.685 m (5' 6.34) Wt 87 kg (191 lb 12.8 oz) [...] Pathology T0N0, with no residual cancer. Dr. Arteaga offered surveillance versus adjuvant chemo. Patient decided [...] the office for urgent matters and use [employer] chart message for non-urgent matters. Advised to call 911 or go to the nearest emergency room for concerns requiring immediate medical attention. CARRIE Lennon [facility] Instructions* Patient Instructions* Dalton Tomlinson RN - 08/26/2023 1:40 PM EDT You will be scheduled for a video visit with Dr. Arteaga in 3 months. Get your tumor marker checked afew business days before this visit. You will return to the clinic in [address] Arteaga with scans a week prior and [employer]ACH[employer] labs dayof return (may get labs day of scans if preferred). [facility] History of Present illness Narrative* CARRIE Bullock [...] Illness: Oncologic History: She underwent colonoscopy at [facility] on 01/12/21. The EVA revealed a palpable [...] on 08/24/23. She will follow with Dr. Arteaga on 08/26/23. We will plan to see her back in 6-7 months or sooner if needed. Discussed we can alternate visits with Dr. Arteaga. 2. Other relevant issues/problems are as follows: [...] with any questions or concerns. Gardenia Alfredo APRN-HIM ANALYST Dept of Radiation Oncology I saw and independently examined this patient on 05/31/23. I discussed my findings and the therapeutic plan with the SCI[employer]. I agree with the [employer]'s history, physical examination, and medical decisions as [...] CT scans scheduled and follow-up with Dr. Arteaga in August. I will plan to seeher [...] clinical information in the electronic health record Hussain Bullard MD, PhD Medical Technologist Radiation Oncology Pager: [phone] * Michael Quintero Neel, WOOD SKI MAKER-HIM ANALYST - 05/31/2023 2:30 PM EDT RADIATION ONCOLOGY [...] Illness: Oncologic History: She underwent colonoscopy at [facility] on 01/12/21. The EVA revealed a palpable [...] weight is stable. 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 She reports that she has occasional LBP [...] on 08/24/23. She will follow with Dr. Arteaga on 08/26/23. We will plan to see [...] CARRIE England Dept of Radiation Oncology Dr. Bullard was present for and completed an independent history and physical on this patient. The case was discussed and plan of care developed by Dr. Bullard. documented in this encounter[facility] Instructions* Patient Instructions* CARRIE Mendoza - 05/31/2023 2:30 PM EDT Plan to follow-up in clinic with Dr. Bullard in 1 year. documented in this encounterGrant Hospital01-23-2023 History of Present illness Narrative* Nikole Vang, CARRIE - 11/26/2022 1:40 PM EST GI MEDICAL ONCOLOGY CLINIC NOTE Date of visit: 03/24/2021 History/Reason for visit: Chief Complaint Patient presents with Follow-up Rectal cancer [C20] History of Present Illness: Laila Olvera is a 57 y.o. female who presents for follow up while on surveillance for rectal cancer. She continues to do well. 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 Energy and appetite is good and has [...] Laterality: N/A; Surgeon: Liliana Andrews MD; Location: [facility] MAIN OR EXAM UNDER ANESTHESIA ANORECTAL N/A 02/15/2021 Laterality: N/A; Surgeon: Liliana Andrews MD; Location: [facility] PERIOP SECTION KNEE SURGERY times 2 [...] (Oral) Resp 14 Ht 1.69 m (5' 6.54) Comment: without shoes Wt 81.3 kg (179 [...] Pathology T0N0, with no residual cancer. Dr. Arteaga offered surveillance versus adjuvant chemo. Patient decided [...] labs and scans prior to see Dr. Arteaga Patient was advised to call the office should any questions or concerns arise in the interim. CARRIE Lennon documented in this encounterGrant Hospital01-23-2023 Instructions* Patient Instructions* Ilya Mallory RN - 11/26/2022 1:40 PM EST You will return in [address] Arteaga with labs/SCANS prior. CT scans: 3 months documented in this encounterOSU [facility] History and physical note* Sunny Wu MD, PhD - 06/25/2022 8:45 AM EDT ENDOSCOPIC PREPROCEDURE HISTORY AND PHYSICAL HISTORY OF PRESENT ILLNESS: Laila Olvera is a 56 y.o. female seen in the [facility]. The indication for endoscopic evaluation includes: Rectal cancer Post op surveillance PAST MEDICAL HISTORY: Past Medical History: Diagnosis Date Essential hypertension, benign History of radiation therapy Rectal cancer SURGICAL HISTORY: Past Surgical History: Procedure Laterality Date COLECTOMY PARTIAL ROBOTIC N/A 06/09/2021 Laterality: N/A; Surgeon: Liliana Andrews MD; Location: [facility] MAIN OR EXAM UNDER ANESTHESIA ANORECTAL N/A 02/15/2021 Laterality: N/A; Surgeon: Liliana Andrews MD; Location: [facility] PERIOP SECTION KNEE SURGERY times 2 [...] 67 SpO2: 99% Height: 1.702 m (5' 7) PREPROCEDURE PHYSICAL EXAM: AIRWAY: normal, Mallampati: Class [...] Wu MD, PhD General Surgery PGY-2 Pager: [phone] [facility] Work Phone: [phone] 442-583008-22-2022 History and physical note* Sunny Wu MD, PhD - 06/25/2022 8:45 AM EDT ENDOSCOPIC PREPROCEDURE HISTORY AND PHYSICAL HISTORY OF PRESENT ILLNESS: Laila Olvera is a 56 y.o. female seen in the preoprocedure area at [facility]. The indication for endoscopic evaluation includes: Rectal cancer Post op surveillance PAST MEDICAL HISTORY: Past Medical History: Diagnosis Date Essential hypertension, benign History of radiation therapy Rectal cancer SURGICAL HISTORY: Past Surgical History: Procedure Laterality Date COLECTOMY PARTIAL ROBOTIC N/A 06/09/2021 Laterality: N/A; Surgeon: Liliana Andrews MD; Location: [facility] MAIN OR EXAM UNDER ANESTHESIA ANORECTAL N/A 02/15/2021 Laterality: N/A; Surgeon: Liliana Andrews MD; Location: [facility] PERIOP SECTION KNEE SURGERY times 2 [...] 67 SpO2: 99% Height: 1.702 m (5' 7) PREPROCEDURE PHYSICAL EXAM: AIRWAY: normal, Mallampati: Class [...] Wu MD, PhD General Surgery PGY-2 Pager: [phone] documented in this encounterU [facility] History of Present illness Narrative* Gardenia Alfredo, MOIZ-HIM ANALYST - 06/22/2022 3:00 PM EDT RADIATION ONCOLOGY [...] Illness: Oncologic History: She underwent colonoscopy at [facility] on 01/12/21. The EVA revealed a palpable [...] Mild fatigue. 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 [...] on 07/12/22. She will follow with Dr. Arteaga on 07/18/22. We will plan to see her back in 6-7 months or sooner if needed. Discussed we can alternate visits with Dr. Arteaga. 2. In terms of radiation treatment sequelae, [...] seen independently of the attending physician. Dr. Bullard has been made aware of the assessment and plan. CARRIE Fuller Dept of Radiation Oncology * Ame Mcmullen RN - 06/22/2022 3:00 PM EDT documented in this encounterU [facility] Instructions* Patient Instructions* Cristela Olivares RN - 04/20/2022 11:01 AM EDT Video in [address] Arteaga, CT scans and labs prior. Ok to have labs drawn on same day as CT scans. Prescriptions today: none documented in this encounterOSU [facility] History of Present illness Narrative* YO Arriaza [...] Laterality: N/A; Surgeon: Liliana Andrews MD; Location: [facility] MAIN OR EXAM UNDER ANESTHESIA ANORECTAL N/A 02/15/2021 Laterality: N/A; Surgeon: Liliana Andrews MD; Location: [facility] PERIOP SECTION KNEE SURGERY times 2 [...] Assessment/Plan Stage II Rectal Adenocarcinoma s/p neoadjuvant OVEN DAUBER and resection (had CR) TUMOR CHARACTERISTICS AT [...] N0 disease and she had CR with OVEN DAUBER. After discussing pros/cons of adjuvant therapy, we [...] making. Stage II Rectal Adenocarcinoma s/p neoadjuvant OVEN DAUBER and resection (had CR) TUMOR CHARACTERISTICS AT [...] not tepeat CT w contrast now but ifKRISTINA comes back high, will consider it She is scheduled to have CSC in 05/25 with Juliana - that should be fine Colon Cancer Surveillance PE/CEA - every 3mfor 2 years, followed by every 6m Imaging - Every 6m CSC - years -in 05/25? RTC with scans * Nikole Vang APRN-HIM ANALYST - 04/20/2022 10:20 AM EDT GI MEDICAL ONCOLOGY CLINIC NOTE Date of visit: 03/24/2021 History/Reason for visit: Chief Complaint Patient presents with Follow-up Rectal cancer [C20] History of Present Illness: Laila Olvera is a 56 y.o. female who presents for follow up and Ct scan review. She continues to do well with great energy and appetite. 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 [...] Laterality: N/A; Surgeon: Liliana Andrews MD; Location: [facility] MAIN OR EXAM UNDER ANESTHESIA ANORECTAL N/A 02/15/2021 Laterality: N/A; Surgeon: Liliana Andrews MD; Location: [facility] PERIOP SECTION KNEE SURGERY times 2 [...] (Oral) Resp 16 Ht 1.693 m (5' 6.65) Comment: w/o shoes Wt 79.5 kg (175 [...] carcinoma Fourteen benign lymph nodes (0/11). at 1724 Diagnosis Comments Extensive fibrosis with calcifications consistent with treatment effect are identified, including some degenerating, partially calcified glands consistent with treated tumor. No definitive evidence of viable tumor is identified. Addendum This case was re-reviewed to confirm that the total number of benign lymph nodes detected was 14. (0/14). Addendum electronically signed by Juan Pablo Larose MD on 07/16/2021 at 7205 Synoptic Checklist COLON AND RECTUM: Resection, Including [...] Pathology T0N0, with no residual cancer. Dr. Arteaga offered surveillance versus adjuvant chemo. Patient decided [...] labs and scans prior to see Dr. Arteaga Patient was advised to call the office should any questions or concerns arise in the interim. CARRIE Lennon documented in this encounterGrant Hospital08-19-2021 History of Present illness Narrative* Galilea Gilmore APRN-HIM ANALYST - 06/22/2021 10:00 AM EDT Chief Complaint [...] F (36.3 C) Ht 1.702 m (5' 7) Wt 72.1 kg (159 lb) SpO2 100% BMI 24.90 kg/m Smoking Status Never Smoker Constitutional: NAD, WDWN. HEENT: NCAT. Conjunctivae normal. MMM. Pulmonary/Chest: Respirations are even and non-labored bilaterally. Abdominal: No obvious distension. Neurological: A + O x 3. Cranial Nerves II-XII grossly intact. Extremities: Warm. No clubbing. No cyanosis. Lower extremity edema: Skin: [place], warm and dry. No rashes noted. Psych: [...] clinic/ED protocol. Voiced understanding. Call or send Cy[employer] Call Communicationshart message for new gross hematuria, new urinary symptoms, or other questions or concerns At the conclusion of the discussion, all questions were answered to satisfaction and the patient agreed with the plan. * Tobias Rodriguez LPN - 06/22/2021 10:00 AM EDT Pt was given an explanation regarding the voiding trial and wishes to proceed. Pt undressed and the jiménze bag was removed from the catheter. The [...] any questions or concerns. documented in this encounterGrant HospitalEvaluation note* Diagnosis Acute urinary retention- Primary Other specified retention of urine documented [facility] this encounter [facility]* Diagnosis Abdominal wall abscess Cellulitis and abscess of trunk documented [facility] this encounter [facility]* Diagnosis Rectal cancer- Primary Malignant neoplasm of rectum documented [facility] this encounter [facility]* Diagnosis Rectal cancer Malignant neoplasm of rectum documented [facility] this encounter [facility]* Diagnosis Rectal cancer- Primary Malignant neoplasm of rectum documented [facility] this encounter [facility]* Diagnosis Rectal cancer Malignant neoplasm of rectum [facility] encounter [facility]* Diagnosis Rectal cancer Malignant neoplasm of rectum documented [facility] this encounter [facility]* Diagnosis Rectal cancer- Primary Malignant neoplasm of rectum documented [facility] this encounter [facility]* Diagnosis Rectal cancer Malignant neoplasm of rectum documented in this encounter [facility] noteNo assessment information available [facility] Work Phone: Evaluation note* Diagnosis Rectal cancer Malignant neoplasm of rectum documented [facility] this encounter [facility]* Diagnosis Onset Date Resolution Status Sacral insufficiency fracture acute [facility] Work Phone: Evaluation note* Diagnosis Encounter for follow-up examination after completed treatment for malignant neoplasm- Primary Unspecified follow-up examination Personal history of irradiation, presenting hazards to health Malignant neoplasm of rectum [facility] encounter [facility]* Diagnosis Rectal cancer Malignant neoplasm of rectum documented [facility]* Diagnosis Rectal cancer Malignant neoplasm of rectum [facility]* Diagnosis Rectal cancer- Primary Malignant neoplasm of rectum documented [facility]* Diagnosis Onset Date Resolution Status [facility] Work Phone: Evaluation note* Diagnosis Rectal cancer Malignant neoplasm of rectum [facility]* Diagnosis Rectal cancer Malignant neoplasm of rectum Examination of participant in clinical trial documented [facility]* Diagnosis Rectal cancer- Primary Malignant neoplasm of rectum [facility]* Diagnosis Vaginal discharge- Primary Leukorrhea, not specified as infective documented [facility] this [facility]* Diagnosis Rectal cancer Malignant neoplasm of rectum [facility]* Diagnosis Rectal cancer Malignant neoplasm of rectum Rectal cancer- Primary Malignant neoplasm of rectum documented [facility]* Diagnosis Rectal cancer- Primary Malignant neoplasm of rectum documented [facility]* Diagnosis Rectal cancer- Primary Malignant neoplasm of rectum documented in this encounter [facility] RehabilitationRecoxhealth for referral (narrative)No reason for referral information availableWDayton [facility] Work Phone: Summary Purpose Family History No Family History Records Found Relationship Condition Age at Onset Recorded Date/T dina father Congestive heart failure Unknown mother Hypertension [...] No February 06, 2021 6:05pm Power of Cat Hooker No February 06 6:05pm Latest Code Status on File Code Status Date Activated Date Inactivated Comments Full Code 06/09/2021 5:42 AM 06/09/2021 4:26 PM Advance Directive Response Recorded Date/ Time Living Will No December 23 024 8:02am Power of Cat Hooker No December 23, 2023 8:02am Date Activated Date Inactivated Comments 06/09/2021 5:42 AM 06/09/2021 4:26 PM Date Activated Date Inactivated Comments 06/09/2021 5:42 AM 06/09/2021 4:26 PM Advance Directive Response Recorded Date/ Time Living Will No December 23 024 9:02am Power of Cat Hooker No December 23, 2023 9:02am Advance Directive Response Recorded Date/ Time Living Will No December 23 9:02am Do you have a Healthcare Power of Cat Hooker? No December 23, 2023 9:02am Reason for Referral Specialty Diagnoses / Procedures Referred By Contac t Referred To Contact Diagnoses Abdominal wall abscess Procedures CT ABDOMEN/PELVIS WITH CONTRAST CHG CT SCAN,ABDOMENT AND PELVIS,W CONTRAST Liliana Andrews MD [address] [place] [address] [address] [place] [address] Referral ID Status Reason Start Date Expiration Date Visits Re quested Visits Authorized [id number] Closed 06/27/2021 07/22/2022 1 1 Specialty Diagnoses / Procedures Referred By Contac t Referred To Contact Diagnoses Rectal cancer Procedures CT ABDOMEN/PELVIS WITH CONTRAST CHG CT SCAN,ABDOMENT AND PELVIS,W CONTRAST Nikole Vang, WOOD SKI MAKER-HIM ANALYST [address] [place] [address] Referral ID Status Reason Start Date Expiration Date V isits Requested Visits Authorized [id number] New Request 04/20/2022 05/15/2023 1 1 Specialty Diagnoses / Procedures Referred By Contac t Referred To Contact Diagnoses Rectal cancer Procedures CT CHEST WITH CONTRAST CHG DIAGNOSTIC COMPUTED TOMOGRAPHY THORAX W/CONTRAST Nikole Vang, WOOD SKI MAKER-HIM ANALYST [address] [place] [address] Referral ID Status Reason Start Date Expiration Date V isits Requested Visits Authorized [id number] New Request 04/20/2022 05/15/2023 1 1 Specialty Diagnoses / Procedures Referred By Contac t Referred To Contact Diagnoses Rectal cancer Procedures DIAGNOSTIC COLONOSCOPY WY COLONOSCOPY FLX DX W/COLLJ SPEC WHEN PFRMD Liliana Andrews MD [address] [facility] [address] [place] [address] Referral ID Status Reason Start Date Expiration Date Visits Re quested Visits Authorized [id number] Closed 04/12/2022 05/07/2023 1 1 Referral ID Status Reason Start Date Expiration Date Visits Re quested Visits Authorized [id number] Closed 04/20/2022 05/15/2023 1 1 Referral ID Status Reason Start Date Expiration Date V isits Requested Visits Authorized [id number] New Request 11/26/2022 12/21/2023 1 1 Referral ID Status Reason Start Date Expiration Date V isits Requested Visits Authorized [id number] New Request 11/26/2022 12/21/2023 1 1 Referral ID Status Reason Start Date Expiration Date V isits Requested Visits Authorized [id number] Pending Review 11/26/2022 12/21/2023 1 1 Referral ID Status Reason Start Date Expiration Date V isits Requested Visits Authorized [id number] Pending Review 11/26/2022 12/21/2023 1 1 Specialty Diagnoses / Procedures Referred By Contac t Referred To Contact Diagnoses Rectal cancer Procedures MRI PELVIS MSK WITH AND WITHOUT CONTRAST MRI HIP RIGHT WITH AND WITHOUT CONTRAST WY MRI, JOINT OF LEG. COMBO WY MRI, PELVIS, COMBO Stoney Arteaga MBBS [address] [place] [address] Referral ID Status Reason Start Date Expiration Date Visits Re quested Visits Authorized [id number] Closed 03/11/2023 04/04/2024 1 1 Specialty Diagnoses / Procedures Referred By Contac t Referred To Contact Diagnoses Rectal cancer Procedures CT CHEST WITH CONTRAST CHG DIAGNOSTIC COMPUTED TOMOGRAPHY THORAX W/CONTRAST Stoney Arteaga MBBS [address] [place] [address] Referral ID Status Reason Start Date Expiration Date Visits Re quested Visits Authorized [id number] Closed 02/25/2023 03/21/2024 1 1 Specialty Diagnoses / Procedures Referred By Contac t Referred To Contact Diagnoses Rectal cancer Procedures CT ABDOMEN/PELVIS WITH CONTRAST CHG CT SCAN,ABDOMENT AND PELVIS,W CONTRAST Stoney Arteaga MBBS [address] [place] [address] Referral ID Status Reason Start Date Expiration Date Visits Re quested Visits Authorized [id number] Closed 02/25/2023 03/21/2024 1 1 Referral ID Status Reason Start Date Expiration Date V isits Requested Visits Authorized [id number] New Request 08/26/2023 09/19/2024 1 1 Referral ID Status Reason Start Date Expiration Date V isits Requested Visits Authorized [id number] New Request 08/26/2023 09/19/2024 1 1 Referral ID Status Reason Start Date Expiration Date V isits Requested Visits Authorized [id number] Pending Review 08/26/2023 09/19/2024 1 1 Referral ID Status Reason Start Date Expiration Date V isits Requested Visits Authorized [id number] Pending Review 08/26/2023 09/19/2024 1 1 Referral ID Status Reason Start Date Expiration Date V isits Requested Visits Authorized [id number] New Request 02/24/2024 03/20/2025 1 1 Referral ID Status Reason Start Date Expiration Date V isits Requested Visits Authorized [id number] New Request 02/24/2024 03/20/2025 1 1 Specialty Diagnoses / Procedures Referred By Contac t Referred To Contact Diagnoses Rectal cancer Procedures DIAGNOSTIC COLONOSCOPY WY COLONOSCOPY FLX DX W/COLLJ SPEC WHEN Liliana Joseph MD [address] [facility] [address] [place] [address] Referral ID Status Reason Start Date Expiration Date Visits Re quested Visits Authorized [id number] Closed 05/18/2024 03/20/2025 1 1 Referral ID Status Reason Start Date Expiration Date Visits Re quested Visits Authorized [id number] Closed 02/24/2024 03/20/2025 1 1 Referral ID Status Reason Start Date Expiration Date Visits Re quested Visits Authorized [id number] Closed 02/24/2024 03/20/2025 1 1 Specialty Diagnoses / Procedures Referred By Contguillermo t Referred To Contact Diagnoses Rectal cancer Procedures CT ABDOMEN/PELVIS WITH CONTRAST CHG CT ABDOMEN & PELVIS W/CONTRAST MATERIAL Nikole Vang, WOOD SKI MAKER-HIM ANALYST [address] [place] [address] Referral ID Status Reason Start Date Expiration Date V isits Requested Visits Authorized [id number] New Request 08/24/2024 09/18/2025 1 1 Referral ID Status Reason Start Date Expiration Date V isits Requested Visits Authorized [id number] New Request 08/24/2024 09/18/2025 1 1 Chief [...] tho racic region May 24, 2025 3:19pm Chief Complaint Admit Date Back pain February 04, 2025 11:5 1am SURVEILLANCE RECTAL CANCER February 04 2:26pm BACK PAIN February 18, 2025 11: 52am 3 M FU March 02, 2025 10: 11am Back pain March 04, 2025 11:51a m Back pain April 08, 2025 11:53 am Back pain May 24, 2025 3:19 pm LAB DRAW RECTAL CANCER May 26, 2025 2 :54pm Reason for Visit Admit Date Segmental and [...] 11:53am DDD (degenerative disc disease) April 11:53am Segmental and somatic dysfunction of cer vical region May 24, 2025 3:19pm Segmental and somatic dysfunction of lum bar region May 24, 2025 3:19pm Segmental and somatic dysfunction of pel mick region May 24, 2025 3:19pm Segmental and somatic dysfunction of tho racic region May 24, 2025 3:19pm DDD (degenerative disc disease) May 3:19pm Chief Complaint Admit Date BACK PAIN February 18, 2025 11: 52am 3 M FU March 02, 2025 10: 11am Back pain March 04, 2025 11:51a m Back pain April 08, 2025 11:53 am Back pain May 24, 2025 3:19 pm LAB DRAW RECTAL CANCER May 26, 2025 2 :54pm Back pain June 10, 2025 11: 50am Reason for Visit Admit Date Segmental and [...] 11:53am DDD (degenerative disc disease) April 11:53am Segmental and somatic dysfunction of cer vical region May 24, 2025 3:19pm Segmental and somatic dysfunction of lum bar region May 24, 2025 3:19pm Segmental and somatic dysfunction of pel mick region May 24, 2025 3:19pm Segmental and somatic dysfunction of tho racic region May 24, 2025 3:19pm DDD (degenerative disc disease) May 3:19pm Additional Source Comments INFORMATION SOURCE (unrecogn ized section and content) DATE CREATED AUTHOR 06/06/2021 [facility] DATE CREATED AUTHOR AUTHOR'S ORGANIZ ATION 06/01/2025 [facility] DATE CREATED AUTHOR AUTHOR'S ORGANIZ ATION 06/11/2025 [facility] Reason for Visit (unrecogniz ed section and content) Reason Comments Follow-up Specialty Diagnoses / Procedures Referred By Contac t Referred To Contact Medical Oncology / Oncology Diagnoses 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 labs/scans prior Procedures RETURN PATIENT Barney Brice MD [address] [place] [address] Stoney Arteaga MBBS [address] [place] [address] Referral ID Status Reason Start Date Expiration Date Visits Re quested Visits Authorized [id number] Closed 08/26/2023 09/19/2024 1 1 Reason Comments Labs Only Specialty Diagnoses / Procedures Referred By Contac t Referred To Contact Clinical Pathology/Laboratory Medicine Diagnoses Vito labs Procedures BLOOD DRAW Clinical Lab Augustin Milton [address] [facility] [address] [place] [address] Referral ID Status Reason Start Date Expiration Date Visits Re quested Visits Authorized [id number] Closed 08/26/2023 09/19/2024 1 1 Reason Comments New Patient void trial Specialty Diagnoses / Procedures Referred By Contac t Referred To Contact Urology Diagnoses Rectal cancer Acute urinary retention Mirtha Linares, WOOD SKI MAKER-HIM ANALYST [address] [facility] [address] [place] [address] Referral ID Status Reason Start Date Expiration Date V isits Requested Visits Authorized [id number] New Request 06/14/2021 07/09/2022 1 1 Specialty Diagnoses / Procedures Referred By Contac t Referred To Contact Diagnoses Abdominal wall abscess Procedures CT ABDOMEN/PELVIS WITH CONTRAST CHG CT SCAN,ABDOMENT AND PELVIS,W CONTRAST Liliana Andrews MD [address] [address] Referral ID Status Reason Start Date Expiration Date Visits Re quested Visits Authorized [id number] Closed 06/27/2021 07/22/2022 1 1 Reason Comments Follow-up Specialty Diagnoses / Procedures Referred By Contac t Referred To Contact Diagnoses Rectal cancer Procedures DIAGNOSTIC COLONOSCOPY WY COLONOSCOPY FLX DX W/COLLJ SPEC WHEN PFRMD Liliana Andrews MD [address] [facility] [address] [place] [address] Referral ID Status Reason Start Date Expiration Date Visits Re quested Visits Authorized [id number] Closed 04/12/2022 05/07/2023 1 1 Specialty Diagnoses / Procedures Referred By Contac t Referred To Contact Diagnoses Rectal cancer Procedures CT ABDOMEN/PELVIS WITH CONTRAST CHG CT SCAN,ABDOMENT AND PELVIS,W CONTRAST Umar, Nikole, WOOD SKI MAKER[employer]HIM ANALYST [address] [facility] [address] [place] [address] Referral ID Status Reason Start Date Expiration Date Visits Re quested Visits Authorized [id number] Closed 04/20/2022 05/15/2023 1 1 Specialty Diagnoses / Procedures Referred By Contac t Referred To Contact Diagnoses Rectal cancer Procedures CT CHEST WITH CONTRAST CHG DIAGNOSTIC COMPUTED TOMOGRAPHY THORAX W/CONTRAST Umar, Nikole, WOOD SKI MAKER-HIM ANALYST [address] [facility] [address] [place] [address] Referral ID Status Reason Start Date Expiration Date V isits Requested Visits Authorized [id number] Pending Review 11/26/2022 12/21/2023 1 1 Referral ID Status Reason Start Date Expiration Date V isits Requested Visits Authorized [id number] Pending Review 11/26/2022 12/21/2023 1 1 Specialty Diagnoses / Procedures Referred By Contac t Referred To Contact Diagnoses Rectal cancer Procedures MRI PELVIS MSK WITH AND WITHOUT CONTRAST MRI HIP RIGHT WITH AND WITHOUT CONTRAST [place] MRI, JOINT OF LEG. COMBO [place] MRI, PELVIS, COMBO Stoney [place] [address] Referral ID Status Reason Start Date Expiration Date Visits Re quested Visits Authorized [id number] Closed 03/11/2023 04/04/2024 1 1 Specialty Diagnoses / Procedures Referred By Contac t Referred To Contact Diagnoses Rectal cancer Procedures CT CHEST WITH CONTRAST CHG DIAGNOSTIC COMPUTED TOMOGRAPHY THORAX W/CONTRAST Stoney Arteaga MBBS [address] [place] [address] Referral ID Status Reason Start Date Expiration Date Visits Re quested Visits Authorized [id number] Closed 02/25/2023 03/21/2024 1 1 Specialty Diagnoses / Procedures Referred By Contac t Referred To Contact Diagnoses Rectal cancer Procedures CT ABDOMEN/PELVIS WITH CONTRAST CHG CT SCAN,ABDOMENT AND PELVIS,W CONTRAST Stoney Arteaga MBBS [address] [place] [id number] Referral ID Status Reason Start Date Expiration Date Visits Re quested Visits Authorized [id number] Closed 02/25/2023 03/21/2024 1 1 Referral ID Status Reason Start Date Expiration Date V isits Requested Visits Authorized [id number] Pending Review 08/26/2023 09/19/2024 1 1 Referral ID Status Reason Start Date Expiration Date V isits Requested Visits Authorized [id number] Pending Review 08/26/2023 09/19/2024 1 1 Specialty Diagnoses / Procedures Referred By Contac t Referred To Contact Clinical Pathology/Laboratory Medicine Diagnoses Vito lab Procedures BLOOD DRAW Stoney Arteaga MD, MBBS [address] [place] [address] Clinical Lab [place] [address] [address] [address] Referral ID Status Reason Start Date Expiration Date Visits Re quested Visits Authorized [id number] Closed 02/24/2024 03/20/2025 1 1 Specialty Diagnoses / Procedures Referred By Contac t Referred To Contact Medical Oncology / Oncology Diagnoses 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, 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,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 Procedures RETURN PATIENT Stoney Arteaga MD, YO [address] [place] [address] Stoney Arteaga MD, MBBS [address] [facility] [address] [place] [address] Referral ID Status Reason Start Date Expiration Date Visits Re quested Visits Authorized [id number] Closed 02/24/2024 03/20/2025 1 1 Specialty Diagnoses / Procedures Referred By Contac t Referred To Contact Diagnoses Rectal cancer Procedures DIAGNOSTIC COLONOSCOPY [place] COLONOSCOPY FLX DX W/COLLJ SPEC WHEN PFRMD Liliana Andrews MD [address] [facility] [address] [place] [address] Referral ID Status Reason Start Date Expiration Date Visits Re quested Visits Authorized [id number] Closed 05/18/2024 03/20/2025 1 1 Referral ID Status Reason Start Date Expiration Date Visits Re quested Visits Authorized [id number] Closed 02/24/2024 03/20/2025 1 1 Referral ID Status Reason Start Date Expiration Date Visits Re quested Visits Authorized [id number] Closed 02/24/2024 03/20/2025 1 1 Reason Onset Date Comments Schedule Test/Referral 05/10/2025 Care Teams (unrecognized sec tion and content) News Video Editor Relationship Specialty Start Date End Date Barney Brice MD [address] [facility] [address] [place] [address] PCP - General Family Medicine 01/26/21 News Video Editor Relationship Specialty Start Date End Date Barney Brice MD [address] [facility] [address] [place] [address] PCP - General Family Medicine 01/26/21 News Video Editor Relationship Specialty Start Date End Date Barney Brice MD [address] [facility] [address] [place] [address] PCP - General Family Medicine 01/26/21 News Video Editor Relationship Specialty Start Date End Date Barney Brice MD [address] [facility] [address] [place] [address] PCP - General Family Medicine 01/26/21 News Video Editor Relationship Specialty Start Date End Date Barney Brice MD [address] [facility] [address] [place] [address] PCP - General Family Medicine 01/26/21 News Video Editor Relationship Specialty Start Date End Date Barney Brice MD [address] [facility] [place] [address] PCP - General Family Medicine 01/26/21 News Video Editor Relationship Specialty Start Date End Date Barney Brice MD [address] [facility] [address] [place] [address] PCP - General Family Medicine 01/26/21 News Video Editor Relationship Specialty Start Date End Date Barney Brice MD [address] [facility] [address] [place] [address] PCP - General Family Medicine 01/26/21 News Video Editor Relationship Specialty Start Date End Date Barney Brice MD [address] [facility] [address] [place] [address] PCP - General Family Medicine 01/26/21 News Video Editor Relationship Specialty Start Date End Date Barney Brice MD [address] [facility] [address] [place] [address] PCP - General Family Medicine 01/26/21 Team [...] Provi tony, Attending Provider, Referring Provider Active News Video Editor Relationship Specialty Start Date End Date Barney Brice MD [address] [facility] [address] [place] [address] PCP - General Family Medicine 01/26/21 Team [...] Dr. Stephane Dumas DO Attending Provider, Referring Mena schulz Active News Video Editor Relationship Specialty Start Date End Date Barney Brice MD [address] [place] [place] [address] PCP - General Family Medicine 01/26/21 News Video Editor Relationship Specialty Start Date End Date Barney Brice MD [address] [place] [place] [address] PCP - General Family Medicine 01/26/21 News Video Editor Relationship Specialty Start Date End Date Barney Brice MD [address] [place] [place] [address] PCP - General Family Medicine 01/26/21 News Video Editor Relationship Specialty Start Date End Date Barney Brice MD [address] [place] [place] [address] PCP - General Family Medicine 01/26/21 News Video Editor Relationship Specialty Start Date End Date Barney Brice MD [address] [place] [place] [address] PCP - General Family Medicine 01/26/21 Team Status: Inactive Member Role Status Dates Dr. Barney Brice MD Primary Care Provider, Referring Provider Active Igor MCKEON, PA Attending Provider Active Team Status: Inactive [...] MD Primary Care Provider, Attending Provider Active News Video Editor Relationship Specialty Start Date End Date Barney Brice MD [address] [place] [address] PCP - General Family Medicine 01/26/21 News Video Editor Relationship Specialty Start Date End Date Barney Brice MD [address] [place] [place] [address] PCP - General Family Medicine 01/26/21 News Video Editor Relationship Specialty Start Date End Date Barney Brice MD [address] [place] [place] [address] PCP - General Family Medicine 01/26/21 News Video Editor Relationship Specialty Start Date End Date Barney Brice MD [address] [place] [place] [address] PCP - General Family Medicine 01/26/21 News Video Editor Relationship Specialty Start Date End Date Barney Brice MD [address] [place] [place] [address] PCP - General Family Medicine 01/26/21 News Video Editor Relationship Specialty Start Date End Date Barney Brice MD [address] [place] [place] [address] PCP - General Family Medicine 01/26/21 News Video Editor Relationship Specialty Start Date End Date Barney Brice MD [address] [place] [place] [address] PCP - General Family Medicine 01/26/21 News Video Editor Relationship Specialty Start Date End Date Barney Brice MD [address] [place] [place] [address] PCP - General Family Medicine 01/26/21 News Video Editor Relationship Specialty Start Date End Date Barney Brice MD [address] [place] [place], [place] [address] PCP - General Family Medicine 01/26/21 Team [...] February 01, 2025 End: February 01, 2025 NIKOLE, UMAR Attending Provider Active Start: [facility] 2024 End: February 01, 2025 NIKOLE, UMAR Referring Provider Active Start: [facility] 2024 End: February 01, 2025 Team Status: [...] February 04, 2025 End: February 04, 2025 NIKOLE, UMAR Attending Provider Active Start: [facility] 2024 End: February 04, 2025 NIKOLE, UMAR Referring Provider Active Start: Ap [facility] 2024 [...] April 15, 2025 End: April 15, 2025 News Video Editor Relationship Specialty Start Date End Date Barney Brice MD PCP - General Family Medicine 01/26/21 Team Status: Active Member Role/Relationship Status Dates Dr. Barney Brice MD Primary Care Provider Active Team Status: Inactive Member Role/Relationship Status Dates Dr. Barney Brice MD Primary Care Provider Active Start: February 01, 2025 End: February 01, 2025 TAJ AGUSTIN Attending Provider Active Start: [facility] 2024 End: February 01, 2025 TAJ AGUSTIN Referring Provider Active Start: [facility] 2024 End: February 01, 2025 Team Status: [...] February 04, 2025 End: February 04, 2025 NIKOLE TAJ Attending Provider Active Start: [facility] 2024 End: February 04, 2025 NIKOLE, EZRA Referring Provider Active Start: Ap ril 2024 [...] May 24, 2025 End: May 24, 2025 Team Status: Inactive Member Role/Relationship Status Dates Dr. Barney Birce MD Primary Care Provider Active Start: May 04, 2025 Dr. Krystyna Zhou MD Attending Provider Active Start: May 04, 2025 Team Status: Inactive Member Role/Relationship Status Dates Dr. Barney Brice MD Primary Care Provider Active Start: May 24, 2025 End: May 24, 2025 Dr. Barney Brice MD Referring Provider Active Start: May 24, 2025 End: May 24, 2025 Dr. Evelyn Painter DC Attending Provider Active S tart: May 24, 2025 End: May 24, 2025 Team Status: Inactive Member Role/Relationship Status Dates Dr. Barney Brice MD Primary Care Provider Active Start: May 26, 2025 End: May 26, 2025 Nikole Vang , [employer] Attending Provider Active Sta rt: May 26, 2025 End: May 26, 2025 Nikole Teddyar , [employer]C Referring Provider Active Sta rt: May 26, 2025 End: May 26, 2025 News Video Editor Relationship Specialty Start Date End Date Barney Brice MD PCP - General Family Medicine 01/26/21 Team Status: Inactive Member Role/Relationship Status Dates [...] MD Primary Care Provider Active Start: May 04, 2025 Dr. Krystyna Zhou MD Attending Provider Active Start: May 04, 2025 Team Status: Inactive Member Role/Relationship Status Dates Dr. Barney Brice MD Primary Care Provider Active Start: May 24, 2025 End: May 24, 2025 Dr. Barney Brice MD Referring Provider Active Start: May 24, 2025 End: May 24, 2025 Dr. Evelyn Painter DC Attending Provider Active S tart: May 24, 2025 End: May 24, 2025 Team Status: Inactive Member Role/Relationship Status Dates Dr. Barney Brice MD Primary Care Provider Active Start: May 26, 2025 End: May 26, 2025 Nikole Vang [employer] Attending Provider Active Sta rt: May 26, 2025 End: May 26, 2025 Nikole Vang [employer] Referring Provider Active Sta rt: May 26, 2025 End: May 26, 2025 Team Status: Inactive Member Role/Relationship Status Dates Dr. Barney Brice MD Primary Care Provider Active Start: June 10, 2025 End: June 10, 2025 Dr. Barney Brice MD Referring Provider Active Start: June 10, 2025 End: June 10, 2025 Dr. Evelyn Painter DC Attending Provider Active S tart: June 10, 2025 End: June 10, 2025 Goals (unrecognized section and content) Goals [...] BE BASED ON THE PRIMARY CLINICAL RECORDS. [employer]. provides no warranty or guarantee of the accuracy or completeness of information in this document.
== END | disposition home or self-care (01) ==
LOC: SL 19:46
PROVIDERS: PCP Family Medicine; Referring Provider Internal Medicine Pulmonary Disease; Visit Provider Internal Medicine Pulmonary Disease
DX: G47.10 Hypersomnia, unspecified (principal)
CPT/HCPCS: 95810

== ENCOUNTER → 2025-09-01 | Outpatient (CLI) | payer OTHER, SELFPAY | END | disposition home or self-care (01) | LOC: SL 19:43 | PROVIDERS: PCP Family Medicine; Referring Provider Nurse Practitioner Family; Visit Provider Nurse Practitioner Family | DX: G47.33 Obstructive sleep apnea (adult) (pediatric) (principal) | CPT/HCPCS: 95811 ==